=== PATIENT | male | born 1945 | race Caucasian/White ===

== ENCOUNTER 2019-04-28 13:33 | Inpatient (IN) | payer MEDICARE ==
[2019-04-28] MEDS ORDERED: ASPIRIN 81 MG PO STA (13:47)
[2019-04-28] MEDS ORDERED: NITROGLYCERIN SL TABS 0.4 MG TAB SUBLINGUAL STA (13:47)
--- NOTE | 2019-04-28 13:47 | ED ---
Chest Pain HPI - General Source: patient Mode of arrival: ambulatory Limitations: no limitations, physical limitation <Angie Moss - Last Filed: 04/28/19 15:52> <Oscar Grier - Last Filed: 04/28/19 16:01> - General Chief Complaint: Chest Pain Stated Complaint: Chest discomfort Time Seen by Provider: 04/28/19 13:46 - History of Present Illness Initial Comments: 73-year-old male presents emergency department for evaluation of chest pressure since 12 PM. Patient states she has had mild chest discomfort for the past 2 days. He states it increased after physical therapy earlier today when he got home around 4 PM and was sitting down for lunch. He states became sweaty at this time. He had left arm pain. Patient states the symptoms have somewhat subsided somewhat. However he was concerned he may be having a heart attack and presents emergency room for evaluation. Patient denies any previous MIs or known coronary artery disease. He states his last catheterization was in 2000. Patient states he does have a loop recorder--and does have a upper caser down at [facility] but he does not want to be transferred. Patient states he is on the xarelto for atrial fibrillation. Patient denies any syncopal episodes ripping tearing back pain abdominal pain masses or known aneurysms. The patient denies lower extremity swelling pleuritic pain upper respiratory symptoms or fevers. Patient has no other complaints upon arrival patient appears in no distress. He is not diaphoretic. Blood pressure is noted to be elevated. (Angie Moss) - Related Data Home Medications Medication Instructions Recorded Confirmed Lansoprazole [Prevacid] 30 mg PO DAILY 03/09/14 03/02/16 Docusate [Colace] 100 mg PO BID 10/30/15 03/02/16 Glucosam/Sergio-Msm1/C/Kin/Bosw 1 tab PO BID 10/30/15 03/02/16 [Glucosamine-Chondroitin Tablet] Multivitamin [Men's Multi-Vitamin] 1 tab PO DAILY 10/30/15 03/02/16 traMADol HCl [Ultram] 50 mg PO TID PRN 10/30/15 03/02/16 Baclofen [Lioresal] 10 - 20 mg PO Q6H PRN 03/02/16 03/02/16 Calcium Carbonate/Vitamin D3 1 tab PO BID 03/02/16 03/02/16 [Calcium 600-Vit D3 800 Tab] HYDROcodone/APAP 5-325MG [[place] 1 tab PO TID PRN 03/02/16 03/02/16 5-325] Hydrocortisone [Cortef] 10 mg PO DAILY@1600 03/02/16 03/02/16 Hydrocortisone [Cortef] 30 mg PO DAILY@0800 03/02/16 03/02/16 Simvastatin [Zocor] 20 mg PO DAILY 03/02/16 03/02/16 Previous Rx's Medication Instructions Recorded Aspirin EC [Ecotrin] 325 mg PO DAILY #30 tablet. 11/01/15 Allergies Allergy/AdvReac Type Severity Reaction Status Date / Time baclofen AdvReac Hallucinati Verified 03/02/16 09:45 ons meperidine HCl [From Demerol] AdvReac Nausea & Verified 03/02/16 08:55 Vomiting sulfamethoxazole AdvReac Rash/Hives Verified 03/02/16 08:55 [From Bactrim] trimethoprim [From Bactrim] AdvReac Rash/Hives Verified 03/02/16 08:55 Review of Systems ROS Other: All systems not noted in ROS Statement are negative. <Angie Moss - Last Filed: 04/28/19 15:52> ROS Other: All systems not noted in ROS Statement are negative. <Oscar Grier - Last Filed: 04/28/19 16:01> ROS Statement: Those systems with pertinent positive or pertinent negative responses have been documented in the HPI. EKG Findings - EKG Comments: EKG Findings:: Initial EKG obtained at 1348. Ventricular rate 78 bpm, DC interval 196 ms, QRS duration 100 ms, QT/QTC 378/430 milliseconds. There is no ST elevation appreciated. No hyperacute T waves. There is noted to be a sinus arrhythmia with occasional PVCs. There is noted left ventricular hypertrophy otherwise no specific findings. EKG percent interpreted and reviewed by attending provider Dr. Grier. Second EKG was obtained at 1429. Revealing atrial fibrillation with a rate of 60 bpm, QRS duration is 88 ms the QT/QTC 394/418. Again no obvious ST elevation or depression. 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 History of Any Multi-Drug Resistant Organisms: None Reported Past Surgical History: Appendectomy, Back Surgery, Heart Catheterization, Joint Replacement Additional Past Surgical History / Comment(s): back surgery x 4, bilateral cataracts removed, alicia hip replacments, cardiac cath 2010 - normal, EGD/colonoscopy, varicose vein stripping, tilt table test. Past Anesthesia/Blood Transfusion Reactions: No Reported Reaction Past Psychological History: No Psychological Hx Reported Smoking Status: Former smoker Past Alcohol Use History: Occasional Past Drug Use History: None Reported - Past Family History Father Family Medical History: Vascular Disorder Additional Family Medical History / Comment(s): PVD-double amputee. Mother Family Medical History: Pulmonary Embolus Additional Family Medical History / Comment(s): Mother of a pulmonary embolism at the age of 63 yrs. <Angie Moss - Last Filed: 04/28/19 15:52> General Exam Limitations: no limitations, physical limitation <Angie Moss - Last Filed: 04/28/19 15:52> - General Exam Comments Initial Comments: General: The patient is awake and alert, in no distress. Patient is not diaphoretic, negative Montez sign. Eye: +3 mm pupils are equal, round and reactive to light, extra-ocular movements are intact. No nystagmus. There is normal conjunctiva bilaterally. No signs of icterus. Ears, nose, mouth and throat: There are moist mucous membranes and no oral lesions. Neck: The neck is supple, there is no tenderness or JVD. Cardiovascular: There is a regular rate and rhythm. No murmur, rub or gallop is appreciated. Respiratory: Lungs are clear to auscultation, respirations are non-labored, breath sounds are equal. No wheezes, stridor, rales, or rhonchi. Gastrointestinal: Soft, non-distended, non-tender abdomen without masses or organomegaly noted. There is no rebound or guarding present. No pulsatile masses Musculoskeletal: Normal ROM, no tenderness. Strength 5/5. Sensation intact. Pulses equal bilaterally 2+. Neurological: A&O x 3. CN II-XII intact grossly, There are no obvious motor or sensory deficits. Coordination appears grossly intact. Speech is normal. Skin: Skin is warm and dry and no rashes or lesions are noted. No lower extremity edema Psychiatric: Cooperative, appropriate mood & affect, normal judgment. 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 He did present with the has a chest pain at started last evening going across his chest and left arm. He had diaphoresis with this. Today he had recurrent pain the initial workup thus far is negative for elevated cardiac enzymes are marked ST changes. He will however be admitted I did discuss case Dr. Borja. Cardiology will be consulted. The assessment and plan. The patient and his are in agreement. (Oscar Grier) Chest Pain MDM <Angie Moss - Last Filed: 04/28/19 15:52> - MDM 73-year-old male presents today for chest pressure and diaphoresis that began at noon. Patient has history of hypertension, advanced age. History of atrial fibrillation is currently compliant with his anticoagulation therapy. Patient's pain was relieved with nitroglycerin this is concerning for ACS. Initial troponin negative. We'll trend. Given patient's high risk we will initiate a low intensity heparin. Patient denies any recent bloody or melanotic stools denies history of GI bleed or recent surgeries. Patient is agreeable to adequate ablation therapy as well as admission for serial troponins and cardiac evaluation. Patient does have established cardiology care and will, however refuses transfer. Patient case was intercepted by Dr. Borja after Dr. Grier spoke with him. No further instruction. Cardiology on consult. Patient remains stable. (Angie Moss) Disposition Is patient prescribed a controlled substance at d/c from ED?: No Time of Disposition: 15:49 <Angie Moss - Last Filed: 04/28/19 15:52> <Oscar Grier - Last Filed: 04/28/19 16:01> Clinical Impression: Chest pressure, Left arm pain Disposition: ADMITTED IP TO THIS HOSP Condition: Stable Referrals: Griselda Stacy MD [Primary Care Provider] - 1-2 days
--- NOTE | 2019-04-28 14:48 | XR ---
EXAMINATION TYPE: XR chest 2V DATE OF EXAM: 04/28/2019 COMPARISON: 03/02/2016 HISTORY: Chest pain TECHNIQUE: Frontal and lateral views of the chest are obtained. FINDINGS: Increased interstitial lung markings are seen throughout, left greater than right secondary to rotation. There is no focal air space opacity, pleural effusion, or pneumothorax seen. The cardi ac silhouette size is within normal limits. Midthoracic vertebral body compression deformity is stabl e. Diffuse osseous demineralization is seen. Mild degenerative changes of the spine. IMPRESSION: Increased interstitial lung markings that may be on the basis of interstitial phase pulm onary edema or atypical pneumonitis.
[2019-04-28 14:51] LABS: Basophils # (A) 0.1 k/uL (0-0.2); Basophils % (A) 1 %; Eosinophils # (A) 0.4 k/uL (0-0.7); Eosinophils % (A) 4 %; HCT 43.3 % (39.0-53.0); Lymphocytes # (A) 0.9 k/uL (1.0-4.8); Lymphocytes % (A) 12 %; MCH 29.5 pg (25.0-35.0); MCHC 32.4 g/dL (31.0-37.0); Mean Platelet Volume 6.8; Monocytes # (A) 0.5 k/uL (0-1.0); Monocytes % (A) 6 %; Neutrophils # (A) 6.1 k/uL (1.3-7.7); Neutrophils % (A) 76 %; Platelet Count 281 k/uL (150-450); RBC 4.76 m/uL (4.30-5.90); RDW 13.6 % (11.5-15.5)
[2019-04-28 15:02] LABS: Albumin 4.2 g/dL (3.5-5.0); Calcium 9.4 mg/dL (8.4-10.2); Magnesium 2.3 mg/dL (1.6-2.3); Potassium 4.9 mmol/L (3.5-5.1); Total Bilirubin 0.6 mg/dL (0.2-1.3); Total Protein 7.3 g/dL (6.3-8.2)
[2019-04-28 15:03] LABS: Prothrombin Time 10.3 sec (9.0-12.0)
[2019-04-28] MEDS ORDERED: HEPARIN SODIUM,PORCINE 5,000 UNIT/ML 1 ML VIAL IV PRN (15:47)
[2019-04-28] MEDS ORDERED: HEPARIN SODIUM,PORCINE 5,000 UNIT/ML 1 ML VIAL IV ONE (15:47)
[2019-04-28] MEDS ORDERED: HEPARIN SOD,PORK IN 0.45% NACL 25,000 UNIT in 0.45% NACL 1 250ML.BAG IV SCH (16:00)
[2019-04-28] MEDS: NITROGLYCERIN SL TABS 0.4 MG TAB SUBLINGUAL PRN ×2 (16:27→19:25)
[2019-04-28] MEDS ORDERED: SPIRONOLACTONE 25 MG TAB PO PRN (17:23)
[2019-04-28] MEDS ORDERED: RIVAROXABAN 15 MG TAB PO SCH (17:30)
[2019-04-28 18:01] VITALS: BMI 33.5
[2019-04-28] MEDS: CARVEDILOL 6.25 MG TAB PO SCH (18:06)
[2019-04-28] MEDS ORDERED: HYDROmorphone 0.5 MG/0.5 ML SYRINGE IVP STA (20:00)
[2019-04-28] MEDS: NITROGLYCERIN OINT 1 INCH/GM PACKET TOPICAL SCH (20:08)
[2019-04-28] MEDS: ATORVASTATIN 10 MG TAB PO SCH (20:08)
[2019-04-28] MEDS ORDERED: NON FORMULARY DRUG (Simvastatin 20 MG) PO SCH (21:00)
[2019-04-28] MEDS ORDERED: HYDROCORTISONE 10 MG TAB PO SCH (21:00)
[2019-04-29] MEDS: PANTOPRAZOLE 40 MG TABLET PO SCH (06:28)
[2019-04-29] MEDS: NITROGLYCERIN OINT 1 INCH/GM PACKET TOPICAL SCH ×3 (06:28→21:24)
[2019-04-29] MEDS: CARVEDILOL 6.25 MG TAB PO SCH ×2 (06:28→17:00)
[2019-04-29 06:46] LABS: Mean Platelet Volume 6.2; Platelet Count 246 k/uL (150-450)
[2019-04-29 06:56] LABS: Cholesterol 138 mg/dL (<200); HDL Cholesterol 49 mg/dL (40-60); LDL Cholesterol,Calculated 74 mg/dL (0-99); Triglycerides 73 mg/dL (<150)
--- NOTE | 2019-04-29 08:40 | P.HPIM ---
History of Present Illness H&P Date: 04/29/19 Chief Complaint: Chest pain Ramin Green, is a 73-year-old male patient of Dr. Stacy, who presented to [facility] emergency room with a chief complaint chest pain, patient describes a pressure sensation in the middle of his chest radiating to the left arm patient also had severe diaphoresis, there was no nausea or vomiting no shortness of breath, patient decided to come to emergency room, he was evaluated in the emergency room EKG revealed atrial fibrillation without any acute ischemic changes, first troponin was negative, patient was admitted to telemetry floor cardiology consultation was requested. Patient has a known history of stroke in 2015 at that time he was diagnosed with atrial fibrillation and was started on Xarelto, he had a stress test in 2016 that was negative per patient, he also had cardiac catheterization in 2000 that was negative he denies ever having any angioplasty or stent placement he denies having any history of myocardial infarction or congestive heart failure. Patient has a known history of chronic kidney disease his creatinine on admission was 1.84 which is stable from his previous kidney function test his creatinine was 1.8 in February 2019 and 1.9 in October 2018. 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 Patient stated that he used to smoke he quit 30 years ago, he drinks alcohol rarely, he denies any illicit drug use Past Medical History Past Medical History: Chest Pain / Angina, CVA/TIA, GERD/Reflux, Hyperlipidemia, Hypertension, Osteoarthritis (OA), Renal Disease Additional Past Medical History / Comment(s): 10/2015 CVA with some residual R leg weakness-just completed physical therapy, chronic kidney disease stage III, vertigo at times, generalized arthritis, pedal edema at times. History of Any Multi-Drug Resistant Organisms: None Reported Past Surgical History: Appendectomy, Back Surgery, Heart Catheterization, Joint Replacement Additional Past Surgical History / Comment(s): back surgery x 4, bilateral cataracts removed, alicia hip replacments, cardiac cath 2010 - normal, EGD/colonoscopy, varicose vein stripping, tilt table test. Past Anesthesia/Blood Transfusion Reactions: No Reported Reaction Past Psychological History: No Psychological Hx Reported Additional Psychological History / Comment(s): Pt resides with his spouse. He has a cane and walker which he has been using lately. He no longer drives- drives him to [employer]. He no longer has home care but recently did have. Smoking Status: Former smoker Past Alcohol Use History: Occasional Additional Past Alcohol Use History / Comment(s): Patient has a previous history smoking he quit over 25 years ago. He does have a history of heavy alcohol use in which he stopped in 1999. Patient reports now that he drinks maybe 4 alcoh olic beverages during the week total Past Drug Use History: None Reported - Past Family History Father Family Medical History: Vascular Disorder Additional Family Medical History / Comment(s): PVD-double amputee. Mother Family Medical History: Pulmonary Embolus Additional Family Medical History / Comment(s): Mother of a pulmonary e mbolism at the age of 63 yrs. Medications and Allergies Home Medications Medication Instructions Recorded Confirmed Type Lansoprazole [Prevacid] 30 mg PO DAILY 03/09/14 04/28/19 History Simvastatin [Zocor] 20 mg PO HS 03/02/16 04/28/19 History Carvedilol [Coreg] 6.25 mg PO BID 04/28/19 04/28/19 History Furosemide [Lasix] 40 mg PO DAILY 04/28/19 04/28/19 History HYDROcodone/APAP 5-325MG [[place] 1 tab PO TID PRN 04/28/19 04/28/19 History 5-325] Hydrocortisone [Cortef] 10 mg PO BID 04/28/19 04/28/19 History Lidocaine 5% Oint [Xylocaine 5% 1 applic TOPICAL BID PRN 04/28/19 04/28/19 History Oint] Rivaroxaban [Xarelto] 15 mg PO W/SUPPER 04/28/19 04/28/19 History Simvastatin [Zocor] 20 mg PO HS 04/28/19 04/28/19 History Spironolactone [Aldactone] 25 mg PO DAILY PRN 04/28/19 04/28/19 History amLODIPine [Norvasc] 5 mg PO DAILY 04/28/19 04/28/19 History Allergies Allergy/AdvReac Type Severity Reaction Status Date / Time baclofen AdvReac Hallucinati Verified 04/28/19 16:25 ons meperidine HCl [From Demerol] AdvReac Nausea & Verified 04/28/19 16:25 Vomiting sulfamethoxazole AdvReac Rash/Hives Verified 04/28/19 16:25 [From Bactrim] trimethoprim [From Bactrim] AdvReac Rash/Hives Verified 04/28/19 16:25 Physical Exam Vitals: Vital Signs Temp Pulse Pulse Pulse Resp BP BP 04/29/19 04:00 65 16 130/63 04/29/19 00:00 98.7 F 66 16 118/64 04/28/19 20:00 98.7 F 74 16 111/67 04/28/19 19:31 78 16 116/64 04/28/19 19:26 77 16 139/67 04/28/19 17:00 97.9 F 57 L 18 113/63 04/28/19 16:33 146/73 04/28/19 16:20 70 16 140/92 04/28/19 15:47 70 16 04/28/19 14:34 72 16 123/74 04/28/19 14:27 70 16 129/77 04/28/19 13:58 75 04/28/19 13:36 97.7 F 85 18 138/85 Pulse Ox 04/29/19 04:00 97 04/29/19 00:00 99 04/28/19 20:00 100 04/28/19 19:31 100 04/28/19 19:26 100 04/28/19 17:00 04/28/19 16:33 04/28/19 16:20 96 04/28/19 15:47 98 04/28/19 14:34 98 04/28/19 14:27 98 04/28/19 13:58 04/28/19 13:36 100 Intake and Output 04/28/19 04/29/19 04/29/19 22:59 06:59 14:59 Intake Total 230 Output Total 300 1500 Balance -70 -1500 Intake: Oral 230 Output: Urine 300 1500 Other: # Voids 2 Weight 110 kg In general patient is alert and oriented 3 in no apparent distress HEENT head normocephalic and atraumatic Neck is supple no JVD no goiter no lymphadenopathy Chest exam reveals a few scattered rhonchi no wheezing Cardiac exam reveals regular heart sounds no gallops no murmurs Abdomen is soft nontender no organomegaly Extremity exam reveals no edema no cyanosis or clubbing. Pulses are palpable in the dorsalis pedis bilaterally Neurological examination reveals no gross focal deficit. Results CBC & Chem 7: 04/29/19 06:09 04/28/19 13:50 Labs: Abnormal Lab Results - Last 24 Hours (Table) 04/28/19 04/28/19 Range/Units 13:50 13:50 Lymphocytes # 0.9 L (1.0-4.8) k/uL Sodium 136 L (137-145) mmol/L BUN 24 H (9-20) mg/dL Creatinine 1.84 H (0.66-1.25) mg/dL Glucose 100 H (74-99) mg/dL ALT 18 L (21-72) U/L Thrombosis Risk Factor Assmnt - Choose All That Apply Any of the Below Risk Factors Present?: No Other Risk Factors: Yes Each Risk Factor Represents 2 Points: Age 61-74 years Other congenital or acquired thrombophilia - If yes, enter type in comment: No Thrombosis Risk Factor Assessment Total Risk Factor Score: 2 Thrombosis Risk Factor Assessment Level: Low Risk Assessment and Plan Plan: #1 Episode of chest pain, lasting several hours, relieved with Nitropaste, EKG and cardiac enzymes were negative cardiology consultation was requested awaiting input. #2 underlying history of atrial fibrillation rate is well-controlled maintained on supplemental for stroke prevention continue. #3 underlying history of chronic kidney disease, stage III, BUN on admission 24 creatinine 1.84 which is stable as compared to his previous readings over the last 2 years. #4 history of stroke in 2016 #5 underlying history of hypertension well-controlled on medications #6 underlying history of hyperlipidemia maintained on atorvastatin #7 history of degenerative disc disease with history of back surgery 4 in the past #8 underlying history of osteoarthritis At this time patient is admitted to telemetry floor cardiology consult requested continue current medications awaiting cardiology input. Patient is stable and chest pain-free at this time.
--- NOTE | 2019-04-29 08:42 | P.HPADDEND ---
H&P Addendum H&P Addendum Date: 04/29/19 On presentation patient was started on hydrocortisone 10 mg twice a day as it was on the patient medication list that he provided to the hospital. When asked why he was on hydrocortisone patient and his stated that this was an old medication that he is not taking any more. Hydrocortisone was then discontinued.
[2019-04-29] MEDS: FUROSEMIDE 40 MG TAB PO SCH ×2 (08:51→08:56)
[2019-04-29] MEDS: amLODIPine 5 MG TAB PO SCH (08:51)
[2019-04-29] MEDS ORDERED: ASPIRIN 325 MG TAB PO SCH (09:00)
--- NOTE | 2019-04-29 09:53 | P.CRDCN ---
History of Present Illness History of present illness: HISTORY OF PRESENTING ILLNESS This is a pleasant 73-year-old male past medical history significant for paroxysmal atrial fibrillation on long-term anticoagulation, CVA, hypertension, dyslipidemia, chronic kidney disease, former nicotine dependence, history of heavy alcohol abuse has been sober since 1999, loop recorder in place and right-sided weakness secondary to CVA. He presented with chest pain. He follows in the office with Dr. Flores out of [place]. We have been asked to see him in consultation for chest pain. He states yesterday while sitting down he had an episode of chest discomfort in the midsternal region with radiation through to his back associated with acute diaphoresis, overwhelming fatigue and diaphoresis. He states this intense episode lasted for approximately 10 minutes and then slowly started to subside. However he continued to have a pressure sensation in the chest. Upon arrival he received aspirin and nitroglycerin which did seem to mildly subsided discomfort however it did not completely take away. His symptoms persisted into the evening. Nitropaste was applied. He is currently chest pain-free. DIAGNOSTICS EKG reveals sinus mechanism with PVCs.. Chest xray interstitial markings likely early phase pulmonary edema. Laboratory reviewed, WBC 8, hemoglobin 14, platelets 281, sodium 136, potassium 4.9, creatinine 1.84 with a GFR 36, magnesium 2.3 cardiac enzymes negative 3, proBNP 413, LDL 74 and HDL 49. Current cardiac medications include carvedilol 6.25 mg twice a day, Xarelto 15 mg daily, simvastatin 20 mg daily, amlodipine 5 mg daily, Aldactone 25 mg daily as needed for lower extremity edema and Lasix 40 mg daily as needed for lower extremity edema. The patient states he does not take his Lasix regularly. Patient states he underwent a cardiac catheterization in 2000 that was unremarkable negative for CAD. 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 Telemetry tracings indicate paroxysmal atrial fibrillation with controlled rate. Most recent echocardiogram obtained 2016 reveals preserved LV systolic function with ejection fraction 55-60%. REVIEW OF SYSTEMS At the time of my exam: CONSTITUTIONAL: Denies fever or chills. CARDIOVASCULAR: Denies chest pain, shortness of breath, orthopnea, PND or palpitations. RESPIRATORY: Denies cough. GASTROINTESTINAL: Denies abdominal pain, diarrhea, constipation, nausea or vomiting. MUSCULOSKELETAL: Denies myalgias. NEUROLOGIC: Denies numbness, tingling or weakness. ENDOCRINE: Denies fatigue, weight change, polydipsia or polyurina. GENITOURINARY: Denies burning, hematuria or urgency with micturation. HEMATOLOGIC: Denies history of anemia or bleeding. PHYSICAL EXAMINATION Blood pressure 110/64 heart rate 66 afebrile and maintaining oxygen saturaiton on room air. CONSTITUTIONAL: No apparent distress. HEENT: Head is normocephalic. Pupils are equal, round. Sclerae anicteric. Mucous membranes of the mouth are moist. No JVD. No carotid bruit. CHEST EXAMINATION: Lungs are clear to auscultation. No chest wall tenderness is noted on palpation or with deep breathing. HEART EXAMINATION: Regular rate and rhythm. S1, S2 heard. No murmurs, gallops or rub. ABDOMEN: Soft, nontender. Positive bowel sounds. EXTREMITIES: 2+ peripheral pulses, no lower extremity edema and no calf tenderness. NEUROLOGIC EXAMINATION: Patient is awake, alert and oriented x3. ASSESSMENT Precordial chest pain Paroxysmal atrial fibrillation on long-term anticoagulation History of CVA with right-sided weakness Loop recorder implantation Chronic kidney disease Hypertension Dyslipidemia Obesity, BMI 33 PLAN An acute coronary event has been ruled out. Symptoms are concerning for underlying coronary artery disease. Obtain 2-D echocardiogram and Doppler study to assess cardiac structure and function. Interrogate loop recorder. Recommend nephrology opinion prior to cardiac catheterization. Further recommendations to follow based upon clinical course, likely will undergo cardiac catheterization to assess for underlying coronary artery disease. Thank you kindly for this consultation. Nurse Practitioner note has been reviewed, I agree with a documented findings and plan of care. Patient was seen and examined. Past Medical History Past Medical History: Chest Pain / Angina, CVA/TIA, GERD/Reflux, Hyperlipidemia, Hypertension, Osteoarthritis (OA), Renal Disease Additional Past Medical History / Comment(s): 10/2015 CVA with some residual R leg weakness-just completed physical therapy, chronic kidney disease stage III, vertigo at times, generalized arthritis, pedal edema at times. History of Any Multi-Drug Resistant Organisms: None Reported Past Surgical History: Appendectomy, Back Surgery, Heart Catheterization, Joint Replacement Additional Past Surgical History / Comment(s): back surgery x 4, bilateral cataracts removed, alicia hip replacments, cardiac cath 2010 - normal, EGD/colonoscopy, varicose vein stripping, tilt table test. Past Anesthesia/Blood Transfusion Reactions: No Reported Reaction Past Psychological History: No Psychological Hx Reported Additional Psychological History / Comment(s): Pt resides with his spouse. He has a cane and walker which he has been using lately. He no longer drives- drives him to appts. He no longer has home care but recently did have. Smoking Status: Former smoker Past Alcohol Use History: Occasional Additional Past Alcohol Use History / Comment(s): Patient has a previous history smoking he quit over 25 years ago. He does have a history of heavy alcohol use in which he stopped in 1999. Patient reports now that he drinks maybe 4 alcoholic beverages during the week total Past Drug Use History: None Reported - Past Family History Father Family Medical History: Vascular Disorder Additional Family Medical History / Comment(s): PVD-double amputee. Mother Family Medical History: Pulmonary Embolus Additional Family Medical History / Comment(s): Mother of a pulmonary embolism at the age of 63 yrs. Medications and Allergies Home Medications Medication Instructions Recorded Confirmed Type Lansoprazole [Prevacid] 30 mg PO DAILY 03/09/14 04/28/19 History Simvastatin [Zocor] 20 mg PO HS 03/02/16 04/28/19 History Carvedilol [Coreg] 6.25 mg PO BID 04/28/19 04/28/19 History Furosemide [Lasix] 40 mg PO DAILY PRN 04/28/19 04/28/19 History HYDROcodone/APAP 5-325MG [[place] 1 tab PO TID PRN 04/28/19 04/28/19 History 5-325] Hydrocortisone [Cortef] 10 mg PO BID 04/28/19 04/28/19 History Lidocaine 5% Oint [Xylocaine 5% 1 applic TOPICAL BID PRN 04/28/19 04/28/19 History Oint] Rivaroxaban [Xarelto] 15 mg PO W/SUPPER 04/28/19 04/28/19 History Simvastatin [Zocor] 20 mg PO HS 04/28/19 04/28/19 History Spironolactone [Aldactone] 25 mg PO DAILY PRN 04/28/19 04/28/19 History amLODIPine [Norvasc] 5 mg PO DAILY 04/28/19 04/28/19 History Allergies Allergy/AdvReac Type Severity Reaction Status Date / Time baclofen AdvReac Hallucinati Verified 04/28/19 16:25 ons meperidine HCl [From Demerol] AdvReac Nausea & Verified 04/28/19 16:25 Vomiting sulfamethoxazole AdvReac Rash/Hives Verified 04/28/19 16:25 [From Bactrim] trimethoprim [From Bactrim] AdvReac Rash/Hives Verified 04/28/19 16:25 Physical Exam Vitals: Vital Signs Temp Pulse Pulse Pulse Resp BP BP 04/29/19 08:00 97.9 F 66 18 110/64 04/29/19 04:00 65 16 130/63 04/29/19 00:00 98.7 F 66 16 118/64 04/28/19 20:00 98.7 F 74 16 111/67 04/28/19 19:31 78 16 116/64 04/28/19 19:26 77 16 139/67 04/28/19 17:00 97.9 F 57 L 18 113/63 04/28/19 16:33 146/73 04/28/19 16:20 70 16 140/92 04/28/19 15:47 70 16 04/28/19 14:34 72 16 123/74 04/28/19 14:27 70 16 129/77 04/28/19 13:58 75 04/28/19 13:36 97.7 F 85 18 138/85 Pulse Ox 04/29/19 08:00 97 04/29/19 04:00 97 04/29/19 00:00 99 04/28/19 20:00 100 04/28/19 19:31 100 04/28/19 19:26 100 04/28/19 17:00 04/28/19 16:33 04/28/19 16:20 96 04/28/19 15:47 98 04/28/19 14:34 98 04/28/19 14:27 98 04/28/19 13:58 04/28/19 13:36 100 Intake and Output 04/28/19 04/29/19 04/29/19 22:59 06:59 14:59 Intake Total 230 Output Total 300 1500 Balance -70 -1500 Intake: Oral 230 Output: Urine 300 1500 Other: # Voids 2 Weight 110 kg Results 04/29/19 06:09 04/28/19 13:50 Cardiac Enzymes 04/28/19 04/28/19 04/28/19 Range/Units 13:50 13:50 20:46 AST 26 (17-59) U/L Troponin I <0.012 <0.012 (0.000-0.034) ng/mL 04/29/19 Range/Units 01:53 AST (17-59) U/L Troponin I <0.012 (0.000-0.034) ng/mL Coagulation 04/28/19 Range/Units 13:50 PT 10.3 (9.0-12.0) sec APTT 28.0 (22.0-30.0) sec Lipids 04/29/19 Range/Units 06:09 Triglycerides 73 (<150) mg/dL Cholesterol 138 (<200) mg/dL HDL Cholesterol 49 (40-60) mg/dL CBC 04/28/19 04/29/19 Range/Units 13:50 06:09 WBC 8.0 (3.8-10.6) k/uL RBC 4.76 (4.30-5.90) m/uL Hgb 14.0 (13.0-17.5) gm/dL Hct 43.3 (39.0-53.0) % Plt Count 281 246 (150-450) k/uL Comprehensive Metabolic Panel 04/28/19 Range/Units 13:50 Sodium 136 L (137-145) mmol/L Potassium 4.9 (3.5-5.1) mmol/L Chloride 102 (98-107) mmol/L Carbon Dioxide 23 (22-30) mmol/L BUN 24 H (9-20) mg/dL Creatinine 1.84 H (0.66-1.25) mg/dL Glucose 100 H (74-99) mg/dL Calcium 9.4 (8.4-10.2) mg/dL AST 26 (17-59) U/L ALT 18 L (21-72) U/L Alkaline Phosphatase 53 (38-126) U/L Total Protein 7.3 (6.3-8.2) g/dL Albumin 4.2 (3.5-5.0) g/dL Current Medications Generic Name Dose Route Start Last Admin Trade Name Freq PRN Reason Stop Dose Admin Hydrocodone Bitart/Acetaminophen 1 each 04/28/19 17:23 [place] 5-325 PO TID PRN Pain Amlodipine Besylate 5 mg 04/29/19 09:00 04/29/19 08:51 Norvasc PO 5 mg DAILY [facility] Administration Aspirin 81 mg 04/30/19 09:00 Aspirin PO DAILY [facility] Atorvastatin Calcium 10 mg 04/28/19 21:00 04/28/19 20:08 Lipitor PO 10 mg HS [facility] Administration Carvedilol 6.25 mg 04/28/19 18:00 04/29/19 06:28 Coreg PO 6.25 mg BID-W/MEALS [facility] Administration Furosemide 40 mg 04/29/19 09:00 04/29/19 08:56 Lasix PO Not Given DAILY [facility] Nitroglycerin 0.4 mg 04/28/19 15:47 04/28/19 19:25 Nitrostat SUBLINGUAL 0.4 mg Q5M PRN Administration Chest Pain Nitroglycerin 1 inch 04/28/19 22:00 04/29/19 06:28 Nitro-Bid Oint TOPICAL 1 inch Q8H [facility] Administration Pantoprazole Sodium 40 mg 04/29/19 07:30 04/29/19 06:28 Protonix PO Not Given AC-BRKFST [facility] Spironolactone 25 mg 04/28/19 17:23 Aldactone PO DAILY PRN Edema Intake and Output 04/28/19 04/29/19 04/29/19 22:59 06:59 14:59 Intake Total 230 Output Total 300 1500 Balance -70 -1500 Intake: Oral 230 Output: Urine 300 1500 Other: # Voids 2 Weight 110 kg 04/29/19 06:09 04/28/19 13:50
[2019-04-29] MEDS: HYDROcodone/APAP 5-325MG 1 EACH TAB PO PRN ×2 (13:00→21:24)
[2019-04-29] MEDS ORDERED: ALPRAZolam 0.25 MG TAB PO PRN (13:48)
[2019-04-29] MEDS ORDERED: ALPRAZolam 0.5 MG TAB PO PRN (13:48)
[2019-04-29] MEDS ORDERED: SODIUM CHLORIDE 0.9% 1,000 ML in EMPTY BAG 1 BAG IV ONE (13:48)
--- NOTE | 2019-04-29 14:35 | ECHOF ---
Referral Reason:cp MEASUREMENTS -------- HEIGHT: 182.9 cm WEIGHT: 109.8 kg BP: RVIDd: 3.9 cm (< 3.3) IVSd: 1.0 cm (0.6 - 1.1) LVIDd: 3.7 cm (3.9 - 5.3) LVPWd: 1.2 cm (0.6 - 1.1) IVSs: 1.5 cm LVIDs: 1.9 cm LVPWs: 1.6 cm Ao Diam: 3.2 cm (2.0 - 3.7) AV Cusp: 2.0 cm (1.5 - 2.6) LA Diam: 3.4 cm (2.7 - 3.8) MV EXCURSION: 8.330 mm (> 18.000) MV EF SLOPE: 30 mm/s (70 - 150) EPSS: 1.3 cm MV E Nikita: 0.62 m/s MV DecT: 327 ms MV A Nikita: 0.99 m/s MV E/A Ratio: 0.63 RAP: 5.00 mmHg RVSP: 26.52 mmHg FINDINGS -------- Sinus rhythm with extra systolic beats. This was a technically difficult study with suboptimal views. The left ventricular size is normal. Left ventricular wall thickness is normal. Overall left vent ricular systolic function is normal with, an EF between 55 - 60 %. The right ventricle is mild to moderately enlarged. The left atrial size is normal. The right atrial size is normal. 5.0mg of Lumason was utilized for enhancement of images Aortic valve is trileaflet and is mildly thickened. The mitral valve is normal. The mitral valve leaflets are mildly thickened. There is trace mitral regurgitation. The tricuspid valve appears structurally normal. Mild tricuspid regurgitation present. Right vent ricular systolic pressure is normal at < 35 mmHg. There is no pulmonic regurgitation present. The aortic root size is normal. IVC Not well visulized. There is no pericardial effusion. CONCLUSIONS -------- 1. Sinus rhythm with extra systolic beats. 2. This was a technically difficult study with suboptimal views. 3. The left ventricular size is normal. 4. Left ventricular wall thickness is normal. 5. Overall left ventricular systolic function is normal with, an EF between 55 - 60 %. 6. The right ventricle is mild to moderately enlarged. 7. The left atrial size is normal. 8. The right atrial size is normal. 9. 5.0mg of Lumason was utilized for enhancement of images 10. Aortic valve is trileaflet and is mildly thickened. 11. The mitral valve is normal. 12. The mitral valve leaflets are mildly thickened. 13. There is trace mitral regurgitation. 14. The tricuspid valve appears structurally normal. 15. Mild tricuspid regurgitation present. 16. Right ventricular systolic pressure is normal at < 35 mmHg. 17. There is no pulmonic regurgitation present. 18. The aortic root size is normal. 19. IVC Not well visulized. 20. There is no pericardial effusion. CAMERA PERSON: Noemy Ludwig RDCS
--- NOTE | 2019-04-29 16:02 | US ---
EXAMINATION TYPE: US kidneys/renal and bladder DATE OF EXAM: 04/29/2019 COMPARISON: US 2010 CLINICAL HISTORY: rf. EXAM MEASUREMENTS: Right Kidney: 10.9 x 7.4 x 6.3 cm Left Kidney: 10.6 x 5.0 x 5.8 cm Right Kidney: Difficult to distinguish from surrounding tissue. Multiple cystic areas, largest measur es 1.9 x 1.8 x 1.7 cm. Left Kidney: No hydronephrosis or masses seen Bladder: not well distended Bilateral Jets seen: no IMPRESSION: Mobile right renal cortical cysts. There is some right renal cortical atrophy. No hydronephrosis. Aditya dder not well evaluated.
--- NOTE | 2019-04-29 18:38 | CONS ---
CONSULTATION REASON FOR CONSULT: Renal failure. HISTORY OF PRESENT ILLNESS: Patient is a 73-year-old male who was admitted to the hospital with complaints of chest discomfort and heaviness associated with significant sweating and generalized feeling of being unwell. The patient's troponin it is not elevated. However, he is being considered for cardiac catheterization given the severity of his symptoms. Serum creatinine was elevated at 1.84. However, review of previous labs shows a creatinine of 1.[address] back to 05/09/2018 and also in 2013 it looks like his creatinine was at 1.56 and 1.6 mg/dL. The patient denies having seen a ice cream freezer assistant previously. He states that one of his kidneys is smaller than the other one. He denies use of any nonsteroidal anti-inflammatory agents prior to admission. Currently patient is not on any MATHIEU inhibitors. He is maintained on a small dose of Lasix. PAST MEDICAL HISTORY: Significant for hypertension, osteoarthritis, atrial fibrillation, gastroesophageal reflux disease, hyperlipidemia, previous history of CVA, CKD, not being followed by Nephrology. PAST SURGICAL HISTORY: Appendectomy, back surgery, cardiac catheterization, bilateral hip arthroplasties, EGD, varicose vein stripping. SOCIAL HISTORY: Patient is a former smoker. No history of drug abuse or alcohol abuse. MEDICATIONS: Medications prior to admission included Prevacid, Zocor, Coreg Lasix Vicodin, Cortef, Xarelto, Zocor, Aldactone, amlodipine. ALLERGIES: Include BACLOFEN, DEMEROL, BACTRIM. REVIEW OF SYSTEMS: As per HPI. Other systems negative. EXAMINATION: Patient is comfortable, awake, alert, oriented x3, not in any acute distress. Blood pressure this morning was 110/64, heart rate 66 per minute, he is afebrile. Examination of the heart S1, S2. Examination of the lungs, bilateral breath sounds are heard. Abdomen is soft, nontender. Examination lower extremities shows edema 1+ bilaterally. SAFETY INSTRUCTOR exam grossly intact. LABS: Show sodium 136, potassium 4.9, chloride 102 BUN 24, serum creatinine 1.84, hemoglobin 14.0 g/dL. ASSESSMENT: 1. Chronic kidney disease, NKF stage 3B secondary to most likely nephrosclerosis. We will obtain a urinalysis. Renal function has been fairly stable all the way all the way from 2018. We can proceed with cardiac catheterization. I will continue with the daily oral dose of Lasix. We can start with very cautious hydration about 4 hours prior to the procedure and we can discontinue the IV fluids about 4-5 hours after the catheterization. The patient is advised to continue to avoid the use of NSAIDs down the road. We can add low-dose MATHIEU inhibitors down the road once renal function stays stable post catheterization. 2. Chest pain, going for cardiac catheterization. 3. Hypertension. 4. Hyperlipidemia. 5. Gastroesophageal reflux disease. PLAN: Check UA, check ultrasound of the kidneys. Continue with Lasix. Add cautious IV hydration for about 4 hours prior to procedure and 4 hours after the procedure with saline at about 50 mL an hour to avoid significant volume overload as patient already has mild volume overload. We can add low-dose MATHIEU inhibitors down the road once renal function stays stable post catheterization. Thank you for this consultation. I will continue to follow the patient with you during his hospitalization. EMERITA / SHAY: [id number] /
[2019-04-29] MEDS: ATORVASTATIN 10 MG TAB PO SCH (19:51)
[2019-04-29 19:58] LABS: Appearance,Urine Clear (Clear); Bilirubin,Urine Negative (Negative); Blood,Urine Negative (Negative); Color,Urine Yellow; Glucose,Urine (UA) Negative (Negative); Ketones,Urine Negative (Negative); Leukocyte Esterase,Urine Negative (Negative); Nitrite,Urine Negative (Negative); Protein,Urine Negative (Negative); Specific Gravity,Urine 1.014 (1.001-1.035); Urobilinogen,Urine <2.0 mg/dL (<2.0)
[2019-04-30] MEDS: NITROGLYCERIN OINT 1 INCH/GM PACKET TOPICAL SCH (05:26)
[2019-04-30] MEDS: PANTOPRAZOLE 40 MG TABLET PO SCH (05:27)
[2019-04-30] MEDS: CARVEDILOL 6.25 MG TAB PO SCH ×2 (05:32→17:04)
[2019-04-30] MEDS: amLODIPine 5 MG TAB PO SCH (05:32)
[2019-04-30 06:00] LABS: Glucose,Whole Blood 95 mg/dL (75-99)
[2019-04-30] MEDS ORDERED: ASPIRIN 81 MG PO ONE (06:00)
[2019-04-30 06:33] LABS: Albumin 3.7 g/dL (3.5-5.0); Potassium 4.8 mmol/L (3.5-5.1); Total Bilirubin 0.3 mg/dL (0.2-1.3); Total Protein 6.4 g/dL (6.3-8.2)
[2019-04-30] MEDS ORDERED: ASPIRIN 81 MG PO SCH (09:00)
--- NOTE | 2019-04-30 10:27 | PN ---
PROGRESS NOTE Patient is seen for followup for chronic kidney disease. He is scheduled for cardiac catheterization today. Serum creatinine was at 2.0 mg/dL today. This is not significantly different from where he has been previously. We can still go ahead and proceed with cardiac catheterization. I have held his Lasix. Continue with gentle hydration for now. PHYSICAL EXAMINATION: On examination, blood pressure was 144/69, heart rate 67 per minute, patient is afebrile. Examination of the heart S1, S2. Examination of the lungs, decreased breath sounds at bases. Abdomen is soft, nontender. Examination of lower extremities shows edema 1+ bilaterally. COMMERCIAL DRAFTER exam grossly intact. LABS: Show sodium 138, potassium 4.8, chloride 105, BUN 30, creatinine 2.08. UA is completely benign. ASSESSMENT: 1. Chronic kidney disease, NKF stage 3, secondary to nephrosclerosis. UA is completely benign. Ultrasound of the kidneys is unremarkable. Right renal cysts are noted. No hydronephrosis is noted. Okay to proceed with cardiac catheterization. Hold off on Lasix. Continue gentle IV hydration. 2. Chest pressure, rule out underlying coronary artery disease, scheduled for cardiac catheterization today. 3. Hypertension controlled. Avoid hypotension. The patient is maintained on Norvasc and Coreg. PLAN: Okay to proceed with cardiac cath. Hold off on Lasix. Continue with gentle IV hydration. Repeat labs in a.m. MMODL / IJN: [id number] /
[2019-04-30] MEDS ORDERED: LIDOCAINE 1% INJ 10MG/ML (20 ML MDV) ONE (12:29)
[2019-04-30] MEDS ORDERED: IV FLUID CONTINUATION 1,000 ML IV ONE (12:36)
[2019-04-30] MEDS ORDERED: MIDAZOLAM 2 MG/2 ML VIAL IV ONE (12:38)
[2019-04-30] MEDS ORDERED: LIDOCAINE 1% INJ 10MG/ML (20 ML MDV) SQ ONE (12:38)
[2019-04-30] MEDS ORDERED: IOPAMIDOL-370 125ML BTL INJ ONE (12:48)
[2019-04-30] MEDS ORDERED: RX INFO: IV CONTRAST WAS GIVEN 1 EACH MISC MISCELLANE PRN (12:58)
--- NOTE | 2019-04-30 13:27 | CC ---
CARDIAC CATHETERIZATION REPORT INDICATION: Unstable angina. PROCEDURE NOTE: After obtaining informed consent, left heart catheterization, coronary angiogram are performed via the right femoral artery using standard April catheters. The patient tolerated the procedure well without any obvious immediate complications. A femoral angiogram was performed and Angio-Seal will be deployed for hemostasis. Patient received moderate conscious sedation. Total sedation time was 12 minutes. FINDINGS: HEMODYNAMICS: Left ventricular end-diastolic pressure is 12 mm. There is no significant gradient across the aortic valve. LEFT VENTRICULOGRAM: Left ventriculogram is not performed. ANGIOGRAPHIC DATA: LEFT MAIN CORONARY ARTERY: Left main coronary artery is a normal-sized vessel and is free of stenosis. Divides into left anterior descending coronary artery and circumflex coronary artery. LEFT ANTERIOR DESCENDING CORONARY ARTERY: LAD and its branches, circumflex coronary artery and its branches are free of significant stenosis. RIGHT CORONARY ARTERY: Right coronary artery is a large dominant vessel and is free of significant disease. CONCLUSIONS: 1. Normal coronary arteries. 2. Normal left ventricular end-diastolic pressure. PLAN: Patient is doing well. His chest pain is probably noncardiac in origin and his management is going to be in the form of risk factor modification. MMODL / IJN: [id number] /
[2019-04-30] MEDS: HYDROcodone/APAP 5-325MG 1 EACH TAB PO PRN (13:37)
--- NOTE | 2019-04-30 14:39 | P.PN ---
Subjective Progress Note Date: 04/30/19 Ramin Green, is a 73-year-old male patient of Dr. Stacy, who presented to [facility] emergency room with a chief complaint chest pain, patient describes a pressure sensation in the middle of his chest radiating to the left arm patient also had severe diaphoresis, there was no nausea or vomiting no shortness of breath, patient decided to come to emergency room, he was evaluated in the emergency room EKG revealed atrial fibrillation without any acute ischemic changes, first troponin was negative, patient was admitted to telemetry floor cardiology consultation was requested. Patient has a known history of stroke in 2015 at that time he was diagnosed with atrial fibrillation and was started on Xarelto, he had a stress test in 2016 that was negative per patient, he also had cardiac catheterization in 2000 that was negative he denies ever having any angioplasty or stent placement he denies having any history of myocardial infarction or congestive heart failure. Patient has a known history of chronic kidney disease his creatinine on admission was 1.84 which is stable from his previous kidney function test his creatinine was 1.8 in February 2019 and 1.9 in October 2018. 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 On 04/30/2019 and was seen and examined on the telemetry floor he is alert and oriented 3 in no apparent distress he underwent cardiac catheterization was Dr. Hurtado, that revealed no significant coronary artery disease per oral report. Creatinine was elevated this morning at 2.08 up from 1.84 yesterday and that was before cardiac catheterization was done. At this time patient will be monitored for 24 more hours was IV fluid Will recheck kidney function in a.m. tomorrow. Objective - Vital Signs Vital signs: Vital Signs Temp 97.8 F 04/30/19 08:05 Pulse 71 04/30/19 13:28 Resp 17 04/30/19 13:28 BP 135/72 04/30/19 13:28 Pulse Ox 96 04/30/19 13:28 Intake & Output 04/29/19 04/30/19 04/30/19 18:59 06:59 18:59 Intake Total 200 Output Total 500 1400 400 Balance -500 -1400 -200 Weight 109.6 kg Intake: IV 200 Output: Urine 500 1400 400 Other: # Voids 1 2 - Exam In general patient is alert and oriented 3 in no apparent distress HEENT head normocephalic and atraumatic Neck is supple no JVD no goiter no lymphadenopathy Chest exam reveals a few scattered rhonchi no wheezing Cardiac exam reveals regular heart sounds no gallops no murmurs Abdomen is soft nontender no organomegaly Extremity exam reveals no edema no cyanosis or clubbing. Pulses are palpable in the dorsalis pedis bilaterally Neurological examination reveals no gross focal deficit. - Labs CBC & Chem 7: 04/29/19 06:09 04/30/19 05:30 Labs: Abnormal Lab Results - Last 24 Hours (Table) 04/30/19 Range/Units 05:30 BUN 30 H (9-20) mg/dL Creatinine 2.08 H (0.66-1.25) mg/dL Glucose 101 H (74-99) mg/dL ALT 12 L (21-72) U/L Assessment and Plan Plan: #1 Episode of chest pain, lasting several hours, relieved with Nitropaste, EKG and cardiac enzymes were negative cardiology consultation was requested, patient underwent cardiac catheterization today, no significant coronary artery disease per oral report. #2 underlying history of atrial fibrillation rate is well-controlled maintained on supplemental for stroke prevention continue. #3 underlying history of chronic kidney disease, stage III, BUN on admission 24 creatinine 1.84 which is stable as compared to his previous readings over the last 2 years. Creatinine up to 2.08 this morning even before cardiac catheterization at this time will continue IV fluid and recheck kidney function in a.m. #4 history of stroke in 2016 #5 underlying history of hypertension well-controlled on medications #6 underlying history of hyperlipidemia maintained on atorvastatin #7 history of degenerative disc disease with history of back surgery 4 in the past #8 underlying history of osteoarthritis At this time patient is admitted to telemetry floor cardiology consult requested continue current medications awaiting cardiology input. Patient is stable and chest pain-free at this time.
[2019-04-30] MEDS: SODIUM CHLORIDE 0.9% 1,000 ML IV SCH (17:04)
[2019-04-30] MEDS ORDERED: RIVAROXABAN 15 MG TAB PO SCH (17:30)
[2019-04-30] MEDS: ATORVASTATIN 10 MG TAB PO SCH (20:01)
[2019-05-01] MEDS: SODIUM CHLORIDE 0.9% 1,000 ML IV SCH ×2 (03:04→09:33)
[2019-05-01] MEDS: PANTOPRAZOLE 40 MG TABLET PO SCH (06:25)
[2019-05-01] MEDS: CARVEDILOL 6.25 MG TAB PO SCH (06:25)
[2019-05-01 06:34] LABS: Basophils # (A) 0.1 k/uL (0-0.2); Basophils % (A) 1 %; Eosinophils # (A) 0.6 k/uL (0-0.7); Eosinophils % (A) 7 %; HCT 41.2 % (39.0-53.0); HGB 13.7 gm/dL (13.0-17.5); Lymphocytes # (A) 0.9 k/uL (1.0-4.8); Lymphocytes % (A) 12 %; MCH 30.6 pg (25.0-35.0); MCHC 33.4 g/dL (31.0-37.0); MCV 91.8 fL (80.0-100.0); Mean Platelet Volume 6.4; Monocytes # (A) 0.4 k/uL (0-1.0); Monocytes % (A) 5 %; Neutrophils # (A) 5.5 k/uL (1.3-7.7); Neutrophils % (A) 73 %; Platelet Count 255 k/uL (150-450); RBC 4.49 m/uL (4.30-5.90); RDW 13.7 % (11.5-15.5); WBC 7.6 k/uL (3.8-10.6)
[2019-05-01 06:43] LABS: Calcium 9.2 mg/dL (8.4-10.2); Potassium 4.8 mmol/L (3.5-5.1); Total Bilirubin 0.5 mg/dL (0.2-1.3); Total Protein 6.8 g/dL (6.3-8.2)
[2019-05-01 08:16] VITALS: BP 118/58; PULSE 74; RESP 18; TEMP 97.8
[2019-05-01] MEDS ORDERED: ASPIRIN 81 MG PO SCH (09:00)
[2019-05-01] MEDS: amLODIPine 5 MG TAB PO SCH (09:11)
--- NOTE | 2019-05-01 11:21 | P.PN ---
Subjective Progress Note Date: 05/01/19 Principal diagnosis: Chest discomfort This is a pleasant 73-year-old gentleman with history of paroxysmal atrial fibrillation as well as hypertension and dyslipidemia who presented to the hospital with a chest discomfort concerning for unstable angina. He underwent heart catheterization and that revealed normal coronaries. The echo revealed normal LV function with mild MR and mild TR. On follow-up with him today, he is asymptomatic from a cardiac vascular standpoint overview. From the cardiac standpoint, the patient can be discharged home. Objective - Vital Signs Vital signs: Vital Signs Temp 97.8 F 05/01/19 08:00 Pulse 74 05/01/19 08:00 Resp 18 05/01/19 08:00 BP 118/58 05/01/19 08:00 Pulse Ox 99 05/01/19 08:00 Intake & Output 04/30/19 05/01/19 05/01/19 18:59 06:59 18:59 Intake Total 450 250 Output Total 575 450 Balance -125 -450 250 Weight 108.7 kg Intake: IV 200 Oral 250 250 Output: Urine 575 450 Other: # Voids 2 1 - Constitutional General appearance: Present: no acute distress - Respiratory Respiratory: bilateral: CTA - Cardiovascular Rhythm: regular Heart sounds: normal: S1, S2 - Labs CBC & Chem 7: 05/01/19 05:17 05/01/19 05:17 Labs: Abnormal Lab Results - Last 24 Hours (Table) 05/01/19 05/01/19 Range/Units 05:17 05:17 Lymphocytes # 0.9 L (1.0-4.8) k/uL Sodium 136 L (137-145) mmol/L BUN 26 H (9-20) mg/dL Creatinine 1.87 H (0.66-1.25) mg/dL Glucose 102 H (74-99) mg/dL ALT 17 L (21-72) U/L Assessment and Plan Assessment: Assessment #1 chest discomfort which has resolved #2 paroxysmal atrial fibrillation Plan #1 heart catheterization revealed normal coronaries #2 the patient can be discharged home
--- NOTE | 2019-05-01 11:46 | P.DS ---
<Lourdes Maya P - Last Filed: 05/01/19 11:43> Providers Expected date of discharge: 05/01/19 Hospital Course: Discharge diagnosis #1 Episode of chest pain, lasting several hours, relieved with Nitropaste, EKG and cardiac enzymes were negative cardiology consultation was requested, patient underwent cardiac catheterization today, no significant coronary artery disease per oral report. Patient was evaluated by cardiology services. Patient has been cleared for discharge from cardiology standpoint. Patient has been asymptomatic #2 underlying history of atrial fibrillation rate is well-controlled maintained on supplemental for stroke prevention continue. Patient maintained on Xarelto #3 underlying history of chronic kidney disease, stage III, BUN on admission 24 creatinine 1.84 which is stable as compared to his previous readings over the last 2 years. Creatinine up to 2.08 this morning even before cardiac catheterization at this time will continue IV fluid and recheck kidney function in a.m. creatinine improving to 1.87 and bun 26. Lasix will be held until patient is evaluated by PCP. #4 history of stroke in 2016 #5 underlying history of hypertension well-controlled on medications #6 underlying history of hyperlipidemia maintained on atorvastatin #7 history of degenerative disc disease with history of back surgery 4 in the past #8 underlying history of osteoarthritis Hospital course Ramin Green, is a 73-year-old male patient of Dr. Stacy, who presented to [facility] emergency room with a chief complaint chest pain, patient describes a pressure sensation in the middle of his chest radiating to the left arm patient also had severe diaphoresis, there was no nausea or vomiting no shortness of breath, patient decided to come to emergency room, he was evaluated in the emergency room EKG revealed atrial fibrillation without any acute ischemic changes, first troponin was negative, patient was admitted to telemetry floor cardiology consultation was requested. Patient has a known history of stroke in 2016 at that time he was diagnosed with atrial fibrillation and was started on Xarelto, he had a stress test in 2016 that was negative per patient, he also had cardiac catheterization in 2000 that was negative he denies ever having any angioplasty or stent placement he denies having any history of myocardial infarction or congestive heart failure. Patient has a known history of chronic kidney disease his creatinine on admission was 1.84 which is stable from his previous kidney function test his creatinine was 1.8 in February 2019 and 1.9 in October 2018. 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 On 04/30/2019 and was seen and examined on the telemetry floor he is alert and oriented 3 in no apparent distress he underwent cardiac catheterization was Dr. Hurtaod, that revealed no significant coronary artery disease per oral report. Creatinine was elevated this morning at 2.08 up from 1.84 yesterday and that was before cardiac catheterization was done. At this time patient will be monitored for 24 more hours was IV fluid Will recheck kidney function in a.m. tomorrow. On 05/01/2019 patient's alert and oriented 3. Patient is eager to go home. Patient has been cleared for discharge from cardiology and nephrology standpoint. Creatinine improving to 1.87 and bun 26. Patient's Lasix will be held until evaluated by PCP. Patient denies chest pain or shortness of breath. Patient denies nausea vomiting or diarrhea. Patient denies any urinary burning or frequency I performed an examination of the patient and discussed their management with the Nurse Practitioner. I have reviewed the Nurse Practitioner's notes and agree with the documented findings and plan of care Patient Condition at Discharge: Stable Plan - Discharge Summary New Discharge Prescriptions: Continue Lansoprazole [Prevacid] 30 mg PO DAILY Simvastatin [Zocor] 20 mg PO HS Spironolactone [Aldactone] 25 mg PO DAILY PRN PRN Reason: Edema Rivaroxaban [Xarelto] 15 mg PO W/SUPPER Carvedilol [Coreg] 6.25 mg PO BID amLODIPine [Norvasc] 5 mg PO DAILY Simvastatin [Zocor] 20 mg PO HS Hydrocortisone [Cortef] 10 mg PO BID HYDROcodone/APAP 5-325MG [[place] 5-325] 1 tab PO TID PRN PRN Reason: Pain Lidocaine 5% Oint [Xylocaine 5% Oint] 1 applic TOPICAL BID PRN PRN Reason: Pain Discontinued Furosemide [Lasix] 40 mg PO DAILY PRN PRN Reason: Edema Discharge Medication List Lansoprazole [Prevacid] 30 mg PO DAILY 03/09/14 [History] Simvastatin [Zocor] 20 mg PO HS 03/02/16 [History] Carvedilol [Coreg] 6.25 mg PO BID 04/28/19 [History] HYDROcodone/APAP 5-325MG [[place] 5-325] 1 tab PO TID PRN 04/28/19 [History] Hydrocortisone [Cortef] 10 mg PO BID 04/28/19 [History] Lidocaine 5% Oint [Xylocaine 5% Oint] 1 applic TOPICAL BID PRN 04/28/19 [History] Rivaroxaban [Xarelto] 15 mg PO W/SUPPER 04/28/19 [History] Simvastatin [Zocor] 20 mg PO HS 04/28/19 [History] Spironolactone [Aldactone] 25 mg PO DAILY PRN 04/28/19 [History] amLODIPine [Norvasc] 5 mg PO DAILY 04/28/19 [History] Follow up Appointment(s)/Referral(s): Griselda Stacy MD [Primary Care Provider] - 05/10/19 3:15 pm (Wednesday -earliest available appointment) Luis Hurtado MD [STAFF PHYSICIAN] - 05/11/19 11:15 am ( ) Patient Instructions/Handouts: *Surgery [facility] - After Heart Catheterization - [employer] Functional Tester Instructions Discharge Disposition: HOME SELF-CARE <Amelia Borja - Last Filed: 05/04/19 09:58> Providers Date of admission: 04/28/19 15:56 Attending physician: Amelia Borja Consults: 04/28/19 15:47 Consult Physician Urgent Consulting Provider: Subhash Burgos Consult Reason/Comments: chest pressure, relief with nitro Do you want consulting provider notified?: Yes 04/29/19 09:42 Consult Physician Routine Consulting Provider: Margie Gutiérrez Consult Reason/Comments: pre heart cath clearance for renal insufficiency Do you want consulting provider notified?: Yes Primary care physician: Griselda Stacy Hospital Course: creatinine returning to baseline. Patient to follow up with his PCP for further management
--- NOTE | 2019-05-01 14:02 | PN ---
PROGRESS NOTE Patient is seen for followup for chronic kidney disease. He did have a cardiac catheterization yesterday which was basically negative and did not show any significant coronary artery disease. Patient states he is feeling well and he will be discharged today. His creatinine is back down to 1.8 from 2.0 yesterday. PHYSICAL EXAMINATION: Blood pressure is 118/58, heart rate 74 per minute, he is afebrile. Examination of the heart S1, S2. Examination of the lungs, bilateral breath sounds are heard. Abdomen is soft, non-tender. Examination of the lower extremities shows edema 1+ bilaterally. MARINE GEOLOGIST exam grossly intact. LABS: Show sodium 136, potassium 4.8, BUN 26, creatinine 1.87, hemoglobin 13.7 g/dL. ASSESSMENT: 1. Chronic kidney disease NKF stage III. Baseline creatinine about 1.8 mg/dL secondary to nephrosclerosis. UA is completely benign and ultrasound of the kidneys was unremarkable except for some right renal cysts. 2. Chest pressure with negative troponins with clean cardiac cath. 3. Hypertension, controlled. 4. Atrial fibrillation with controlled ventricular response. Consider discontinuation of calcium channel blockers down the road as outpatient given the lower extremity edema. MMODL / IJN: [id number] /
== END 2019-05-01 12:53 | disposition home or self-care (01) | DRG 287 ==
LOC: EC 13:33 → 3SCARD 15:56 → OBSVTOIN 15:56
PROVIDERS: ADMIT Internal Medicine; ATTEND Internal Medicine
PROC: B2111ZZ Fluoroscopy of Multiple Coronary Arteries using Low Osmolar Contrast (ICD-10-PCS; 2019-04-30)
PROC: 4A023N7 Measurement of Cardiac Sampling and Pressure, Left Heart, Percutaneous Approach (ICD-10-PCS; principal; 2019-04-30 11:00)
DX: R07.9 Chest pain, unspecified (principal); I69.351 Hemiplegia and hemiparesis following cerebral infarction affecting right dominant side; E66.9 Obesity, unspecified; E78.5 Hyperlipidemia, unspecified; I12.9 Hypertensive chronic kidney disease with stage 1 through stage 4 chronic kidney disease, or unspecified chronic kidney disease; I48.0 Paroxysmal atrial fibrillation; I49.3 Ventricular premature depolarization; K21.9 Gastro-esophageal reflux disease without esophagitis; M13.0 Polyarthritis, unspecified; N18.3 Chronic kidney disease, stage 3 (moderate); N28.1 Cyst of kidney, acquired; Z68.33 Body mass index [BMI] 33.0-33.9, adult; Z79.01 Long term (current) use of anticoagulants; Z79.82 Long term (current) use of aspirin; Z79.899 Other long term (current) drug therapy; Z82.49 Family history of ischemic heart disease and other diseases of the circulatory system; Z87.891 Personal history of nicotine dependence; Z96.643 Presence of artificial hip joint, bilateral; Z88.5 Allergy status to narcotic agent; Z88.2 Allergy status to sulfonamides; Z88.8 Allergy status to other drugs, medicaments and biological substances; Z83.2 Family history of diseases of the blood and blood-forming organs and certain disorders involving the immune mechanism
CPT/HCPCS: 36415; 71046; 76770; 80053; 80061; 81003; 83735; 83880; 84484; 85025; 85049; 85610; 85730; 93005; 93306; 93458; 96365; 96376; 99285

== ENCOUNTER → 2019-08-28 | Outpatient (CLI) | payer MEDICARE ==
[2019-08-28 13:21] LABS: Basophils % (A) 1 %; Eosinophils # (A) 0.8 k/uL (0-0.7); Eosinophils % (A) 13 %; HCT 42.2 % (39.0-53.0); Lymphocytes # (A) 0.8 k/uL (1.0-4.8); Lymphocytes % (A) 13 %; MCH 30.6 pg (25.0-35.0); MCHC 33.1 g/dL (31.0-37.0); MCV 92.3 fL (80.0-100.0); Mean Platelet Volume 7.2; Monocytes # (A) 0.4 k/uL (0-1.0); Monocytes % (A) 6 %; Neutrophils # (A) 4.2 k/uL (1.3-7.7); Neutrophils % (A) 66 %; Platelet Count 273 k/uL (150-450); RBC 4.57 m/uL (4.30-5.90); RDW 13.2 % (11.5-15.5); WBC 6.4 k/uL (3.8-10.6)
[2019-08-28 13:22] LABS: Appearance,Urine Clear (Clear); Bilirubin,Urine Negative (Negative); Blood,Urine Negative (Negative); Color,Urine Yellow; Glucose,Urine (UA) Negative (Negative); Ketones,Urine Negative (Negative); Leukocyte Esterase,Urine Negative (Negative); Nitrite,Urine Negative (Negative); Protein,Urine Trace (Negative); Specific Gravity,Urine 1.012 (1.001-1.035); Urobilinogen,Urine <2.0 mg/dL (<2.0)
[2019-08-28 13:30] LABS: Calcium 9.6 mg/dL (8.4-10.2); Partial Thromboplastin Time 26.5 sec (22.0-30.0); Potassium 5.5 mmol/L (3.5-5.1); Prothrombin Time 10.3 sec (9.0-12.0)
--- NOTE | 2019-08-28 13:44 | XR ---
EXAMINATION TYPE: XR chest 2V DATE OF EXAM: 08/28/2019 COMPARISON: 05/08/2019 HISTORY: Presurgical evaluation TECHNIQUE: Frontal and lateral views of the chest are obtained. FINDINGS: Chronic interstitial prominence. There is no focal air space opacity, pleural effusion, or pneumothorax seen. The cardiac silhouette size is within normal limits diffuse osseous demineralizat ion and mid thoracic compression deformity are similar to the prior. IMPRESSION: No acute cardiopulmonary process. Diffuse interstitial prominence is chronic. Consider c hronic interstitial lung disease.
== END | disposition home or self-care (01) ==
LOC: LABPAT 11:36
PROVIDERS: ATTEND Orthopaedic Surgery Orthopaedic Surgery of the Spine
DX: Z01.818 Encounter for other preprocedural examination (principal); Z01.812 Encounter for preprocedural laboratory examination; J98.4 Other disorders of lung; N41.0 Acute prostatitis; Z79.01 Long term (current) use of anticoagulants
CPT/HCPCS: 36415; 71046; 80048; 81003; 84153; 85025; 85610; 85730; 87070

== ENCOUNTER → 2019-11-10 | Outpatient (CLI) | payer MEDICARE | END | disposition home or self-care (01) | LOC: LABPAT 08:33 | PROVIDERS: ATTEND Orthopaedic Surgery Orthopaedic Surgery of the Spine | DX: Z53.9 Procedure and treatment not carried out, unspecified reason (principal) ==

== ENCOUNTER → 2019-11-20 | Outpatient (CLI) | payer MEDICARE | END | disposition home or self-care (01) | LOC: LABWHC1 09:42 | PROVIDERS: ATTEND Orthopaedic Surgery Orthopaedic Surgery of the Spine | DX: U07.1 COVID-19 (principal) ==

== ENCOUNTER 2019-11-22 09:17 | Inpatient (IN) | payer MEDICARE ==
[2019-11-10 10:50] LABS: Potassium 5.2 mmol/L (3.5-5.1)
[2019-11-10 10:51] LABS: Calcium 9.8 mg/dL (8.4-10.2)
[2019-11-10 10:52] LABS: Partial Thromboplastin Time 28.6 sec (22.0-30.0); Prothrombin Time 10.7 sec (9.0-12.0)
[2019-11-10 10:54] LABS: Basophils # (A) 0.1 k/uL (0-0.2); Basophils % (A) 1 %; Eosinophils # (A) 0.5 k/uL (0-0.7); Eosinophils % (A) 5 %; HGB 14.5 gm/dL (13.0-17.5); Lymphocytes # (A) 0.9 k/uL (1.0-4.8); Lymphocytes % (A) 9 %; MCHC 32.9 g/dL (31.0-37.0); Mean Platelet Volume 6.8; Monocytes # (A) 0.6 k/uL (0-1.0); Monocytes % (A) 6 %; Neutrophils # (A) 8.6 k/uL (1.3-7.7); Neutrophils % (A) 79 %; Platelet Count 382 k/uL (150-450); RBC 4.84 m/uL (4.30-5.90); RDW 13.3 % (11.5-15.5); WBC 10.9 k/uL (3.8-10.6)
[2019-11-10 11:55] LABS: Appearance,Urine Clear (Clear); Bilirubin,Urine Negative (Negative); Blood,Urine Negative (Negative); Color,Urine Light Yellow; Glucose,Urine (UA) Negative (Negative); Ketones,Urine Negative (Negative); Leukocyte Esterase,Urine Negative (Negative); Mucus,Urine Rare /hpf; Nitrite,Urine Negative (Negative); PH, Urine 6.5 (5.0-8.0); Protein,Urine 1+ (Negative); RBC,Urine <1 /hpf (0-5); Specific Gravity,Urine 1.011 (1.001-1.035); Squamous Epithelial Cell,Urine 1 /hpf (0-4); Urobilinogen,Urine <2.0 mg/dL (<2.0); WBC,Urine 1 /hpf (0-5)
[2019-11-21 13:36] VITALS: BMI 35.4
[~2019-11-22 09:17] MED LIST: BACITRACIN 50,000 UNIT, POLYMYXIN B 500,000 UNIT in SODIUM CHLORIDE 0.9% IRRIGATIO 1,00... IRRIGATION ONE; DEXAMETHASONE SOD PHOSPHATE 10 MG/ML 1 ML VIAL IV ONE; MIDAZOLAM 2 MG/2 ML VIAL IV PRN; MORPHINE SULFATE 4 MG/ML SYRINGE IV PRN; ONDANSETRON 4 MG/2 ML VIAL IVP ONE; fentaNYL (PF) 50 MCG/ML 2 ML AMP IVP PRN
[2019-11-22] MEDS: LACTATED RINGERS 1,000 ML IV SCH (10:20)
[2019-11-22] MEDS ORDERED: LIDOCAINE 1% (10MG/ML) FOR IV START INTRADERMA ONE (10:20)
[2019-11-22] MEDS ORDERED: SUCCINYLCHOLINE CHLORIDE 100 MG/5 ML SYR IV ONE (10:54)
[2019-11-22] MEDS ORDERED: LIDOCAINE 1% INJ 10MG/ML (20 ML MDV) ONE (10:54)
[2019-11-22] MEDS ORDERED: ROCURONIUM BROMIDE 10 MG/ML 5 ML VIAL IV ONE (10:54)
[2019-11-22] MEDS ORDERED: fentaNYL (PF) 50 MCG/ML 2 ML AMP ONE (10:54)
[2019-11-22] MEDS ORDERED: MIDAZOLAM 2 MG/2 ML VIAL ONE (10:54)
[2019-11-22] MEDS ORDERED: KETAMINE 10 MG/ML 20 ML VIAL ONE (10:54)
[2019-11-22] MEDS ORDERED: PHENYLEPHRINE-0.9% NACL SYG 1 MG/10 ML SYRINGE ONE (10:54)
[2019-11-22] MEDS ORDERED: PROPOFOL 10 MG/ML 20 ML VIAL IV ONE (10:54)
[2019-11-22] MEDS ORDERED: THROMBIN (BOVINE) 5,000 UNIT VIAL TOPICAL ONE (11:00)
[2019-11-22] MEDS ORDERED: LIDOCAINE 0.5%-EPI 1:200,000 50 ML VIAL SQ ONE (11:00)
[2019-11-22] MEDS ORDERED: GELATIN SPONGE,ABSORB (LARGE) 1 EACH SPONGE TOPICAL ONE (11:00)
[2019-11-22] MEDS ORDERED: LACTATED RINGERS 1,000 ML IV ONE ×3 (12:32→14:57)
--- NOTE | 2019-11-22 15:06 | FL ---
EXAMINATION TYPE: FL guidance operating room, XR lumbar spine 1V DATE OF EXAM: 11/22/2019 CLINICAL HISTORY: Low back pain. TECHNIQUE: Fluoroscopy. Intraoperative single view lumbar spine. COMPARISON: None. FINDINGS: Fluoroscopic guidance was provided during low back surgical procedure performed by Dr. Heriberto duenas. A total of 45 seconds of fluoroscopic time was utilized during the procedure and 3 spot intraope rative images are acquired. Images acquired show placement of metallic disc material along with bilateral interpedicular rods and screws L3-L5 levels. Satisfactory alignment is seen on intraoperative images saved. Overlying puncta te densities of uncertain etiology noted. IMPRESSION: As Above.
[2019-11-22] MEDS ORDERED: ONDANSETRON 4 MG/2 ML VIAL IVP PRN (15:31)
[2019-11-22] MEDS ORDERED: HYDROcodone/APAP 5-325MG 1 EACH TAB PO PRN (15:31)
[2019-11-22] MEDS ORDERED: BENZOCAINE/MENTHOL LOZENG 1 EACH LOZENGE MUCOUS MEM PRN (15:31)
[2019-11-22] MEDS ORDERED: MORPHINE SULFATE 4 MG/ML SYRINGE IV PRN (15:31)
[2019-11-22] MEDS ORDERED: MAGNESIUM HYDROXIDE 2,400 MG/10 ML CUP PO PRN (15:31)
[2019-11-22] MEDS ORDERED: MORPHINE SULFATE 2 MG/ML SYRINGE IVP PRN (15:31)
[2019-11-22] MEDS ORDERED: NITROGLYCERIN SL TABS 0.4 MG TAB SUBLINGUAL PRN (15:34)
[2019-11-22] MEDS ORDERED: traMADol 50 MG TAB PO PRN (15:34)
[2019-11-22] MEDS ORDERED: FUROSEMIDE 40 MG TAB PO PRN (15:34)
--- NOTE | 2019-11-22 15:45 | P.OP ---
Date of Procedure: 11/22/19 Preoperative Diagnosis: Spondylolisthesis L4 5, severe spinal stenosis L3 4 L4 5, history of prior laminectomy L4 5, degenerative disc disease, lower extremity radiculopathy, neurogenic claudication, low back pain Postoperative Diagnosis: Same Anesthesia: GETA Pathology: none sent Condition: stable Disposition: PACU Description of Procedure: DESCRIPTION OF PROCEDURE(S): BRIEF OPERATIVE NOTE Preoperative Diagnosis: Spondylolisthesis L4 5, severe spinal stenosis L3 4 L4 5, history of prior laminectomy L4 5, degenerative disc disease, lower extremity radiculopathy, neurogenic claudication, low back pain Postoperative Diagnosis:Spondylolisthesis L4 5, severe spinal stenosis L3 4 L4 5, history of prior laminectomy L4 5, degenerative disc disease, lower extremity radiculopathy, neurogenic claudication, low back pain Procedure: Revision Laminectomy and decompression L4 5 Laminectomy decompression L3 4 Minimally invasive Posterior lateral decompression and fusion L3 4 L4 5 Minimally invasive Transforaminal lumbar interbody fusion for a 360 fusion L3 4 L4 5 Discectomy for decompression L3 4 L4 5 Use of computer navigation for fusion L3 4 L4 5 Use of fluoroscopic guidance for fusion L3 4 L4 5 Placement of interbody graftL3 4 L4 5 harvesting of bone marrow aspirate into the pedicle and vertebral body of L3 Local autogenous bone grafting Use of Cell Saver Use of bone graft extenders Surgeon: Dr. Encarnacion Development System Efficiency Manager: Mayco Crisostomo is present throughout the entire the case persistence during positioning, dissection, exposure, visualization, and all crucial elements of the case as well as closure. Anesthesia: General anesthesiaPer Dr. Cummins Estimated blood loss:Approximately 200 mL with 60 mL given back through Cell Saver Complications: None apparent Components implanted:K2M minimally invasive [place] pedicle screw system with [place] interbody cages and 10 mL of DBX bone fibers with 5 mL of osteoamp bone graft enhancer to supplemental local autogenous and bone marrow aspirate graft Disposition: To recovery room in good stable condition. OPERATIVE INDICATIONS The patient has had long-standing issues in their lower back and lower extremities. He has undergone multiple surgeries of his lumbar spine with decompressions at L4 5 with variable relief. He has had worsening pain in his low back and his lower extremities over the past several years despite his surgeries and is despite aggressive conservative treatment. He was found have progressive and dynamic spondylolisthesis L4 5 with severe recurrent stenosis and evidence of significant stenosis at L3 4. These findings correlated well with his low back and lower extremity symptoms. The patient has been through conservative treatment. We discussed various treatment options including s urgery, and the patient wishes to proceed with surgery We discussed the risk, patient's alternatives and benefits of surgery including but not limited to, risk of bleeding risk of infection, risk of need for further surgery, risk of decreased, loss of motion, muscle function, malunion nonunion, hardware failure, nerve damage, paralysis, heart attack, blindness and . We also discussed with him the fact that there is a current pandemic and there is no way to completely guarantee lack of exposure. The patient understood this. OPERATIVE SUMMARY After discussing all the risks, patient alternatives and benefits at length, the patient elected to proceed with surgical intervention, signed informed consent, and presented for their procedure. The patient was seen and examined in the preoperative holding area and the surgical site was marked. The patient was given antibiotics and brought to the operating room. The patient was sedated and intubated by anesthesia in standard fashion. The patient was positioned on to the operating room table in a prone position on the appropriate frame which was well-padded and well molded. We were careful to pad any bony prominences and pressure points. We were careful to maintain the patient's cervical spine and good neutral alignment and position throughout. The patient was prepped and draped in a normal standard fashion. An appropriate timeout and keystone protocol performed. We were able to proceed with the surgery. The local wound area was infiltrated with local anesthetic. I was able utilize C-arm guidance to establish appropriate position over the pedicles bilaterally at the appropriate levels At L3 4 and 5. at the right iliac crest was able to make 2 small stab incisions and establish guide pins with bony fixation into the right iliac crest as a reference for the camera for the computer navigation. I was able utilize the computer navigation throughout the fusion process. With the appropriate levels confirmed was able to make small stab incisions over the appropriate pedicle sites bilaterally. Utilizing the computer navigation device as well as C-arm I was able to establish a Jamshidi needle over the lateral aspect of the pedicle and advanced the trocar into the pedicle being careful not to breech superiorly inferiorly medially or laterally At L3-L4 and L5. Position was confirmed regularly with AP and lateral images on C-arm. I was able to establish the trocar into the pedicle appropriately into the posterior aspect of the vertebral body bilaterally at the appropriate levels At L3 4 and 5. This was done at each of the pedicle positions and each of the vertebrae. I was able place the guidewire into the trocar and into the vertebral body appropriately under C-arm guidance. Dissection was taken down over the wire to the appropriate starting position for the screw placed. The appropriate length screw was chosen, threaded over the guidewire and screwed appropriately into the pedicle and vertebral body under C- arm guidance in excellent alignment and position with good bony purchase. This is done at each of the screw sites at the appropriate levels At L3 4 and 5. With the screws intact I extended the incision to connect the screw hole sites on the most symptomatic side On the right. I dissected down to establish access over the pars and lamina to the base of the spinous process. I was able to expose the facet joint. at L4 5 there had been multiple decompression surgeries and there was significant increased difficulty with significant scar tissue formation around the epidural . I was able to take down significant portions of the facet and portions of lamina. Some of the scar tissue was adherent at the dura and nerve root and was impossible to remove without damaging the nerve so I left the small portions of scar tissue intact while I was able to free up some of the adhesions from the bony connections and get some mobilization of the dura and nerve roots. I was able to perform decompression L3 4 and L4 5. The capsule the facet was taken down and showed some facet arthrosis at the joint At L3 4 and L4 5. I was able to use a combination of curettes and Kerrison rongeurs and a high-speed drill to take down the facet joint and do a facetectomy. Partial laminectomy was also performed. I was able get excellent foraminal decompression and central decompression with undermining across midline to perform a laminectomy centrally and contralaterally. As able get good central decompression. The ligamentum flavum was taken down to further decompress centrally and at bilateral neural foramen At L3 4, but had been previously taken down at L4 5 and I removed some scar tissue around the area.. I was able to expose the disc space and visualize the traversing nerve root. Note was made of some disc protrusion at the level causing further compression of the nerve root. I was able to establish a annulotomy at the appropriate level protecting soft tissue and neural structures. Note was made of some disc desiccation at the disc At L3 4 and L4 5. I performed a complete discectomy with accommodation of curettes and rasps and scrapers. I was able get good endplate preparation at the disc space. I sized for the appropriate size interbody spacer protecting the soft tissue and neural structures. The wound was copiously irrigated and suctioned dry. There is no evidence of any dural tear or leak. I was able to pack the disc space with local autogenous bone graft as well as a small amount of bone graft which was also placed into the interbody cage itself. Protecting the soft tissue structures and neural structures I was able place the interbody cage in good alignment and good position with good fit and fill at the interbody space. His issues was confirmed with C-arm guidance. Good hemostasis maintained. There is no evidence of any dural tear or leak. The wound was irrigated and suctioned dry. With the hardware intact, intraoperative C-arm imaging was again taken which showed good alignment and position of the hardware at the appropriate levels. We were then able to measure, contour and place the rods and appropriate hardware bilaterally. I was able to place capcrews, tighten them down, and torque them with the torque screwdriver appropriately. With this intact I was able to place the local autogenous bone graft with additional bone graft enhancer as necessary into the posterior lateral gutters over the decorticated transverse processes. The remainder of the bone graft was placed over the facet joint on the contralateral side after taking down the facet joint capsule. With the bone graft intact, a stable construct, and good decompression at the appropriate levels, we were able to proceed with closure. Good hemostasis was maintained. There is no evidence of dural tear or leak. The fascia was closed for a watertight closure. he subcuticular tissue was closed with absorbable suture. The wound was cleaned and dried and dressed with the appropriate dressing. The drapes were broken down. The patient was gently rolled back onto their hospital bed being careful to maintain their cervical spine and good n eutral alignment and position. They were woken up by anesthesia, extubated, and brought to the recovery room in good stable condition. The patient will be admitted to the hospital for appropriate postoperative care, medical management and monitoring. We will continue to follow them closely about the postoperative course.
[2019-11-22] MEDS ORDERED: MORPHINE SULFATE 4 MG/ML SYRINGE IVP ONE ×2 (15:58→16:10)
[2019-11-22] MEDS: CARVEDILOL 6.25 MG TAB PO SCH (17:46)
[2019-11-22] MEDS: SODIUM CHLORIDE 0.9% 1,000 ML IV SCH (17:46)
[2019-11-22] MEDS: HYDROcodone/APAP 5-325MG 1 EACH TAB PO PRN ×2 (17:55→23:40)
[2019-11-22] MEDS ORDERED: ceFAZolin 3 GM in SODIUM CHLORIDE 0.9% 100 ML IVPB SCH (19:00)
[2019-11-22] MEDS: ATORVASTATIN 20 MG TAB PO SCH (20:08)
[2019-11-22] MEDS: GABAPENTIN 300 MG CAP PO SCH (20:08)
[2019-11-23 06:58] LABS: Basophils % (A) 0 %; Eosinophils # (A) 0.6 k/uL (0-0.7); Eosinophils % (A) 9 %; HCT 36.9 % (39.0-53.0); HGB 12.3 gm/dL (13.0-17.5); Lymphocytes # (A) 0.8 k/uL (1.0-4.8); Lymphocytes % (A) 11 %; MCH 29.6 pg (25.0-35.0); MCHC 33.3 g/dL (31.0-37.0); MCV 88.9 fL (80.0-100.0); Monocytes # (A) 0.3 k/uL (0-1.0); Monocytes % (A) 5 %; Neutrophils # (A) 5.3 k/uL (1.3-7.7); Neutrophils % (A) 74 %; Platelet Count 290 k/uL (150-450); RBC 4.15 m/uL (4.30-5.90); RDW 13.4 % (11.5-15.5); WBC 7.2 k/uL (3.8-10.6)
[2019-11-23 07:12] LABS: Calcium 8.8 mg/dL (8.4-10.2); Potassium 5.3 mmol/L (3.5-5.1)
[2019-11-23] MEDS: LACTATED RINGERS 1,000 ML IV SCH (08:14)
[2019-11-23] MEDS: SENNOSIDES-DOCUSATE SODIUM 1 EACH TAB PO SCH (08:15)
[2019-11-23] MEDS: CARVEDILOL 6.25 MG TAB PO SCH ×2 (08:15→18:03)
[2019-11-23] MEDS: amLODIPine 5 MG TAB PO SCH (08:15)
[2019-11-23] MEDS: MULTIVITAMINS, THERA 1 EACH TAB PO SCH (08:15)
[2019-11-23] MEDS: CALCIUM CARB-VIT D 500MG-200UN 1 EACH TAB PO SCH (08:15)
[2019-11-23] MEDS: PANTOPRAZOLE 40 MG TABLET PO SCH (08:15)
[2019-11-23] MEDS: HYDROcodone/APAP 5-325MG 1 EACH TAB PO PRN ×3 (08:16→22:43)
[2019-11-23] MEDS: SPIRONOLACTONE 25 MG TAB PO SCH ×2 (08:16→08:30)
[2019-11-23] MEDS: SODIUM CHLORIDE 0.9% 1,000 ML IV SCH ×2 (08:18→22:00)
--- NOTE | 2019-11-23 09:37 | P.PN ---
Progress Note - Text Progress Note Date: 11/23/19 Postoperative day #1 Patient is seen and examined today at bedside. The patient has some pain around the surgical site as expected. Pain is being controlled with medication.he is sitting up at bedside. He says his back is sore but he is relatively comfortable. He says his legs are doing well. Physical Exam Afebrile with stable vital signs Abdomen is soft nontender. Chest has good excursion deep and space expiration The incision site is clean dry and intact. No erythema there is no p urulence.his back is clear without any active drainage. Extremities have not had neurologic change from prior to surgery.he has sustained dorsal flexion plantarflexion and EHL Calves and thighs were soft nontender without evidence of DVT. Assessment/Plan Postoperative day #1 status post minimally invasive revision decompression with a fusion L3 4 L4 5 for his severe spinal stenosis and spondylolisthesis with lower extremity radiculopathy Patient is progressing as expected from the surgery. I think it'll take another day or 2 for the patient to be able to mobilize independently from his surgery. We will continue to increase the patient's mobilization with therapy. he is eager to start to mobilize and walk in his room. We will continue pain control with oral or IV medications. his pain seems to be controlled adequately and he will transition over to oral medications. We'll continue to follow patient closely.
--- NOTE | 2019-11-23 14:45 | P.CONS ---
History of Present Illness - Reason for Consult Consult date: 11/23/19 - History of Present Illness Ramin Green is a 73-year-old male patient of Dr. Stacy, who was admitted to [facility] by Dr. Encarnacion and underwent revision laminectomy and decompression L4-5, laminectomy decompression L3-L4, (please see full description of procedure in surgical note). Patient was admitted to medical floor post surgery, consultation was requested for medical management while hospitalized, patient has a known history of hypertension, hyperlipidemia, chronic kidney disease stage III, history of atrial fibrillation maintained on Xarelto, history of stroke in 2016 with residual right leg weakness. On review of systems patient is doing well he is alert and oriented 3 in no distress he is complaining of some back pain otherwise no complaints there is no fever or chills no headache or dizziness no chest pain no shortness of breath no cough no nausea or vomiting no abdominal pain no diarrhea no blood in the stools no burning with urination no frequency or urgency and no hematuria, no new weakness or numbness in any of the extremities no change in vision or speech or gait. Past Medical History Past Medical History: Atrial Fibrillation, Chest Pain / Angina, CVA/TIA, GERD/Reflux, Hyperlipidemia, Hypertension, Osteoarthritis (OA), Renal Disease Additional Past Medical History / Comment(s): 10/2015 CVA with some residual R leg weakness, TIA 3 months later-no effects from that, chronic kidney disease stage III, vertigo at times, lower extremity edema at times. History of Any Multi-Drug Resistant Organisms: None Reported Past Surgical History: Appendectomy, Back Surgery, Heart Catheterization, Joint Replacement Additional Past Surgical History / Comment(s): back surgery x 4, bilateral cataracts removed, alicia hip replacments, cardiac cath 2010 - normal, EGD/colonoscopy, varicose vein stripping, tilt table test, loop recorder ins erted-not functioning currently Past Anesthesia/Blood Transfusion Reactions: No Reported Reaction Smoking Status: Never smoker - Past Family History Father Family Medical History: Vascular Disorder Additional Family Medical History / Comment(s): PVD-double amputee. Mother Family Medical History: Pulmonary Embolus Additional Family Medical History / Comment(s): Mother of a pulmonary embolism at the age of 63 yrs. Medications and Allergies Home Medications Medication Instructions Recorded Confirmed Type Lansoprazole [Prevacid] 30 mg PO DAILY 03/09/14 11/21/19 History Carvedilol [Coreg] 6.25 mg PO BID 04/28/19 11/21/19 History HYDROcodone/APAP 5-325MG [Nicholson 1 tab PO TID PRN 04/28/19 11/21/19 History 5-325] Rivaroxaban [Xarelto] 15 mg PO W/SUPPER 04/28/19 11/21/19 History Simvastatin [Zocor] 40 mg PO HS 04/28/19 11/21/19 History Spironolactone [Aldactone] 25 mg PO DAILY 04/28/19 11/21/19 History amLODIPine [Norvasc] 5 mg PO DAILY 04/28/19 11/21/19 History Calcium Carbonate/Vitamin D3 1 each PO DAILY 09/01/19 11/21/19 History [Calcium 600-Vit D3 400 Tablet] Docusate Sodium [Dok] 250 mg PO BID 09/01/19 11/21/19 History Furosemide [Lasix] 40 mg PO DAILY PRN 09/01/19 11/21/19 History Gabapentin [Neurontin] 300 mg PO HS 09/01/19 11/21/19 History Multivitamins, Thera [Multivitamin 1 tab PO DAILY 09/01/19 11/21/19 History (formulary)] Nitroglycerin Sl Tabs [Nitrostat] 0.4 mg SUBLINGUAL Q5M PRN 09/01/19 11/21/19 History traMADol HCL [Ultram] 50 mg PO Q6HR PRN 11/21/19 11/21/19 History Allergies Allergy/AdvReac Type Severity Reaction Status Date / Time MATHIEU Inhibitors Allergy Unknown Verified 11/22/19 09:54 Sulfa (Sulfonamide Allergy Rash/Hives Verified 11/22/19 09:54 Antibiotics) baclofen AdvReac Hallucinati Verified 11/22/19 09:54 ons hydromorphone [From Dilaudid] AdvReac Hallucinati Verified 11/22/19 09:54 ons meperidine HCl [From Demerol] AdvReac Nausea & Verified 11/22/19 09:54 Vomiting sulfamethoxazole AdvReac Rash/Hives Verified 11/22/19 09:54 [From Bactrim] trimethoprim [From Bactrim] AdvReac Rash/Hives Verified 11/22/19 09:54 Physical Exam Vitals: Vital Signs Temp Pulse Resp BP Pulse Ox 11/23/19 12:48 98.5 F 89 20 105/64 96 11/23/19 05:22 98.7 F 83 18 113/64 93 L 11/22/19 21:33 97.8 F 78 18 108/65 93 L 11/22/19 17:54 97.6 F 85 16 117/76 92 L 11/22/19 16:07 75 18 110/64 99 11/22/19 15:52 75 19 115/80 99 11/22/19 15:37 72 19 120/72 97 11/22/19 15:22 97.7 F 71 18 129/59 94 L Intake and Output 11/22/19 11/23/19 11/23/19 22:59 06:59 14:59 Intake Total 250 240 Output Total 1200 Balance 250 -1200 240 Intake: IV 0 Intake, IV Titration 250 Amount Sodium Chloride 0.9% 1, 150 000 ml @ 75 mls/hr IV . [id number] ANGLE Rx#:[id number] ceFAZolin 2 gm In Sodium 100 Chloride 0.9% 50 ml @ 100 mls/hr IVPB Q8H [facility] Rx#: [id number] Oral 240 Output: Urine 1200 Other: Voiding Method Indwelling Catheter Indwelling Catheter Weight 108 kg In general patient is alert and oriented 3 in no apparent distress HEENT head normocephalic and atraumatic Neck is supple no JVD no goiter no lymphadenopathy Chest exam reveals a few scattered rhonchi no wheezing Cardiac exam reveals regular heart sounds no gallops no murmurs Abdomen is soft nontender no organomegaly with normal bowel sounds Extremity exam reveals no edema no cyanosis or clubbing Neurological examination reveals no gross focal deficit Results CBC & Chem 7: 11/23/19 06:09 11/23/19 06:09 Labs: Abnormal Lab Results - Last 24 Hours (Table) 11/23/19 11/23/19 Range/Units 06:09 06:09 RBC 4.15 L (4.30-5.90) m/uL Hgb 12.3 L (13.0-17.5) gm/dL Hct 36.9 L (39.0-53.0) % Lymphocytes # 0.8 L (1.0-4.8) k/uL Sodium 132 L (137-145) mmol/L Potassium 5.3 H (3.5-5.1) mmol/L Creatinine 1.73 H (0.66-1.25) mg/dL Assessment and Plan Plan: 1. Back pain status post decompression laminectomy L4-L5 and L3-L4 2. Underlying history of hypertension medication reviewed and reordered, blood pressure today 113/64 3. Underlying history of hyperlipidemia 4. History of atrial fibrillation patient was maintained on Xarelto prior to admission this will be resumed today per neurosurgery 5. Underlying history of chronic kidney disease stage III stable BUN today is 19 creatinine 1.73 Will monitor while hospitalized 6. Hyperkalemia, potassium 5.2 yesterday and 5.3 today Will discontinue Aldactone and monitor closely. Medication and labs reviewed please see orders will follow while hospitalized
[2019-11-23] MEDS: RIVAROXABAN 15 MG TAB PO SCH (18:03)
[2019-11-23] MEDS: ATORVASTATIN 20 MG TAB PO SCH (20:50)
[2019-11-23] MEDS: GABAPENTIN 300 MG CAP PO SCH (20:50)
[2019-11-24] MEDS: LACTATED RINGERS 1,000 ML IV SCH (05:10)
[2019-11-24 06:38] LABS: Basophils % (A) 0 %; Eosinophils # (A) 0.7 k/uL (0-0.7); Eosinophils % (A) 11 %; HCT 35.4 % (39.0-53.0); HGB 11.3 gm/dL (13.0-17.5); Hypochromasia Slight; Lymphocytes # (A) 0.6 k/uL (1.0-4.8); Lymphocytes % (A) 10 %; MCH 29.1 pg (25.0-35.0); MCHC 31.9 g/dL (31.0-37.0); MCV 91.3 fL (80.0-100.0); Monocytes # (A) 0.3 k/uL (0-1.0); Monocytes % (A) 5 %; Neutrophils # (A) 4.6 k/uL (1.3-7.7); Neutrophils % (A) 72 %; Platelet Count 208 k/uL (150-450); RBC 3.88 m/uL (4.30-5.90); RDW 13.4 % (11.5-15.5); WBC 6.4 k/uL (3.8-10.6)
[2019-11-24 06:58] LABS: ALT <6 U/L (4-49); AST 40 U/L (17-59); African American GFR (CKD) 44 (>60 ml/min/1.73 sqM); Albumin 2.8 g/dL (3.5-5.0); Alkaline Phosphatase 53 U/L (38-126); Anion Gap 6 mmol/L; Blood Urea Nitrogen 18 mg/dL (9-20); Calcium 8.3 mg/dL (8.4-10.2); Carbon Dioxide 22 mmol/L (22-30); Chloride 103 mmol/L (98-107); Glucose 99 mg/dL (74-99); Non-African American GFR(CKD) 38 (>60 ml/min/1.73 sqM); Potassium 4.8 mmol/L (3.5-5.1); Sodium 131 mmol/L (137-145); Total Bilirubin 0.3 mg/dL (0.2-1.3); Total Protein 5.6 g/dL (6.3-8.2)
[2019-11-24] MEDS: HYDROcodone/APAP 5-325MG 1 EACH TAB PO PRN ×3 (09:17→23:05)
[2019-11-24] MEDS: CALCIUM CARB-VIT D 500MG-200UN 1 EACH TAB PO SCH (09:17)
[2019-11-24] MEDS: SENNOSIDES-DOCUSATE SODIUM 1 EACH TAB PO SCH (09:17)
[2019-11-24] MEDS: PANTOPRAZOLE 40 MG TABLET PO SCH (09:18)
[2019-11-24] MEDS: CARVEDILOL 6.25 MG TAB PO SCH ×2 (09:18→17:55)
[2019-11-24] MEDS: amLODIPine 5 MG TAB PO SCH (09:18)
[2019-11-24] MEDS: MULTIVITAMINS, THERA 1 EACH TAB PO SCH (09:18)
--- NOTE | 2019-11-24 10:23 | P.PN ---
Progress Note - Text Progress Note Date: 11/24/19 Orthopedic Spine: History of present illness: Patient is a very pleasant 73-year-old male who is seen and examined at the bedside following posterior lateral decompression and fusion performed Wednesday. Patient states they are doing well overall postsurgically. He does continue to have pain at the surgical sites in his lumbar spine. His pain has been adequately controlled. He does have some difficulty with mobilization initially but it does improve. He currently denies any lower extremity weakness or radiculopathy. He is happy with the progress of his legs postoperatively. His Foreman catheter has been discontinued. She is voiding without difficulty. He is hoping to be discharged home in the next 1-2 days depending on his progress. Currently does not complain of nausea, vomiting, fever, or chills. He is eating without difficulty. He has been using his incentive spirometer. Patient continues to be seen and examined by medicine. His medical history includes hypertension and hyperlipidemia. Physical Exam Lumbar Fusion: Status post surgical day number 2 Patient is awake, alert, and oriented 3 Vital signs stable Good chest excursion with deep inspiration and expiration Dorsiflexion, plantarflexion, and extensor hallucis longus positive sustained bilaterally No signs or symptoms of DVT; no calf pain; pneumatic cuffs not currently intact bilateral lower extremities Dressings are clean, dry, and intact; no erythema, purulence, or signs of infection Neurovascularly intact bilaterally lower extremities Assessment: Status post L3-4 and L4 to 5 minimally invasive posterior lateral decompression and fusion with transforaminal lumbar interbody fusion Low back pain History of previous laminectomy Lumbar degenerative disc disease Lower extremity radiculopathy improved postoperatively L4-5 spondylolisthesis. Hypertension Hyperlipidemia Plan: 1. Ambulate as tolerated; work with Physical Therapy to increase mobilization 2. Continue pain control with IV and oral medications; his pain is currently being controlled with oral medications and we will continue to try to control his pain with oral medications in anticipation for discharge home the next 1-2 days 3. Dressings to remain intact with Optifoam and Tegaderm 4. Medical management can continue to manage patient for patient's other medical issues including hypertension hyperlipidemia 5. We will continue to follow the patient closely; if the patient continues to improve, we will plan for discharge home as early as tomorrow, 11/25/2019 or 11/26/2019 6. Patient can follow-up with Mayco Morales PA-C or Dr. Chirag Encarnacion at [facility] in 2-3 weeks following discharge
[2019-11-24] MEDS: SODIUM CHLORIDE 0.9% 1,000 ML IV SCH ×2 (14:40→21:11)
--- NOTE | 2019-11-24 16:06 | P.PN ---
Subjective Progress Note Date: 11/24/19 Ramin Green is a 73-year-old male patient of Dr. Stacy, who was admitted to [facility] by Dr. Encarnacion and underwent revision laminectomy and decompression L4-5, laminectomy decompression L3-L4, (please see full description of procedure in surgical note). Patient was admitted to medical floor post surgery, consultation was requested for medical management while hospitalized, patient has a known history of hypertension, hyperlipidemia, chronic kidney disease stage III, history of atrial fibrillation maintained on Xarelto, history of stroke in 2016 with residual right leg weakness. On review of systems patient is doing well he is alert and oriented 3 in no distress he is complaining of some back pain otherwise no complaints there is no fever or chills no headache or dizziness no chest pain no shortness of breath no cough no nausea or vomiting no abdominal pain no diarrhea no blood in the stools no burning with urination no frequency or urgency and no hematuria, no new weakness or numbness in any of the extremities no change in vision or speech or gait. On 11/24/2019 patient was seen and examined on the medical floor he is alert and oriented 3 in no apparent distress his pain is better controlled there is no fever or chills no headache or dizziness, no chest pain or shortness of breath no cough no nausea or vomiting no abdominal pain no diarrhea no burning with urination no frequency or urgency and no hematuria Objective - Vital Signs Vital signs: Vital Signs Temp 98.1 F 11/24/19 12:16 Pulse 80 11/24/19 12:16 Resp 16 11/24/19 12:16 BP 124/72 11/24/19 12:16 Pulse Ox 95 11/24/19 12:16 Intake & Output 11/23/19 11/24/19 11/24/19 18:59 06:59 18:59 Intake Total 1720 240 Output Total 200 675 Balance 1520 -675 240 Intake: Intake, IV Titration 640 Amount Sodium Chloride 0.9% 1, 640 000 ml @ 75 mls/hr IV . [id number] [facility] Rx#:[id number] Oral 1080 240 Output: Urine 200 675 Other: Voiding Method Urinal Urinal Urinal # Voids 2 - Exam In general patient is alert and oriented 3 in no apparent distress HEENT head normocephalic and atraumatic Neck is supple no JVD no goiter no lymphadenopathy Chest exam reveals a few scattered rhonchi no wheezing Cardiac exam reveals regular heart sounds no gallops no murmurs Abdomen is soft nontender no organomegaly with normal bowel sounds Extremity exam reveals no edema no cyanosis or clubbing Neurological examination reveals no gross focal deficit - Labs CBC & Chem 7: 11/24/19 05:45 11/24/19 05:45 Labs: Abnormal Lab Results - Last 24 Hours (Table) 11/24/19 11/24/19 Range/Units 05:45 05:45 RBC 3.88 L (4.30-5.90) m/uL Hgb 11.3 L (13.0-17.5) gm/dL Hct 35.4 L (39.0-53.0) % Lymphocytes # 0.6 L (1.0-4.8) k/uL Sodium 131 L (137-145) mmol/L Creatinine 1.74 H (0.66-1.25) mg/dL Calcium 8.3 L (8.4-10.2) mg/dL Total Protein 5.6 L (6.3-8.2) g/dL Albumin 2.8 L (3.5-5.0) g/dL Assessment and Plan Plan: 1. Back pain status post decompression laminectomy L4-L5 and L3-L4 2. Underlying history of hypertension medication reviewed and reordered, blood pressure today 113/64 3. Underlying history of hyperlipidemia 4. History of atrial fibrillation patient was maintained on Xarelto prior to admission this will be resumed today per neurosurgery 5. Underlying history of chronic kidney disease stage III stable BUN today is 19 creatinine 1.73 Will monitor while hospitalized 6. Hyperkalemia, potassium 5.2 yesterday and 5.3 today Will discontinue Aldactone and monitor closely. Medication and labs reviewed please see orders will follow while hospitalized
[2019-11-24] MEDS: RIVAROXABAN 15 MG TAB PO SCH (17:55)
[2019-11-24] MEDS: ATORVASTATIN 20 MG TAB PO SCH (21:00)
[2019-11-24] MEDS: GABAPENTIN 300 MG CAP PO SCH (21:00)
[2019-11-24 21:46] VITALS: RESP 18; TEMP 98.5
[2019-11-25] MEDS: LACTATED RINGERS 1,000 ML IV SCH (05:56)
[2019-11-25 07:13] VITALS: BP 127/69; PULSE 90
--- NOTE | 2019-11-25 08:00 | P.DS ---
Providers Date of admission: 11/24/19 12:54 Attending physician: Shar Encarnacion Consults: 11/22/19 17:57 Consult Physician Routine Consulting Provider: Amelia Borja Consult Reason/Comments: medical management Do you want consulting provider notified?: Yes Primary care physician: Griselda Stacy Hospital Course: The patient presented on the day of admission as per their operative note.he had spondylolisthesis with severe spinal stenosis and recurrent stenosis at his lumbar spine and underwent revision decompression with fusion at his lumbar spine. He feels that he is making progress postoperatively. He feels his legs have made improvement and he is becoming more ambulatory. His back is comfortable except when he changes positions which she has soreness due to his surgery. He has been able to void freely he is passing gas easily is tolerating his regular diet and he is mobile in his room. Physical Exam The incision site is clean dry and intact. There is no erythema no drainage. There is no purulence no evidence of infection.his back is clear Abdomen soft and nontender. Chest has good excursion with deep inspiration and expiration. The patient has active and passive range of motion intact at the upper and lower extremities. There is no acute change in neurologic status.he has sustained dorsal flexion plantarflexion and EHL intact. His thighs Soft and nontender. Hospital Course postoperative day #3 status post revision decompression L4 5 with minimally invasive decompression and fusion L3 4 L4 5 for his severe spinal stenosis with spondylolisthesis lower extremity radiculopathy and low back pain. The patient seemed to be making steady progress postoperatively and is satisfied with his results thus far.The patient has been making good progress postoperatively. Th ey have completed the prophylactic antibiotics without any signs or symptoms of infection. The patient has been able to advance their diet, and is tolerating diet adequately. The pain was initially controlled with IV medications and is now controlled appropriately with oral medications. The patient has been able to increase their mobilization. The patient has progressed appropriately. I think they are in good stable condition for discharge today. They will be sent home with appropriate prescriptions. I answered their questions to the best of my ability in a language that they can understand and they are agreeable with the plan. They will follow up as directedin approximately 2 weeks or sooner if he is having problems. Patient Condition at Discharge: Good Plan - Discharge Summary Discharge Rx Participant: No New Discharge Prescriptions: New HYDROcodone/APAP 5-325MG [Tangent 5] 1 each PO Q6HR PRN #28 tab PRN Reason: Pain No Action Lansoprazole [Prevacid] 30 mg PO DAILY Spironolactone [Aldactone] 25 mg PO DAILY Rivaroxaban [Xarelto] 15 mg PO W/SUPPER Carvedilol [Coreg] 6.25 mg PO BID amLODIPine [Norvasc] 5 mg PO DAILY Simvastatin [Zocor] 40 mg PO HS HYDROcodone/APAP 5-325MG [Tangent 5-325] 1 tab PO TID PRN PRN Reason: Pain Multivitamins, Thera [Multivitamin (formulary)] 1 tab PO DAILY Calcium Carbonate/Vitamin D3 [Calcium 600-Vit D3 400 Tablet] 1 each PO DAILY Nitroglycerin Sl Tabs [Nitrostat] 0.4 mg SUBLINGUAL Q5M PRN PRN Reason: CP Furosemide [Lasix] 40 mg PO DAILY PRN PRN Reason: Edema Gabapentin [Neurontin] 300 mg PO HS Docusate Sodium [Dok] 250 mg PO BID traMADol HCL [Ultram] 50 mg PO Q6HR PRN PRN Reason: Pain Discharge Medication List Lansoprazole [Prevacid] 30 mg PO DAILY 03/09/14 [History] Carvedilol [Coreg] 6.25 mg PO BID 04/28/19 [History] HYDROcodone/APAP 5-325MG [Tangent 5-325] 1 tab PO TID PRN 04/28/19 [History] Rivaroxaban [Xarelto] 15 mg PO W/SUPPER 04/28/19 [History] Simvastatin [Zocor] 40 mg PO HS 04/28/19 [History] Spironolactone [Aldactone] 25 mg PO DAILY 04/28/19 [History] amLODIPine [Norvasc] 5 mg PO DAILY 04/28/19 [History] Calcium Carbonate/Vitamin D3 [Calcium 600-Vit D3 400 Tablet] 1 each PO DAILY 09/01/19 [History] Docusate Sodium [Dok] 250 mg PO BID 09/01/19 [History] Furosemide [Lasix] 40 mg PO DAILY PRN 09/01/19 [History] Gabapentin [Neurontin] 300 mg PO HS 09/01/19 [History] Multivitamins, Thera [Multivitamin (formulary)] 1 tab PO DAILY 09/01/19 [History] Nitroglycerin Sl Tabs [Nitrostat] 0.4 mg SUBLINGUAL Q5M PRN 09/01/19 [History] traMADol HCL [Ultram] 50 mg PO Q6HR PRN 11/21/19 [History] HYDROcodone/APAP 5-325MG [Tangent 5] 1 each PO Q6HR PRN #28 tab 11/25/19 [Rx] Follow up Appointment(s)/Referral(s): Mayco Moarles, ESTEFANIA [PHYSICIAN WASTE EXAMINER] - 2 Weeks (Patient may follow-up with Mayco Morales PA-C or Dr. Chirag Encarnacion at [facility] in 2-3 weeks following discharge. ) Activity/Diet/Wound Care/Special Instructions: 1. Patient may shower with Optifoam dressing intact. 2. Patient may remove Optifoam dressing on WednesdayNovember 26 and shower without a dressing at that time. 3. Patient should keep exophin glue intact and allow it to fall off naturally. 4. Patient should refrain from driving until at least after their first follow- up appointment in the office. 5. Patient should avoid excessive bending, twisting, and lifting; no lifting greater than 10 pounds 6. Take medications as prescribed 7. Do not soak in tub Discharge Disposition: HOME SELF-CARE
[2019-11-25] MEDS: amLODIPine 5 MG TAB PO SCH (08:11)
[2019-11-25] MEDS: PANTOPRAZOLE 40 MG TABLET PO SCH (08:11)
[2019-11-25] MEDS: CARVEDILOL 6.25 MG TAB PO SCH (08:11)
[2019-11-25] MEDS: MULTIVITAMINS, THERA 1 EACH TAB PO SCH (08:11)
[2019-11-25] MEDS: CALCIUM CARB-VIT D 500MG-200UN 1 EACH TAB PO SCH (08:11)
[2019-11-25] MEDS: SENNOSIDES-DOCUSATE SODIUM 1 EACH TAB PO SCH (08:11)
[2019-11-25] MEDS: HYDROcodone/APAP 5-325MG 1 EACH TAB PO PRN ×2 (08:12→13:26)
[2019-11-25] MEDS: SODIUM CHLORIDE 0.9% 1,000 ML IV SCH (10:51)
--- NOTE | 2019-11-25 12:46 | P.PN ---
Subjective Progress Note Date: 11/25/19 Ramin Green is a 73-year-old male patient of Dr. Stacy, who was admitted to [facility] by Dr. Encarnacion and underwent revision laminectomy and decompression L4-5, laminectomy decompression L3-L4, (please see full description of procedure in surgical note). Patient was admitted to medical floor post surgery, consultation was requested for medical management while hospitalized, patient has a known history of hypertension, hyperlipidemia, chronic kidney disease stage III, history of atrial fibrillation maintained on Xarelto, history of stroke in 2016 with residual right leg weakness. On review of systems patient is doing well he is alert and oriented 3 in no distress he is complaining of some back pain otherwise no complaints there is no fever or chills no headache or dizziness no chest pain no shortness of breath no cough no nausea or vomiting no abdominal pain no diarrhea no blood in the stools no burning with urination no frequency or urgency and no hematuria, no new weakness or numbness in any of the extremities no change in vision or speech or gait. On 11/24/2019 patient was seen and examined on the medical floor he is alert and oriented 3 in no apparent distress his pain is better controlled there is no fever or chills no headache or dizziness, no chest pain or shortness of breath no cough no nausea or vomiting no abdominal pain no diarrhea no burning with urination no frequency or urgency and no hematuria. On 11/25/2019 Patient was seen and examined on the floor he is alert and oriented in no distress he denies any fever or chills no headache or dizziness, no chest pain or shortness of breath no cough no nausea or vomiting no abdominal pain no diarrhea no burning with urination no frequency or urgency and no hematuria Objective - Vital Signs Vital signs: Vital Signs Temp 98.5 F 11/25/19 05:00 Pulse 90 11/25/19 05:00 Resp 18 11/25/19 05:00 BP 127/69 11/25/19 05:00 Pulse Ox 91 L 11/25/19 05:00 Intake & Output 11/24/19 11/25/19 11/25/19 18:59 06:59 18:59 Intake Total 880 2400 Output Total 1000 Balance 880 1400 Intake: Intake, IV Titration 640 900 Amount Sodium Chloride 0.9% 1, 640 900 000 ml @ 75 mls/hr IV . [id number] [facility] Rx#:[id number] Oral 240 1500 Output: Urine 1000 Other: Voiding Method Urinal Urinal # Voids 2 - Exam In general patient is alert and oriented 3 in no apparent distress HEENT head normocephalic and atraumatic Neck is supple no JVD no goiter no lymphadenopathy Chest exam reveals a few scattered rhonchi no wheezing Cardiac exam reveals regular heart sounds no gallops no murmurs Abdomen is soft nontender no organomegaly with normal bowel sounds Extremity exam reveals no edema no cyanosis or clubbing Neurological examination reveals no gross focal deficit - Labs CBC & Chem 7: 11/24/19 05:45 11/24/19 05:45 Assessment and Plan Plan: 1. Back pain status post decompression laminectomy L4-L5 and L3-L4 2. Underlying history of hypertension medication reviewed and reordered, blood pressure today 113/64 3. Underlying history of hyperlipidemia 4. History of atrial fibrillation patient was maintained on Xarelto prior to admission this will be resumed today per neurosurgery 5. Underlying history of chronic kidney disease stage III stable BUN today is 19 creatinine 1.73 Will monitor while hospitalized 6. Hyperkalemia, potassium 5.2 yesterday and 5.3 today Will discontinue Aldactone and monitor closely. Medication and labs reviewed please see orders will follow while hospitalized
== END 2019-11-25 14:07 | disposition home or self-care (01) | DRG 455 ==
LOC: OR 09:17 → 5NMEDONC 15:54 → OR 11-23 13:12 → OBSVTOIN 11-24 12:54
PROVIDERS: ADMIT Orthopaedic Surgery Orthopaedic Surgery of the Spine; ATTEND Orthopaedic Surgery Orthopaedic Surgery of the Spine
PROC: 0SG1071 Fusion of 2 or more Lumbar Vertebral Joints with Autologous Tissue Substitute, Posterior Approach, Posterior Column, Open Approach (ICD-10-PCS; 2019-11-22)
PROC: 0ST20ZZ Resection of Lumbar Vertebral Disc, Open Approach (ICD-10-PCS; 2019-11-22)
PROC: 01NB0ZZ Release Lumbar Nerve, Open Approach (ICD-10-PCS; 2019-11-22)
PROC: 0SG10AJ Fusion of 2 or more Lumbar Vertebral Joints with Interbody Fusion Device, Posterior Approach, Anterior Column, Open Approach (ICD-10-PCS; principal; 2019-11-22 10:45)
DX: M48.062 Spinal stenosis, lumbar region with neurogenic claudication (principal); I69.341 Monoplegia of lower limb following cerebral infarction affecting right dominant side; I48.0 Paroxysmal atrial fibrillation; N18.3 Chronic kidney disease, stage 3 (moderate); I12.9 Hypertensive chronic kidney disease with stage 1 through stage 4 chronic kidney disease, or unspecified chronic kidney disease; M43.16 Spondylolisthesis, lumbar region; M51.16 Intervertebral disc disorders with radiculopathy, lumbar region; E78.5 Hyperlipidemia, unspecified; M19.90 Unspecified osteoarthritis, unspecified site; K21.9 Gastro-esophageal reflux disease without esophagitis; E87.5 Hyperkalemia; G25.81 Restless legs syndrome; E66.9 Obesity, unspecified; I83.90 Asymptomatic varicose veins of unspecified lower extremity; Z68.35 Body mass index [BMI] 35.0-35.9, adult; Z79.01 Long term (current) use of anticoagulants; Z79.899 Other long term (current) drug therapy; Z96.643 Presence of artificial hip joint, bilateral; Z98.42 Cataract extraction status, left eye; Z98.41 Cataract extraction status, right eye; Z98.890 Other specified postprocedural states; Z90.49 Acquired absence of other specified parts of digestive tract; Z87.891 Personal history of nicotine dependence; Z88.5 Allergy status to narcotic agent; Z88.2 Allergy status to sulfonamides; Z88.8 Allergy status to other drugs, medicaments and biological substances; Z82.49 Family history of ischemic heart disease and other diseases of the circulatory system; Z83.2 Family history of diseases of the blood and blood-forming organs and certain disorders involving the immune mechanism
CPT/HCPCS: 72020; 80048; 80053; 81001; 84132; 85025; 85610; 85730; 86850; 86900; 86901; 87070

== ENCOUNTER 2020-07-19 13:13 | Inpatient (IN) | payer MEDICARE ==
[2020-07-19] MEDS ORDERED: ALBUTEROL NEBULIZED 2.5 MG/3 ML INHALATION STA ×2 (13:22→14:46)
[2020-07-19] MEDS ORDERED: AZITHROMYCIN 500 MG in SODIUM CHLORIDE 0.9% 250 ML IVPB STA (13:22)
[2020-07-19] MEDS ORDERED: IPRATROPIUM 0.5 MG/2.5 ML NEBU INHALATION STA ×2 (13:22→14:46)
--- NOTE | 2020-07-19 13:26 | ED ---
General Adult HPI - General Stated complaint: SOB Time Seen by Provider: 07/19/20 13:20 Source: EMS, old records reviewed Mode of arrival: EMS Limitations: altered mental status - History of Present Illness Initial comments: Dictation was produced using [employer] dictation software. please excuse any grammatical, word or spelling errors. This patient was cared for during a federal and state declared state of emergency secondary to Covid 19 Chief Complaint: 74-year-old male was transferred from [facility] for dyspnea and hypoxia History of Present Illness: Patient is a 74-year-old male he was transferred via EMS from [facility]. Patient allegedly has been showing signs of dyspnea and respiratory distress today. He was found to be hypoxic in the 70 presents. Patient has history of a facial and CVA. Unclear what patient's normal baseline mental status is. Patient has history of COPD. Upon EMS evaluation they found that patient was hypoxic and tachypneic. CPAP was applied patient was given 25 mg of Solu-Medrol. He was not given a breathing treatment. Patient is unreliable historian at this time. Transfer documentation shows that he is full code. Unable to obtain secondary to mental status. PHYSICAL EXAM: General Impression: Alert and oriented x2/4, mildly tachypneic HEENT: Normocephalic atraumatic, extra-ocular movements intact, pupils equal and reactive to light bilaterally, mucous membranes moist. Cardiovascular: Heart regular rate and rhythm Chest: Diffuse lung wheezing, minimal retractions Abdomen: abdomen soft, non-tender, non-distended, no organomegaly Musculoskeletal: Pulses present and equal in all extremities, no peripheral edema Motor: no focal deficits noted Neurological: CN II-XII grossly intact, follows basic commands Skin: Intact with no visualized rashes ED course: 74-year-old male presents to the emergency department for respiratory distress. EKG interpretation: Ventricular rate 97, normal sinus rhythm, KY interval 192, QRS 12, QTC 411. No KY prolongation, no QTC prolongation, no ST or T-wave changes noted. Unchanged from EKG from 2019. Overall, this EKG is unremarkable. Patient immediately placed on BiPAP and given breathing treatment. is at bedside gave more history states that he does not have a history of COPD. Patient never been formally diagnosed with any sort of significant pulmonary comorbidities. Does not take a breathing treatment or workup home oxygen. Patient recently suffered a stroke that is currently why he is at a detention. also reports that patient was recently diagnosed with influenza. reports the patient normally has normal level baseline blood pressure with systolics usually around 103-105. Patient observed in the emergency department for approximately 2-1/2 hours stable medical condition. His blood pressure remained stable. No indication for central venous catheter placement at this time. Case is discussed with Dr. Osorio who is willing to accept patients care. Patient be admitted to cardiac stepdown with consultation with pulmonology. Patient received IV antibiotics treating pulmonary cause. Pending urine studies. - Related Data Home Medications Medication Instructions Recorded Confirmed Lansoprazole [Prevacid] 30 mg PO DAILY@89903/09/14 07/19/20 carvediloL [Coreg] 6.25 mg PO BID@899,209904/28/19 07/19/20 Furosemide [Lasix] 40 mg PO DAILY@89909/01/19 07/19/20 Gabapentin [Neurontin] 300 mg PO DAILY@89909/01/19 07/19/20 Acetaminophen Tab [Tylenol] 650 mg PO Q4H PRN 07/19/20 07/19/20 Apixaban [Eliquis] 5 mg PO BID@899,209907/19/20 07/19/20 Ascorbic Acid [Vitamin C] 1,000 mg PO HS@209907/19/20 07/19/20 Aspirin 81 mg PO DAILY@89907/19/20 07/19/20 Atorvastatin [Lipitor] 20 mg PO HS@209907/19/20 07/19/20 Azithromycin [Zithromax] 500 mg PO HS@209907/19/20 07/19/20 Cholecalciferol [Vitamin D3 (25 25 mcg PO HS@209907/19/20 07/19/20 Mcg = 1000 Iu)] Dexamethasone [Decadron] 6 mg PO DAILY@89907/19/20 07/19/20 Ipratropium-Albuterol Nebulize 3 ml INHALATION RT-Q4H PRN 07/19/20 07/19/20 [Duoneb 0.5 mg-3 mg/3 ml Soln] Magnesium Hydroxide [Milk of 2,400 mg PO BID PRN 07/19/20 07/19/20 Magnesia] Oseltamivir [Tamiflu] 75 mg PO Q12HR@00,2100 07/19/20 07/19/20 bisacodyL [Bisacodyl] 10 mg RECTAL DAILY PRN 07/19/20 07/19/20 cefTRIAXone [Rocephin] 1 gm IVPB DAILY 07/19/20 07/19/20 Allergies Allergy/AdvReac Type Severity Reaction Status Date / Time MATHIEU Inhibitors Allergy Unknown Verified 07/19/20 14:00 Sulfa (Sulfonamide Allergy Rash/Hives Verified 07/19/20 14:00 Antibiotics) baclofen AdvReac Hallucinati Verified 07/19/20 14:00 ons hydromorphone [From Dilaudid] AdvReac Hallucinati Verified 07/19/20 14:00 ons meperidine HCl [From Demerol] AdvReac Nausea & Verified 07/19/20 14:00 Vomiting sulfamethoxazole AdvReac Rash/Hives Verified 07/19/20 14:00 [From Bactrim] trimethoprim [From Bactrim] AdvReac Rash/Hives Verified 07/19/20 14:00 Review of Systems ROS Statement: Those systems with pertinent positive or pertinent negative responses have been documented in the HPI. ROS Other: All systems not noted in ROS Statement are negative. Past Medical History Past Medical History: Chest Pain / Angina, CVA/TIA, GERD/Reflux, Hyperlipidemia, Hypertension, Osteoarthritis (OA), Renal Disease Additional Past Medical History / Comment(s): 10/2015 CVA with some residual R l eg weakness-just completed physical therapy, chronic kidney disease stage III, vertigo at times, generalized arthritis, pedal edema at times. History of Any Multi-Drug Resistant Organisms: None Reported Past Surgical History: Appendectomy, Back Surgery, Heart Catheterization, Joint Replacement Additional Past Surgical History / Comment(s): back surgery x 4, bilateral cataracts removed, alicia hip replacments, cardiac cath 2010 - normal, EGD/colonoscopy, varicose vein stripping, tilt table test. Past Anesthesia/Blood Transfusion Reactions: No Reported Reaction Past Psychological History: No Psychological Hx Reported Smoking Status: Former smoker Past Alcohol Use History: Occasional Past Drug Use History: None Reported - Past Family History Father Family Medical History: Vascular Disorder Additional Family Medical History / Comment(s): PVD-double amputee. Mother Family Medical History: Pulmonary Embolus Additional Family Medical History / Comment(s): Mother of a pulmonary embolism at the age of 63 yrs. General Exam Limitations: altered mental status Course Vital Signs 07/19/20 07/19/20 07/19/20 13:15 13:30 13:45 Temperature 102.8 F H Pulse Rate 101 H 96 97 Respiratory 35 H 28 H Rate Blood Pressure 103/54 92/34 O2 Sat by Pulse 100 100 Oximetry 07/19/20 07/19/20 07/19/20 14:01 14:46 15:00 Temperature Pulse Rate 96 87 88 Respiratory 28 H 18 Rate Blood Pressure 96/58 93/61 O2 Sat by Pulse 99 99 Oximetry 07/19/20 15:09 Temperature Pulse Rate 87 Respiratory Rate Blood Pressure O2 Sat by Pulse Oximetry Medical Decision Making - Lab Data Result diagrams: 07/19/20 13:35 07/19/20 13:35 Lab Results 07/19/20 07/19/20 07/19/20 Range/Units 13:35 13:35 13:35 WBC 23.0 H (3.8-10.6) k/uL RBC 4.44 (4.30-5.90) m/uL Hgb 12.1 L (13.0-17.5) gm/dL Hct 36.3 L (39.0-53.0) % MCV 81.7 (80.0-100.0) fL MCH 27.3 (25.0-35.0) pg MCHC 33.5 (31.0-37.0) g/dL RDW 16.0 H (11.5-15.5) % Plt Count 394 (150-450) k/uL MPV 7.3 Neutrophils % 94 % Lymphocytes % 3 % Monocytes % 2 % Eosinophils % 0 % Basophils % 0 % Neutrophils # 21.5 H (1.3-7.7) k/uL Lymphocytes # 0.6 L (1.0-4.8) k/uL Monocytes # 0.5 (0-1.0) k/uL Eosinophils # 0.0 (0-0.7) k/uL Basophils # 0.1 (0-0.2) k/uL Anisocytosis Slight PT 11.4 (9.0-12.0) sec INR 1.1 (<1.2) APTT 22.6 (22.0-30.0) sec Sodium 131 L (137-145) mmol/L Potassium 4.7 (3.5-5.1) mmol/L Chloride 102 (98-107) mmol/L Carbon Dioxide 16 L (22-30) mmol/L Anion Gap 13 mmol/L BUN 60 H (9-20) mg/dL Creatinine 2.15 H (0.66-1.25) mg/dL Est GFR (CKD-EPI)AfAm 34 (>60 ml/min/1.73 sqM) Est GFR (CKD-EPI)NonAf 30 (>60 ml/min/1.73 sqM) Glucose 102 H (74-99) mg/dL Plasma Lactic Acid Willard (0.7-2.0) mmol/L Calcium 9.0 (8.4-10.2) mg/dL Magnesium 2.4 H (1.6-2.3) mg/dL Total Bilirubin 0.5 (0.2-1.3) mg/dL AST 49 (17-59) U/L ALT 41 (4-49) U/L Alkaline Phosphatase 82 (38-126) U/L Lactate Dehydrogenase 739 H (313-618) U/L C-Reactive Protein 58.7 H (<10.0) mg/L Total Protein 7.0 (6.3-8.2) g/dL Albumin 3.4 L (3.5-5.0) g/dL Coronavirus (PCR) (Not Detectd) 07/19/20 07/19/20 Range/Units 13:35 13:54 WBC (3.8-10.6) k/uL RBC (4.30-5.90) m/uL Hgb (13.0-17.5) gm/dL Hct (39.0-53.0) % MCV (80.0-100.0) fL MCH (25.0-35.0) pg MCHC (31.0-37.0) g/dL RDW (11.5-15.5) % Plt Count (150-450) k/uL MPV Neutrophils % % Lymphocytes % % Monocytes % % Eosinophils % % Basophils % % Neutrophils # (1.3-7.7) k/uL Lymphocytes # (1.0-4.8) k/uL Monocytes # (0-1.0) k/uL Eosinophils # (0-0.7) k/uL Basophils # (0-0.2) k/uL Anisocytosis PT (9.0-12.0) sec INR (<1.2) APTT (22.0-30.0) sec Sodium (137-145) mmol/L Potassium (3.5-5.1) mmol/L Chloride (98-107) mmol/L Carbon Dioxide (22-30) mmol/L Anion Gap mmol/L BUN (9-20) mg/dL Creatinine (0.66-1.25) mg/dL Est GFR (CKD-EPI)AfAm (>60 ml/min/1.73 sqM) Est GFR (CKD-EPI)NonAf (>60 ml/min/1.73 sqM) Glucose (74-99) mg/dL Plasma Lactic Acid Willard 2.7 H* (0.7-2.0) mmol/L Calcium (8.4-10.2) mg/dL Magnesium (1.6-2.3) mg/dL Total Bilirubin (0.2-1.3) mg/dL AST (17-59) U/L ALT (4-49) U/L Alkaline Phosphatase (38-126) U/L Lactate Dehydrogenase (313-618) U/L C-Reactive Protein (<10.0) mg/L Total Protein (6.3-8.2) g/dL Albumin (3.5-5.0) g/dL Coronavirus (PCR) Not Detected (Not Detectd) Disposition Clinical Impression: Respiratory failure Disposition: ADMITTED IP TO THIS [facility] Condition: Fair Referrals: Aron Simon MD [Primary Care Provider] - 1-2 days Decision Time: 15:40
[2020-07-19 14:05] LABS: Albumin 3.4 g/dL (3.5-5.0); C Reactive Protein 58.7 mg/L (<10.0); Magnesium 2.4 mg/dL (1.6-2.3); Potassium 4.7 mmol/L (3.5-5.1); Total Bilirubin 0.5 mg/dL (0.2-1.3)
[2020-07-19 14:06] LABS: Anisocytosis Slight; Basophils # (A) 0.1 k/uL (0-0.2); Basophils % (A) 0 %; Eosinophils % (A) 0 %; HCT 36.3 % (39.0-53.0); HGB 12.1 gm/dL (13.0-17.5); Lymphocytes # (A) 0.6 k/uL (1.0-4.8); Lymphocytes % (A) 3 %; MCH 27.3 pg (25.0-35.0); MCHC 33.5 g/dL (31.0-37.0); MCV 81.7 fL (80.0-100.0); Mean Platelet Volume 7.3; Monocytes # (A) 0.5 k/uL (0-1.0); Monocytes % (A) 2 %; Neutrophils # (A) 21.5 k/uL (1.3-7.7); Neutrophils % (A) 94 %; Platelet Count 394 k/uL (150-450); RBC 4.44 m/uL (4.30-5.90)
[2020-07-19 14:10] LABS: INR 1.1 (<1.2); Partial Thromboplastin Time 22.6 sec (22.0-30.0); Prothrombin Time 11.4 sec (9.0-12.0)
--- NOTE | 2020-07-19 14:24 | XR ---
EXAMINATION TYPE: XR chest 1V portable DATE OF EXAM: 07/19/2020 HISTORY: Shortness of breath. COMPARISON: 08/28/2019 TECHNIQUE: Single view of the chest is submitted. FINDINGS: Demonstrated are scattered senescent parenchymal change. There is no evidence for focal infiltrate. The heart is stable. Hilar and mediastinal structures are within normal limits. Degenerative changes are seen of the dorsal spine. IMPRESSION: 1. Chronic changes without evidence for acute pulmonary disease.
[2020-07-19] MEDS ORDERED: ACETAMINOPHEN TAB 500 MG TAB PO STA (14:26)
[2020-07-19] MEDS ORDERED: cefTRIAXone IN SWFI 1,000 MG/10 ML SYRINGE IVP STA (14:27)
[2020-07-19] MEDS ORDERED: SODIUM CHLORIDE 0.9% 500 ML 1,000 ML IV STA (14:38)
[2020-07-19] MEDS ORDERED: SODIUM CHLORIDE 0.9% 1,000 ML IV STA (15:08)
[2020-07-19] MEDS ORDERED: ACETAMINOPHEN TAB 325 MG TAB PO PRN (15:37)
[2020-07-19] MEDS ORDERED: ONDANSETRON 4 MG/2 ML VIAL IVP PRN (15:37)
[2020-07-19] MEDS ORDERED: NALOXONE 0.4 MG/ML 1 ML VIAL IV PRN (15:37)
[2020-07-19] MEDS ORDERED: IPRATROPIUM-ALBUTEROL 3 ML NEB INHALATION PRN (15:40)
[2020-07-19 19:18] LABS: Appearance,Urine Clear (Clear); Bacteria,Urine Occasional /hpf; Bilirubin,Urine Negative (Negative); Blood,Urine Small (Negative); Color,Urine Yellow; Glucose,Urine (UA) Negative (Negative); Hyaline Casts,Urine 7 /lpf (0-2); Ketones,Urine Negative (Negative); Leukocyte Esterase,Urine Negative (Negative); Mucus,Urine Rare /hpf; Nitrite,Urine Negative (Negative); PH, Urine 5.5 (5.0-8.0); Protein,Urine 1+ (Negative); RBC,Urine 8 /hpf (0-5); Specific Gravity,Urine 1.015 (1.001-1.035); Urobilinogen,Urine <2.0 mg/dL (<2.0); WBC,Urine 1 /hpf (0-5)
[2020-07-19] MEDS ORDERED: MAGNESIUM HYDROXIDE 2,400 MG/10 ML CUP PO PRN (20:39)
[2020-07-19] MEDS ORDERED: AZITHROMYCIN 500 MG TAB PO SCH (21:00)
[2020-07-19] MEDS: SODIUM CHLORIDE 0.9% 1,000 ML IV SCH (21:52)
[2020-07-19] MEDS: ASCORBIC ACID 500 MG TAB PO SCH (21:53)
[2020-07-19] MEDS: ATORVASTATIN 20 MG TAB PO SCH (21:53)
[2020-07-19] MEDS: OSELTAMIVIR 75 MG CAP PO SCH (21:53)
[2020-07-19] MEDS: CHOLECALCIFEROL 25 MCG (1000 IU) TABLET PO SCH (21:53)
[2020-07-19] MEDS: APIXABAN 5 MG TAB PO SCH (21:53)
[2020-07-19 22:22] LABS: Ferritin 423.6 ng/mL (22.0-322.0)
[2020-07-20] MEDS: SODIUM CHLORIDE 0.9% 1,000 ML IV SCH ×3 (07:01→21:29)
[2020-07-20] MEDS: carvediloL 6.25 MG TAB PO SCH (08:47)
[2020-07-20] MEDS: ASPIRIN 81 MG PO SCH (08:47)
[2020-07-20] MEDS: PANTOPRAZOLE 40 MG TABLET PO SCH (08:47)
[2020-07-20] MEDS: OSELTAMIVIR 75 MG CAP PO SCH ×2 (08:47→20:24)
[2020-07-20] MEDS: APIXABAN 5 MG TAB PO SCH ×2 (08:47→20:24)
[2020-07-20] MEDS: GABAPENTIN 300 MG CAP PO SCH (08:47)
[2020-07-20] MEDS: predniSONE 20 MG TAB PO SCH (08:48)
[2020-07-20] MEDS ORDERED: cefTRIAXone 1 GM VIAL IVPB SCH (09:00)
[2020-07-20] MEDS ORDERED: FUROSEMIDE 20 MG TAB PO SCH (09:00)
[2020-07-20] MEDS ORDERED: IPRATROPIUM-ALBUTEROL 3 ML NEB INHALATION PRN (11:11)
[2020-07-20] MEDS ORDERED: SODIUM CHLORIDE 0.9% 500 ML 500 ML IV ONE (11:20)
--- NOTE | 2020-07-20 11:50 | P.NPCON ---
History of Present Illness - Reason for Consult Consult date: 07/20/20 acute renal failure - Chief Complaint Acute kidney injury - History of Present Illness This is a 74-year-old male who [facility] complaints of shortness of breath. He is seen because of chronic kidney disease and acute kidney injury Baseline creatinine is in the 1.7-1.8 range, urinalysis suggestive nephrosclerosis. He came in with a creatinine of 2.15 He was started on IV fluids and remains on room air, chest x-ray is showing chronic changes. He does have a white count and slightly high lactic acid 2.4, is afebrile blood pressure is somewhat low therefore effects criteria for sepsis. Is somewhat confused and has dementia and therefore his history is unreliable. 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 Expressive aphasia History of Any Multi-Drug Resistant Organisms: None Reported Past Surgical History: Appendectomy, Back Surgery, Heart Catheterization, Joint Replacement Additional Past Surgical History / Comment(s): back surgery x 4, bilateral cataracts removed, alicia hip replacments, cardiac cath 2010 - normal, EGD/colonoscopy, varicose vein stripping, tilt table test, loop recorder was shut off in 06/08 Past Anesthesia/Blood Transfusion Reactions: No Reported Reaction Past Psychological History: No Psychological Hx Reported, Bipolar Additional Psychological History / Comment(s): Lives at [facility], would like the pt to go to [facility], that was supposed to occur today. Smoking Status: Former smoker Past Alcohol Use History: Occasional Additional Past Alcohol Use History / Comment(s): Patient has a previous history smoking he quit over 25 years ago. He does have a history of heavy alcohol use in which he stopped in 1999. total Past Drug Use History: None Reported - Past Family History Father Family Medical History: Vascular Disorder Additional Family Medical History / Comment(s): PVD-double amputee. Mother Family Medical History: Pulmonary Embolus Additional Family Medical History / Comment(s): Mother of a pulmonary embolism at the age of 63 yrs. Medications and Allergies Home Medications Medication Instructions Recorded Confirmed Type Lansoprazole [Prevacid] 30 mg PO DAILY@89903/09/14 07/19/20 History carvediloL [Coreg] 6.25 mg PO BID@899,209904/28/19 07/19/20 History Furosemide [Lasix] 40 mg PO DAILY@0909/01/19 07/19/20 History Gabapentin [Neurontin] 300 mg PO DAILY@89909/01/19 07/19/20 History Acetaminophen Tab [Tylenol] 650 mg PO Q4H PRN 07/19/20 07/19/20 History Apixaban [Eliquis] 5 mg PO BID@0900,209907/19/20 07/19/20 History Ascorbic Acid [Vitamin C] 1,000 mg PO HS@209907/19/20 07/19/20 History Aspirin 81 mg PO DAILY@89907/19/20 07/19/20 History Atorvastatin [Lipitor] 20 mg PO HS@209907/19/20 07/19/20 History Azithromycin [Zithromax] 500 mg PO HS@209907/19/20 07/19/20 History Cholecalciferol [Vitamin D3 (25 25 mcg PO HS@209907/19/20 07/19/20 History Mcg = 1000 Iu)] Dexamethasone [Decadron] 6 mg PO DAILY@89907/19/20 07/19/20 History Ipratropium-Albuterol Nebulize 3 ml INHALATION RT-Q4H PRN 07/19/20 07/19/20 History [Duoneb 0.5 mg-3 mg/3 ml Soln] Magnesium Hydroxide [Milk of 2,400 mg PO BID PRN 07/19/20 07/19/20 History Magnesia] Oseltamivir [Tamiflu] 75 mg PO Q12HR@0900,209907/19/20 07/19/20 History bisacodyL [Bisacodyl] 10 mg RECTAL DAILY PRN 07/19/20 07/19/20 History cefTRIAXone [Rocephin] 1 gm IVPB DAILY 07/19/20 07/19/20 History Allergies Allergy/AdvReac Type Severity Reaction Status Date / Time MATHIEU Inhibitors Allergy Unknown Verified 07/19/20 14:00 Sulfa (Sulfonamide Allergy Rash/Hives Verified 07/19/20 14:00 Antibiotics) baclofen AdvReac Hallucinati Verified 07/19/20 14:00 ons hydromorphone [From Dilaudid] AdvReac Hallucinati Verified 07/19/20 14:00 ons meperidine HCl [From Demerol] AdvReac Nausea & Verified 07/19/20 14:00 Vomiting sulfamethoxazole AdvReac Rash/Hives Verified 07/19/20 14:00 [From Bactrim] trimethoprim [From Bactrim] AdvReac Rash/Hives Verified 07/19/20 14:00 Physical Exam Vitals: Vital Signs Temp Pulse Pulse Resp BP BP Pulse Ox 07/20/20 08:00 97.1 F L 67 16 106/68 100 07/20/20 05:53 96.5 F L 07/20/20 04:00 96.1 F L 63 16 103/64 99 07/20/20 02:00 67 18 07/20/20 00:00 95.6 F L 67 18 104/62 99 07/19/20 20:15 100 07/19/20 20:00 60 18 93/53 100 07/19/20 18:23 98.9 F 87 20 99/65 99 07/19/20 17:00 82 22 98/51 98 07/19/20 16:53 100 07/19/20 16:12 75 07/19/20 16:08 97.5 F L 67 18 83/56 100 07/19/20 16:00 72 22 107/61 100 07/19/20 15:30 98.5 F 79 21 100/63 99 07/19/20 15:09 87 07/19/20 15:00 88 18 93/61 99 07/19/20 14:46 87 28 H 96/58 99 07/19/20 14:01 96 07/19/20 13:45 97 28 H 92/34 100 07/19/20 13:30 96 07/19/20 13:15 102.8 F H 101 H 35 H 103/54 100 Intake and Output 07/19/20 07/20/20 07/20/20 22:59 06:59 14:59 Intake Total 780 100 Balance 780 100 Intake: Intake, IV Titration 780 100 Amount Sodium Chloride 0.9% 1, 780 000 ml @ 130 mls/hr IV . Q7H42M [facility] Rx#:[id number] cefTRIAXone 1 gm In 100 Sodium Chloride 0.9% 50 ml @ 100 mls/hr IVPB Q24HR [facility] Rx#:[id number] Other: Voiding Method Diaper Diaper Diaper # Voids 1 Weight 100.244 kg 95 kg 95 kg On exam today he is awake alert but confused disoriented Is cooperative HEENT exam no JVP neck is supple no facial asymmetry Lungs are to auscultation fair air entry bilaterally Heart sounds unremarkable for any murmur rub gallop Abdomen soft nontender no organomegaly status masses Extremity exam was no edema Neurologically awake alert cooperative but is oriented. Is able to move all his extremities but profoundly Results - Lab Results Most recent lab results Calcium 9.0 mg/dL (8.4-10.2) 07/19/20 13:35 Magnesium 2.4 mg/dL (1.6-2.3) H 07/19/20 13:35 07/19/20 13:35 07/19/20 13:35 Assessment and Plan Assessment: Impression 1. Chronic kidney disease secondary to nephrosclerosis Baseline creatinine 1.7- 1.8. 2. Acute kidney injury likely from reduce intake possibly from confusion. Pos sible pneumonia and sepsis 3. Dementia 4. Mild degree of non-gap acidosis bicarb is 16 creatinines gap is 13 5. Low blood pressure Admission 1. Agree with hydration, under careful monitoring. Check O2 saturation 2. Reduce blood pressure medications currently on Coreg 6.25 twice a day, We'll reduce it to 2.125 twice a day. 3. Monitor labs, intake and output 4. Start sodium bicarb 650 4 times a day 5. Bladder scan if necessary
--- NOTE | 2020-07-20 11:53 | P.HPIM ---
History of Present Illness H&P Date: 07/20/20 Chief Complaint: Difficulty breathing, short of breath, dyspnea 74-year-old male transferred via EMS from [facility] on the [facility] home. Patient was recently admitted as of patient to our service, and is not known to me. Patient was hypoxic pulse ox was 70% on room air. Has been having episodic dyspnea respiratory distress which has progressed. An ambulance was called and the patient was brought to the emergency room and subsequently admitted. Patient's baseline mental status is not clear. Somewhat confused. History of COPD. EMS found him hypoxic into the Period patient was started on CPAP and given 25 mg of Solu-Medrol in the IV in the emergency room. Documentation on the transfer note from [facility] demonstrates the patient is a full code Review of Systems Constitutional: Reports fatigue, Reports malaise, Reports weakness Ears, nose, mouth and throat: Reports as per HPI Breasts: right: gynecomastia Cardiovascular: Reports dyspnea on exertion, Reports high blood pressure, Reports irregular heart beat, Reports shortness of breath Respiratory: Reports congestion, Reports cough, Reports dyspnea (Smoking history, known history of COPD) Gastrointestinal: Reports as per HPI Genitourinary: Reports as per HPI Integumentary: Reports as per HPI Neurological: Reports as per HPI Psychiatric: Reports memory loss Endocrine: Reports as per HPI Past Medical History Past Medical History: Chest Pain / Angina, CVA/TIA, GERD/Reflux, Hyperlipidemia, Hypertension, Osteoarthritis (OA), Renal Disease Additional Past Medical History / Comment(s): 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 Expressive aphasia History of Any Multi-Drug Resistant Organisms: None Reported Past Surgical History: Appendectomy, Back Surgery, Heart Catheterization, Joint Replacement Additional Past Surgical History / Comment(s): back surgery x 4, bilateral cataracts removed, alicia hip replacments, cardiac cath 2010 - normal, EGD/colonoscopy, varicose vein stripping, tilt table test, loop recorder was shut off in 06/08 Past Anesthesia/Blood Transfusion Reactions: No Reported Reaction Past Psychological History: No Psychological Hx Reported, Bipolar Additional Psychological History / Comment(s): Lives at [facility], would like the pt to go to [facility], that was supposed to occur today. Smoking Status: Former smoker Past Alcohol Use History: Occasional Additional Past Alcohol Use History / Comment(s): Patient has a previous history smoking he quit over 25 years ago. He does have a history of heavy alcohol use in which he stopped in 1999. total Past Drug Use History: None Reported - Past Family History Father Family Medical History: Vascular Disorder Additional Family Medical History / Comment(s): PVD-double amputee. Mother Family Medical History: Pulmonary Embolus Additional Family Medical History / Comment(s): Mother of a pulmonary embolism at the age of 63 yrs. Medications and Allergies Home Medications Medication Instructions Recorded Confirmed Type Lansoprazole [Prevacid] 30 mg PO DAILY@89903/09/14 07/19/20 History carvediloL [Coreg] 6.25 mg PO BID@899,209904/28/19 07/19/20 History Furosemide [Lasix] 40 mg PO DAILY@89909/01/19 07/19/20 History Gabapentin [Neurontin] 300 mg PO DAILY@89909/01/19 07/19/20 History Acetaminophen Tab [Tylenol] 650 mg PO Q4H PRN 07/19/20 07/19/20 History Apixaban [Eliquis] 5 mg PO BID@0900,209907/19/20 07/19/20 History Ascorbic Acid [Vitamin C] 1,000 mg PO HS@209907/19/20 07/19/20 History Aspirin 81 mg PO DAILY@89907/19/20 07/19/20 History Atorvastatin [Lipitor] 20 mg PO HS@209907/19/20 07/19/20 History Azithromycin [Zithromax] 500 mg PO HS@209907/19/20 07/19/20 History Cholecalciferol [Vitamin D3 (25 25 mcg PO HS@209907/19/20 07/19/20 History Mcg = 1000 Iu)] Dexamethasone [Decadron] 6 mg PO DAILY@89907/19/20 07/19/20 History Ipratropium-Albuterol Nebulize 3 ml INHALATION RT-Q4H PRN 07/19/20 07/19/20 History [Duoneb 0.5 mg-3 mg/3 ml Soln] Magnesium Hydroxide [Milk of 2,400 mg PO BID PRN 07/19/20 07/19/20 History Magnesia] Oseltamivir [Tamiflu] 75 mg PO Q12HR@0900,2100 07/19/20 07/19/20 History bisacodyL [Bisacodyl] 10 mg RECTAL DAILY PRN 07/19/20 07/19/20 History cefTRIAXone [Rocephin] 1 gm IVPB DAILY 07/19/20 07/19/20 History Allergies Allergy/AdvReac Type Severity Reaction Status Date / Time AMTHIEU Inhibitors Allergy Unknown Verified 07/19/20 14:00 Sulfa (Sulfonamide Allergy Rash/Hives Verified 07/19/20 14:00 Antibiotics) baclofen AdvReac Hallucinati Verified 07/19/20 14:00 ons hydromorphone [From Dilaudid] AdvReac Hallucinati Verified 07/19/20 14:00 ons meperidine HCl [From Demerol] AdvReac Nausea & Verified 07/19/20 14:00 Vomiting sulfamethoxazole AdvReac Rash/Hives Verified 07/19/20 14:00 [From Bactrim] trimethoprim [From Bactrim] AdvReac Rash/Hives Verified 07/19/20 14:00 Physical Exam Osteopathic Statement: *. No significant issues noted on an osteopathic struc tural exam other than those noted in the History and Physical/Consult. Vitals: Vital Signs Temp Pulse Pulse Resp BP BP Pulse Ox 07/20/20 08:00 97.1 F L 67 16 106/68 100 07/20/20 05:53 96.5 F L 07/20/20 04:00 96.1 F L 63 16 103/64 99 07/20/20 02:00 67 18 07/20/20 00:00 95.6 F L 67 18 104/62 99 07/19/20 20:15 100 07/19/20 20:00 60 18 93/53 100 07/19/20 18:23 98.9 F 87 20 99/65 99 07/19/20 17:00 82 22 98/51 98 07/19/20 16:53 100 07/19/20 16:12 75 07/19/20 16:08 97.5 F L 67 18 83/56 100 07/19/20 16:00 72 22 107/61 100 07/19/20 15:30 98.5 F 79 21 100/63 99 07/19/20 15:09 87 07/19/20 15:00 88 18 93/61 99 07/19/20 14:46 87 28 H 96/58 99 07/19/20 14:01 96 07/19/20 13:45 97 28 H 92/34 100 07/19/20 13:30 96 07/19/20 13:15 102.8 F H 101 H 35 H 103/54 100 Intake and Output 07/19/20 07/20/20 07/20/20 22:59 06:59 14:59 Intake Total 780 Balance 780 Intake: Intake, IV Titration 780 Amount Sodium Chloride 0.9% 1, 780 000 ml @ 130 mls/hr IV . Q7H42M [facility] Rx#:[id number] Other: Voiding Method Diaper Diaper # Voids 1 Weight 100.244 kg 95 kg 95 kg General: [Patient awake, alert and oriented times x1. Mild dementia, Patient in no acute distress.] HEENT: [PERRL. EOMI. No pharyngeal erythema or exudate.] Neck: [No adenopathy.] Cardiac: [Heart regularly irregular. No S3. No S4. No clicks, rubs. No murmur.] Lungs: [Clear diminished throughout.] Abdomen: [No mass. No organomegaly. Bowel sounds presnt and normoactive in all 4 quadrants.] Extremes: [No edema no cyanosis no claudication, pulses nonpalpable, are pink and warm, ] : [Normal male genitalia] Musculoskeletal: [No joint erythema, edema or tenderness.] Skin: Healing wound toe #3 left foot Neurologic: [No lateralizing deficits. CN II - XII grossly intact.] Lymphatic: [No adenopathy.] Results CBC & Chem 7: 07/19/20 13:35 07/19/20 13:35 Labs: Abnormal Lab Results - Last 24 Hours (Table) 07/19/20 07/19/20 07/19/20 Range/Units 13:35 13:35 13:35 WBC 23.0 H (3.8-10.6) k/uL Hgb 12.1 L (13.0-17.5) gm/dL Hct 36.3 L (39.0-53.0) % RDW 16.0 H (11.5-15.5) % Neutrophils # 21.5 H (1.3-7.7) k/uL Lymphocytes # 0.6 L (1.0-4.8) k/uL Sodium 131 L (137-145) mmol/L Carbon Dioxide 16 L (22-30) mmol/L BUN 60 H (9-20) mg/dL Creatinine 2.15 H (0.66-1.25) mg/dL Glucose 102 H (74-99) mg/dL Plasma Lactic Acid Willard 2.7 H* (0.7-2.0) mmol/L Magnesium 2.4 H (1.6-2.3) mg/dL Ferritin 423.6 H (22.0-322.0) ng/mL Lactate Dehydrogenase 739 H (313-618) U/L C-Reactive Protein 58.7 H (<10.0) mg/L Albumin 3.4 L (3.5-5.0) g/dL Procalcitonin (0.02-0.09) ng/mL Urine Protein (Negative) Urine Blood (Negative) Urine RBC (0-5) /hpf Urine Bacteria (None) /hpf Hyaline Casts (0-2) /lpf Urine Mucus (None) /hpf 07/19/20 07/19/20 07/19/20 Range/Units 13:35 16:52 18:23 WBC (3.8-10.6) k/uL Hgb (13.0-17.5) gm/dL Hct (39.0-53.0) % RDW (11.5-15.5) % Neutrophils # (1.3-7.7) k/uL Lymphocytes # (1.0-4.8) k/uL Sodium (137-145) mmol/L Carbon Dioxide (22-30) mmol/L BUN (9-20) mg/dL Creatinine (0.66-1.25) mg/dL Glucose (74-99) mg/dL Plasma Lactic Acid Willard 2.3 H* (0.7-2.0) mmol/L Magnesium (1.6-2.3) mg/dL Ferritin (22.0-322.0) ng/mL Lactate Dehydrogenase (313-618) U/L C-Reactive Protein (<10.0) mg/L Albumin (3.5-5.0) g/dL Procalcitonin 1.13 H (0.02-0.09) ng/mL Urine Protein 1+ H (Negative) Urine Blood Small H (Negative) Urine RBC 8 H (0-5) /hpf Urine Bacteria Occasional H (None) /hpf Hyaline Casts 7 H (0-2) /lpf Urine Mucus Rare H (None) /hpf 07/19/20 07/19/20 Range/Units 19:43 23:50 WBC (3.8-10.6) k/uL Hgb (13.0-17.5) gm/dL Hct (39.0-53.0) % RDW (11.5-15.5) % Neutrophils # (1.3-7.7) k/uL Lymphocytes # (1.0-4.8) k/uL Sodium (137-145) mmol/L Carbon Dioxide (22-30) mmol/L BUN (9-20) mg/dL Creatinine (0.66-1.25) mg/dL Glucose (74-99) mg/dL Plasma Lactic Acid Willard 2.1 H* 2.4 H* (0.7-2.0) mmol/L Magnesium (1.6-2.3) mg/dL Ferritin (22.0-322.0) ng/mL Lactate Dehydrogenase (313-618) U/L C-Reactive Protein (<10.0) mg/L Albumin (3.5-5.0) g/dL Procalcitonin (0.02-0.09) ng/mL Urine Protein (Negative) Urine Blood (Negative) Urine RBC (0-5) /hpf Urine Bacteria (None) /hpf Hyaline Casts (0-2) /lpf Urine Mucus (None) /hpf Microbiology - Last 24 Hours (Table) 07/19/20 13:35 Blood Culture Gram Stain - Preliminary Blood 07/19/20 13:20 Blood Culture Gram Stain - Preliminary Blood 07/19/20 13:35 Blood Culture - Final Blood 07/19/20 13:20 Blood Culture - Final Blood Thrombosis Risk Factor Assmnt - DVT/VTE Prophylaxis DVT/VTE Prophylaxis: Pharmacologic Prophylaxis ordered (On Apixiban) - Choose All That Apply Each Risk Factor Represents 2 Points: Age 61-74 years Thrombosis Risk Factor Assessment Total Risk Factor Score: 2 Thrombosis Risk Factor Assessment Level: Low Risk Assessment and Plan (1) Atypical pneumonia Current Visit: Yes Status: Acute Code(s): J18.9 - PNEUMONIA, UNSPECIFIED ORGANISM SNOMED Code(s): 245900410 (2) Dementia Current Visit: Yes Status: Acute Code(s): F03.90 - UNSPECIFIED DEMENTIA WITHOUT BEHAVIORAL DISTURBANCE SNOMED Code(s): 24531032 (3) Respiratory failure Current Visit: Yes Status: Acute Code(s): J96.90 - RESPIRATORY FAILURE, UNSP, UNSP W HYPOXIA OR HYPERCAPNIA SNOMED Code(s): 858322426 (4) Adverse effects of medication Current Visit: No Status: Acute Code(s): T88.7XXA - UNSP ADVERSE EFFECT OF DRUG OR MEDICAMENT, INIT ENCNTR SNOMED Code(s): 51924433 (5) CVA (cerebral vascular accident) Current Visit: No Status: Acute Onset Date: 10/30/15 Code(s): I63.9 - CER EBRAL INFARCTION, UNSPECIFIED SNOMED Code(s): 466964782 (6) Cervical radiculopathy Current Visit: No Status: Acute Code(s): M54.12 - RADICULOPATHY, CERVICAL REGION SNOMED Code(s): 21400108 (7) Renal insufficiency Current Visit: No Status: Acute Code(s): N28.9 - DISORDER OF KIDNEY AND URETER, UNSPECIFIED SNOMED Code(s): 375988141 Plan: Fluid resuscitation IV antibiotics Rocephin and Zithromax, waiting for final blood cultures. Suspect pneumococcal pneumonia. Sepsis noted acute exacerbation COPD Dehydration CBC, comp, lactic acid ordered Nasal cannula titrate for oxygen saturation greater than 95% We'll reevaluate again tomorrow Time with Patient: Greater than 30 Sepsis - Sepsis Sepsis Focused Exam #1 Sepsis Focused Exam Time: 11:50 Sepsis Focused Exam Complete: Yes Vital Signs & RN Notes Reviewed: Yes Capillary Refill: < 2 Seconds: Fingers, Toes Peripheral Pulses: Weak: Radial (R), Radial (L), Posterior Tibialis (R), Posterior Tibialis (L), Dorsalis Pedis (R), Dorsalis Pedis (L) Skin Color: Pallor Respiratory Exam: decreased breath sounds Respiratory Exam Comment: Diminished throughout, patient currently on 2 L nasal cannula oxygen saturations in the upper 90s. Patient appears to be in no distress And denies difficulty breathing Cardiovascular Exam: irregular rhythm Cardiovascular Exam Comment: History of atrial fib
[2020-07-20 12:04] LABS: Anisocytosis Slight; Basophils % (A) 0 %; Eosinophils % (A) 0 %; HCT 31.9 % (39.0-53.0); HGB 10.3 gm/dL (13.0-17.5); Hypochromasia Moderate; Lymphocytes # (A) 0.5 k/uL (1.0-4.8); Lymphocytes % (A) 3 %; MCH 27.6 pg (25.0-35.0); MCHC 32.1 g/dL (31.0-37.0); MCV 85.7 fL (80.0-100.0); Mean Platelet Volume 7.3; Monocytes # (A) 0.3 k/uL (0-1.0); Monocytes % (A) 2 %; Neutrophils # (A) 14.1 k/uL (1.3-7.7); Neutrophils % (A) 94 %; Platelet Count 255 k/uL (150-450); RBC 3.72 m/uL (4.30-5.90); RDW 16.1 % (11.5-15.5)
[2020-07-20 12:10] LABS: Albumin 2.4 g/dL (3.5-5.0); Potassium 4.6 mmol/L (3.5-5.1); Total Bilirubin 0.4 mg/dL (0.2-1.3); Total Protein 5.5 g/dL (6.3-8.2)
[2020-07-20] MEDS: SODIUM BICARBONATE TAB 650 MG TAB PO SCH ×3 (12:43→20:24)
--- NOTE | 2020-07-20 13:27 | P.CNPUL ---
History of Present Illness Consult date: 07/20/20 Requesting physician: Napoleon Osorio Jr Reason for consult: dyspnea, hypoxemia Chief complaint: Shortness of breath hypoxia History of present illness: This is a 74-year-old gentleman who resides at [facility]. He has a history of CVA/TIA with residual right leg weakness, angina, GERD, hyperlipidemia, hypertension, osteoarthritis, chronic kidney disease stage III, former smoker. He was brought into the emergency room yesterday after being found be short of breath than him and O2 saturations in the 70s. Chest x- ray revealed some chronic changes but no acute pulmonary disease. There is some questionable left lower lobe infiltrate. Initial temperature 102.8. He is seen today on the selective care unit. He is currently awake and alert. Resting in bed. Somewhat of a poor historian. Answering most questions appropriately however. Continue O2 saturations up to 100% on 3 L/m per nasal cannula. Currently afebrile. Preliminary blood cultures revealing gram-positive cocci in pairs. White count 15.0. Hemoglobin 10.3. D-dimer 1.20. Sodium 135. Potassium 4.6. Creatinine 1.67. Initial lactic 2.4 currently 1.5. Pro- calcitonin 1.13. LDH 7.39. C-reactive protein 58.7. Fink virus not detected. He's been initiated on Tamiflu, ceftriaxone and azithromycin. Anticoagulated with Eliquis. Review of Systems REVIEW OF SYSTEMS: CONSTITUTIONAL: Denies any recent significant weight loss or weight gain. EYES: Denies change in vision. EARS, NOSE, MOUTH, THROAT: Denies headaches, denies sore throat. CARDIOVASCULAR: Denies chest pain, palpitations or syncopal episodes. RESPIRATORY: Positive for shortness of breath, cough, congestion no hemoptysis. GASTROINTESTINAL: Denies change in appetite, denies abdominal pain GENITOURINARY: Denies hematuria, denies infections. MUSKULOSKELETAL: Denies pain, denies swelling. INTEGUMENTARY: Denies rash, denies eczema. NEUROLOGICAL: Denies recent memory loss, no recent seizure activity. PSYCHIATRIC: Denies anxiety, denies depression. HEMATOLOGIC/LYMPHATIC: Denies anemia, denies enlarged lymph nodes. Past Medical History Past Medical History: Chest Pain / Angina, CVA/TIA, GERD/Reflux, Hyperlipidemia, Hypertension, Osteoarthritis (OA), Renal Disease Additional Past Medical History / Comment(s): 10/2015 CVA with some residual R leg weakness, also had stroke 2 weeks ago, chronic kidney disease stage III, v ertigo at times, generalized arthritis, pedal edema at times. Expressive aphasia History of Any Multi-Drug Resistant Organisms: None Reported Past Surgical History: Appendectomy, Back Surgery, Heart Catheterization, Joint Replacement Additional Past Surgical History / Comment(s): back surgery x 4, bilateral cataracts removed, alicia hip replacments, cardiac cath 2010 - normal, EGD/colonoscopy, varicose vein stripping, tilt table test, loop recorder was shut off in 06/08 Past Anesthesia/Blood Transfusion Reactions: No Reported Reaction Past Psychological History: No Psychological Hx Reported, Bipolar Additional Psychological History / Comment(s): Lives at [facility], would like the pt to go to [facility], that was supposed to occur today. Smoking Status: Former smoker Past Alcohol Use History: Occasional Additional Past Alcohol Use History / Comment(s): Patient has a previous history smoking he quit over 25 years ago. He does have a history of heavy alcohol use in which he stopped in 1999. total Past Drug Use History: None Reported - Past Family History Father Family Medical History: Vascular Disorder Additional Family Medical History / Comment(s): PVD-double amputee. Mother Family Medical History: Pulmonary Embolus Additional Family Medical History / Comment(s): Mother of a pulmonary embolism at the age of 63 yrs. Medications and Allergies Home Medications Medication Instructions Recorded Confirmed Type Lansoprazole [Prevacid] 30 mg PO DAILY@89903/09/14 07/19/20 History carvediloL [Coreg] 6.25 mg PO BID@899,209904/28/19 07/19/20 History Furosemide [Lasix] 40 mg PO DAILY@89909/01/19 07/19/20 History Gabapentin [Neurontin] 300 mg PO DAILY@89909/01/19 07/19/20 History Acetaminophen Tab [Tylenol] 650 mg PO Q4H PRN 07/19/20 07/19/20 History Apixaban [Eliquis] 5 mg PO BID@0900,209907/19/20 07/19/20 History Ascorbic Acid [Vitamin C] 1,000 mg PO HS@209907/19/20 07/19/20 History Aspirin 81 mg PO DAILY@0900 07/19/20 07/19/20 History Atorvastatin [Lipitor] 20 mg PO HS@2100 07/19/20 07/19/20 History Azithromycin [Zithromax] 500 mg PO HS@2100 07/19/20 07/19/20 History Cholecalciferol [Vitamin D3 (25 25 mcg PO HS@2100 07/19/20 07/19/20 History Mcg = 1000 Iu)] Dexamethasone [Decadron] 6 mg PO DAILY@0900 07/19/20 07/19/20 History Ipratropium-Albuterol Nebulize 3 ml INHALATION RT-Q4H PRN 07/19/20 07/19/20 History [Duoneb 0.5 mg-3 mg/3 ml Soln] Magnesium Hydroxide [Milk of 2,400 mg PO BID PRN 07/19/20 07/19/20 History Magnesia] Oseltamivir [Tamiflu] 75 mg PO Q12HR@0900,2100 07/19/20 07/19/20 History bisacodyL [Bisacodyl] 10 mg RECTAL DAILY PRN 07/19/20 07/19/20 History cefTRIAXone [Rocephin] 1 gm IVPB DAILY 07/19/20 07/19/20 History Allergies Allergy/AdvReac Type Severity Reaction Status Date / Time MATHIEU Inhibitors Allergy Unknown Verified 07/19/20 14:00 Sulfa (Sulfonamide Allergy Rash/Hives Verified 07/19/20 14:00 Antibiotics) baclofen AdvReac Hallucinati Verified 07/19/20 14:00 ons hydromorphone [From Dilaudid] AdvReac Hallucinati Verified 07/19/20 14:00 ons meperidine HCl [From Demerol] AdvReac Nausea & Verified 07/19/20 14:00 Vomiting sulfamethoxazole AdvReac Rash/Hives Verified 07/19/20 14:00 [From Bactrim] trimethoprim [From Bactrim] AdvReac Rash/Hives Verified 07/19/20 14:00 Physical Exam Vitals: Vital Signs Temp Pulse Pulse Resp BP BP Pulse Ox 07/20/20 08:00 97.1 F L 67 16 106/68 100 07/20/20 05:53 96.5 F L 07/20/20 04:00 96.1 F L 63 16 103/64 99 07/20/20 02:00 67 18 07/20/20 00:00 95.6 F L 67 18 104/62 99 07/19/20 20:15 100 07/19/20 20:00 60 18 93/53 100 07/19/20 18:23 98.9 F 87 20 99/65 99 07/19/20 17:00 82 22 98/51 98 07/19/20 16:53 100 07/19/20 16:12 75 07/19/20 16:08 97.5 F L 67 18 83/56 100 07/19/20 16:00 72 22 107/61 100 07/19/20 15:30 98.5 F 79 21 100/63 99 07/19/20 15:09 87 07/19/20 15:00 88 18 93/61 99 07/19/20 14:46 87 28 H 96/58 99 07/19/20 14:01 96 07/19/20 13:45 97 28 H 92/34 100 07/19/20 13:30 96 Intake and Output 07/19/20 07/20/20 07/20/20 22:59 06:59 14:59 Intake Total 780 100 Balance 780 100 Intake: Intake, IV Titration 780 100 Amount Sodium Chloride 0.9% 1, 780 000 ml @ 130 mls/hr IV . Q7H42M [facility] Rx#:[id number] cefTRIAXone 1 gm In 100 Sodium Chloride 0.9% 50 ml @ 100 mls/hr IVPB Q24HR [facility] Rx#:[id number] Other: Voiding Method Diaper Diaper Diaper # Voids 1 Weight 100.244 kg 95 kg 95 kg GENERAL EXAM: Alert, pleasant 74-year-old gentleman, on 3 L nasal cannula,, comfortable in no apparent distress. HEAD: Normocephalic. EYES: Normal reaction of pupils, equal size. NOSE: Clear with pink turbinates. THROAT: No erythema or exudates. NECK: No masses, no JVD. CHEST: No chest wall deformity. LUNGS: Equal air entry with crackles in the posterior left base. CVS: S1 and S2 normal with no audible murmur, regular rhythm. ABDOMEN: No hepatosplenomegaly, normal bowel sounds, no guarding or rigidity. SPINE: No scoliosis or deformity SKIN: No rashes CENTRAL NERVOUS SYSTEM: No focal deficits, tone is normal in all 4 extremities. EXTREMITIES: There is no peripheral edema. No clubbing, no cyanosis. Peripheral pulses are intact. Results - Laboratory Findings CBC and BMP: 07/20/20 11:48 07/20/20 11:10 PT/INR, D-dimer PT 11.4 sec (9.0-12.0) 07/19/20 13:35 INR 1.1 (<1.2) 07/19/20 13:35 D-Dimer 1.20 mg/L FEU (<0.60) H 07/20/20 11:07 Abnormal lab findings: Abnormal Labs 07/19/20 07/19/20 07/19/20 13:35 13:35 13:35 WBC 23.0 H RBC Hgb 12.1 L Hct 36.3 L RDW 16.0 H Neutrophils # 21.5 H Lymphocytes # 0.6 L D-Dimer Sodium 131 L Chloride Carbon Dioxide 16 L BUN 60 H Creatinine 2.15 H Glucose 102 H Plasma Lactic Acid Willard 2.7 H* Calcium Magnesium 2.4 H Ferritin 423.6 H Lactate Dehydrogenase 739 H C-Reactive Protein 58.7 H Total Protein Albumin 3.4 L Procalcitonin Urine Protein Urine Blood Urine RBC Urine Bacteria Hyaline Casts Urine Mucus 07/19/20 07/19/20 07/19/20 13:35 16:52 18:23 WBC RBC Hgb Hct RDW Neutrophils # Lymphocytes # D-Dimer Sodium Chloride Carbon Dioxide BUN Creatinine Glucose Plasma Lactic Acid Willard 2.3 H* Calcium Magnesium Ferritin Lactate Dehydrogenase C-Reactive Protein Total Protein Albumin Procalcitonin 1.13 H Urine Protein 1+ H Urine Blood Small H Urine RBC 8 H Urine Bacteria Occasional H Hyaline Casts 7 H Urine Mucus Rare H 07/19/20 07/19/20 07/20/20 19:43 23:50 11:07 WBC RBC Hgb Hct RDW Neutrophils # Lymphocytes # D-Dimer 1.20 H Sodium Chloride Carbon Dioxide BUN Creatinine Glucose Plasma Lactic Acid Willard 2.1 H* 2.4 H* Calcium Magnesium Ferritin Lactate Dehydrogenase C-Reactive Protein Total Protein Albumin Procalcitonin Urine Protein Urine Blood Urine RBC Urine Bacteria Hyaline Casts Urine Mucus 07/20/20 07/20/20 11:10 11:48 WBC 15.0 H RBC 3.72 L Hgb 10.3 L Hct 31.9 L RDW 16.1 H Neutrophils # 14.1 H Lymphocytes # 0.5 L D-Dimer Sodium 135 L Chloride 110 H Carbon Dioxide 15 L BUN 55 H Creatinine 1.67 H Glucose 133 H Plasma Lactic Acid Willard Calcium 8.0 L Magnesium Ferritin Lactate Dehydrogenase C-Reactive Protein Total Protein 5.5 L Albumin 2.4 L Procalcitonin Urine Protein Urine Blood Urine RBC Urine Bacteria Hyaline Casts Urine Mucus - Diagnostic Findings Chest x-ray: image reviewed Assessment and Plan Assessment: 1 Acute hypoxic respiratory failure secondary to suspected streptococcal pneumonia, pro-calcitonin 1.13 2 Bacteremia with gram-positive cocci in pairs 3 Febrile illness secondary to above 4 History of CVA 5 History of chronic kidney disease stage III 6 Hyperlipidemia 7 Gastroesophageal reflux disease 8 Hypertension 9 Osteoarthritis 10 Poor overall functional performance based on the above-mentioned multiple comorbidities Plan: The patient was seen and evaluated by Dr. Elizabeth Elam Chest x-ray and labs reviewed Check a d-dimer Doppler of the lower extremities Continue antibiotics Await final blood cultures Titrate down the FiO2 as tolerated Follow-up chest x-ray in a.m. We'll continue to follow I, the cosigning physician, performed a history & physical examination of the patient. Lungs sounds with crackles in the left lung base. Maintaining good O2 saturations in the 90s on 3 L/m per nasal cannula. I discussed the assessment and plan of care with my nurse practitioner, Kathleen Begum. I attest to the above consultation as dictated by her. Time with Patient: Greater than 30
[2020-07-20] MEDS ORDERED: VANCOMYCIN IV PER PHARMACY 1 EACH MISC MISCELLANE PRN (14:01)
--- NOTE | 2020-07-20 14:27 | US ---
EXAMINATION TYPE: US venous doppler duplex LE DATE OF EXAM: 07/20/2020 10:47 AM COMPARISON: US 2012 CLINICAL HISTORY: Dyspnea. SIDE PERFORMED: Bilateral TECHNIQUE: The lower extremity deep venous system is examined utilizing real time linear array sonog camila with graded compression, doppler sonography and color-flow sonography. VESSELS IMAGED: Common Femoral Vein Deep Femoral Vein Greater Saphenous Vein * Femoral Vein Popliteal Vein Small Saphenous Vein * Proximal Calf Veins (* superficial vessels) Right Leg: Appears negative for DVT Left Leg: Appears negative for DVT IMPRESSION: No sign of deep vein thrombosis in both legs.
[2020-07-20] MEDS ORDERED: VANCOMYCIN 1,750 MG in SODIUM CHLORIDE 0.9% 500 ML 500 ML IVPB ONE (15:00)
[2020-07-20] MEDS: ACETAMINOPHEN TAB 325 MG TAB PO PRN (16:13)
[2020-07-20] MEDS: ATORVASTATIN 20 MG TAB PO SCH (20:24)
[2020-07-20] MEDS: CHOLECALCIFEROL 25 MCG (1000 IU) TABLET PO SCH (20:24)
[2020-07-20] MEDS: ASCORBIC ACID 500 MG TAB PO SCH (20:26)
--- NOTE | 2020-07-20 22:57 | CONS ---
CONSULTATION DATE OF SERVICE: 07/20/2020 REASON FOR CONSULTATION: Bacteremia. HISTORY OF PRESENT ILLNESS: The patient is a 74-year-old male who [facility] a [facility]. This patient has a history of CVA, TIA, and renal insufficiency. The patient was sent to the ER yesterday afternoon for evaluation of increasing shortness of breath and hypoxemia. Apparently the patient started not feeling well the day he was brought to the hospital. The patient denies having any headache or URI symptoms. Denies having any chest pain. He did have shortness of breath, but denies significant cough or sputum production. No nausea, no vomiting. No abdominal pain. No diarrhea and no urinary symptoms. On presentation to the hospital, the patient did have a fever of 102.9 degrees Fahrenheit. The patient is currently afebrile. The patient also had elevated white count of 23,000. Repeat is 15. The patient did have normal liver enzymes. Lactic acid is 2.4. Repeat is 1.5. Procalcitonin 1.13. The patient did have a UA that was reported negative. Fink PCR is negative. The patient did have a chest x-ray chronic changes without evidence for acute pulmonary disease. The patient was started on Rocephin and Zithromax. Subsequent blood cultures now coming positive with group D Enterococcus. Vancomycin was added. Infectious Disease was consulted for further management of antibiotic therapy. REVIEW OF SYSTEMS: Positive points have been mentioned in HPI. Rest of the systems are negative. PAST MEDICAL HISTORY: Hypertension, hyperlipidemia, osteoarthritis, gastroesophageal reflux disease, CVA, TIA. PAST SURGICAL HISTORY: Appendectomy, back surgery, heart catheterization, bilateral cataract surgery and bilateral hip replacement. SOCIAL HISTORY: Remote history of smoking. Occasionally drinks. No drug use. FAMILY HISTORY: Father history of peripheral artery disease and is double amputee. Mother history of PE. ALLERGIES: TO SULFA, MATHIEU INHIBITORS. MEDICATION: Include the patient is currently on Rocephin, Tylenol, DuoNeb, Eliquis, vitamin C, aspirin, Lipitor, Coreg, Neurontin, Narcan, Zofran, Protonix, prednisone, vancomycin. PHYSICAL EXAMINATION: Blood pressure 108/61 with a pulse of 75, temperature 97.3, T-max 102. He is 100% on 3 L nasal cannula. General description is an elderly male lying in bed in no distress. No tachypnea or accessory muscles of respiration use. HEENT: Shows pallor. No scleral icterus. Oral mucous membranes dry. NECK: Trachea central. No thyromegaly. LUNGS: Unlabored breathing, decreased intensity in breath sounds in the base, with no wheeze. HEART S1, S2. Regular rate and rhythm. ABDOMEN: Soft, no tenderness. No guarding. No rigidity. EXTREMITIES: No edema of the feet. SKIN examination: No rash or mass palpable. NEUROLOGIC: The patient is awake, alert, oriented times two. Mood and affect normal. LABS: Hemoglobin is 10.1, white count 15,000. Admission white count was 23, BUN of 55, creatinine is 1.67. Lactic acid was 2.7. Repeat is normal. Procalcitonin 1.13. Urine was negative. Fink PCR was negative. Chest x-ray report mentioned above. DIAGNOSTIC IMPRESSION/PLAN: 1. Admit patient to hospital with sepsis in this patient who did have fever, elevated white count now with evidence of Enterococcus bacteremia which is usually of gut or urinary origin. The patient did not have any urinary symptoms and UA is negative. Will need to rule out any abdominal etiology versus possible endovascular source. 2. Patient with renal insufficiency, high risk for nephrotoxicity. PLAN: 1. Blood cultures will be repeated to document clearance of his bacteremia. 2. We will obtain a CT of abdomen and pelvis with oral contrast only to rule out any abdominal pathology. 3. Vancomycin=, pharmacy to dose, target of 15 while watching his kidney function closely and discontinue Rocephin. 4. We will follow on his clinical condition and further adjust medication if needed. Thank you for this consultation. Will follow this patient along with you. MMODL / IJN: [id number] /
[2020-07-21] MEDS: SODIUM CHLORIDE 0.9% 1,000 ML IV SCH ×2 (01:10→16:16)
--- NOTE | 2020-07-21 07:47 | XR ---
EXAMINATION TYPE: XR chest 1V portable DATE OF EXAM: 07/21/2020 COMPARISON: Chest x-ray 07/19/2020 HISTORY: Pneumonia TECHNIQUE: Single frontal view of the chest is obtained. FINDINGS: Bilateral airspace disease is present. Lung volumes are low and the patient is rotated. No evident pneumothorax or pleural effusion. Cardiac mediastinal silhouette is stable. There is promine nce the central vascularity. There are overlying leads IMPRESSION: Expiratory rotated exam, correlate for congestive heart failure, pneumonia
[2020-07-21 07:54] LABS: Anisocytosis Slight; Basophils % (A) 0 %; Eosinophils % (A) 0 %; HCT 33.3 % (39.0-53.0); HGB 10.4 gm/dL (13.0-17.5); Hypochromasia Marked; Lymphocytes % (A) 11 %; MCHC 31.2 g/dL (31.0-37.0); MCV 86.4 fL (80.0-100.0); Mean Platelet Volume 7.1; Monocytes # (A) 0.3 k/uL (0-1.0); Monocytes % (A) 4 %; Neutrophils % (A) 81 %; Platelet Count 255 k/uL (150-450); RBC 3.86 m/uL (4.30-5.90); RDW 16.1 % (11.5-15.5); WBC 8.6 k/uL (3.8-10.6)
[2020-07-21 08:16] LABS: Albumin 2.4 g/dL (3.5-5.0); Potassium 4.3 mmol/L (3.5-5.1); Total Bilirubin 0.3 mg/dL (0.2-1.3); Total Protein 5.5 g/dL (6.3-8.2)
[2020-07-21] MEDS: VANCOMYCIN 1,500 MG in SODIUM CHLORIDE 0.9% 250 ML IVPB SCH (09:19)
[2020-07-21] MEDS: GABAPENTIN 300 MG CAP PO SCH (09:20)
[2020-07-21] MEDS: APIXABAN 5 MG TAB PO SCH ×2 (09:21→20:53)
[2020-07-21] MEDS: carvediloL 6.25 MG TAB PO SCH (09:21)
[2020-07-21] MEDS: SODIUM BICARBONATE TAB 650 MG TAB PO SCH ×4 (09:21→20:53)
[2020-07-21] MEDS: ASPIRIN 81 MG PO SCH (09:21)
[2020-07-21] MEDS: predniSONE 20 MG TAB PO SCH (09:21)
[2020-07-21] MEDS: PANTOPRAZOLE 40 MG TABLET PO SCH (09:21)
--- NOTE | 2020-07-21 10:03 | P.PN ---
Subjective Progress Note Date: 07/21/20 Principal diagnosis: 74-year-old male patient was admitted on 07/19/2020 or difficulty breathing, shortness of breath, dyspnea with max temperature of 102.8. Patient is alert and oriented 1 as per his baseline per his . He is a resident [facility] the [facility]. On admission patient was found to be hypoxic with oxygen saturation 70% on room air. His subsequent admitted to [address] [place] [address] for sepsis. 07/21/2020 Currently patient is laying in bed and does not appear to be in distress at this time. He is alert and oriented to self only. He denies difficulty breathing, headache, nausea vomiting, pain, or abdominal discomfort. He will follow commands as directed. Vital signs appear to be stable and temperature 96.7 axillary pulse rate constant 70 respiratory of 18, blood pressure 132/69. Most recent labs WBC count down to 8.6, hemoglobin 10.4, latesha tocrit 33.3, platelet count of 255. Chemistry reveals a sodium 137, aspirin 4.3, chloride 111, CO2 16, SRAVAN 52, creatinine 1.48, glucose 112, lactic acid down to 1.3. This morning's chest x-ray bilateral airspace disease present. Lung volumes are low and the patient is rotated. No evidence of pneumothorax or pleural effusion. Cardiac mediastinal silhouette stable. There is prominence central v ascularity. There are overlying leads. Bilateral venous Doppler lower extremities and negative for DVTs, blood cultures finalize with enterococcus D, and subsequently infectious disease has been consulted. They have ordered IV vancomycin as antibiotic of choice. Objective - Vital Signs Vital signs: Vital Signs Temp 96.7 F L 07/21/20 04:00 Pulse 70 07/21/20 04:00 Resp 18 07/21/20 04:00 BP 132/69 07/21/20 04:00 Pulse Ox 100 07/21/20 04:00 Intake & Output 07/20/20 07/21/20 07/21/20 18:59 06:59 18:59 Intake Total 2630 Balance 2630 Weight 95 kg 98 kg Intake: Intake, IV Titration 2390 Amount Sodium Chloride 0.9% 1, 1240 000 ml @ 130 mls/hr IV . Q7H42M [facility] Rx#:[id number] Sodium Chloride 0.9% 500 500 ml 500 ml @ 999 mls/hr IV .Q31M [facility] Rx#:[id number] Vancomycin 1,750 mg In 500 Sodium Chloride 0.9% 500 ml 500 ml @ 167 mls/hr IVPB ONCE [facility] Rx#: [id number] cefTRIAXone 1 gm In 150 Sodium Chloride 0.9% 50 ml @ 100 mls/hr IVPB Q24HR [facility] Rx#:[id number] Oral 240 Other: Voiding Method Diaper Diaper # Voids 1 2 # Bowel Movements 1 - Exam GENERAL: Well-appearing, well-nourished and in no acute distress, alert and oriented 1 (self). HEAD: Atraumatic, normocephalic. EYES: Pupils equal round and reactive to light, extraocular movements intact, sclera anicteric, conjunctiva are normal. ENT:nares patent, oropharynx clear without exudates. Moist mucous membranes. NECK: Normal range of motion, supple without lymphadenopathy or JVD, no thyromegaly LUNGS: Breath sounds clear and diminished throughout with fine crackles bilateral bases. HEART: Regular rate and rhythm without murmurs, rubs or gallops.S1S2 Normal ABDOMEN: Soft, nontender, normoactive bowel sounds. No guarding, no rebound. No masses appreciated. EXTREMITIES: Normal range of motion, no pitting or edema. No clubbing or cyanos is. NEUROLOGICAL: Cranial nerves II through XII grossly intact. . PSYCH: Normal mood, normal affect. SKIN: Warm, Dry, normal turgor, no rashes. Healing wound on toe #3 of the left foot that is scabbed - Labs CBC & Chem 7: 07/21/20 07:26 07/21/20 07:26 Labs: Abnormal Lab Results - Last 24 Hours (Table) 07/20/20 07/20/20 07/20/20 Range/Units 11:07 11:10 11:48 WBC 15.0 H (3.8-10.6) k/uL RBC 3.72 L (4.30-5.90) m/uL Hgb 10.3 L (13.0-17.5) gm/dL Hct 31.9 L (39.0-53.0) % RDW 16.1 H (11.5-15.5) % Neutrophils # 14.1 H (1.3-7.7) k/uL Lymphocytes # 0.5 L (1.0-4.8) k/uL D-Dimer 1.20 H (<0.60) mg/L FEU Sodium 135 L (137-145) mmol/L Chloride 110 H (98-107) mmol/L Carbon Dioxide 15 L (22-30) mmol/L BUN 55 H (9-20) mg/dL Creatinine 1.67 H (0.66-1.25) mg/dL Glucose 133 H (74-99) mg/dL Calcium 8.0 L (8.4-10.2) mg/dL Total Protein 5.5 L (6.3-8.2) g/dL Albumin 2.4 L (3.5-5.0) g/dL 07/21/20 07/21/20 Range/Units 07:26 07:26 WBC (3.8-10.6) k/uL RBC 3.86 L (4.30-5.90) m/uL Hgb 10.4 L (13.0-17.5) gm/dL Hct 33.3 L (39.0-53.0) % RDW 16.1 H (11.5-15.5) % Neutrophils # (1.3-7.7) k/uL Lymphocytes # (1.0-4.8) k/uL D-Dimer (<0.60) mg/L FEU Sodium (137-145) mmol/L Chloride 111 H (98-107) mmol/L Carbon Dioxide 16 L (22-30) mmol/L BUN 52 H (9-20) mg/dL Creatinine 1.48 H (0.66-1.25) mg/dL Glucose 112 H (74-99) mg/dL Calcium 8.0 L (8.4-10.2) mg/dL Total Protein 5.5 L (6.3-8.2) g/dL Albumin 2.4 L (3.5-5.0) g/dL Microbiology - Last 24 Hours (Table) 07/19/20 13:35 Blood Culture Gram Stain - Preliminary Blood Blood Culture - Preliminary Group D Enterococcus 07/19/20 13:20 Blood Culture Gram Stain - Preliminary Blood Blood Culture - Preliminary Group D Enterococcus Assessment and Plan (1) History of CVA (cerebrovascular accident) Current Visit: Yes Status: Acute Code(s): Z86.73 - PRSNL HX OF TIA (TIA), AND CEREB INFRC W/O RESID DEFICITS SNOMED Code(s): 089711374 (2) Respiratory failure Current Visit: Yes Status: Acute Code(s): J96.90 - RESPIRATORY FAILURE, UNSP, UNSP W HYPOXIA OR HYPERCAPNIA SNOMED Code(s): 741068908 (3) Adverse effects of medication Current Visit: No Status: Acute Code(s): T88.7XXA - UNSP ADVERSE EFFECT OF DRUG OR MEDICAMENT, INIT ENCNTR SNOMED Code(s): 30040897 (4) Sepsis Current Visit: Yes Status: Acute Code(s): A41.9 - SEPSIS, UNSPECIFIED ORGANISM SNOMED Code(s): 93764035 (5) Chronic renal failure, stage 3 (moderate) Current Visit: Yes Status: Acute Code(s): N18.30 - CHRONIC KIDNEY DISEASE, STAGE 3 UNSPECIFIED SNOMED Code(s): 55018385 (6) GERD (gastroesophageal reflux disease) Current Visit: Yes Status: Acute Code(s): K21.9 - GASTRO-ESOPHAGEAL REFLUX DISEASE WITHOUT ESOPHAGITIS SNOMED Code(s): 110318953 (7) Renal insufficiency Current Visit: No Status: Acute Code(s): N28.9 - DISORDER OF KIDNEY AND URETER, UNSPECIFIED SNOMED Code(s): 329819884 Plan: 1. Continue with gentle rehydration with IV fluids. 2. Continue vancomycin 3. Titrate down FiO2 to maintain sats greater than 95% room. 4. We'll continue to monitor vitals and labs and treat accordingly. 5. We'll await results of abdominal CT ordered by ID. 6. Continue with current medication regimen 7. We will follow closely and reevaluate again tomorrow. Time with Patient: Greater than 30
[2020-07-21] MEDS: IOPAMIDOL CONTRAST (ORAL USE) VIAL PO PRN ×2 (11:04→11:55)
--- NOTE | 2020-07-21 11:45 | P.PN ---
Subjective Progress Note Date: 07/21/20 Principal diagnosis: This is a 74-year-old male who was transferred from alf with complaints of shortness of breath. He is seen because of chronic kidney disease and acute kidney injury Baseline creatinine is in the 1.7-1.8 range, urinalysis suggestive nephrosclerosis. He came in with a creatinine of 2.15 He was started on IV fluids and remains on room air, chest x-ray is showing chronic changes. He does have a white count and slightly high lactic acid 2.4, is afebrile blood pressure is somewhat low therefore was fulfilling criteria for sepsis. Subsequently his blood cultures have grown group B enterococcus Is somewhat confused and has dementia and therefore his history is unreliable. Objective - Vital Signs Vital signs: Vital Signs Temp 96.7 F L 07/21/20 04:00 Pulse 70 07/21/20 04:00 Resp 18 07/21/20 04:00 BP 132/69 07/21/20 04:00 Pulse Ox 100 07/21/20 04:00 Intake & Output 07/20/20 07/21/20 07/21/20 18:59 06:59 18:59 Intake Total 2630 240 Balance 2630 240 Weight 95 kg 98 kg Intake: Intake, IV Titration 2390 Amount Sodium Chloride 0.9% 1, 1240 000 ml @ 130 mls/hr IV . Q7H42M [facility] Rx#:[id number] Sodium Chloride 0.9% 500 500 ml 500 ml @ 999 mls/hr IV .Q31M ONE Rx#:[id number] Vancomycin 1,750 mg In 500 Sodium Chloride 0.9% 500 ml 500 ml @ 167 mls/hr IVPB ONCE ONE Rx#: [id number] cefTRIAXone 1 gm In 150 Sodium Chloride 0.9% 50 ml @ 100 mls/hr IVPB Q24HR [facility] Rx#:[id number] Oral 240 240 Other: Voiding Method Diaper Diaper # Voids 1 2 1 # Bowel Movements 1 1 Examination is awake alert but disoriented and has dementia HEENT exam no JVP no facial asymmetry Lungs are clear to auscultation good air entry bilaterally Heart sounds unremarkable no murmur rub gallop Abdomen soft nontender extremity exam was no edema Neurologically awake alert but disoriented chronically - Labs CBC & Chem 7: 07/21/20 07:26 07/21/20 07:26 Labs: Abnormal Lab Results - Last 24 Hours (Table) 07/20/20 07/20/20 07/20/20 Range/Units 11:07 11:10 11:48 WBC 15.0 H (3.8-10.6) k/uL RBC 3.72 L (4.30-5.90) m/uL Hgb 10.3 L (13.0-17.5) gm/dL Hct 31.9 L (39.0-53.0) % RDW 16.1 H (11.5-15.5) % Neutrophils # 14.1 H (1.3-7.7) k/uL Lymphocytes # 0.5 L (1.0-4.8) k/uL D-Dimer 1.20 H (<0.60) mg/L FEU Sodium 135 L (137-145) mmol/L Chloride 110 H (98-107) mmol/L Carbon Dioxide 15 L (22-30) mmol/L BUN 55 H (9-20) mg/dL Creatinine 1.67 H (0.66-1.25) mg/dL Glucose 133 H (74-99) mg/dL Calcium 8.0 L (8.4-10.2) mg/dL Total Protein 5.5 L (6.3-8.2) g/dL Albumin 2.4 L (3.5-5.0) g/dL 07/21/20 07/21/20 Range/Units 07:26 07:26 WBC (3.8-10.6) k/uL RBC 3.86 L (4.30-5.90) m/uL Hgb 10.4 L (13.0-17.5) gm/dL Hct 33.3 L (39.0-53.0) % RDW 16.1 H (11.5-15.5) % Neutrophils # (1.3-7.7) k/uL Lymphocytes # (1.0-4.8) k/uL D-Dimer (<0.60) mg/L FEU Sodium (137-145) mmol/L Chloride 111 H (98-107) mmol/L Carbon Dioxide 16 L (22-30) mmol/L BUN 52 H (9-20) mg/dL Creatinine 1.48 H (0.66-1.25) mg/dL Glucose 112 H (74-99) mg/dL Calcium 8.0 L (8.4-10.2) mg/dL Total Protein 5.5 L (6.3-8.2) g/dL Albumin 2.4 L (3.5-5.0) g/dL Microbiology - Last 24 Hours (Table) 07/19/20 13:35 Blood Culture Gram Stain - Preliminary Blood Blood Culture - Preliminary Group D Enterococcus 07/19/20 13:20 Blood Culture Gram Stain - Preliminary Blood Blood Culture - Preliminary Group D Enterococcus Assessment and Plan Assessment: Impression 1. Chronic kidney disease secondary to nephrosclerosis Baseline creatinine 1.7- 1.8. Creatinine improved to 1.48 2. Acute kidney injury likely from reduce intake possibly from confusion. Enterococcal bacteremia source unclear, Possible pneumonia and sepsis 3. Dementia, chronic 4. Mild degree of non-gap acidosis bicarb is 16 creatinines gap is 10, from acute kidney injury 5. Low blood pressure, improved with IV fluids Admission 1. Continue hydration, but because of the acidosis induced by normal saline will change the normal saline to lactated Ringer's, reduce the IV fluid to 75 an hour. ( Because of improvement and sepsis parameters as his lactic acid is down to normal creatinine is improved, would reduce the rate to 75 an hour. 2. Continue sodium bicarb 650 4 times a day 3. Monitor labs tomorrow
[2020-07-21] MEDS: LACTATED RINGERS 1,000 ML IV SCH (11:55)
--- NOTE | 2020-07-21 13:13 | P.PN ---
Subjective Progress Note Date: 07/21/20 Principal diagnosis: This is a 74-year-old gentleman who resides at [facility] on the [facility]. He has a history of CVA/TIA with residual right leg weakness, angina, GERD, hyperlipidemia, hypertension, osteoarthritis, chronic kidney disease stage III, former smoker. He was brought into the emergency room yesterday after being found be short of breath than him and O2 saturations in the 70s. Chest x- ray revealed some chronic changes but no acute pulmonary disease. There is some questionable left lower lobe infiltrate. Initial temperature 102.8. He is seen today on the selective care unit. He is currently awake and alert. Resting in bed. Somewhat of a poor historian. Answering most questions appropriately however. Continue O2 saturations up to 100% on 3 L/m per nasal cannula. Currently afebrile. Preliminary blood cultures revealing gram-positive cocci in pairs. White count 15.0. Hemoglobin 10.3. D-dimer 1.20. Sodium 135. Potassium 4.6. Creatinine 1.67. Initial lactic 2.4 currently 1.5. Pro- calcitonin 1.13. LDH 7.39. C-reactive protein 58.7. Fink virus not detected. He's been initiated on Tamiflu, ceftriaxone and azithromycin. Anticoagulated with Eliquis. The patient is seen today 07/21/2020 in follow-up on the selective care unit. He is currently resting comfortably in bed. Awake and alert in no acute distress and maintaining O2 saturation of 200% on 3 L/m per nasal cannula. He's been afebrile. Hemodynamically stable. The cultures positive for group D enterococcus. Currently on vancomycin. White count 8.6. Hemoglobin 10.4. Sodium 137. Potassium 4.3. Creatinine 1.48. Objective - Vital Signs Vital signs: Vital Signs Temp 97.7 F 07/21/20 08:00 Pulse 66 07/21/20 08:00 Resp 17 07/21/20 08:00 BP 123/69 07/21/20 08:00 Pulse Ox 100 07/21/20 08:00 Intake & Output 07/20/20 07/21/20 07/21/20 18:59 06:59 18:59 Intake Total 2630 240 Balance 2630 240 Weight 95 kg 98 kg Intake: Intake, IV Titration 2390 Amount Sodium Chloride 0.9% 1, 1240 000 ml @ 130 mls/hr IV . Q7H42M [facility] Rx#:[id number] Sodium Chloride 0.9% 500 500 ml 500 ml @ 999 mls/hr IV .Q31M ONE Rx#:[id number] Vancomycin 1,750 mg In 500 Sodium Chloride 0.9% 500 ml 500 ml @ 167 mls/hr IVPB ONCE ONE Rx#: [id number] cefTRIAXone 1 gm In 150 Sodium Chloride 0.9% 50 ml @ 100 mls/hr IVPB Q24HR [facility] Rx#:[id number] Oral 240 240 Other: Voiding Method Diaper Diaper Diaper # Voids 1 2 1 # Bowel Movements 1 1 - Exam GENERAL EXAM: Alert, pleasant 74-year-old gentleman, on 3 L nasal cannula,, comfortable in no apparent distress. HEAD: Normocephalic. EYES: Normal reaction of pupils, equal size. NOSE: Clear with pink turbinates. THROAT: No erythema or exudates. NECK: No masses, no JVD. CHEST: No chest wall deformity. LUNGS: Equal air entry with crackles in the posterior left base. CVS: S1 and S2 normal with no audible murmur, regular rhythm. ABDOMEN: No hepatosplenomegaly, normal bowel sounds, no guarding or rigidity. SPINE: No scoliosis or deformity SKIN: No rashes CENTRAL NERVOUS SYSTEM: No focal deficits, tone is normal in all 4 extremities. EXTREMITIES: There is no peripheral edema. No clubbing, no cyanosis. Peripheral pulses are intact. - Labs CBC & Chem 7: 07/21/20 07:26 07/21/20 07:26 Labs: Abnormal Lab Results - Last 24 Hours (Table) 07/21/20 07/21/20 Range/Units 07:26 07:26 RBC 3.86 L (4.30-5.90) m/uL Hgb 10.4 L (13.0-17.5) gm/dL Hct 33.3 L (39.0-53.0) % RDW 16.1 H (11.5-15.5) % Chloride 111 H (98-107) mmol/L Carbon Dioxide 16 L (22-30) mmol/L BUN 52 H (9-20) mg/dL Creatinine 1.48 H (0.66-1.25) mg/dL Glucose 112 H (74-99) mg/dL Calcium 8.0 L (8.4-10.2) mg/dL Total Protein 5.5 L (6.3-8.2) g/dL Albumin 2.4 L (3.5-5.0) g/dL Microbiology - Last 24 Hours (Table) 07/19/20 13:35 Blood Culture Gram Stain - Preliminary Blood Blood Culture - Preliminary Group D Enterococcus 07/19/20 13:20 Blood Culture Gram Stain - Preliminary Blood Blood Culture - Preliminary Group D Enterococcus Assessment and Plan Assessment: 1 Acute hypoxic respiratory failure secondary to suspected streptococcal pn eumonia, pro-calcitonin 1.13 2 Bacteremia with group D enterococcus 3 Febrile illness secondary to above, recovered 4 History of CVA 5 History of chronic kidney disease stage III 6 Hyperlipidemia 7 Gastroesophageal reflux disease 8 Hypertension 9 Osteoarthritis 10 Poor overall functional performance based on the above-mentioned multiple comorbidities Plan: The patient was seen and evaluated by Dr. Farrell Continue antibiotics per ID services Titrate down the FiO2 as tolerated We'll continue to follow I, the cosigning physician, performed a history & physical examination of the patient. Lungs sounds with crackles in the left lung base. Maintaining good O2 saturations in the 90s on 3 L/m per nasal cannula. I discussed the assessment and plan of care with my nurse practitioner, Kathleen Begum. I attest to the above note as dictated by her.
--- NOTE | 2020-07-21 14:10 | CT ---
EXAMINATION TYPE: CT abdomen pelvis wo con DATE OF EXAM: 07/21/2020 COMPARISON: None HISTORY: generalized pain. CT DLP: 1224.4 mGycm Automated exposure control for dose reduction was used. TECHNIQUE: Helical acquisition of images from the lung bases through the pelvis. Patient received or al contrast. FINDINGS: Lack of intravenous contrast could compromise sensitivity. There are some coronary artery c alcifications. There is a hiatal hernia present. Some inflammatory changes are present within the lef t groin. Correlate for prior catheterization. LUNG BASES: Interstitial changes are present at the lung bases AORTA: No significant abnormality is appreciated. LIVER/GB: Some low-density foci within the liver statistically are likely to represent cysts. Gallbla dder shows no inflammatory change.. PANCREAS: No significant abnormality is seen. SPLEEN: No significant abnormality is seen. ADRENALS: No significant abnormality is seen. KIDNEYS: Multiple foci are present in an exophytic location in the right kidney, largest at the upper pole measures 2.8 cm and the right kidney appears somewhat atrophic. No evident renal stone. No evid ent ureteral calculus or hydronephrosis. REPRODUCTIVE ORGANS: No significant abnormality is seen. URINARY BLADDER: Unremarkable. BOWEL: Retained high density present within the rectum, rectum is somewhat distended measuring appro ximately 8 cm in transverse dimension. Diverticular change present within the colon FREE AIR: No Free Air is visible. ASCITES: None visible. PELVIC ADENOPATHY: None visualized. RETROPERITONEAL ADENOPATHY: No Retroperitoneal Adenopathy visible. OSSEOUS STRUCTURES: Postoperative changes are noted to the lumbar spine, bilateral hip arthroplastie s, streak artifact causes some compromise in evaluation. Lytic lucency is present along the left iliu m anteriorly, there is extensive into the acetabular roof region, cortex is discontinuous anteriorly IMPRESSION: CORRELATE FOR FECAL IMPACTION. INDETERMINATE INFLAMMATORY CHANGES SUSPECTED IN THE LEFT GROIN. DIVERT ICULOSIS AND POSTOP CHANGES. NONCONTRAST EXAM. CORONARY ARTERY DISEASE AND INTERSTITIAL LUNG DISEASE, HIATAL HERNIA..
[2020-07-21] MEDS: ASCORBIC ACID 500 MG TAB PO SCH (20:53)
[2020-07-21] MEDS: CHOLECALCIFEROL 25 MCG (1000 IU) TABLET PO SCH (20:53)
[2020-07-21] MEDS: ATORVASTATIN 20 MG TAB PO SCH (20:53)
--- NOTE | 2020-07-21 23:24 | PN ---
PROGRESS NOTE DATE OF SERVICE: 07/21/2020 REASON FOR FOLLOWUP: Enterococcus faecalis bacteremia. INTERVAL HISTORY: Patient is currently afebrile. The patient is breathing comfortably on room air. Denies having any chest pain or cough. Has been complaining of some vague lower abdominal pain, unable to quantify any further. No vomiting or diarrhea has been reported. PHYSICAL EXAMINATION: Blood pressure 130/63 with a pulse of 77. Temperature 96.1. He is 99% on room air. General description is an elderly male lying in bed in no distress. Respiratory system: Unlabored breathing with decreased breath sounds in the bases. No wheeze. Heart S1, S2. Regular rate and rhythm. ABDOMEN: Soft, no tenderness. LABS: Hemoglobin is 10.1, white count 8.6, BUN of 15, creatinine 1.48. Blood culture with group D Enterococcus sensitivities pending. DIAGNOSTIC IMPRESSION AND PLAN: Patient with Enterococcus bacteremia with concern for possible abdominal source. Urine was negative. CT abdominal and pelvis shows some interim changes in the groin, though no significant inflammation changes has been noted clinically. Blood culture repeat has been ordered to document clearance of bacteremia. An echocardiogram should be obtained as well to rule out any vascular source and continue vancomycin while watching his kidney function closely. Continue supportive care. MMODL / IJN: [id number] /
[2020-07-22] MEDS: LACTATED RINGERS 1,000 ML IV SCH (02:27)
[2020-07-22 08:05] LABS: Anisocytosis Slight; Basophils % (A) 0 %; Eosinophils % (A) 0 %; HCT 31.4 % (39.0-53.0); HGB 10.4 gm/dL (13.0-17.5); Hypochromasia Slight; Lymphocytes # (A) 1.3 k/uL (1.0-4.8); Lymphocytes % (A) 15 %; MCH 27.9 pg (25.0-35.0); MCHC 33.2 g/dL (31.0-37.0); MCV 83.8 fL (80.0-100.0); Monocytes # (A) 0.4 k/uL (0-1.0); Monocytes % (A) 5 %; Neutrophils # (A) 6.8 k/uL (1.3-7.7); Neutrophils % (A) 78 %; Platelet Count 300 k/uL (150-450); RBC 3.74 m/uL (4.30-5.90); RDW 16.5 % (11.5-15.5); WBC 8.7 k/uL (3.8-10.6)
[2020-07-22 08:11] LABS: Albumin 2.5 g/dL (3.5-5.0); Calcium 8.3 mg/dL (8.4-10.2); Potassium 5.2 mmol/L (3.5-5.1); Total Bilirubin 0.3 mg/dL (0.2-1.3); Total Protein 5.3 g/dL (6.3-8.2)
[2020-07-22] MEDS: GABAPENTIN 300 MG CAP PO SCH (08:59)
[2020-07-22] MEDS: ASPIRIN 81 MG PO SCH (08:59)
[2020-07-22] MEDS: VANCOMYCIN 1,500 MG in SODIUM CHLORIDE 0.9% 250 ML IVPB SCH (08:59)
[2020-07-22] MEDS: SODIUM BICARBONATE TAB 650 MG TAB PO SCH ×4 (08:59→20:27)
[2020-07-22] MEDS: APIXABAN 5 MG TAB PO SCH ×2 (08:59→20:26)
[2020-07-22] MEDS: predniSONE 20 MG TAB PO SCH (08:59)
[2020-07-22] MEDS: carvediloL 6.25 MG TAB PO SCH (08:59)
[2020-07-22] MEDS: PANTOPRAZOLE 40 MG TABLET PO SCH (09:00)
[2020-07-22] MEDS: SODIUM CHLORIDE 0.9% 1,000 ML IV SCH (09:03)
--- NOTE | 2020-07-22 09:18 | P.PN ---
Subjective Patient is seen in follow-up for acute kidney injury on chronic kidney disease. Renal function continues to improve. Oral intake fair. Maintained on IV fluids. Good urine output. Hemodynamically stable. Vital signs are stable. General: The patient appeared well nourished and normally developed. HEENT: Head exam is unremarkable. Neck is without jugular venous distension. LUNGS: Breath sounds decreased. HEART: Rate and Rhythm are regular. ABDOMEN: Soft, nontender. EXTREMITITES: No edema. Objective - Vital Signs Vital signs: Vital Signs Temp 97.0 F L 07/22/20 04:00 Pulse 71 07/22/20 04:00 Resp 18 07/22/20 04:00 BP 143/83 07/22/20 04:00 Pulse Ox 100 07/22/20 04:00 Intake & Output 07/21/20 07/22/20 07/22/20 18:59 06:59 18:59 Intake Total 600 Output Total 2 200 Balance 598 -200 Weight 95.5 kg Intake: Oral 600 Output: Urine 200 Stool 2 Other: Voiding Method Diaper Diaper # Voids 2 1 # Bowel Movements 2 1 - Labs CBC & Chem 7: 07/22/20 07:32 07/22/20 07:32 Labs: Abnormal Lab Results - Last 24 Hours (Table) 07/22/20 07/22/20 Range/Units 07:32 07:32 RBC 3.74 L (4.30-5.90) m/uL Hgb 10.4 L (13.0-17.5) gm/dL Hct 31.4 L (39.0-53.0) % RDW 16.5 H (11.5-15.5) % Sodium 135 L (137-145) mmol/L Potassium 5.2 H (3.5-5.1) mmol/L BUN 46 H (9-20) mg/dL Creatinine 1.39 H (0.66-1.25) mg/dL Glucose 101 H (74-99) mg/dL Calcium 8.3 L (8.4-10.2) mg/dL ALT 51 H (4-49) U/L Total Protein 5.3 L (6.3-8.2) g/dL Albumin 2.5 L (3.5-5.0) g/dL Microbiology - Last 24 Hours (Table) 07/19/20 13:35 Blood Culture Gram Stain - Final Blood Blood Culture - Final Enterococcus faecalis 07/19/20 13:20 Blood Culture Gram Stain - Final Blood Blood Culture - Final Enterococcus faecalis Assessment and Plan Plan: Assessment: 1. Acute kidney injury mostly prerenal secondary to infection. Improving. Creatinine 1.39 today. 2. Chronic kidney disease stage IIIB secondary to nephrosclerosis with baseline creatinine near 1.7. 3. Enterococcus bacteremia maintained on antibiotics. Infectious disease following. CT of the abdomen and pelvis noted. 4. Mild hyperkalemia secondary to lactated Ringer's. Plan: Stop lactated Ringer's due to rising potassium. Start normal saline at 50 mL an hour. Monitor vancomycin level. Dose to be adjusted for renal function. Follow-up echocardiogram. Continue to monitor renal function and urine output.
--- NOTE | 2020-07-22 11:52 | ECHOF ---
Referral Reason:bacteremia MEASUREMENTS -------- HEIGHT: 172.7 cm WEIGHT: 95.3 kg BP: RVIDd: 4.3 cm (< 3.3) IVSd: 1.3 cm (0.6 - 1.1) LVIDd: 4.4 cm (3.9 - 5.3) LVPWd: 1.6 cm (0.6 - 1.1) IVSs: 1.8 cm LVIDs: 3.0 cm LVPWs: 1.9 cm LA Diam: 4.0 cm (2.7 - 3.8) Ao Diam: 3.4 cm (2.0 - 3.7) AV Cusp: 1.9 cm (1.5 - 2.6) MV EXCURSION: 17.961 mm (> 18.000) MV EF SLOPE: 52 mm/s (70 - 150) EPSS: 1.4 cm MV E Nikita: 0.36 m/s MV DecT: 304 ms MV A Nikita: 0.84 m/s MV E/A Ratio: 0.43 RAP: 5.00 mmHg RVSP: 27.98 mmHg FINDINGS -------- Sinus rhythm. Pt is positive Covid Pt. The left ventricular size is normal. There is mild concentric left ventricular hypertrophy. Overa ll left ventricular systolic function is low-normal with, an EF between 50 - 55 %. The right ventricle is severely enlarged. The left atrial size is normal. The right atrial size is normal. There is mild aortic valve sclerosis. There is mild aortic regurgitation. Mild mitral regurgitation is present. Mild tricuspid regurgitation present. Right ventricular systolic pressure is normal at < 35 mmHg. Trace/mild (physiologic) pulmonic regurgitation. The aortic root size is normal. There is a trivial pericardial effusion present. CONCLUSIONS -------- 1. Pt is positive Covid Pt. 2. The left ventricular size is normal. 3. There is mild concentric left ventricular hypertrophy. 4. Overall left ventricular systolic function is low-normal with, an EF between 50 - 55 %. 5. The right ventricle is severely enlarged. 6. The left atrial size is normal. 7. The right atrial size is normal. 8. There is mild aortic valve sclerosis. 9. There is mild aortic regurgitation. 10. Mild mitral regurgitation is present. 11. Mild tricuspid regurgitation present. 12. Trace/mild (physiologic) pulmonic regurgitation. 13. The aortic root size is normal. 14. There is a trivial pericardial effusion present. CRACKING STILL OPERATOR: Yeny Grewal RDCS
[2020-07-22] MEDS: AMPICILLIN-SULBACTAM 3 GM in SODIUM CHLORIDE 0.9% 100 ML IVPB SCH ×3 (12:42→23:26)
--- NOTE | 2020-07-22 13:33 | P.PN ---
Subjective Progress Note Date: 07/22/20 Principal diagnosis: Pneumonia, acute hypoxic respiratory failure, bacteremia This is a 74-year-old gentleman who resides at [facility] the [facility]. He has a history of CVA/TIA with residual right leg weakness, angina, GERD, hyperlipidemia, hypertension, osteoarthritis, chronic kidney disease stage III, former smoker. He was brought into the emergency room yesterday after being found be short of breath than him and O2 saturations in the 70s. Chest x-ray revealed some chronic changes but no acute pulmonary disease. There is some questionable left lower lobe infiltrate. Initial temperature 102.8. He is seen today on the selective care unit. He is currently awake and alert. Resting in bed. Somewhat of a poor historian. Answering most questions appropriately however. Continue O2 saturations up to 100% on 3 L/m per nasal cannula. Currently afebrile. Preliminary blood cultures revealing gram- positive cocci in pairs. White count 15.0. Hemoglobin 10.3. D-dimer 1.20. Sodium 135. Potassium 4.6. Creatinine 1.67. Initial lactic 2.4 currently 1.5. Pro-calcitonin 1.13. LDH 7.39. C-reactive protein 58.7. Fink virus not detected. He's been initiated on Tamiflu, ceftriaxone and azithromycin. Anticoagulated with Eliquis. The patient is seen today 07/21/2020 in follow-up on the selective care unit. He is currently resting comfortably in bed. Awake and alert in no acute distress and maintaining O2 saturation of 200% on 3 L/m per nasal cannula. He's been afebrile. Hemodynamically stable. The cultures positive for group D enterococcus. Currently on vancomycin. White count 8.6. Hemoglobin 10.4. Sodium 137. Potassium 4.3. Creatinine 1.48. On 07/22/2020 patient seen in follow-up on selective care unit. He is awake and alert, in no acute distress, he is resting comfortably in bed, currently on room air, pulse ox is 99%, occasional cough, lung sounds are diminished at the bases, he denies any chest pain, his last chest x-ray from yesterday showed bilateral airspace disease, low lung volumes and prominence of the central vascularity. CT of the abdomen and pelvis showed fecal impaction, indeterminate inflammatory changes in the left groin, diverticulosis and postop changes this was noncontrast exam. Patient has been afebrile overnight, his vitals have been stable, his blood cultures were positive for Enterococcus faecalis, patient is currently on Unasyn. Objective - Vital Signs Vital signs: Vital Signs Temp 97.4 F L 07/22/20 08:00 Pulse 70 07/22/20 08:00 Resp 16 07/22/20 08:00 BP 167/72 07/22/20 08:00 Pulse Ox 99 07/22/20 08:00 Intake & Output 07/21/20 07/22/20 07/22/20 18:59 06:59 18:59 Intake Total 600 240 Output Total 2 200 Balance 598 -200 240 Weight 95.5 kg Intake: Oral 600 240 Output: Urine 200 Stool 2 Other: Voiding Method Diaper Diaper Diaper Incontinent # Voids 2 1 # Bowel Movements 2 1 - Exam GENERAL EXAM: Alert, pleasant, 74-year-old white male, on room air with pulse ox of 99% comfortable in no apparent distress. HEAD: Normocephalic/atraumatic. EYES: Normal reaction of pupils, equal size. Conjunctiva pink, sclera white. NOSE: Clear with pink turbinates. THROAT: No erythema or exudates. NECK: No masses, no JVD, no thyroid enlargement, no adenopathy. CHEST: No chest wall deformity. Symmetrical expansion. LUNGS: Equal air entry with diminished breath sounds CVS: Regular rate and rhythm, normal S1 and S2, no gallops, no murmurs, no rubs ABDOMEN: Soft, nontender. No hepatosplenomegaly, normal bowel sounds, no guarding or rigidity. EXTREMITIES: No clubbing, no edema, no cyanosis, 2+ pulses and upper and lower extremities. MUSCULOSKELETAL: Muscle strength and tone normal. SPINE: No scoliosis or deformity SKIN: No rashes CENTRAL NERVOUS SYSTEM: Alert and oriented -3. No focal deficits, tone is normal in all 4 extremities. PSYCHIATRIC: Alert and oriented -3. Appropriate affect. Intact judgment and insight. - Labs CBC & Chem 7: 07/22/20 07:32 07/22/20 07:32 Labs: Abnormal Lab Results - Last 24 Hours (Table) 07/22/20 07/22/20 Range/Units 07:32 07:32 RBC 3.74 L (4.30-5.90) m/uL Hgb 10.4 L (13.0-17.5) gm/dL Hct 31.4 L (39.0-53.0) % RDW 16.5 H (11.5-15.5) % Sodium 135 L (137-145) mmol/L Potassium 5.2 H (3.5-5.1) mmol/L BUN 46 H (9-20) mg/dL Creatinine 1.39 H (0.66-1.25) mg/dL Glucose 101 H (74-99) mg/dL Calcium 8.3 L (8.4-10.2) mg/dL ALT 51 H (4-49) U/L Total Protein 5.3 L (6.3-8.2) g/dL Albumin 2.5 L (3.5-5.0) g/dL Microbiology - Last 24 Hours (Table) 07/19/20 13:35 Blood Culture Gram Stain - Final Blood Blood Culture - Final Enterococcus faecalis 07/19/20 13:20 Blood Culture Gram Stain - Final Blood Blood Culture - Final Enterococcus faecalis Assessment and Plan Plan: Assessment: #1. Acute hypoxic respiratory failure secondary to suspected streptococcal pneumonia #2. Enterococcus faecalis bacteremia, patient is currently on Unasyn #3. Febrile illness secondary to the above #4. History of CVA #5. History of chronic kidney disease stage III #6. Hyperlipidemia #7. GERD/reflux #8. Hypertension #9. Osteoarthritis #10. Poor overall functional performance Plan: Continue current antibiotics, patient has been afebrile, no worsening dyspnea, he is on room air, ID service is following, CT of the abdomen and pelvis have been noted, echocardiogram results have been noted. Repeat blood cultures are pending. We'll continue to monitor the patient's dyspnea, oxygenation pattern. We'll continue to follow I performed a history & physical examination of the patient and discussed their management with my nurse practitioner, Gloria Farrar. I reviewed the nurse practitioner's note and agree with the documented findings and plan of care. Lung sounds are positive for diminished breath sounds The findings and the impression was discussed with the patient. I attest to the documentation by the nurse practitioner. Time with Patient: Less than 30
--- NOTE | 2020-07-22 16:25 | P.PN ---
Subjective Progress Note Date: 07/22/20 This is a 74-year-old gentleman with recent CVA approximately 2 weeks ago, at [place] as per PCP, with expressive aphasia, some residual right-sided weakness, tested positive for influenza at [facility] subacute rehab, admitted with acute respiratory failure, acute renal failure, enterococcus bacteremia, etiology unclear and multiple other medical issues. Patient denies any chest pain, palpitations or shortness of breath. Echo pending. Maintained on vancomycin. Renal function continues to improve with IV fluid hydration. Potassium up to 5.2, IV fluids adjusted to normal saline. CT of abdomen and pelvis noted. Objective - Vital Signs Vital signs: Vital Signs Temp 97.4 F L 07/22/20 08:00 Pulse 70 07/22/20 08:00 Resp 16 07/22/20 08:00 BP 167/72 07/22/20 08:00 Pulse Ox 99 07/22/20 08:00 Intake & Output 07/21/20 07/22/20 07/22/20 18:59 06:59 18:59 Intake Total 600 720 Output Total 2 200 Balance 598 -200 720 Weight 95.5 kg Intake: Oral 600 720 Output: Urine 200 Stool 2 Other: Voiding Method Diaper Diaper Diaper Incontinent # Voids 2 1 # Bowel Movements 2 1 - Exam PHYSICAL EXAM: VITAL SIGNS: As above GENERAL: Sitting up in bed, no acute distress, expressive aphasia, mild confusion. HEENT: Conjunctivae normal. eyes normal. NECK: No JVD. No thyroid enlargement. No LNs CARDIOVASCULAR: S1, S2 regular. No murmur RESPIRATION: Breath sounds diminished in the bases. No rhonchi or crackles. No bronchial breathing. ABDOMEN: Soft, nontender . No guarding. no masses palpable. No ascites, No hepatosplenomegaly.Bowel sounds heard. LEGS: No edema. no swelling PSYCHIATRY: Alert and oriented X2-3, mood and affect normal. NERVOUS SYSTEM: Cranial N 2-12 grossly normal. Moves all 4 limbs. Minimal residual Right-sided weakness Skin: Warm and dry ,no rash - Labs CBC & Chem 7: 07/22/20 07:32 07/22/20 07:32 Labs: Abnormal Lab Results - Last 24 Hours (Table) 07/22/20 07/22/20 Range/Units 07:32 07:32 RBC 3.74 L (4.30-5.90) m/uL Hgb 10.4 L (13.0-17.5) gm/dL Hct 31.4 L (39.0-53.0) % RDW 16.5 H (11.5-15.5) % Sodium 135 L (137-145) mmol/L Potassium 5.2 H (3.5-5.1) mmol/L BUN 46 H (9-20) mg/dL Creatinine 1.39 H (0.66-1.25) mg/dL Glucose 101 H (74-99) mg/dL Calcium 8.3 L (8.4-10.2) mg/dL ALT 51 H (4-49) U/L Total Protein 5.3 L (6.3-8.2) g/dL Albumin 2.5 L (3.5-5.0) g/dL Microbiology - Last 24 Hours (Table) 07/19/20 13:35 Blood Culture Gram Stain - Final Blood Blood Culture - Final Enterococcus faecalis 07/19/20 13:20 Blood Culture Gram Stain - Final Blood Blood Culture - Final Enterococcus faecalis Assessment and Plan Assessment: Acute hypoxic respiratory failure, secondary to suspected streptococcal pneumonia, possible aspiration, recent influenza A from ECF reported per PCP Enterococcus faecalis bacteremia, etiology unclear, echo pending Acute renal failure, prerenal secondary to the above Chronic renal failure stage IIIB secondary to nephrosclerosis Recent CVA with minimal residual right-sided weakness, expressive aphasia Gastroesophageal reflux disease Hypertension Hyperlipidemia Osteoarthritis Plan: Continue on current medication regime ,monitoring and symptomatic treatment. Echo pending. IV antibiotics as per ID, recently adjusted to Unasyn. Repeat blood cultures for clearance of bacteremia in progress. Tested negative for caronavirus, influenza screen pending. IV fluids adjusted secondary to hyperkalemia.close monitoring of renal function, electrolytes with repeat labs in a.m. speech therapy consulted for potential MBS. PT/OT-return to subacute rehab at discharge. Prognosis guarded given multiple complex medical issues. The impression and plan of care has been dictated as directed. : I performed a history and examination of this patient, discussed the same with the dictator. I agree with the dictator's note ,documented as a scribe. Any additional findings or plans will be noted.
[2020-07-22] MEDS: CHOLECALCIFEROL 25 MCG (1000 IU) TABLET PO SCH (20:26)
[2020-07-22] MEDS: ATORVASTATIN 20 MG TAB PO SCH (20:27)
[2020-07-22] MEDS: ASCORBIC ACID 500 MG TAB PO SCH (20:27)
--- NOTE | 2020-07-22 22:00 | PN ---
PROGRESS NOTE DATE OF SERVICE: 07/22/2020 REASON FOR FOLLOWUP: Enterococcus faecalis bacteremia. INTERVAL HISTORY: Patient is currently afebrile. He is breathing comfortably. Denies having any chest pain or cough. No abdominal pain. No diarrhea. PHYSICAL EXAMINATION: Blood pressure 145/72 with a pulse of 70. Temperature 97.3. He is 99% on room air. General description: The patient is an elderly male lying in bed in no distress. Respiratory system: Unlabored breathing. Clear to auscultation anteriorly. Heart S1, S2. Regular rate. ABDOMEN: Soft, no tenderness. LABS: Hemoglobin is 10.2, white count 8.7, BUN of 46, creatinine 1.39. DIAGNOSTIC IMPRESSION AND PLAN: Patient with Enterococcus faecalis bacteremia, so far workup not showing obvious focus. Echo did show some abnormality and may benefit from a JACOB. Plan to keep the patient on antibiotic Unasyn as penicillin sensitive pathogen and monitor clinical course closely. MMODL / IJN: [id number] /
[2020-07-23] MEDS: SODIUM CHLORIDE 0.9% 1,000 ML IV SCH (05:34)
[2020-07-23] MEDS: AMPICILLIN-SULBACTAM 3 GM in SODIUM CHLORIDE 0.9% 100 ML IVPB SCH ×2 (05:41→12:21)
[2020-07-23 07:50] LABS: Anisocytosis Slight; Basophils # (A) 0.1 k/uL (0-0.2); Basophils % (A) 1 %; Eosinophils # (A) 0.1 k/uL (0-0.7); Eosinophils % (A) 1 %; HCT 32.8 % (39.0-53.0); HGB 10.6 gm/dL (13.0-17.5); Hypochromasia Moderate; Lymphocytes # (A) 1.5 k/uL (1.0-4.8); Lymphocytes % (A) 16 %; MCH 27.6 pg (25.0-35.0); MCHC 32.3 g/dL (31.0-37.0); MCV 85.3 fL (80.0-100.0); Mean Platelet Volume 6.8; Monocytes # (A) 0.4 k/uL (0-1.0); Monocytes % (A) 4 %; Neutrophils # (A) 7.3 k/uL (1.3-7.7); Neutrophils % (A) 78 %; Platelet Count 289 k/uL (150-450); RBC 3.84 m/uL (4.30-5.90); RDW 16.7 % (11.5-15.5); WBC 9.4 k/uL (3.8-10.6)
[2020-07-23 07:58] LABS: Albumin 2.6 g/dL (3.5-5.0); Calcium 8.3 mg/dL (8.4-10.2); Total Bilirubin 0.5 mg/dL (0.2-1.3); Total Protein 5.6 g/dL (6.3-8.2)
[2020-07-23 08:02] LABS: Magnesium 2.4 mg/dL (1.6-2.3); Potassium 5.2 mmol/L (3.5-5.1)
[2020-07-23] MEDS: SODIUM BICARBONATE TAB 650 MG TAB PO SCH ×4 (08:34→20:36)
[2020-07-23] MEDS: APIXABAN 5 MG TAB PO SCH ×2 (08:34→20:36)
[2020-07-23] MEDS: PANTOPRAZOLE 40 MG TABLET PO SCH (08:34)
[2020-07-23] MEDS: GABAPENTIN 300 MG CAP PO SCH (08:34)
[2020-07-23] MEDS: ASPIRIN 81 MG PO SCH (08:34)
[2020-07-23] MEDS: carvediloL 6.25 MG TAB PO SCH (08:34)
[2020-07-23] MEDS: predniSONE 20 MG TAB PO SCH (08:34)
--- NOTE | 2020-07-23 10:15 | P.PN ---
Subjective Patient is seen in follow-up for acute kidney injury on chronic kidney disease. Renal function continues to improve. Oral intake fair. Maintained on IV fluids. Good urine output. Hemodynamically stable. No changes overnight. Vital signs are stable. General: The patient appeared well nourished and normally developed. HEENT: Head exam is unremarkable. Neck is without jugular venous distension. LUNGS: Breath sounds decreased. HEART: Rate and Rhythm are regular. ABDOMEN: Soft, nontender. EXTREMITITES: No edema. Objective - Vital Signs Vital signs: Vital Signs Temp 97.5 F L 07/23/20 08:31 Pulse 78 07/23/20 08:31 Resp 18 07/23/20 08:31 BP 143/67 07/23/20 08:31 Pulse Ox 99 07/23/20 08:31 Intake & Output 07/22/20 07/23/20 07/23/20 18:59 06:59 18:59 Intake Total 1440 Output Total 2 Balance 1438 Weight 98 kg Intake: Oral 1440 Output: Stool 2 Other: Voiding Method Diaper Diaper Diaper Incontinent Incontinent Incontinent # Voids 2 2 # Bowel Movements 1 1 - Labs CBC & Chem 7: 07/23/20 07:32 07/23/20 07:32 Labs: Abnormal Lab Results - Last 24 Hours (Table) 07/23/20 07/23/20 Range/Units 07:32 07:32 RBC 3.84 L (4.30-5.90) m/uL Hgb 10.6 L (13.0-17.5) gm/dL Hct 32.8 L (39.0-53.0) % RDW 16.7 H (11.5-15.5) % Sodium 135 L (137-145) mmol/L Potassium 5.2 H (3.5-5.1) mmol/L BUN 42 H (9-20) mg/dL Calcium 8.3 L (8.4-10.2) mg/dL Magnesium 2.4 H (1.6-2.3) mg/dL Total Protein 5.6 L (6.3-8.2) g/dL Albumin 2.6 L (3.5-5.0) g/dL Microbiology - Last 24 Hours (Table) 07/22/20 07:32 Blood Culture - Final Blood Assessment and Plan Plan: Assessment: 1. Acute kidney injury mostly prerenal secondary to infection. Improving. Creatinine 1.22 today. 2. Chronic kidney disease stage IIIB secondary to nephrosclerosis with baseline creatinine near 1.7. 3. Enterococcus bacteremia maintained on antibiotics. Infectious disease following. CT of the abdomen and pelvis and echocardiogram noted. May need JACOB. 4. Mild hyperkalemia secondary to lactated Ringer's. Stable. Today's sample was hemolyzed. Plan: Maintain normal saline. Off vancomycin.
--- NOTE | 2020-07-23 13:57 | FL ---
Modified barium swallow. HISTORY: Dysphagia. Modified barium swallow was performed with the department of speech pathology. The patient was prese nted with various consistencies of barium. There is no evidence for penetration. Mild transient penetration noted. Full report is to follow fro m the department of speech pathology. Impression: Mild transient penetration
--- NOTE | 2020-07-23 14:14 | XR ---
EXAMINATION TYPE: XR chest 2V DATE OF EXAM: 07/23/2020 COMPARISON: 07/21/2020 HISTORY: Shortness of breath TECHNIQUE: Frontal and lateral views of the chest are obtained. FINDINGS: Scattered senescent parenchymal changes noted. Hyperinflation compatible with COPD. Previously noted areas of infiltrate right suprahilar left perihilar regions have significantly impro daniel with only mild residual left perihilar region. Heart size is stable. Mediastinal structures are stable and grossly unremarkable. No evidence for hilar prominence. Degenerative changes dorsal spine. IMPRESSION: 1. Previously noted areas of infiltrate right suprahilar left perihilar regions have significantly im proved with only mild residual left perihilar region.
--- NOTE | 2020-07-23 14:41 | P.PN ---
Subjective Progress Note Date: 07/23/20 Principal diagnosis: Pneumonia, acute hypoxic respiratory failure, bacteremia This is a 74-year-old gentleman who resides at [email or web address] He has a history of CVA/TIA with residual right leg weakness, angina, GERD, hyperlipidemia, hypertension, osteoarthritis, chronic kidney disease stage III, former smoker. He was brought into the emergency room yesterday after being found be short of breath than him and O2 saturations in the 70s. Chest x-ray revealed some chronic changes but no acute pulmonary disease. There is some questionable left lower lobe infiltrate. Initial temperature 102.8. He is seen today on the selective care unit. He is currently awake and alert. Resting in bed. Somewhat of a poor historian. Answering most questions appropriately however. Continue O2 saturations up to 100% on 3 L/m per nasal cannula. Currently afebrile. Preliminary blood cultures revealing gram- positive cocci in pairs. White count 15.0. Hemoglobin 10.3. D-dimer 1.20. Sodium 135. Potassium 4.6. Creatinine 1.67. Initial lactic 2.4 currently 1.5. Pro-calcitonin 1.13. LDH 7.39. C-reactive protein 58.7. Fink virus not detected. He's been initiated on Tamiflu, ceftriaxone and azithromycin. Anticoagulated with Eliquis. The patient is seen today 07/21/2020 in follow-up on the selective care unit. He is currently resting comfortably in bed. Awake and alert in no acute distress and maintaining O2 saturation of 200% on 3 L/m per nasal cannula. He's been afebrile. Hemodynamically stable. The cultures positive for group D enterococcus. Currently on vancomycin. White count 8.6. Hemoglobin 10.4. Sodium 137. Potassium 4.3. Creatinine 1.48. On 07/22/2020 patient seen in follow-up on selective care unit. He is awake and alert, in no acute distress, he is resting comfortably in bed, currently on room air, pulse ox is 99%, occasional cough, lung sounds are diminished at the bases, he denies any chest pain, his last chest x-ray from yesterday showed bilateral airspace disease, low lung volumes and prominence of the central vascularity. CT of the abdomen and pelvis showed fecal impaction, indeterminate inflammatory changes in the left groin, diverticulosis and postop changes this was noncontrast exam. Patient has been afebrile overnight, his vitals have been stable, his blood cultures were positive for Enterococcus faecalis, patient is currently on Unasyn. On 07/23/2020 patient seen in follow-up on selective care unit, patient is doing well, he is awake and alert, in no acute distress, resting comfortably in bed, he is on room air, denies any cough, denies any chest pain, denies any significant phlegm production. He is on room air. Pulse ox is 98%, no fever or chills. He remains on antibiotics, for enterococcus bacteremia, follow blood culture collected on 07/22/2020 has shown no growth. Clinically patient is stable, no reported difficulty breathing or chest pain, abdominal pain, no nause a vomiting or diarrhea. Follow-up chest x-ray is pending Objective - Vital Signs Vital signs: Vital Signs Temp 97.5 F L 07/23/20 11:44 Pulse 71 07/23/20 13:31 Resp 18 07/23/20 13:31 BP 137/67 07/23/20 11:44 Pulse Ox 98 07/23/20 11:44 Intake & Output 07/22/20 07/23/20 07/23/20 18:59 06:59 18:59 Intake Total 1440 480 Output Total 2 Balance 1438 480 Weight 98 kg 98 kg Intake: Oral 1440 480 Output: Stool 2 Other: Voiding Method Diaper Diaper Diaper Incontinent Incontinent Incontinent # Voids 2 2 2 # Bowel Movements 1 1 1 - Exam GENERAL EXAM: Alert, pleasant, 74-year-old white male, on room air with pulse ox of 99% comfortable in no apparent distress. HEAD: Normocephalic/atraumatic. EYES: Normal reaction of pupils, equal size. Conjunctiva pink, sclera white. NOSE: Clear with pink turbinates. THROAT: No erythema or exudates. NECK: No masses, no JVD, no thyroid enlargement, no adenopathy. CHEST: No chest wall deformity. Symmetrical expansion. LUNGS: Equal air entry with diminished breath sounds CVS: Regular rate and rhythm, normal S1 and S2, no gallops, no murmurs, no rubs ABDOMEN: Soft, nontender. No hepatosplenomegaly, normal bowel sounds, no guarding or rigidity. EXTREMITIES: No clubbing, no edema, no cyanosis, 2+ pulses and upper and lower extremities. MUSCULOSKELETAL: Muscle strength and tone normal. SPINE: No scoliosis or deformity SKIN: No rashes CENTRAL NERVOUS SYSTEM: Alert and oriented -3. No focal deficits, tone is normal in all 4 extremities. PSYCHIATRIC: Alert and oriented -3. Appropriate affect. Intact judgment and insight. - Labs CBC & Chem 7: 07/23/20 07:32 07/23/20 07:32 Labs: Abnormal Lab Results - Last 24 Hours (Table) 07/23/20 07/23/20 Range/Units 07:32 07:32 RBC 3.84 L (4.30-5.90) m/uL Hgb 10.6 L (13.0-17.5) gm/dL Hct 32.8 L (39.0-53.0) % RDW 16.7 H (11.5-15.5) % Sodium 135 L (137-145) mmol/L Potassium 5.2 H (3.5-5.1) mmol/L BUN 42 H (9-20) mg/dL Calcium 8.3 L (8.4-10.2) mg/dL Magnesium 2.4 H (1.6-2.3) mg/dL Total Protein 5.6 L (6.3-8.2) g/dL Albumin 2.6 L (3.5-5.0) g/dL Microbiology - Last 24 Hours (Table) 07/22/20 07:32 Blood Culture - Final Blood Assessment and Plan Plan: Assessment: #1. Acute hypoxic respiratory failure secondary to suspected streptococcal pneumonia, resolved, patient is currently on room air with pulse ox of 90-99% #2. Enterococcus faecalis bacteremia, patient is currently on Unasyn #3. Febrile illness secondary to the above #4. History of CVA #5. History of chronic kidney disease stage III #6. Hyperlipidemia #7. GERD/reflux #8. Hypertension #9. Osteoarthritis #10. Poor overall functional performance Plan: Patient is doing well, clinically stable, no shortness of breath, no cough or congestion, no fever or chills, we'll obtain follow-up chest x-ray today, it shows findings were improvement, he may be considered for discharge home today on antibiotics of ID services recommendations I performed a history & physical examination of the patient and discussed their management with my nurse practitioner, Gloria Farrar. I reviewed the nurse practitioner's note and agree with the documented findings and plan of care. Lung sounds are positive for diminished breath sounds The findings and the impression was discussed with the patient. I attest to the documentation by the nurse practitioner. Time with Patient: Less than 30
--- NOTE | 2020-07-23 16:09 | P.PN ---
Subjective Progress Note Date: 07/23/20 This is a 74-year-old gentleman with recent CVA approximately 2 weeks ago, at [facility] as per PCP, with expressive aphasia, some residual right-sided weakness, tested positive for influenza at [facility] subacute rehab, admitted with acute respiratory failure, acute renal failure, enterococcus bacteremia, etiology unclear and multiple other medical issues. Patient denies any chest pain, palpitations or shortness of breath. Echo pending. Maintained on vancomycin. Renal function continues to improve with IV fluid hydration. Potassium up to 5.2, IV fluids adjusted to normal saline. CT of abdomen and pelvis noted. 07/31/2020 maintained on Unasyn for enterococcus faecalis bacteremia. Follow-up blood culture from 21 reporting gram-positive cocci in chains Echo reported low normal LV function, EF 50-55%. evaluated by speech therapy, aphasic treatment initiated. MBS pending. Follow-up chest x-ray pending. Renal function improving with creatinine down to 1.22, potassium remains at 5.2. Maintaining O2 sats in the 90s on room air. Denies chest pain, palpitations or shortness of breath. Denies nausea vomiting or diarrhea. Denies abdominal pain. Objective - Vital Signs Vital signs: Vital Signs Temp 97.5 F L 07/23/20 11:44 Pulse 71 07/23/20 13:31 Resp 18 07/23/20 13:31 BP 137/67 07/23/20 11:44 Pulse Ox 98 07/23/20 11:44 Intake & Output 07/22/20 07/23/20 07/23/20 18:59 06:59 18:59 Intake Total 1440 480 Output Total 2 Balance 1438 480 Weight 98 kg 98 kg Intake: Oral 1440 480 Output: Stool 2 Other: Voiding Method Diaper Diaper Diaper Incontinent Incontinent Incontinent # Voids 2 2 2 # Bowel Movements 1 1 1 - Exam PHYSICAL EXAM: VITAL SIGNS: As above GENERAL: Sitting up in bed, no acute distress, expressive aphasia HEENT: Conjunctivae normal. eyes normal. NECK: No JVD. No thyroid enlargement. No LNs CARDIOVASCULAR: S1, S2 regular. No murmur RESPIRATION: Breath sounds diminished in the bases. ABDOMEN: Soft, nontender . No guarding. no masses palpable.Bowel sounds heard. LEGS: No edema. no swelling PSYCHIATRY: Alert and oriented X2-3, mood and affect normal. NERVOUS SYSTEM: Cranial N 2-12 grossly normal. Moves all 4 limbs. Minimal residual Right-sided weakness Skin: Warm and dry ,no rash - Labs CBC & Chem 7: 07/23/20 07:32 07/23/20 07:32 Labs: Abnormal Lab Results - Last 24 Hours (Table) 07/23/20 07/23/20 Range/Units 07:32 07:32 RBC 3.84 L (4.30-5.90) m/uL Hgb 10.6 L (13.0-17.5) gm/dL Hct 32.8 L (39.0-53.0) % RDW 16.7 H (11.5-15.5) % Sodium 135 L (137-145) mmol/L Potassium 5.2 H (3.5-5.1) mmol/L BUN 42 H (9-20) mg/dL Calcium 8.3 L (8.4-10.2) mg/dL Magnesium 2.4 H (1.6-2.3) mg/dL Total Protein 5.6 L (6.3-8.2) g/dL Albumin 2.6 L (3.5-5.0) g/dL Microbiology - Last 24 Hours (Table) 07/22/20 07:32 Blood Culture - Final Blood Assessment and Plan Assessment: Acute hypoxic respiratory failure, secondary to suspected streptococcal pneumonia, possible aspiration, recent influenza A from ECF reported per PCP. Enterococcus faecalis bacteremia, etiology unclear, Acute renal failure, prerenal secondary to the above Chronic renal failure stage IIIB secondary to nephrosclerosis Recent CVA with minimal residual right-sided weakness, expressive aphasia Gastroesophageal reflux disease Hypertension Hyperlipidemia Osteoarthritis Plan: Continue on current medication regime ,monitoring and symptomatic treatment. MBS pending .aspiration precautions aphasic treatment as per speech therapy..Continue on IV antibiotics of Unasyn as per ID. Repeat blood cultures of 07/22 report gram-positive cocci in chains. PT. Subacute rehab at discharge. Prognosis guarded given multiple complex medical issues. The impression and plan of care has been dictated as directed. : I performed a history and examination of this patient, discussed the same with the dictator. I agree with the dictator's note ,documented as a scribe. Any additional findings or plans will be noted.
--- NOTE | 2020-07-23 16:42 | CDI ---
Documentation Clarification Form Date: 07/23/2020 04:09:38 PM From: Lizzeth Padilla RN, CCDS Admit Date: 07/19/2020 03:38:00 PM Patient Name: Ramin Green Visit Number: [id number] Discharge Date: ATTENTION: The Clinical Documentation Specialists (CDI) and [facility] Coding Staff appreciate your assistance in clarifying documentation. Please respond to the clarification below the line at the bottom and electronically sign. The CDI & [facility] Coding staff will review the response and follow-up if needed. Please note: Queries are made part of the Legal Health Record. If you have any questions, please contact the author of this message via ITS. Dr. Aron Simon The diagnosis sepsis was documented in the record, but is not noted in subsequent documentation. 07/20 H/P sepsis noted, Sepsis focused exam. 07/20 ID consult: Admit patient to hospital with sepsis in this patient who did have fever, elevated white count now with evidence of Enterococcus bacteremia. History/Risk Factors: CVA, CKD stage 3b, Dementia Clinical Indicators: 74-year-old male from ECF present with increasing shortness of breath and hypoxemia 07/19 Vital Signs on admission: 103/54 101 35, 102.8 100% BiPAP 07/19 WBC 23.0, Neutrophils 21.5, BUN 60, Creatinine 2.15, Lactic acid 2.7, 2.1, 2.4, C-Reactive Protein, 58.7, 07/19 CXR chronic changes without evidence for acute pulmonary disease. 07/21 CXR: correlate for congestive heart failure, pneumonia 07/19 Blood cultures: group D enterococcus Treatment: Telemetry monitoring Monitor O2 Sat's (titrate) Monitor labs, intake and output Vancomycin 1,750 MG IVPB Once, Pharmacy to dose, Unasyn 3 GM IVPB Q 6 HRS Please clarify if the Sepsis was: ---> Present/active this admission Treated and resolved this admission Ruled out Other, please specify Clinically unable to determine (Last Query Form Revision: February 2019) MTDD
[2020-07-23] MEDS: AMPICILLIN 2,000 MG in SODIUM CHLORIDE 0.9% 100 ML IVPB SCH ×3 (17:01→23:28)
--- NOTE | 2020-07-23 17:54 | PN ---
PROGRESS NOTE DATE OF SERVICE: 07/23/2020 REASON FOR FOLLOWUP: Enterococcus faecalis bacteremia. INTERVAL HISTORY: The patient is currently afebrile. The patient is breathing comfortably. The patient denies having any chest pain or shortness of breath or cough. No abdominal pain or any diarrhea. PHYSICAL EXAMINATION: Blood pressure 108/58 with a pulse of 89, temperature 97.5. He is 100% on room air. General description is an elderly male lying in bed in no distress. RESPIRATORY SYSTEM: Unlabored breathing. Clear to auscultation anteriorly. HEART: S1, S2. Regular rate and rhythm. ABDOMEN: Soft. No tenderness. LABS: Hemoglobin is 10.6, white count 9.4, BUN of 42, creatinine 1.22. Blood culture from 07/22 is positive. DIAGNOSTIC IMPRESSION AND PLAN: Patient with Enterococcus faecalis bacteremia in this patient with evidence of persistent bacteremia, likely suspicious for a deep source. JACOB will be ordered, antibiotic adjusted to ampicillin, and we will monitor his clinical course closely. Continue with supportive care. SAPPHIREL / EDUARDON: [id number] /
[2020-07-23] MEDS: ATORVASTATIN 20 MG TAB PO SCH (20:36)
[2020-07-23] MEDS: ASCORBIC ACID 500 MG TAB PO SCH (20:36)
[2020-07-23] MEDS: CHOLECALCIFEROL 25 MCG (1000 IU) TABLET PO SCH (20:36)
[2020-07-24] MEDS: AMPICILLIN 2,000 MG in SODIUM CHLORIDE 0.9% 100 ML IVPB SCH ×6 (03:58→23:17)
[2020-07-24] MEDS: SODIUM CHLORIDE 0.9% 1,000 ML IV SCH ×2 (04:00→20:28)
[2020-07-24] MEDS: PANTOPRAZOLE 40 MG TABLET PO SCH (08:16)
[2020-07-24] MEDS: SODIUM BICARBONATE TAB 650 MG TAB PO SCH ×4 (08:16→20:25)
[2020-07-24] MEDS: ASPIRIN 81 MG PO SCH (08:16)
[2020-07-24] MEDS: APIXABAN 5 MG TAB PO SCH ×2 (08:16→20:25)
[2020-07-24] MEDS: carvediloL 6.25 MG TAB PO SCH (08:16)
[2020-07-24] MEDS: predniSONE 20 MG TAB PO SCH (08:16)
[2020-07-24] MEDS: GABAPENTIN 300 MG CAP PO SCH (08:16)
[2020-07-24 08:31] LABS: Calcium 8.1 mg/dL (8.4-10.2); Magnesium 2.4 mg/dL (1.6-2.3)
--- NOTE | 2020-07-24 08:44 | P.PN ---
Subjective Patient is seen in follow-up for acute kidney injury on chronic kidney disease. Renal function stable. Oral intake fair. Maintained on IV fluids. Good urine output. Hemodynamically stable. No changes overnight. Vital signs are stable. General: The patient appeared well nourished and normally developed. HEENT: Head exam is unremarkable. Neck is without jugular venous distension. LUNGS: Breath sounds decreased. HEART: Rate and Rhythm are regular. ABDOMEN: Soft, nontender. EXTREMITITES: No edema. Objective - Vital Signs Vital signs: Vital Signs Temp 97.6 F 07/24/20 08:15 Pulse 72 07/24/20 08:15 Resp 18 07/24/20 08:15 BP 144/67 07/24/20 08:15 Pulse Ox 99 07/24/20 08:15 Intake & Output 07/23/20 07/24/20 07/24/20 18:59 06:59 18:59 Intake Total 1080 Balance 1080 Weight 98 kg 99.5 kg Intake: Oral 1080 Other: Voiding Method Diaper Diaper Incontinent Incontinent # Voids 2 1 # Bowel Movements 1 1 - Labs CBC & Chem 7: 07/23/20 07:32 07/24/20 07:26 Labs: Abnormal Lab Results - Last 24 Hours (Table) 07/24/20 Range/Units 07:26 Sodium 134 L (137-145) mmol/L BUN 42 H (9-20) mg/dL Creatinine 1.31 H (0.66-1.25) mg/dL Calcium 8.1 L (8.4-10.2) mg/dL Magnesium 2.4 H (1.6-2.3) mg/dL Microbiology - Last 24 Hours (Table) 07/22/20 07:32 Blood Culture Gram Stain - Preliminary Blood Blood Culture - Preliminary Group D Enterococcus 07/22/20 07:32 Blood Culture - Final Blood Assessment and Plan Plan: Assessment: 1. Acute kidney injury mostly prerenal secondary to infection. Renal function improved from admission. Creatinine stable at 1.31 today. 2. Chronic kidney disease stage IIIB secondary to nephrosclerosis with baseline creatinine near 1.7. 3. Enterococcus bacteremia maintained on antibiotics. Infectious disease following. CT of the abdomen and pelvis and echocardiogram noted. 4. Mild hyperkalemia secondary to lactated Ringer's. Stable. 5. Metabolic acidosis secondary to acute kidney injury and IV fluids maintained on oral bicarbonate. Plan: Maintain normal saline. Off vancomycin. JACOB pending. Continue to monitor renal function and urine output.
--- NOTE | 2020-07-24 13:29 | P.PN ---
Subjective Progress Note Date: 07/24/20 Principal diagnosis: This is a 74-year-old gentleman who resides at [facility] the [facility]. He has a history of CVA/TIA with residual right leg weakness, angina, GERD, hyperlipidemia, hypertension, osteoarthritis, chronic kidney disease stage III, former smoker. He was brought into the emergency room yesterday after being found be short of breath than him and O2 saturations in the 70s. Chest x- ray revealed some chronic changes but no acute pulmonary disease. There is some questionable left lower lobe infiltrate. Initial temperature 102.8. He is seen today on the selective care unit. He is currently awake and alert. Resting in bed. Somewhat of a poor historian. Answering most questions appropriately however. Continue O2 saturations up to 100% on 3 L/m per nasal cannula. Currently afebrile. Preliminary blood cultures revealing gram-positive cocci in pairs. White count 15.0. Hemoglobin 10.3. D-dimer 1.20. Sodium 135. Potassium 4.6. Creatinine 1.67. Initial lactic 2.4 currently 1.5. Pro- calcitonin 1.13. LDH 7.39. C-reactive protein 58.7. Fink virus not detected. He's been initiated on Tamiflu, ceftriaxone and azithromycin. Anticoagulated with Eliquis. The patient is seen today 07/21/2020 in follow-up on the selective care unit. He is currently resting comfortably in bed. Awake and alert in no acute distress and maintaining O2 saturation of 200% on 3 L/m per nasal cannula. He's been afebrile. Hemodynamically stable. The cultures positive for group D enterococcus. Currently on vancomycin. White count 8.6. Hemoglobin 10.4. Sodium 137. Potassium 4.3. Creatinine 1.48. On 07/22/2020 patient seen in follow-up on selective care unit. He is awake and alert, in no acute distress, he is resting comfortably in bed, currently on room air, pulse ox is 99%, occasional cough, lung sounds are diminished at the bases, he denies any chest pain, his last chest x-ray from yesterday showed bilateral airspace disease, low lung volumes and prominence of the central vascularity. CT of the abdomen and pelvis showed fecal impaction, indeterminate inflammatory changes in the left groin, diverticulosis and postop changes this was noncontrast exam. Patient has been afebrile overnight, his vitals have been stable, his blood cultures were positive for Enterococcus faecalis, patient is currently on Unasyn. On 07/23/2020 patient seen in follow-up on selective care unit, patient is doing well, he is awake and alert, in no acute distress, resting comfortably in bed, he is on room air, denies any cough, denies any chest pain, denies any significant phlegm production. He is on room air. Pulse ox is 98%, no fever or chills. He remains on antibiotics, for enterococcus bacteremia, follow blood culture collected on 07/22/2020 has shown no growth. Clinically patient is stable, no reported difficulty breathing or chest pain, abdominal pain, no nausea vomiting or diarrhea. Follow-up chest x-ray is pending The patient is seen today 07/24/2020 in follow-up on the selective care unit. He is currently resting comfortably in bed. Awake and alert in no acute distress. Maintaining O2 saturation in the mid to upper 90s on room air. Chest x-ray had revealed a left lower lobe infiltrate. He is afebrile. Hemodynamically stable. Follow-up blood cultures were positive for group D enterococcus. Sodium 134. Potassium 5.0. Creatinine 1.31. He remains on ampicillin. Anticoagulated with Eliquis. On oral prednisone. On oral bicarb. Remains in 0.9 at 50 mL per hour. Plan is for [facility] ECF upon discharge. Objective - Vital Signs Vital signs: Vital Signs Temp 97.5 F L 07/24/20 12:12 Pulse 77 07/24/20 12:12 Resp 18 07/24/20 12:12 BP 147/70 07/24/20 12:12 Pulse Ox 98 07/24/20 12:12 Intake & Output 07/23/20 07/24/20 07/24/20 18:59 06:59 18:59 Intake Total 1080 Balance 1080 Weight 98 kg 99.5 kg Intake: Oral 1080 Other: Voiding Method Diaper Diaper Diaper Incontinent Incontinent Incontinent # Voids 2 1 2 # Bowel Movements 1 1 1 - Exam GENERAL EXAM: Alert, pleasant 74-year-old gentleman, on room air, comfortable in no apparent distress. HEAD: Normocephalic. EYES: Normal reaction of pupils, equal size. NOSE: Clear with pink turbinates. THROAT: No erythema or exudates. NECK: No masses, no JVD. CHEST: No chest wall deformity. LUNGS: Equal air entry with crackles in the posterior left base. CVS: S1 and S2 normal with no audible murmur, regular rhythm. ABDOMEN: No hepatosplenomegaly, normal bowel sounds, no guarding or rigidity. SPINE: No scoliosis or deformity SKIN: No rashes CENTRAL NERVOUS SYSTEM: No focal deficits, tone is normal in all 4 extremities. EXTREMITIES: There is no peripheral edema. No clubbing, no cyanosis. Peripheral pulses are intact. - Labs CBC & Chem 7: 07/23/20 07:32 07/24/20 07:26 Labs: Abnormal Lab Results - Last 24 Hours (Table) 07/24/20 Range/Units 07:26 Sodium 134 L (137-145) mmol/L BUN 42 H (9-20) mg/dL Creatinine 1.31 H (0.66-1.25) mg/dL Calcium 8.1 L (8.4-10.2) mg/dL Magnesium 2.4 H (1.6-2.3) mg/dL Microbiology - Last 24 Hours (Table) 07/22/20 07:32 Blood Culture Gram Stain - Preliminary Blood Blood Culture - Preliminary Group D Enterococcus Assessment and Plan Assessment: 1 Acute hypoxic respiratory failure secondary to suspected streptococcal pneumonia, pro-calcitonin 1.13 2 Bacteremia with group D enterococcus 3 Febrile illness secondary to above, recovered 4 History of CVA 5 History of chronic kidney disease stage III 6 Hyperlipidemia 7 Gastroesophageal reflux disease 8 Hypertension 9 Osteoarthritis 10 Poor overall functional performance based on the above-mentioned multiple comorbidities Plan: The patient was seen and evaluated by Dr. Muse Continue antibiotics per ID services Cleared for discharge from the pulmonary standpoint I, the cosigning physician, performed a history & physical examination of the patient. Lungs sounds with crackles in the left lung base. Maintaining good O2 saturations in the 90s on room air. I discussed the assessment and plan of care with my nurse practitioner, Kathleen Begum. I attest to the above note as dictated by her.
--- NOTE | 2020-07-24 15:02 | P.PN ---
Subjective Progress Note Date: 07/24/20 This is a 74-year-old gentleman with recent CVA approximately 2 weeks ago, at [place] as per PCP, with expressive aphasia, some residual right-sided weakness, tested positive for influenza at [facility] subacute rehab, admitted with acute respiratory failure, acute renal failure, enterococcus bacteremia, etiology unclear and multiple other medical issues. Patient denies any chest pain, palpitations or shortness of breath. Echo pending. Maintained on vancomycin. Renal function continues to improve with IV fluid hydration. Potassium up to 5.2, IV fluids adjusted to normal saline. CT of abdomen and pelvis noted. 07/23/2020 maintained on Unasyn for enterococcus faecalis bacteremia. Follow-up blood culture from reporting gram-positive cocci in chains Echo reported low normal LV function, EF 50-55%. evaluated by speech therapy, aphasic treatment initiated. MBS pending. Follow-up chest x-ray pending. Renal function improving with creatinine down to 1.22, potassium remains at 5.2. Maintaining O2 sats in the 90s on room air. Denies chest pain, palpitations or shortness of breath. Denies nausea vomiting or diarrhea. Denies abdominal pain. 07/24/2020 persistent bacteremia, JACOB ordered. Antibiotics adjusted to ampicillin yesterday. Chest x-ray from yesterday afternoon reported significant improvement. Afebrile. Maintaining O2 sats in the high 90s on room air. Continues on gentle IV fluid hydration. Patient not sitting up right in bed, choking on lunch tray. MBS performed reporting no impairment. Creatinine 1.31. Potassium improved down to 5. Objective - Vital Signs Vital signs: Vital Signs Temp 97.5 F L 07/24/20 12:12 Pulse 77 07/24/20 14:00 Resp 18 07/24/20 14:00 BP 147/70 07/24/20 12:12 Pulse Ox 98 07/24/20 12:12 Intake & Output 07/23/20 07/24/20 07/24/20 18:59 06:59 18:59 Intake Total 1080 Balance 1080 Weight 98 kg 99.5 kg Intake: Oral 1080 Other: Voiding Method Diaper Diaper Diaper Incontinent Incontinent Incontinent # Voids 2 1 2 # Bowel Movements 1 1 1 - Exam PHYSICAL EXAM: VITAL SIGNS: As above GENERAL: Sitting up in bed, no acute distress, expressive aphasia HEENT: Conjunctivae normal. eyes normal. NECK: No JVD. No thyroid enlargement. No LNs CARDIOVASCULAR: S1, S2 regular. No murmur RESPIRATION: Breath sounds diminished in the bases. Fine left basilar crackles ABDOMEN: Soft, nontender . No guarding. no masses palpable.Bowel sounds heard. LEGS: No edema. no swelling PSYCHIATRY: Alert and oriented X2-3, mood and affect normal. NERVOUS SYSTEM: Cranial N 2-12 grossly normal. Moves all 4 limbs. Minimal residual Right-sided weakness Skin: Warm and dry ,no rash, healing stage II ulcer left third toe - Labs CBC & Chem 7: 07/23/20 07:32 07/24/20 07:26 Labs: Abnormal Lab Results - Last 24 Hours (Table) 07/24/20 Range/Units 07:26 Sodium 134 L (137-145) mmol/L BUN 42 H (9-20) mg/dL Creatinine 1.31 H (0.66-1.25) mg/dL Calcium 8.1 L (8.4-10.2) mg/dL Magnesium 2.4 H (1.6-2.3) mg/dL Microbiology - Last 24 Hours (Table) 07/22/20 07:32 Blood Culture Gram Stain - Preliminary Blood Blood Culture - Preliminary Group D Enterococcus Assessment and Plan Assessment: Acute hypoxic respiratory failure, secondary to suspected streptococcal pneumonia, possible aspiration, recent influenza A from ECF reported per PCP. 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 Patient is to be up in chair for all meals . JACOB pending. IV antibiotics as per ID. PT. Subacute rehab at discharge. Prognosis guarded given multiple complex medical issues. The impression and plan of care has been dictated as directed. : I performed a history and examination of this patient, discussed the same with the dictator. I agree with the dictator's note ,documented as a scribe. Any additional findings or plans will be noted.
[2020-07-24] MEDS: CHOLECALCIFEROL 25 MCG (1000 IU) TABLET PO SCH (20:25)
[2020-07-24] MEDS: ATORVASTATIN 20 MG TAB PO SCH (20:25)
[2020-07-24] MEDS: ASCORBIC ACID 500 MG TAB PO SCH (20:25)
--- NOTE | 2020-07-24 22:22 | PN ---
PROGRESS NOTE DATE OF SERVICE: 07/24/2020 REASON FOR FOLLOWUP: Enterococcus faecalis bacteremia. INTERVAL HISTORY: The patient is currently afebrile, has been breathing comfortably. The patient denies having any chest pain, shortness of breath or cough. No abdominal pain or diarrhea. No pain to the lumbar spine area, even though this patient did have a history of multiple surgeries to the back. The last one was in November of last year. PHYSICAL EXAMINATION: Blood pressure 133/69, pulse 70, temperature 97.5. He is 99% on room air. General description is an elderly male lying in bed in no distress. RESPIRATORY SYSTEM: Unlabored breathing. Clear to auscultation anteriorly. HEART: S1, S2. Regular rate and rhythm. ABDOMEN: Soft. No tenderness. LABS: BUN of 42, creatinine 1.31. DIAGNOSTIC IMPRESSION AND PLAN: Patient with Enterococcus faecalis bacteremia with no obvious focus. Urine negative. CT of abdomen and pelvis was negative. The patient did have extensive lumbar surgery; possible lumbosacral spine source. Will obtain MRI of the lumbar spine with contrast, as the patient recently did have a JACOB done at the outside facility that was negative. If the MRI comes back negative, may order a JACOB. The patient's was at the bedside. Questions were answered. Will keep the patient on ampicillin. Blood culture daily to monitor clinical clearance of his bacteremia. MMODL / IJN: [id number] /
[2020-07-25] MEDS: AMPICILLIN 2,000 MG in SODIUM CHLORIDE 0.9% 100 ML IVPB SCH ×6 (04:41→23:06)
[2020-07-25 09:01] LABS: Calcium 8.1 mg/dL (8.4-10.2); Magnesium 2.3 mg/dL (1.6-2.3); Potassium 5.3 mmol/L (3.5-5.1)
[2020-07-25 09:14] LABS: C Reactive Protein 16.9 mg/L (<10.0)
--- NOTE | 2020-07-25 09:18 | P.PN ---
Subjective Patient is seen in follow-up for acute kidney injury on chronic kidney disease. Renal function stable. Oral intake fair. Good urine output. Hemodynamically stable. No changes overnight. scheduled for MRI and JACOB today. Vital signs are stable. General: The patient appeared well nourished and normally developed. HEENT: Head exam is unremarkable. Neck is without jugular venous distension. LUNGS: Breath sounds decreased. HEART: Rate and Rhythm are regular. ABDOMEN: Soft, nontender. EXTREMITITES: No edema. Objective - Vital Signs Vital signs: Vital Signs Temp 97.9 F 07/25/20 04:00 Pulse 80 07/25/20 04:00 Resp 18 07/25/20 04:00 BP 140/76 07/25/20 04:00 Pulse Ox 99 07/25/20 04:00 Intake & Output 07/24/20 07/25/20 07/25/20 18:59 06:59 18:59 Intake Total 120 Balance 120 Weight 101 kg Intake: Oral 120 Other: Voiding Method Diaper Diaper Incontinent Incontinent # Voids 2 1 # Bowel Movements 1 1 - Labs CBC & Chem 7: 07/23/20 07:32 07/25/20 07:47 Labs: Abnormal Lab Results - Last 24 Hours (Table) 07/25/20 Range/Units 07:47 Sodium 134 L (137-145) mmol/L Potassium 5.3 H (3.5-5.1) mmol/L BUN 43 H (9-20) mg/dL Creatinine 1.33 H (0.66-1.25) mg/dL Calcium 8.1 L (8.4-10.2) mg/dL C-Reactive Protein 16.9 H (<10.0) mg/L Microbiology - Last 24 Hours (Table) 07/22/20 07:32 Blood Culture Gram Stain - Final Blood Blood Culture - Final Enterococcus faecalis Assessment and Plan Plan: Assessment: 1. Acute kidney injury mostly prerenal secondary to infection. Renal function improved from admission. Creatinine stable at 1.33 today. 2. Chronic kidney disease stage IIIB secondary to nephrosclerosis with baseline creatinine near 1.7. 3. Enterococcus bacteremia maintained on antibiotics. Infectious disease following. CT of the abdomen and pelvis and echocardiogram noted. 4. Mild hyperkalemia secondary to YOUNG. Stable. 5. Metabolic acidosis secondary to acute kidney injury and IV fluids maintained on oral bicarbonate. Plan: Maintain normal saline. MRI of spine and JACOB today. Continue to monitor renal function and urine output. Renal diet.
--- NOTE | 2020-07-25 09:47 | CDI ---
Documentation Clarification Form Date: 07/25/2020 09:15:41 AM From: Lizzeth Padilla RN, CCDS Admit Date: 07/19/2020 03:38:00 PM Patient Name: Ramin Green Visit Number: [id number] Discharge Date: ATTENTION: The Clinical Documentation Specialists (CDI) and [facility] Coding Staff appreciate your assistance in clarifying documentation. Please respond to the clarification below the line at the bottom and electronically sign. The CDI & [facility] Coding staff will review the response and follow-up if needed. Please note: Queries are made part of the Legal Health Record. If you have any questions, please contact the author of this message via ITS. Dr. Aron Simon History of afib is documented in the H&P with ongoing treatment. Please render your opinion on the type of atrial fibrillation if known. History/Risk Factors: Atrial fibrillation, Angina, Hypertension, CVA, Clinical Indicators: 78-year-old male who present to ED on 07/19 with episodic dyspnea respiratory distress. In the H/P review of systems cardiovascular he reports irregular heartbeat. H/P documents history of afib. 07/19 Vital signs: 103/54 101 35 102.8 07/19 EKG/telemetry: normal sinus rhythm 97 bpm 07/22 ECHO: Sinus rhythm. Overall left ventricular systolic function is low-normal with, an EF between 50-55 % Treatment: Eliquis 5 MG PO BID Monitor PT/INR In your professional opinion, can you please clarify the type of Atrial Fibrillation, if known? Chronic/Permanent Paroxysmal Persistent Other, please specify --->Unable to determine (Last Revision: September 2017) MTDD
[2020-07-25 09:50] LABS: Anisocytosis Slight; HCT 34.6 % (39.0-53.0); Hypochromasia Moderate; MCH 27.4 pg (25.0-35.0); MCHC 31.7 g/dL (31.0-37.0); MCV 86.4 fL (80.0-100.0); Mean Platelet Volume 7.3; Platelet Count 272 k/uL (150-450); RDW 17.1 % (11.5-15.5); WBC 7.5 k/uL (3.8-10.6)
[2020-07-25] MEDS: SODIUM BICARBONATE TAB 650 MG TAB PO SCH ×4 (09:55→20:09)
[2020-07-25] MEDS: PANTOPRAZOLE 40 MG TABLET PO SCH (09:55)
[2020-07-25] MEDS: carvediloL 6.25 MG TAB PO SCH (09:55)
[2020-07-25] MEDS: predniSONE 20 MG TAB PO SCH (09:55)
[2020-07-25] MEDS: GABAPENTIN 300 MG CAP PO SCH (09:55)
[2020-07-25] MEDS: ASPIRIN 81 MG PO SCH (09:55)
[2020-07-25] MEDS: APIXABAN 5 MG TAB PO SCH ×2 (09:55→20:09)
[2020-07-25] MEDS ORDERED: ALPRAZolam 0.25 MG TAB PO STA (10:40)
[2020-07-25 11:29] VITALS: BMI 33.8
--- NOTE | 2020-07-25 12:29 | MR ---
EXAMINATION TYPE: MR lumbar spine wo/w con DATE OF EXAM: 07/25/2020 COMPARISON: None HISTORY: LS Abscess/discitis , pain CONTRAST: 10 mL intravenous Gadavist. TECHNIQUE: Multiplanar, multisequence images of the lumbar spine were acquired. FINDINGS: Pedicle screws are present L3-5. This causes susceptibility artifact in some limitation at these levels. L5-S1: Broad-based disc bulge is present with anterior thecal sac contact. Exiting nerve root contact may be present. Correlate with the radicular symptoms. No spinal canal stenosis. No foraminal sten osis. Facet hypertrophy is present. L4-L5: No significant disc bulge is evident. There may be some postsurgical change with granulation t issue in the right paracentral region and mild anterior thecal sac compression. No exiting nerve root encasement is evident. No AP spinal canal stenosis is present. Neural foramen and limited evaluation . L3-L4: Minimal disc bulge has anterior thecal sac contact. No AP spinal canal stenosis present. Neura l foramen appear patent. L2-L3: No significant disc bulge or disc herniation. No spinal canal stenosis. No foraminal stenosi s. L1-L2: No significant disc bulge or disc herniation. No spinal canal stenosis. No foraminal stenosi s. T12-L1: No significant disc bulge or disc herniation. No spinal canal stenosis. No foraminal stenos is. No abnormal enhancement. Medial right renal cyst is noted. IMPRESSION: 1. There may be some postsurgical change with granulation tissue in the right paracentral region at L 4-5 with mild anterior thecal sac compression. Correlate for right L5 radicular symptoms. 2. Mild disc bulge L5-S1 to correlate with S1 radicular symptoms. 3. Postsurgical changes lower lumbar spine causing some limitation of the evaluation. 4. No suspicious enhancement of the disc spaces or vertebral bodies to suggest acute discitis
--- NOTE | 2020-07-25 12:31 | P.PN ---
Subjective Progress Note Date: 07/25/20 Principal diagnosis: This is a 74-year-old gentleman who resides at [facility] the [facility]. He has a history of CVA/TIA with residual right leg weakness, angina, GERD, hyperlipidemia, hypertension, osteoarthritis, chronic kidney disease stage III, former smoker. He was brought into the emergency room yesterday after being found be short of breath than him and O2 saturations in the 70s. Chest x- ray revealed some chronic changes but no acute pulmonary disease. There is some questionable left lower lobe infiltrate. Initial temperature 102.8. He is seen today on the selective care unit. He is currently awake and alert. Resting in bed. Somewhat of a poor historian. Answering most questions appropriately however. Continue O2 saturations up to 100% on 3 L/m per nasal cannula. Currently afebrile. Preliminary blood cultures revealing gram-positive cocci in pairs. White count 15.0. Hemoglobin 10.3. D-dimer 1.20. Sodium 135. Potassium 4.6. Creatinine 1.67. Initial lactic 2.4 currently 1.5. Pro- calcitonin 1.13. LDH 7.39. C-reactive protein 58.7. Fink virus not detected. He's been initiated on Tamiflu, ceftriaxone and azithromycin. Anticoagulated with Eliquis. The patient is seen today 07/21/2020 in follow-up on the selective care unit. He is currently resting comfortably in bed. Awake and alert in no acute distress and maintaining O2 saturation of 200% on 3 L/m per nasal cannula. He's been afebrile. Hemodynamically stable. The cultures positive for group D enterococcus. Currently on vancomycin. White count 8.6. Hemoglobin 10.4. Sodium 137. Potassium 4.3. Creatinine 1.48. On 07/22/2020 patient seen in follow-up on selective care unit. He is awake and alert, in no acute distress, he is resting comfortably in bed, currently on room air, pulse ox is 99%, occasional cough, lung sounds are diminished at the bases, he denies any chest pain, his last chest x-ray from yesterday showed bilateral airspace disease, low lung volumes and prominence of the central vascularity. CT of the abdomen and pelvis showed fecal impaction, indeterminate inflammatory changes in the left groin, diverticulosis and postop changes this was noncontrast exam. Patient has been afebrile overnight, his vitals have been stable, his blood cultures were positive for Enterococcus faecalis, patient is currently on Unasyn. On 07/23/2020 patient seen in follow-up on selective care unit, patient is doing well, he is awake and alert, in no acute distress, resting comfortably in bed, he is on room air, denies any cough, denies any chest pain, denies any significant phlegm production. He is on room air. Pulse ox is 98%, no fever or chills. He remains on antibiotics, for enterococcus bacteremia, follow blood culture collected on 07/22/2020 has shown no growth. Clinically patient is stable, no reported difficulty breathing or chest pain, abdominal pain, no nausea vomiting or diarrhea. Follow-up chest x-ray is pending The patient is seen today 07/24/2020 in follow-up on the selective care unit. He is currently resting comfortably in bed. Awake and alert in no acute distress. Maintaining O2 saturation in the mid to upper 90s on room air. Chest x-ray had revealed a left lower lobe infiltrate. He is afebrile. Hemodynamically stable. Follow-up blood cultures were positive for group D enterococcus. Sodium 134. Potassium 5.0. Creatinine 1.31. He remains on ampicillin. Anticoagulated with Eliquis. On oral prednisone. On oral bicarb. Remains in 0.9 at 50 mL per hour. Plan is for [facility] upon discharge. The patient is seen today 07/25/2020 in follow-up on the selective care unit. He is currently sitting up in bed. Awake and alert in no acute distress. He is maintaining good O2 saturations in the 90s on room air. She's afebrile. Hemodynamically stable. Blood cultures were positive for Enterococcus faecalis. White count 7.5. Hemoglobin 11.0. Sodium 134. Potassium 5.3. Creatinine 1.33. He remains on ampicillin. MRI of the lumbar spine is pending. Possible JACOB to follow. Objective - Vital Signs Vital signs: Vital Signs Temp 97.4 F L 07/25/20 08:00 Pulse 72 07/25/20 08:00 Resp 22 07/25/20 08:00 BP 154/69 07/25/20 08:00 Pulse Ox 99 07/25/20 08:00 Intake & Output 07/24/20 07/25/20 07/25/20 18:59 06:59 18:59 Intake Total 120 Balance 120 Weight 101 kg 101 kg Intake: Oral 120 Other: Voiding Method Diaper Diaper Diaper Incontinent Incontinent Incontinent # Voids 2 1 # Bowel Movements 1 1 - Exam GENERAL EXAM: Alert, pleasant 74-year-old gentleman, on room air, comfortable in no apparent distress. HEAD: Normocephalic. EYES: Normal reaction of pupils, equal size. NOSE: Clear with pink turbinates. THROAT: No erythema or exudates. NECK: No masses, no JVD. CHEST: No chest wall deformity. LUNGS: Equal air entry with crackles in the posterior left base. CVS: S1 and S2 normal with no audible murmur, regular rhythm. ABDOMEN: No hepatosplenomegaly, normal bowel sounds, no guarding or rigidity. SPINE: No scoliosis or deformity SKIN: No rashes CENTRAL NERVOUS SYSTEM: No focal deficits, tone is normal in all 4 extremities. EXTREMITIES: There is no peripheral edema. No clubbing, no cyanosis. Pe ripheral pulses are intact. - Labs CBC & Chem 7: 07/25/20 07:47 07/25/20 07:47 Labs: Abnormal Lab Results - Last 24 Hours (Table) 07/25/20 07/25/20 07/25/20 Range/Units 07:47 07:47 07:47 RBC 4.00 L (4.30-5.90) m/uL Hgb 11.0 L (13.0-17.5) gm/dL Hct 34.6 L (39.0-53.0) % RDW 17.1 H (11.5-15.5) % ESR 41 H (0-15) mm/hr Sodium 134 L (137-145) mmol/L Potassium 5.3 H (3.5-5.1) mmol/L BUN 43 H (9-20) mg/dL Creatinine 1.33 H (0.66-1.25) mg/dL Calcium 8.1 L (8.4-10.2) mg/dL C-Reactive Protein 16.9 H (<10.0) mg/L Microbiology - Last 24 Hours (Table) 07/22/20 07:32 Blood Culture Gram Stain - Final Blood Blood Culture - Final Enterococcus faecalis Assessment and Plan Assessment: 1 Acute hypoxic respiratory failure secondary to suspected streptococcal pneumonia, pro-calcitonin 1.13 2 Bacteremia with group D enterococcus, currently on ampicillin 3 Febrile illness secondary to above, recovered 4 History of CVA 5 History of chronic kidney disease stage III 6 Hyperlipidemia 7 Gastroesophageal reflux disease 8 Hypertension 9 Osteoarthritis 10 Poor overall functional performance based on the above-mentioned multiple comorbidities Plan: The patient was seen and evaluated by Dr. Muse Continue antibiotics per ID services MRI of the lumbar spine is pending If no significant source, the plan is for possible JACOB I, the cosigning physician, performed a history & physical examination of the patient. Lungs sounds with crackles in the left lung base. Maintaining good O2 saturations in the 90s on room air. I discussed the assessment and plan of care with my nurse practitioner, Kathleen Begum. I attest to the above note as dictated by her.
--- NOTE | 2020-07-25 14:07 | PN ---
PROGRESS NOTE DATE OF SERVICE: 07/25/2020. INTERVAL HISTORY: The patient is currently afebrile. Patient is breathing comfortably. The patient denies having any chest pain, no shortness of breath, cough. No abdominal pain or diarrhea. PHYSICAL EXAMINATION: Blood pressure 154/69, pulse 72, temperature 97.4. He is 99% on room air. General description is an elderly male lying in bed in no distress. RESPIRATORY SYSTEM: Unlabored breathing, clear to auscultation anteriorly. HEART: S1, S2. Regular rate and rhythm. ABDOMEN: Soft, no tenderness. LABS: Hemoglobin 11, white count 7.5, BUN of 43, creatinine 1.33. DIAGNOSTIC IMPRESSION AND PLAN: Patient with Enterococcus faecalis bacteremia. This patient so far extensive workup including an MRI of the lumbosacral spine did not show any evidence of discitis, abscess. Will obtain a JACOB. Continue with ampicillin and followup with repeat cultures. Continue supportive care. MMODL / IJN: [id number] /
--- NOTE | 2020-07-25 15:14 | P.PN ---
Subjective Progress Note Date: 07/25/20 This is a 74-year-old gentleman with recent CVA approximately 2 weeks ago, at [facility] as per PCP, with expressive aphasia, some residual right-sided weakness, tested positive for influenza at [facility] subacute rehab, admitted with acute respiratory failure, acute renal failure, enterococcus bacteremia, etiology unclear and multiple other medical issues. Patient denies any chest pain, palpitations or shortness of breath. Echo pending. Maintained on vancomycin. Renal function continues to improve with IV fluid hydration. Potassium up to 5.2, IV fluids adjusted to normal saline. CT of abdomen and pelvis noted. 07/23/2020 maintained on Unasyn for enterococcus faecalis bacteremia. Follow-up blood culture from reporting gram-positive cocci in chains Echo reported low normal LV function, EF 50-55%. evaluated by speech therapy, aphasic treatment initiated. MBS pending. Follow-up chest x-ray pending. Renal function improving with creatinine down to 1.22, potassium remains at 5.2. Maintaining O2 sats in the 90s on room air. Denies chest pain, palpitations or shortness of breath. Denies nausea vomiting or diarrhea. Denies abdominal pain. 07/24/2020 persistent bacteremia, JACOB ordered. Antibiotics adjusted to ampicillin yesterday. Chest x-ray from yesterday afternoon reported significant improvement. Afebrile. Maintaining O2 sats in the high 90s on room air. Continues on gentle IV fluid hydration. Patient not sitting up right in bed, choking on lunch tray. MBS performed reporting no impairment. Creatinine 1.31. Potassium improved down to 5. 07/25/2020 telemetry sinus rhythm with PACs, in a patient with history of chronic proximal A. fib. ID reports recent outpatient negative JACOB. MRI of lumbar spine ordered secondary to persistent bacteremia. Maintaining O2 sats in the 90s on room air. Afebrile, normal WBC. Creatinine 1.33, potassium 5.3. Objective - Vital Signs Vital signs: Vital Signs Temp 97.9 F 07/25/20 04:00 Pulse 80 07/25/20 04:00 Resp 18 07/25/20 04:00 BP 140/76 07/25/20 04:00 Pulse Ox 99 07/25/20 04:00 Intake & Output 07/24/20 07/25/20 07/25/20 18:59 06:59 18:59 Intake Total 120 Balance 120 Weight 101 kg Intake: Oral 120 Other: Voiding Method Diaper Diaper Incontinent Incontinent # Voids 2 1 # Bowel Movements 1 1 - Exam PHYSICAL EXAM: VITAL SIGNS: As above GENERAL: Sitting up in bed, no acute distress, expressive aphasia HEENT: Conjunctivae normal. eyes normal. NECK: No JVD. No thyroid enlargement. No LNs CARDIOVASCULAR: S1, S2 regular. No murmur RESPIRATION: Breath sounds diminished in the bases. Fine left basilar crackles ABDOMEN: Soft, nontender . No guarding. no masses palpable.Bowel sounds heard. LEGS: No edema. no swelling PSYCHIATRY: Alert and oriented X2-3, mood and affect normal. NERVOUS SYSTEM: Cranial N 2-12 grossly normal. Moves all 4 limbs. Minimal residual Right-sided weakness Skin: Warm and dry ,no rash, healing stage II ulcer left third toe - Labs CBC & Chem 7: 07/25/20 07:47 07/25/20 07:47 Labs: Abnormal Lab Results - Last 24 Hours (Table) 07/25/20 07/25/20 Range/Units 07:47 07:47 RBC 4.00 L (4.30-5.90) m/uL Hgb 11.0 L (13.0-17.5) gm/dL Hct 34.6 L (39.0-53.0) % RDW 17.1 H (11.5-15.5) % Sodium 134 L (137-145) mmol/L Potassium 5.3 H (3.5-5.1) mmol/L BUN 43 H (9-20) mg/dL Creatinine 1.33 H (0.66-1.25) mg/dL Calcium 8.1 L (8.4-10.2) mg/dL C-Reactive Protein 16.9 H (<10.0) mg/L Microbiology - Last 24 Hours (Table) 07/22/20 07:32 Blood Culture Gram Stain - Final Blood Blood Culture - Final Enterococcus faecalis Assessment and Plan Assessment: Acute hypoxic respiratory failure, secondary to suspected streptococcal pneumonia, possible aspiration, recent influenza A from ECF reported per PCP. 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 Repeat cultures. IV antibiotics as per ID. MRI of lumbar spine pending with potential JACOB if results negative. PT. [facility] rehab at discharge. Prognosis guarded given multiple complex medical issues. The impression and plan of care has been dictated as directed. : I performed a history and examination of this patient, discussed the same with the dictator. I agree with the dictator's note ,documented as a scribe. Any additional findings or plans will be noted.
[2020-07-25] MEDS: SODIUM CHLORIDE 0.9% 1,000 ML IV SCH (16:51)
[2020-07-25] MEDS: ASCORBIC ACID 500 MG TAB PO SCH (20:09)
[2020-07-25] MEDS: CHOLECALCIFEROL 25 MCG (1000 IU) TABLET PO SCH (20:09)
[2020-07-25] MEDS: ATORVASTATIN 20 MG TAB PO SCH (20:09)
[2020-07-26] MEDS: AMPICILLIN 2,000 MG in SODIUM CHLORIDE 0.9% 100 ML IVPB SCH ×5 (03:28→19:59)
[2020-07-26 07:10] LABS: Anisocytosis Slight; Basophils % (A) 0 %; Eosinophils % (A) 1 %; HCT 32.5 % (39.0-53.0); HGB 10.2 gm/dL (13.0-17.5); Hypochromasia Moderate; Lymphocytes # (A) 1.1 k/uL (1.0-4.8); Lymphocytes % (A) 16 %; MCH 27.4 pg (25.0-35.0); MCHC 31.4 g/dL (31.0-37.0); MCV 87.4 fL (80.0-100.0); Mean Platelet Volume 7.3; Monocytes # (A) 0.3 k/uL (0-1.0); Monocytes % (A) 5 %; Neutrophils # (A) 5.2 k/uL (1.3-7.7); Neutrophils % (A) 78 %; Platelet Count 253 k/uL (150-450); RBC 3.72 m/uL (4.30-5.90); RDW 17.3 % (11.5-15.5); WBC 6.8 k/uL (3.8-10.6)
[2020-07-26 07:17] LABS: Calcium 8.3 mg/dL (8.4-10.2); Magnesium 2.3 mg/dL (1.6-2.3); Potassium 5.2 mmol/L (3.5-5.1)
--- NOTE | 2020-07-26 10:58 | P.CRDCN ---
History of Present Illness History of present illness: HISTORY OF PRESENTING ILLNESS This is a pleasant 74-year-old male past medical history significant for CVA with expressive aphasia, paroxysmal atrial fibrillation on long-term anticoagulation, hypertension, dyslipidemia and former nicotine dependence. He does not follow in the office with a press setter. We have been asked to see in consultation for JACOB. He presented to the hospital from [facility] with symptoms of shortness of breath and respiratory distress with associated hypoxia. He has been diagnosed with enterococcus bacteremia and sepsis with unknown source. He is seen and examined resting comfortably in bed in no acute distress. He is unable to appropriately communicate due to his recent CVA. He underwent cardiac catheterization with Dr. Hurtado in 2019 revealing normal coronary arteries. Transthoracic echocardiogram obtained on this admission r evealed preserved LV systolic function with ejection fraction 50-55%, mild MR and mild TR noted. DIAGNOSTICS EKG reveals sinus mechanism with T-wave inversions inferiorly. Chest xray prominence of the central vascularity. Laboratory reviewed, WBC 6.8, hemoglobin 10.2, platelets 253, sodium 132, pot assium 5.2, creatinine 1.56, magnesium 2.3. Current cardiac medications include Coreg 6.25 mg twice a day, Lasix 40 mg daily, atorvastatin 20 mg daily, aspirin 81 mg daily and Eliquis 5 mg twice a day. REVIEW OF SYSTEMS At the time of my exam: Unable to obtain accurate review of systems secondary to altered mental status. PHYSICAL EXAMINATION Blood pressure 147/69 heart rate 72 afebrile and maintaining oxygen saturation on room air. CONSTITUTIONAL: No apparent distress. HEENT: Head is normocephalic. Pupils are equal, round. Sclerae anicteric. Mucous membranes of the mouth are moist. No JVD. No carotid bruit. CHEST EXAMINATION: Lungs are clear to auscultation. No chest wall tenderness is noted on palpation or with deep breathing. HEART EXAMINATION: Regular rate and rhythm. S1, S2 heard. No murmurs, gallops or rub. ABDOMEN: Soft, nontender. Positive bowel sounds. EXTREMITIES: 2+ peripheral pulses, no lower extremity edema and no calf tenderness. NEUROLOGIC EXAMINATION: Patient is awake and alert. ASSESSMENT Acute hypoxic respiratory failure Enterococcus bacteremia Sepsis CVA with expressive aphasia Paroxysmal atrial fibrillation on long-term anticoagulation Hypertension Chronic kidney disease Dyslipidemia PLAN Proceed with JACOB as requested. Dr. Hurtado will do the procedure at noon today. Thank you kindly for this consultation. Nurse Practitioner note has been reviewed, I agree with a documented findings and plan of care. Patient was seen and examined. 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 Expressive aphasia History of Any Multi-Drug Resistant Organisms: None Reported Past Surgical History: Appendectomy, Back Surgery, Heart Catheterization, Joint Replacement Additional Past Surgical History / Comment(s): back surgery x 4, bilateral cataracts removed, alicia hip replacments, cardiac cath 2010 - normal, EGD/colonoscopy, varicose vein stripping, tilt table test, loop recorder was shut off in 06/08 Past Anesthesia/Blood Transfusion Reactions: No Reported Reaction Past Psychological History: No Psychological Hx Reported, Bipolar Additional Psychological History / Comment(s): Lives at [facility], would like the pt to go to [facility], that was supposed to occur today. Smoking Status: Former smoker Past Alcohol Use History: Occasional Additional Past Alcohol Use History / Comment(s): Patient has a previous history smoking he quit over 25 years ago. He does have a history of heavy alcohol use in which he stopped in 1999. total Past Drug Use History: None Reported - Past Family History Father Family Medical History: Vascular Disorder Additional Family Medical History / Comment(s): PVD-double amputee. Mother Family Medical History: Pulmonary Embolus Additional Family Medical History / Comment(s): Mother of a pulmonary embolism at the age of 63 yrs. Medications and Allergies Home Medications Medication Instructions Recorded Confirmed Type Lansoprazole [Prevacid] 30 mg PO DAILY@0900 03/09/14 07/19/20 History carvediloL [Coreg] 6.25 mg PO BID@0900,2100 04/28/19 07/19/20 History Furosemide [Lasix] 40 mg PO DAILY@0900 09/01/19 07/19/20 History Gabapentin [Neurontin] 300 mg PO DAILY@0900 09/01/19 07/19/20 History Acetaminophen Tab [Tylenol] 650 mg PO Q4H PRN 07/19/20 07/19/20 History Apixaban [Eliquis] 5 mg PO BID@0900,2100 07/19/20 07/19/20 History Ascorbic Acid [Vitamin C] 1,000 mg PO HS@209907/19/20 07/19/20 History Aspirin 81 mg PO DAILY@0900 07/19/20 07/19/20 History Atorvastatin [Lipitor] 20 mg PO HS@209907/19/20 07/19/20 History Azithromycin [Zithromax] 500 mg PO HS@209907/19/20 07/19/20 History Cholecalciferol [Vitamin D3 (25 25 mcg PO HS@209907/19/20 07/19/20 History Mcg = 1000 Iu)] Dexamethasone [Decadron] 6 mg PO DAILY@0900 07/19/20 07/19/20 History Ipratropium-Albuterol Nebulize 3 ml INHALATION RT-Q4H PRN 07/19/20 07/19/20 History [Duoneb 0.5 mg-3 mg/3 ml Soln] Magnesium Hydroxide [Milk of 2,400 mg PO BID PRN 07/19/20 07/19/20 History Magnesia] Oseltamivir [Tamiflu] 75 mg PO Q12HR@0900,209907/19/20 07/19/20 History bisacodyL [Bisacodyl] 10 mg RECTAL DAILY PRN 07/19/20 07/19/20 History cefTRIAXone [Rocephin] 1 gm IVPB DAILY 07/19/20 07/19/20 History Allergies Allergy/AdvReac Type Severity Reaction Status Date / Time MATHIEU Inhibitors Allergy Unknown Verified 07/19/20 14:00 Sulfa (Sulfonamide Allergy Rash/Hives Verified 07/19/20 14:00 Antibiotics) baclofen AdvReac Hallucinati Verified 07/19/20 14:00 ons hydromorphone [From Dilaudid] AdvReac Hallucinati Verified 07/19/20 14:00 ons meperidine HCl [From Demerol] AdvReac Nausea & Verified 07/19/20 14:00 Vomiting sulfamethoxazole AdvReac Rash/Hives Verified 07/19/20 14:00 [From Bactrim] trimethoprim [From Bactrim] AdvReac Rash/Hives Verified 07/19/20 14:00 Physical Exam Vitals: Vital Signs Temp Pulse Resp BP Pulse Ox 07/26/20 08:00 97.3 F L 72 16 147/69 98 07/26/20 03:41 98.4 F 80 19 151/71 99 07/25/20 23:16 98.4 F 80 16 131/70 98 07/25/20 20:00 97.5 F L 81 18 115/67 96 07/25/20 16:00 96.7 F L 78 20 109/64 78 L 07/25/20 12:00 77 20 118/63 96 Intake and Output 07/25/20 07/26/20 07/26/20 22:59 06:59 14:59 Intake Total 480 Balance 480 Intake: Oral 480 Other: Voiding Method Diaper Diaper Diaper Incontinent Incontinent Incontinent # Voids 2 1 1 # Bowel Movements 1 Results 07/26/20 06:38 07/26/20 06:38 CBC 07/26/20 Range/Units 06:38 WBC 6.8 (3.8-10.6) k/uL RBC 3.72 L (4.30-5.90) m/uL Hgb 10.2 L (13.0-17.5) gm/dL Hct 32.5 L (39.0-53.0) % Plt Count 253 (150-450) k/uL Comprehensive Metabolic Panel 07/26/20 Range/Units 06:38 Sodium 132 L (137-145) mmol/L Potassium 5.2 H (3.5-5.1) mmol/L Chloride 103 (98-107) mmol/L Carbon Dioxide 25 (22-30) mmol/L BUN 44 H (9-20) mg/dL Creatinine 1.56 H (0.66-1.25) mg/dL Glucose 91 (74-99) mg/dL Calcium 8.3 L (8.4-10.2) mg/dL Current Medications Generic Name Dose Route Start Last Admin Trade Name Freq PRN Reason Stop Dose Admin Acetaminophen 650 mg 07/19/20 20:31 07/20/20 16:13 Acetaminophen Tab 325 Mg Tab PO 650 mg Q4H PRN Administration Pain Albuterol/Ipratropium 3 ml 07/20/20 11:11 Ipratropium-Albuterol 3 Ml Neb INHALATION RT-Q4H PRN Shortness Of Breath Apixaban 5 mg 07/19/20 21:00 07/25/20 20:09 Apixaban 5 Mg Tab PO 5 mg BID@0900,2100 ANGLE Administration Ascorbic Acid 1,000 mg 07/19/20 21:00 07/25/20 20:09 Ascorbic Acid 500 Mg Tab PO 1,000 mg HS@2100 ANGLE Administration Aspirin 81 mg 07/20/20 09:00 07/25/20 09:55 Aspirin 81 Mg PO 81 mg DAILY@0900 ANGLE Administration Atorvastatin Calcium 20 mg 07/19/20 21:00 07/25/20 20:09 Atorvastatin 20 Mg Tab PO 20 mg HS@2100 ANGLE Administration Carvedilol 6.25 mg 07/20/20 09:00 07/25/20 09:55 Carvedilol 6.25 Mg Tab PO 6.25 mg DAILY ANGLE Administration Cholecalciferol 25 mcg 07/19/20 21:00 07/25/20 20:09 Cholecalciferol 25 Mcg (1000 Iu) Tablet PO 25 mcg HS@2100 ANGLE Administration Gabapentin 300 mg 07/20/20 09:00 07/25/20 09:55 Gabapentin 300 Mg Cap PO 300 mg DAILY@0900 ANGLE Administration Sodium Chloride 1,000 mls @ 50 mls/hr 07/22/20 08:15 07/25/20 16:51 Saline 0.9% IV 50 mls/hr .Q20H ANGLE Administration Ampicillin Sodium 2,000 mg/ 100 mls @ 200 mls/hr 07/23/20 16:00 07/26/20 08:59 Sodium Chloride IVPB 200 mls/hr Q4HR ANGLE Administration Magnesium Hydroxide 2,400 mg 07/19/20 20:39 Magnesium Hydroxide 2,400 Mg/10 Ml Cup PO BID PRN Constipation Naloxone HCl 0.2 mg 07/19/20 15:37 Naloxone 0.4 Mg/Ml 1 Ml Vial IV Q2M PRN Opioid Reversal Ondansetron HCl 4 mg 07/19/20 15:37 Ondansetron 4 Mg/2 Ml Vial IVP Q8HR PRN Nausea And Vomiting Pantoprazole Sodium 40 mg 07/20/20 09:00 07/25/20 09:55 Pantoprazole 40 Mg Tablet PO 40 mg DAILY@0900 ANGLE Administration Prednisone 40 mg 07/20/20 09:00 07/25/20 09:55 Prednisone 20 Mg Tab PO 40 mg DAILY ANGLE Administration Sodium Bicarbonate 650 mg 07/20/20 13:00 07/25/20 20:09 Sodium Bicarbonate Tab 650 Mg Tab PO 650 mg QID ANGLE Administration Intake and Output 07/25/20 07/26/20 07/26/20 22:59 06:59 14:59 Intake Total 480 Balance 480 Intake: Oral 480 Other: Voiding Method Diaper Diaper Diaper Incontinent Incontinent Incontinent # Voids 2 1 1 # Bowel Movements 1 07/26/20 06:38 07/26/20 06:38
--- NOTE | 2020-07-26 11:12 | P.PN ---
Subjective Patient is seen in follow-up for acute kidney injury on chronic kidney disease. Renal function fairly stable. Oral intake fair. Good urine output. Hemodynamically stable. No evidence of discitis noted on MRI. JACOB pending. Vital signs are stable. General: The patient appeared well nourished and normally developed. HEENT: Head exam is unremarkable. Neck is without jugular venous distension. LUNGS: Breath sounds decreased. HEART: Rate and Rhythm are regular. ABDOMEN: Soft, nontender. EXTREMITITES: No edema. Objective - Vital Signs Vital signs: Vital Signs Temp 97.3 F L 07/26/20 08:00 Pulse 80 07/26/20 08:00 Resp 19 07/26/20 08:00 BP 147/69 07/26/20 08:00 Pulse Ox 98 07/26/20 08:00 Intake & Output 07/25/20 07/26/20 07/26/20 18:59 06:59 18:59 Intake Total 236 480 Balance 236 480 Weight 101 kg Intake: Oral 236 480 Other: Voiding Method Diaper Diaper Diaper Incontinent Incontinent Incontinent # Voids 2 1 1 # Bowel Movements 1 1 - Labs CBC & Chem 7: 07/26/20 06:38 07/26/20 06:38 Labs: Abnormal Lab Results - Last 24 Hours (Table) 07/26/20 07/26/20 Range/Units 06:38 06:38 RBC 3.72 L (4.30-5.90) m/uL Hgb 10.2 L (13.0-17.5) gm/dL Hct 32.5 L (39.0-53.0) % RDW 17.3 H (11.5-15.5) % Sodium 132 L (137-145) mmol/L Potassium 5.2 H (3.5-5.1) mmol/L BUN 44 H (9-20) mg/dL Creatinine 1.56 H (0.66-1.25) mg/dL Calcium 8.3 L (8.4-10.2) mg/dL Microbiology - Last 24 Hours (Table) 07/25/20 07:47 Blood Culture - Preliminary Blood No Growth after 24 hours Assessment and Plan Plan: Assessment: 1. Acute kidney injury mostly prerenal secondary to infection. Renal function improved from admission. Creatinine 1.56 today. 2. Chronic kidney disease stage IIIB secondary to nephrosclerosis with baseline creatinine near 1.7. 3. Enterococcus bacteremia maintained on antibiotics. Infectious disease following. CT of the abdomen and pelvis and echocardiogram noted. No evidence of discitis on MRI. JACOB pending. 4. Mild hyperkalemia secondary to YOUNG. Stable. 5. Metabolic acidosis secondary to acute kidney injury and IV fluids maintained on oral bicarbonate. Plan: Maintain normal saline. JACOB pending. Continue to monitor renal function and urine output. Renal diet.
[2020-07-26] MEDS ORDERED: fentaNYL (PF) 50 MCG/ML 2 ML AMP ONE (11:47)
[2020-07-26] MEDS ORDERED: IV FLUID CONTINUATION 850 ML IV ONE (12:09)
[2020-07-26] MEDS ORDERED: fentaNYL (PF) 50 MCG/ML 2 ML AMP IV ONE (12:20)
[2020-07-26] MEDS ORDERED: BENZOCAINE SPRAY 1 CAN MUCOUS MEM ONE (12:21)
[2020-07-26] MEDS ORDERED: MIDAZOLAM 2 MG/2 ML VIAL IV ONE (12:21)
--- NOTE | 2020-07-26 12:23 | P.PN ---
Subjective Progress Note Date: 07/26/20 Principal diagnosis: This is a 74-year-old gentleman who resides at [facility] the [facility]. He has a history of CVA/TIA with residual right leg weakness, angina, GERD, hyperlipidemia, hypertension, osteoarthritis, chronic kidney disease stage III, former smoker. He was brought into the emergency room yesterday after being found be short of breath than him and O2 saturations in the 70s. Chest x- ray revealed some chronic changes but no acute pulmonary disease. There is some questionable left lower lobe infiltrate. Initial temperature 102.8. He is seen today on the selective care unit. He is currently awake and alert. Resting in bed. Somewhat of a poor historian. Answering most questions appropriately however. Continue O2 saturations up to 100% on 3 L/m per nasal cannula. Currently afebrile. Preliminary blood cultures revealing gram-positive cocci in pairs. White count 15.0. Hemoglobin 10.3. D-dimer 1.20. Sodium 135. Potassium 4.6. Creatinine 1.67. Initial lactic 2.4 currently 1.5. Pro- calcitonin 1.13. LDH 7.39. C-reactive protein 58.7. Fink virus not detected. He's been initiated on Tamiflu, ceftriaxone and azithromycin. Anticoagulated with Eliquis. The patient is seen today 07/21/2020 in follow-up on the selective care unit. He is currently resting comfortably in bed. Awake and alert in no acute distress and maintaining O2 saturation of 200% on 3 L/m per nasal cannula. He's been afebrile. Hemodynamically stable. The cultures positive for group D enterococcus. Currently on vancomycin. White count 8.6. Hemoglobin 10.4. Sodium 137. Potassium 4.3. Creatinine 1.48. On 07/22/2020 patient seen in follow-up on selective care unit. He is awake and alert, in no acute distress, he is resting comfortably in bed, currently on room air, pulse ox is 99%, occasional cough, lung sounds are diminished at the bases, he denies any chest pain, his last chest x-ray from yesterday showed bilateral airspace disease, low lung volumes and prominence of the central vascularity. CT of the abdomen and pelvis showed fecal impaction, indeterminate inflammatory changes in the left groin, diverticulosis and postop changes this was noncontrast exam. Patient has been afebrile overnight, his vitals have been stable, his blood cultures were positive for Enterococcus faecalis, patient is currently on Unasyn. On 07/23/2020 patient seen in follow-up on selective care unit, patient is doing well, he is awake and alert, in no acute distress, resting comfortably in bed, he is on room air, denies any cough, denies any chest pain, denies any significant phlegm production. He is on room air. Pulse ox is 98%, no fever or chills. He remains on antibiotics, for enterococcus bacteremia, follow blood culture collected on 07/22/2020 has shown no growth. Clinically patient is stable, no reported difficulty breathing or chest pain, abdominal pain, no nausea vomiting or diarrhea. Follow-up chest x-ray is pending The patient is seen today 07/24/2020 in follow-up on the selective care unit. He is currently resting comfortably in bed. Awake and alert in no acute distress. Maintaining O2 saturation in the mid to upper 90s on room air. Chest x-ray had revealed a left lower lobe infiltrate. He is afebrile. Hemodynamically stable. Follow-up blood cultures were positive for group D enterococcus. Sodium 134. Potassium 5.0. Creatinine 1.31. He remains on ampicillin. Anticoagulated with Eliquis. On oral prednisone. On oral bicarb. Remains in 0.9 at 50 mL per hour. Plan is for [facility] upon discharge. The patient is seen today 07/25/2020 in follow-up on the selective care unit. He is currently sitting up in bed. Awake and alert in no acute distress. He is maintaining good O2 saturations in the 90s on room air. She's afebrile. Hemodynamically stable. Blood cultures were positive for Enterococcus faecalis. White count 7.5. Hemoglobin 11.0. Sodium 134. Potassium 5.3. Creatinine 1.33. He remains on ampicillin. MRI of the lumbar spine is pending. Possible JACOB to follow. The patient is seen today 07/26/2020 in follow-up on the selective care unit. He is currently awake and alert in no acute distress. Resting comfortably in bed. Maintaining O2 saturations in the 90s on room air. He is afebrile. Hemodynamically stable. Blood cultures are positive for Enterococcus faecalis. White count 6.8. Hemoglobin 10.2. Sodium 132. Potassium 5.2. Creatinine 1.56. He remains on ampicillin. Anticoagulated with Eliquis. Remains on bronchodilators. Oral prednisone. MRI of the spine revealed no suspicious enhancement of the disc spaces or vertebral bodies to suggest acute discitis. Plan is for JACOB today. Objective - Vital Signs Vital signs: Vital Signs Temp 97.3 F L 07/26/20 08:00 Pulse 80 07/26/20 12:10 Resp 19 07/26/20 08:00 BP 170/79 07/26/20 12:10 Pulse Ox 92 L 07/26/20 12:10 Intake & Output 07/25/20 07/26/20 07/26/20 18:59 06:59 18:59 Intake Total 236 480 Balance 236 480 Weight 101 kg Intake: Oral 236 480 Other: Voiding Method Diaper Diaper Diaper Incontinent Incontinent Incontinent # Voids 2 1 1 # Bowel Movements 1 1 - Exam GENERAL EXAM: Alert, pleasant 74-year-old gentleman, on room air, comfortable in no apparent distress. HEAD: Normocephalic. EYES: Normal reaction of pupils, equal size. NOSE: Clear with pink turbinates. THROAT: No erythema or exudates. NECK: No masses, no JVD. CHEST: No chest wall deformity. LUNGS: Equal air entry with crackles in the posterior left base. CVS: S1 and S2 normal with no audible murmur, regular rhythm. ABDOMEN: No hepatosplenomegaly, normal bowel sounds, no guarding or rigidity. SPINE: No scoliosis or deformity SKIN: No rashes CENTRAL NERVOUS SYSTEM: No focal deficits, tone is normal in all 4 extremities. EXTREMITIES: There is no peripheral edema. No clubbing, no cyanosis. Peripheral pulses are intact. - Labs CBC & Chem 7: 07/26/20 06:38 07/26/20 06:38 Labs: Abnormal Lab Results - Last 24 Hours (Table) 07/26/20 07/26/20 Range/Units 06:38 06:38 RBC 3.72 L (4.30-5.90) m/uL Hgb 10.2 L (13.0-17.5) gm/dL Hct 32.5 L (39.0-53.0) % RDW 17.3 H (11.5-15.5) % Sodium 132 L (137-145) mmol/L Potassium 5.2 H (3.5-5.1) mmol/L BUN 44 H (9-20) mg/dL Creatinine 1.56 H (0.66-1.25) mg/dL Calcium 8.3 L (8.4-10.2) mg/dL Microbiology - Last 24 Hours (Table) 07/25/20 07:47 Blood Culture - Preliminary Blood No Growth after 24 hours Assessment and Plan Assessment: 1 Acute hypoxic respiratory failure secondary to suspected streptococcal pneumonia, pro-calcitonin 1.13 2 Bacteremia with group D enterococcus, currently on ampicillin 3 Febrile illness secondary to above, recovered 4 History of CVA 5 History of chronic kidney disease stage III 6 Hyperlipidemia 7 Gastroesophageal reflux disease 8 Hypertension 9 Osteoarthritis 10 Poor overall functional performance based on the above-mentioned multiple comorbidities Plan: The patient was seen and evaluated by Dr. Muse Continue antibiotics per ID services MRI of the lumbar spine revealed no evidence of acute discitis JACOB pending for today I, the cosigning physician, performed a history & physical examination of the patient. Lungs sounds with crackles in the left lung base. Maintaining good O2 saturations in the 90s on room air. I discussed the assessment and plan of care with my nurse practitioner, Kathleen Begum. I attest to the above note as dictated by her.
[2020-07-26] MEDS: SODIUM CHLORIDE 0.9% 1,000 ML IV SCH ×2 (13:26→17:13)
[2020-07-26] MEDS: SODIUM BICARBONATE TAB 650 MG TAB PO SCH ×4 (13:26→22:41)
[2020-07-26] MEDS: PANTOPRAZOLE 40 MG TABLET PO SCH (13:35)
[2020-07-26] MEDS: carvediloL 6.25 MG TAB PO SCH (13:35)
[2020-07-26] MEDS: predniSONE 20 MG TAB PO SCH (13:35)
[2020-07-26] MEDS: ASPIRIN 81 MG PO SCH (13:35)
[2020-07-26] MEDS: APIXABAN 5 MG TAB PO SCH ×2 (13:35→20:04)
[2020-07-26] MEDS: GABAPENTIN 300 MG CAP PO SCH (13:35)
--- NOTE | 2020-07-26 14:03 | P.PN ---
Subjective Progress Note Date: 07/26/20 This is a 74-year-old gentleman with recent CVA approximately 2 weeks ago, at [facility] as per PCP, with expressive aphasia, some residual right-sided weakness, tested positive for influenza at [facility] subacute rehab, admitted with acute respiratory failure, acute renal failure, enterococcus bacteremia, etiology unclear and multiple other medical issues. Patient denies any chest pain, palpitations or shortness of breath. Echo pending. Maintained on vancomycin. Renal function continues to improve with IV fluid hydration. Potassium up to 5.2, IV fluids adjusted to normal saline. CT of abdomen and pelvis noted. 07/23/2020 maintained on Unasyn for enterococcus faecalis bacteremia. Follow-up blood culture from reporting gram-positive cocci in chains Echo reported low normal LV function, EF 50-55%. evaluated by speech therapy, aphasic treatment initiated. MBS pending. Follow-up chest x-ray pending. Renal function improving with creatinine down to 1.22, potassium remains at 5.2. Maintaining O2 sats in the 90s on room air. Denies chest pain, palpitations or shortness of breath. Denies nausea vomiting or diarrhea. Denies abdominal pain. 07/24/2020 persistent bacteremia, JACOB ordered. Antibiotics adjusted to ampicillin yesterday. Chest x-ray from yesterday afternoon reported significant improvement. Afebrile. Maintaining O2 sats in the high 90s on room air. Continues on gentle IV fluid hydration. Patient not sitting up right in bed, choking on lunch tray. MBS performed reporting no impairment. Creatinine 1.31. Potassium improved down to 5. 07/25/2020 telemetry sinus rhythm with PACs, in a patient with history of chronic proximal A. fib. ID reports recent outpatient negative JACOB. MRI of lumbar spine ordered secondary to persistent bacteremia. Maintaining O2 sats in the 90s on room air. Afebrile, normal WBC. Creatinine 1.33, potassium 5.3. 07/26/2020 MRI failed to report discitis or abscess ,scheduled for JACOB. Continues on ampicillin. Afebrile. Preliminary Follow-up blood culture of 07/25 reporting no growth at 24 hours. Maintaining O2 sats in the low 90s on room air. Creatinine 1.56. Objective - Vital Signs Vital signs: Vital Signs Temp 97.3 F L 07/26/20 08:00 Pulse 80 07/26/20 08:00 Resp 19 07/26/20 08:00 BP 147/69 07/26/20 08:00 Pulse Ox 98 07/26/20 08:00 Intake & Output 07/25/20 07/26/20 07/26/20 18:59 06:59 18:59 Intake Total 236 480 Balance 236 480 Weight 101 kg Intake: Oral 236 480 Other: Voiding Method Diaper Diaper Diaper Incontinent Incontinent Incontinent # Voids 2 1 1 # Bowel Movements 1 1 - Exam PHYSICAL EXAM: VITAL SIGNS: As above GENERAL: Sitting up in bed, no acute distress, expressive aphasia HEENT: Conjunctivae normal. eyes normal. NECK: No JVD. No thyroid enlargement. No LNs CARDIOVASCULAR: S1, S2 regular. No murmur RESPIRATION: Breath sounds diminished in the bases. Fine left basilar crackles ABDOMEN: Soft, nontender . No guarding. no masses palpable.Bowel sounds heard. LEGS: No edema. no swelling PSYCHIATRY: Alert and oriented X2-3, mood and affect normal. NERVOUS SYSTEM: Cranial N 2-12 grossly normal. Moves all 4 limbs. Minimal residual Right-sided weakness Skin: Warm and dry ,no rash, healing stage II ulcer left third toe - Labs CBC & Chem 7: 07/26/20 06:38 07/26/20 06:38 Labs: Abnormal Lab Results - Last 24 Hours (Table) 07/26/20 07/26/20 Range/Units 06:38 06:38 RBC 3.72 L (4.30-5.90) m/uL Hgb 10.2 L (13.0-17.5) gm/dL Hct 32.5 L (39.0-53.0) % RDW 17.3 H (11.5-15.5) % Sodium 132 L (137-145) mmol/L Potassium 5.2 H (3.5-5.1) mmol/L BUN 44 H (9-20) mg/dL Creatinine 1.56 H (0.66-1.25) mg/dL Calcium 8.3 L (8.4-10.2) mg/dL Microbiology - Last 24 Hours (Table) 07/25/20 07:47 Blood Culture - Preliminary Blood No Growth after 24 hours Assessment and Plan Assessment: Acute hypoxic respiratory failure, secondary to suspected streptococcal pneumonia, possible aspiration, recent influenza A from ECF reported per PCP. Sepsis secondary to persistant Enterococcus faecalis bacteremia, etiology uncle ar, JACOB pending Acute renal failure, prerenal secondary to the above Chronic renal failure stage IIIB secondary to nephrosclerosis Recent CVA with minimal residual right-sided weakness, expressive aphasia Gastroesophageal reflux disease Hypertension Hyperlipidemia Osteoarthritis Stage II ulcer left third toe, healing, present on admission Chronic paroxysmal atrial fibrillation Plan: Continue on current medication regime ,monitoring and symptomatic treatment. Repeat cultures in progress. , JACOB pending. IV antibiotics as per ID. PT. [facility] Subacute rehab at discharge. Prognosis guarded given multiple complex medical issues. The impression and plan of care has been dictated as directed. : I performed a history and examination of this patient, discussed the same with the dictator. I agree with the dictator's note ,documented as a scribe. Any additional findings or plans will be noted.
--- NOTE | 2020-07-26 14:52 | ECHOT ---
TRANSESOPHAGEAL ECHOCARDIOGRAM INDICATION: Persistent bacteremia to rule out infective endocarditis. PROCEDURE NOTE: After obtaining informed consent, transesophageal echocardiogram was performed in left lateral position using an Omniplane probe.color doppler 2d and m mode were used Local and IV sedation were obtained using Xylocaine spray, 1 mg of Versed and 25 mcg of fentanyl. The patient tolerated the procedure well without any obvious immediate complications. Patient received moderate conscious sedation. Total sedation time was 10 minutes. FINDINGS: 1. Aortic valve is a 3-leaflet valve appears sclerotic. There is a small echodense lesion noted on the aortic surface of the non-coronary cusp, which is small, echodense and mobile. There is trace aortic regurgitation. There is no evidence of aortic root abscess. 2. Mitral valve appears anatomically normal. There is mitral annular calcification with mild mitral regurgitation. 3. Tricuspid valve appears normal. 4. Left ventricle has normal size and systolic function with ejection fraction of 60%. 5. Left atrium appears enlarged. 6. Right atrium and right ventricle seen within normal limits. 7. Aortic root measures within normal limits. There are mild atherosclerotic changes noted. 8. Interatrial septum: There is no evidence of [id number] shunt by color-flow Doppler or [id number] shunt by agitated saline contrast study. CONCLUSIONS: Small echodense lesion noted over the non-coronary cusp consistent with vegetation. MMODL / IJN: [id number] / MTDD
[2020-07-26] MEDS: CHOLECALCIFEROL 25 MCG (1000 IU) TABLET PO SCH (20:03)
[2020-07-26] MEDS: ATORVASTATIN 20 MG TAB PO SCH (20:05)
[2020-07-26] MEDS: ASCORBIC ACID 500 MG TAB PO SCH (20:08)
--- NOTE | 2020-07-26 21:53 | PN ---
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 INTERVAL HISTORY: The patient is currently afebrile. The patient is breathing comfortably. Denies having any chest pain, shortness of breath or cough. No nausea, vomiting or abdominal pain. Did have some diarrhea. PHYSICAL EXAMINATION: Blood pressure 130/64, pulse of 75, temperature 97. He is 92% on room air. General description is an elderly male lying in bed in no distress. RESPIRATORY SYSTEM: Unlabored breathing with decreased intensity of breath sounds. No wheeze. HEART: S1, S2. Regular rate and rhythm. ABDOMEN: Soft. No tenderness. LABS: Hemoglobin is 10.2, white count 6.8. BUN 44, creatinine 1.56. 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 Blood culture so far has been negative. Plan is for a PICC line on Wednesday for a 6-week course of ampicillin. Dose will be adjusted to q.6 hours. The patient's kidney function needs to be monitored closely, as his creatinine is on an upward trend. Continue with supportive care. The patient's was at the bedside. All her questions were answered. MMODL / IJN: [id number] /
[2020-07-27] MEDS: AMPICILLIN 2,000 MG in SODIUM CHLORIDE 0.9% 100 ML IVPB SCH ×5 (00:12→23:56)
[2020-07-27 08:17] LABS: Anisocytosis Slight; Basophils % (A) 0 %; Eosinophils % (A) 0 %; HCT 30.5 % (39.0-53.0); HGB 9.5 gm/dL (13.0-17.5); Hypochromasia Slight; Lymphocytes # (A) 0.9 k/uL (1.0-4.8); Lymphocytes % (A) 14 %; MCH 26.5 pg (25.0-35.0); MCV 85.7 fL (80.0-100.0); Mean Platelet Volume 7.7; Monocytes # (A) 0.3 k/uL (0-1.0); Monocytes % (A) 4 %; Neutrophils # (A) 5.2 k/uL (1.3-7.7); Neutrophils % (A) 81 %; Platelet Count 241 k/uL (150-450); RBC 3.56 m/uL (4.30-5.90); RDW 17.7 % (11.5-15.5); WBC 6.4 k/uL (3.8-10.6)
[2020-07-27] MEDS: GABAPENTIN 300 MG CAP PO SCH (08:31)
[2020-07-27] MEDS: ASPIRIN 81 MG PO SCH (08:31)
[2020-07-27] MEDS: PANTOPRAZOLE 40 MG TABLET PO SCH (08:31)
[2020-07-27] MEDS: SODIUM BICARBONATE TAB 650 MG TAB PO SCH ×4 (08:31→20:43)
[2020-07-27] MEDS: predniSONE 20 MG TAB PO SCH (08:31)
[2020-07-27] MEDS: carvediloL 6.25 MG TAB PO SCH (08:31)
[2020-07-27] MEDS: APIXABAN 5 MG TAB PO SCH ×2 (08:31→20:44)
[2020-07-27 08:37] LABS: Calcium 8.1 mg/dL (8.4-10.2); Potassium 5.1 mmol/L (3.5-5.1)
--- NOTE | 2020-07-27 12:19 | P.PN ---
Subjective This is a 74-year-old gentleman with recent CVA approximately 2 weeks ago, at [place] as per PCP, with expressive aphasia, some residual right-sided weakness, tested positive for influenza at [facility] subacute rehab, admitted with acute respiratory failure, acute renal failure, enterococcus bacteremia, etiology unclear and multiple other medical issues. Patient denies any chest pain, palpitations or shortness of breath. Echo pending. Maintained on vancomycin. Renal function continues to improve with IV fluid hydration. Potassium up to 5.2, IV fluids adjusted to normal saline. CT of abdomen and pelvis noted. 07/23/2020 maintained on Unasyn for enterococcus faecalis bacteremia. Follow-up blood culture from 21 reporting gram-positive cocci in chains Echo reported low normal LV function, EF 50-55%. evaluated by speech therapy, aphasic treatment initiated. MBS pending. Follow-up chest x-ray pending. Renal function improving with creatinine down to 1.22, potassium remains at 5.2. Maintaining O2 sats in the 90s on room air. Denies chest pain, palpitations or shortness of breath. Denies nausea vomiting or diarrhea. Denies abdominal pain. 07/24/2020 persistent bacteremia, JACOB ordered. Antibiotics adjusted to ampicillin yesterday. Chest x-ray from yesterday afternoon reported significant improvement. Afebrile. Maintaining O2 sats in the high 90s on room air. Continues on gentle IV fluid hydration. Patient not sitting up right in bed, choking on lunch tray. MBS performed reporting no impairment. Creatinine 1.31. Potassium improved down to 5. 07/25/2020 telemetry sinus rhythm with PACs, in a patient with history of chronic proximal A. fib. ID reports recent outpatient negative JACOB. MRI of lumbar spine ordered secondary to persistent bacteremia. Maintaining O2 sats in the 90s on room air. Afebrile, normal WBC. Creatinine 1.33, potassium 5.3. 07/26/2020 MRI failed to report discitis or abscess ,scheduled for JACOB. Continues on ampicillin. Afebrile. Preliminary Follow-up blood culture of 07/25 reporting no growth at 24 hours. Maintaining O2 sats in the low 90s on room air. Creatinine 1.56. Heath is a 74-year-old white male, new patient to me. He lives in [facility]. He was transferred to [facility] from [facility] after having new onset aphasia and right-sided weakness. This was on 07/07/2020. He was found to have a small left-sided MCA infarct. He underwent thrombectomy. MRI revealed a successful intervention. He was started on Elequis on July 08 along with aspirin. A swallow study at that time her. Mild dysfunction. He had a JACOB that was negative for any thrombus for discharge. He was sent to [facility] on the [place] where I met Heath. He is a pleasant gentleman in their he developed acute pneumonia and some respiratory distress. He was sent to the hospital here at [facility]. He was admitted for pneumonia thought to be from suspected streptococcal cause. Blood cultures were grown out group D enterococcus area which she is currently on ampicillin for. Pulmonology is following him. Their notes reviewed. Nephrology is following him for his acute on chronic stage IIIB kidney failure. Infectious disease is following him for the repeated positive enterococcus blood cultures now found to be from an aortic valve growth. Most recent blood cultures dating July 25 of 07/26/2020 have been negative. Cardiology is niall palacios him was consult for the JACOB. Heath does have known paroxysmal atrial fibrillation was on long-term anticoagulation previously to this. He currently remains on Elequis. The patient is getting up with physical therapy. He does have some mild noted aphasia and right-sided hemiplegia. He denies any significant complaints, but is always pleasant. He specifically denies chest pains, pressures, or shortness of breath. He remains on oxygen at 2 L via nasal cannula. Blood pressure remains controlled. He remains afebrile. Laboratory studies show a slowly progressing anemia that started at 12.1 and is currently 9.5. MCV is 85.7. Electrolytes show a ongoing hyponatremia. This is something they're watching at [facility] related to his CVA. His GFR is again worsening after more normalizing around July 23. It went from 30 at admission up to 59 on July 23 and is now down to 37 again. Objective - Vital Signs Vital signs: Vital Signs Temp 96 F L 07/27/20 08:00 Pulse 84 07/27/20 08:00 Resp 20 07/27/20 08:00 BP 138/65 07/27/20 08:00 Pulse Ox 100 07/27/20 08:00 Intake & Output 07/26/20 07/27/20 07/27/20 18:59 06:59 18:59 Intake Total 1320 240 Output Total 2 Balance 1320 -2 240 Weight 101 kg Intake: IV 100 Intake, IV Titration 500 Amount Ampicillin 2,000 mg In 100 Sodium Chloride 0.9% 100 ml @ 200 mls/hr IVPB Q4HR [facility] Rx#:[id number] Sodium Chloride 0.9% 1, 400 000 ml @ 50 mls/hr IV . Q20H [facility] Rx#:[id number] Oral 720 240 Output: Stool 2 Other: Voiding Method Diaper Diaper Diaper Incontinent Incontinent Incontinent # Voids 1 2 3 - Exam GENERAL: Sitting up in bed, no acute distress, expressive aphasia, NECK: No JVD. No thyroid enlargement. No LNs CARDIOVASCULAR: S1, S2 regular. No murmur, rubs or gallops noted today. RESPIRATION: Breath sounds diminished in the bases. Fine left basilar crackles ABDOMEN: Soft, nontender . No guarding. no masses palpable.Bowel sounds heard. LEGS: No edema. no swelling PSYCHIATRY: Alert and oriented X2-3, mood and affect normal. NERVOUS SYSTEM: Cranial N 2-12 grossly normal. Moves all 4 limbs. Minimal residual Right-sided weakness Skin: Warm and dry ,no rash, healing stage II ulcer left third toe - Labs CBC & Chem 7: 07/27/20 07:02 07/27/20 07:02 Labs: Abnormal Lab Results - Last 24 Hours (Table) 07/27/20 07/27/20 Range/Units 07:02 07:02 RBC 3.56 L (4.30-5.90) m/uL Hgb 9.5 L (13.0-17.5) gm/dL Hct 30.5 L (39.0-53.0) % RDW 17.7 H (11.5-15.5) % Lymphocytes # 0.9 L (1.0-4.8) k/uL Sodium 132 L (137-145) mmol/L BUN 41 H (9-20) mg/dL Creatinine 1.79 H (0.66-1.25) mg/dL Calcium 8.1 L (8.4-10.2) mg/dL Microbiology - Last 24 Hours (Table) 07/25/20 07:47 Blood Culture - Preliminary Blood No Growth after 48 hours 07/26/20 06:38 Blood Culture - Preliminary Blood No Growth after 24 hours Assessment and Plan (1) Aortic valve endocarditis Current Visit: Yes Status: Acute Code(s): I35.8 - OTHER NONRHEUMATIC AORTIC VALVE DISORDERS SNOMED Code(s): 56836323 (2) Acute respiratory failure with hypoxia Current Visit: Yes Status: Acute Code(s): J96.01 - ACUTE RESPIRATORY FAILURE WITH HYPOXIA SNOMED Code(s): 97899022 (3) Streptococcal pneumonia Current Visit: Yes Status: Acute Code(s): J15.4 - PNEUMONIA DUE TO OTHER STREPTOCOCCI SNOMED Code(s): 29119940 (4) Bacteremia Current Visit: Yes Status: Acute Code(s): R78.81 - BACTEREMIA SNOMED Code(s): 5721414 (5) Acute on chronic renal failure Current Visit: Yes Status: Acute Code(s): N17.9 - ACUTE KIDNEY FAILURE, UNSPECIFIED; N18.9 - CHRONIC KIDNEY DISEASE, UNSPECIFIED SNOMED Code(s): 826086509 (6) Paroxysmal atrial fibrillation Current Visit: Yes Status: Acute Code(s): I48.0 - PAROXYSMAL ATRIAL FIB RILLATION SNOMED Code(s): 187827240 (7) shelter current use of anticoagulant therapy Current Visit: Yes Status: Acute Code(s): Z79.01 - EMG TECHNICIAN (CURRENT) USE OF ANTICOAGULANTS SNOMED Code(s): 833489330 (8) Hemiparesis of right dominant side Current Visit: Yes Status: Acute Code(s): G81.91 - HEMIPLEGIA, UNSPECIFIED AFFECTING RIGHT DOMINANT SIDE SNOMED Code(s): 488915090 (9) Dysphagia following cerebral infarction Current Visit: Yes Status: Acute Code(s): I69.391 - DYSPHAGIA FOLLOWING CEREBRAL INFARCTION SNOMED Code(s): 12633676 (10) Unspecified abnormalities of gait and mobility Current Visit: Yes Status: Acute Code(s): R26.9 - UNSPECIFIED ABNORMALITIES OF GAIT AND MOBILITY SNOMED Code(s): 52037666 (11) Cerebrovascular accident (CVA) due to occlusion of middle cerebral artery Current Visit: Yes Status: Acute Code(s): I63.519 - CEREB INFRC D/T UNSP OCCLS OR STENOS OF UNSP MID CEREB ART SNOMED Code(s): 280086211 (12) Essential (primary) hypertension Current Visit: Yes Status: Acute Code(s): I10 - ESSENTIAL (PRIMARY) HYPERTENSION SNOMED Code(s): 20929114 (13) Mixed hyperlipidemia Current Visit: Yes Status: Acute Code(s): E78.2 - MIXED HYPERLIPIDEMIA SNOMED Code(s): 556995569 (14) History of CVA (cerebrovascular accident) Current Visit: Yes Status: Acute Code(s): Z86.73 - PRSNL HX OF TIA (TIA), AND CEREB INFRC W/O RESID DEFICITS SNOMED Code(s): 477635846 (15) Sepsis Current Visit: Yes Status: Acute Code(s): A41.9 - SEPSIS, UNSPECIFIED ORGANISM SNOMED Code(s): 00038478 (16) Chronic diastolic (congestive) heart failure Current Visit: Yes Status: Acute Code(s): I50.32 - CHRONIC DIASTOLIC (CONGESTIVE) HEART FAILURE SNOMED Code(s): 625395328 (17) Anemia Current Visit: Yes Status: Acute Code(s): D64.9 - ANEMIA, UNSPECIFIED SNOMED Code(s): 425062988 (18) Hyponatremia Current Visit: Yes Status: Acute Code(s): E87.1 - HYPO-OSMOLALITY AND HYPONATREMIA SNOMED Code(s): 77653987 Plan: Heath will continue on his antibiotics ampicillin. Infectious disease clinic 6 week course. He'll have a PICC line on Wednesday. He'll continue physical therapy. Continue long-term anticoagulation for his atrial fibrillation Awaiting further recommendations from pulmonology regarding his pneumonia and respiratory failure. Plan further recommendations on the worsening Chronic renal failure from nephrology. Continue to monitor his hyponatremia and recent anemia. Hemoccult stools, check a serum and urine osmolality and spot urine sodium, Repeat labs in a.m. Reevaluate in the next 24 hours.
[2020-07-27] MEDS: SODIUM CHLORIDE 0.9% 1,000 ML IV SCH (12:39)
--- NOTE | 2020-07-27 12:53 | P.PN ---
Subjective Progress Note Date: 07/27/20 Principal diagnosis: This is a 74-year-old gentleman who resides at [facility] on the [facility]. He has a history of CVA/TIA with residual right leg weakness, angina, GERD, hyperlipidemia, hypertension, osteoarthritis, chronic kidney disease stage III, former smoker. He was brought into the emergency room yesterday after being found be short of breath than him and O2 saturations in the 70s. Chest x- ray revealed some chronic changes but no acute pulmonary disease. There is some questionable left lower lobe infiltrate. Initial temperature 102.8. He is seen today on the selective care unit. He is currently awake and alert. Resting in bed. Somewhat of a poor historian. Answering most questions appropriately however. Continue O2 saturations up to 100% on 3 L/m per nasal cannula. Currently afebrile. Preliminary blood cultures revealing gram-positive cocci in pairs. White count 15.0. Hemoglobin 10.3. D-dimer 1.20. Sodium 135. Potassium 4.6. Creatinine 1.67. Initial lactic 2.4 currently 1.5. Pro- calcitonin 1.13. LDH 7.39. C-reactive protein 58.7. Fink virus not detected. He's been initiated on Tamiflu, ceftriaxone and azithromycin. Anticoagulated with Eliquis. The patient is seen today 07/21/2020 in follow-up on the selective care unit. He is currently resting comfortably in bed. Awake and alert in no acute distress and maintaining O2 saturation of 200% on 3 L/m per nasal cannula. He's been afebrile. Hemodynamically stable. The cultures positive for group D enterococcus. Currently on vancomycin. White count 8.6. Hemoglobin 10.4. Sodium 137. Potassium 4.3. Creatinine 1.48. On 07/22/2020 patient seen in follow-up on selective care unit. He is awake and alert, in no acute distress, he is resting comfortably in bed, currently on room air, pulse ox is 99%, occasional cough, lung sounds are diminished at the bases, he denies any chest pain, his last chest x-ray from yesterday showed bilateral airspace disease, low lung volumes and prominence of the central vascularity. CT of the abdomen and pelvis showed fecal impaction, indeterminate inflammatory changes in the left groin, diverticulosis and postop changes this was noncontrast exam. Patient has been afebrile overnight, his vitals have been stable, his blood cultures were positive for Enterococcus faecalis, patient is currently on Unasyn. On 07/23/2020 patient seen in follow-up on selective care unit, patient is doing well, he is awake and alert, in no acute distress, resting comfortably in bed, he is on room air, denies any cough, denies any chest pain, denies any significant phlegm production. He is on room air. Pulse ox is 98%, no fever or chills. He remains on antibiotics, for enterococcus bacteremia, follow blood culture collected on 07/22/2020 has shown no growth. Clinically patient is stable, no reported difficulty breathing or chest pain, abdominal pain, no nausea vomiting or diarrhea. Follow-up chest x-ray is pending The patient is seen today 07/24/2020 in follow-up on the selective care unit. He is currently resting comfortably in bed. Awake and alert in no acute distress. Maintaining O2 saturation in the mid to upper 90s on room air. Chest x-ray had revealed a left lower lobe infiltrate. He is afebrile. Hemodynamically stable. Follow-up blood cultures were positive for group D enterococcus. Sodium 134. Potassium 5.0. Creatinine 1.31. He remains on ampicillin. Anticoagulated with Eliquis. On oral prednisone. On oral bicarb. Remains in 0.9 at 50 mL per hour. Plan is for [facility] upon discharge. The patient is seen today 07/25/2020 in follow-up on the selective care unit. He is currently sitting up in bed. Awake and alert in no acute distress. He is maintaining good O2 saturations in the 90s on room air. She's afebrile. Hemodynamically stable. Blood cultures were positive for Enterococcus faecalis. White count 7.5. Hemoglobin 11.0. Sodium 134. Potassium 5.3. Creatinine 1.33. He remains on ampicillin. MRI of the lumbar spine is pending. Possible JACOB to follow. The patient is seen today 07/26/2020 in follow-up on the selective care unit. He is currently awake and alert in no acute distress. Resting comfortably in bed. Maintaining O2 saturations in the 90s on room air. He is afebrile. Hemodynamically stable. Blood cultures are positive for Enterococcus faecalis. White count 6.8. Hemoglobin 10.2. Sodium 132. Potassium 5.2. Creatinine 1.56. He remains on ampicillin. Anticoagulated with Eliquis. Remains on bronchodilators. Oral prednisone. MRI of the spine revealed no suspicious enhancement of the disc spaces or vertebral bodies to suggest acute discitis. Plan is for JACOB today. The patient is seen today 07/27/2020 in follow-up on the selective care unit. He is currently sitting up in a chair at the bedside. Awake and alert in no acute distress. He is maintaining O2 saturations up to 100% on 2 L/m per nasal cannula. He is afebrile. Hemodynamically stable. Follow-up blood cultures are revealing no growth. Initial blood cultures were Enterococcus faecalis. He did undergo JACOB yesterday that did reveal a small echogenic lesion on the aortic valve suspicious for vegetation. White count 6.4. Hemoglobin 9.5. Sodium 132. Potassium 5.1. Creatinine 1.79. He remains on ampicillin. Objective - Vital Signs Vital signs: Vital Signs Temp 97.3 F L 07/27/20 12:05 Pulse 77 07/27/20 12:05 Resp 20 07/27/20 12:05 BP 145/72 07/27/20 12:05 Pulse Ox 100 07/27/20 12:05 Intake & Output 07/26/20 07/27/20 07/27/20 18:59 06:59 18:59 Intake Total 1320 240 Output Total 2 Balance 1320 -2 240 Weight 101 kg Intake: IV 100 Intake, IV Titration 500 Amount Ampicillin 2,000 mg In 100 Sodium Chloride 0.9% 100 ml @ 200 mls/hr IVPB Q4HR [facility] Rx#:[id number] Sodium Chloride 0.9% 1, 400 000 ml @ 50 mls/hr IV . Q20H [facility] Rx#:[id number] Oral 720 240 Output: Stool 2 Other: Voiding Method Diaper Diaper Diaper Incontinent Incontinent Incontinent # Voids 1 2 3 - Exam GENERAL EXAM: Alert, pleasant 74-year-old gentleman, on room air, comfortable in no apparent distress. HEAD: Normocephalic. EYES: Normal reaction of pupils, equal size. NOSE: Clear with pink turbinates. THROAT: No erythema or exudates. NECK: No masses, no JVD. CHEST: No chest wall deformity. LUNGS: Equal air entry with crackles in the posterior left base. CVS: S1 and S2 normal with no audible murmur, regular rhythm. ABDOMEN: No hepatosplenomegaly, normal bowel sounds, no guarding or rigidity. SPINE: No scoliosis or deformity SKIN: No rashes CENTRAL NERVOUS SYSTEM: No focal deficits, tone is normal in all 4 extremities. EXTREMITIES: There is no peripheral edema. No clubbing, no cyanosis. Peripheral pulses are intact. - Labs CBC & Chem 7: 07/27/20 07:02 07/27/20 07:02 Labs: Abnormal Lab Results - Last 24 Hours (Table) 07/27/20 07/27/20 Range/Units 07:02 07:02 RBC 3.56 L (4.30-5.90) m/uL Hgb 9.5 L (13.0-17.5) gm/dL Hct 30.5 L (39.0-53.0) % RDW 17.7 H (11.5-15.5) % Lymphocytes # 0.9 L (1.0-4.8) k/uL Sodium 132 L (137-145) mmol/L BUN 41 H (9-20) mg/dL Creatinine 1.79 H (0.66-1.25) mg/dL Calcium 8.1 L (8.4-10.2) mg/dL Microbiology - Last 24 Hours (Table) 07/25/20 07:47 Blood Culture - Preliminary Blood No Growth after 48 hours 07/26/20 06:38 Blood Culture - Preliminary Blood No Growth after 24 hours Assessment and Plan Assessment: 1 Acute hypoxic respiratory failure secondary to suspected streptococcal pneumonia, pro-calcitonin 1.13 2 Bacteremia secondary to enterococcus faecalis. This was found to be related to aortic valve endocarditis. currently on ampicillin 3 Febrile illness secondary to above, recovered 4 History of CVA 5 History of chronic kidney disease stage III 6 Hyperlipidemia 7 Gastroesophageal reflux disease 8 Hypertension 9 Osteoarthritis 10 Poor overall functional performance based on the above-mentioned multiple comorbidities Plan: The patient was seen and evaluated by Dr. Muse Found to have Enterococcus faecalis bacteremia secondary to aortic valve endocarditis Plan is for 6 weeks of IV ampicillin PICC line on Wednesday We will follow on as-needed basis I, the cosigning physician, performed a history & physical examination of the patient. Lungs sounds with crackles in the left lung base. Maintaining good O2 saturations in the 90s on room air. I discussed the assessment and plan of care with my nurse practitioner, Kathleen Begum. I attest to the above note as dictated by her.
--- NOTE | 2020-07-27 14:20 | P.PN ---
Subjective Progress Note Date: 07/27/20 The patient was interviewed and examined lying comfortably in bed. He states he is feeling relatively well. Unfortunately has been lying in bed since his JACOB yesterday and has not been ambulating to the chair or bathroom. We discussed the importance of getting and moving around to improve mobility and pulmonary hygiene. Patient states he does have a little bit of a sore throat today. No chest pain or chest pressure. No dyspnea, orthopnea, palpitations, dizziness, or lightheadedness. He does have expressive aphasia. GENERAL: Well-appearing, well-nourished and in no acute distress. NECK: Supple without JVD or thyromegaly. LUNGS: Breath sounds clear to auscultation bilaterally. Respiration equal and unlabored. No wheezes, rales or rhonchi. HEART: Regular rate and rhythm without murmurs, rubs or gallops. S1 and S2 heard. EXTREMITIES: Normal range of motion, no edema. No clubbing or cyanosis. Peripheral pulses intact and strong. VITALS: Blood pressure 138/65, heart rate 84, respiratory rate 20, texture 96F, SpO2 100% on 2 L nasal cannula TELEMETRY: Sinus rhythm with heart rates in the 80s to 90s LABS: WBC 6.4, hemoglobin 9.5, hematocrit 30.5, platelet 241, sodium 132, potassium 5.1, BUN 41, creatinine 1.79, TSH 4.0 IMPRESSION: #1 acute hypoxic respiratory failure #2 Enterococcus bacteremia #3 septicemia with linear mobile density on aortic valve #4 paroxysmal atrial fibrillation on long-term anticoagulation #5 hypertension #6 chronic kidney disease, worsening with GFR 37 PLAN: Continue to follow with ID for septicemia and vegetation on aortic valve Repeat 2-D echocardiogram in 2-3 weeks to reassess valve No additional recommendations at this time. Please don't hesitate to call with any additional questions. The patient has been seen and evaluated. Plan of care has been reviewed and agreed upon by Dr Arthur. Objective - Vital Signs Vital signs: Vital Signs Temp 97.3 F L 07/27/20 12:05 Pulse 77 07/27/20 12:05 Resp 20 07/27/20 12:05 BP 145/72 07/27/20 12:05 Pulse Ox 100 07/27/20 12:05 Intake & Output 07/26/20 07/27/20 07/27/20 18:59 06:59 18:59 Intake Total 1320 240 Output Total 2 Balance 1320 -2 240 Weight 101 kg Intake: IV 100 Intake, IV Titration 500 Amount Ampicillin 2,000 mg In 100 Sodium Chloride 0.9% 100 ml @ 200 mls/hr IVPB Q4HR [facility] Rx#:[id number] Sodium Chloride 0.9% 1, 400 000 ml @ 50 mls/hr IV . Q20H [facility] Rx#:[id number] Oral 720 240 Output: Stool 2 Other: Voiding Method Diaper Diaper Diaper Incontinent Incontinent Incontinent # Voids 1 2 3 - Labs CBC & Chem 7: 07/27/20 07:02 07/27/20 07:02 Labs: Abnormal Lab Results - Last 24 Hours (Table) 07/27/20 07/27/20 Range/Units 07:02 07:02 RBC 3.56 L (4.30-5.90) m/uL Hgb 9.5 L (13.0-17.5) gm/dL Hct 30.5 L (39.0-53.0) % RDW 17.7 H (11.5-15.5) % Lymphocytes # 0.9 L (1.0-4.8) k/uL Sodium 132 L (137-145) mmol/L BUN 41 H (9-20) mg/dL Creatinine 1.79 H (0.66-1.25) mg/dL Calcium 8.1 L (8.4-10.2) mg/dL Microbiology - Last 24 Hours (Table) 07/25/20 07:47 Blood Culture - Preliminary Blood No Growth after 48 hours 07/26/20 06:38 Blood Culture - Preliminary Blood No Growth after 24 hours
--- NOTE | 2020-07-27 15:17 | P.PN ---
Subjective Progress Note Date: 07/27/20 Follow-up for acute kidney injury. Urine output marginal. Objective - Vital Signs Vital signs: Vital Signs Temp 97.3 F L 07/27/20 12:05 Pulse 77 07/27/20 12:05 Resp 20 07/27/20 12:05 BP 145/72 07/27/20 12:05 Pulse Ox 100 07/27/20 12:05 Intake & Output 07/26/20 07/27/20 07/27/20 18:59 06:59 18:59 Intake Total 1320 480 Output Total 2 Balance 1320 -2 480 Weight 101 kg Intake: IV 100 Intake, IV Titration 500 Amount Ampicillin 2,000 mg In 100 Sodium Chloride 0.9% 100 ml @ 200 mls/hr IVPB Q4HR [facility] Rx#:[id number] Sodium Chloride 0.9% 1, 400 000 ml @ 50 mls/hr IV . Q20H [facility] Rx#:[id number] Oral 720 480 Output: Stool 2 Other: Voiding Method Diaper Diaper Diaper Incontinent Incontinent Incontinent # Voids 1 2 3 - Exam No acute distress S1-S2 heard Decreased breath sounds Abdomen soft No edema - Labs CBC & Chem 7: 07/27/20 07:02 07/27/20 07:02 Labs: Abnormal Lab Results - Last 24 Hours (Table) 07/27/20 07/27/20 Range/Units 07:02 07:02 RBC 3.56 L (4.30-5.90) m/uL Hgb 9.5 L (13.0-17.5) gm/dL Hct 30.5 L (39.0-53.0) % RDW 17.7 H (11.5-15.5) % Lymphocytes # 0.9 L (1.0-4.8) k/uL Sodium 132 L (137-145) mmol/L BUN 41 H (9-20) mg/dL Creatinine 1.79 H (0.66-1.25) mg/dL Calcium 8.1 L (8.4-10.2) mg/dL Microbiology - Last 24 Hours (Table) 07/25/20 07:47 Blood Culture - Preliminary Blood No Growth after 48 hours 07/26/20 06:38 Blood Culture - Preliminary Blood No Growth after 24 hours Assessment and Plan Assessment: #1 acute kidney injury secondary to septic ATN. #2 CKD stage III suspect nephrosclerosis with a baseline creatinine of 1.3-1.5 MG per DL. #3 enterococcus bacteremia with endocarditis #4 hyponatremia hypervolemia #5 mild hyperkalemia secondary to acute kidney injury #6 hypertension with chronic kidney disease Plan: #1 stop normal saline at Lasix 20 mg IV twice a day. #2 strict ins and outs. #3 avoid nephrotoxic agents and hypotensive episodes.
[2020-07-27] MEDS: FUROSEMIDE 10 MG/ML 2 ML VIAL IV SCH ×2 (15:45→20:44)
--- NOTE | 2020-07-27 18:41 | PN ---
PROGRESS NOTE DATE OF SERVICE: 07/27/2020 REASON FOR FOLLOWUP: Enterococcus faecalis bacteremia secondary to endocarditis. INTERVAL HISTORY: The patient is currently afebrile. The patient is breathing comfortably. The patient denies having any chest pain. No shortness of breath or cough. No nausea. No abdominal pain, no diarrhea. PHYSICAL EXAMINATION: Blood pressure 145/72 with a pulse of 77, temperature 97.8. He is 100% on 2 L nasal cannula. General description is an elderly male lying in bed in no distress. Respiratory system: Unlabored breathing, clear to auscultation anteriorly. Heart S1, S2. Regular rate and rhythm. Abdomen soft, no tenderness. LABS: Hemoglobin 9.1, white count 6.4, BUN of 41, creatinine 1.79. Blood culture has been negative so far. 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 The patient has cleared his bacteremia covered with ampicillin, and worsening of his kidney function. Nephrology is following the patient. He will get his PICC line on Wednesday for outpatient antibiotic therapy. 's questions and concerns were answered. MMODL / IJN: [id number] /
[2020-07-27] MEDS: ASCORBIC ACID 500 MG TAB PO SCH (20:43)
[2020-07-27] MEDS: ATORVASTATIN 20 MG TAB PO SCH (20:43)
[2020-07-27] MEDS: CHOLECALCIFEROL 25 MCG (1000 IU) TABLET PO SCH (20:43)
[2020-07-28] MEDS: AMPICILLIN 2,000 MG in SODIUM CHLORIDE 0.9% 100 ML IVPB SCH ×4 (06:15→23:40)
[2020-07-28 07:35] LABS: Anisocytosis Slight; Basophils % (A) 0 %; Eosinophils % (A) 0 %; HCT 32.4 % (39.0-53.0); HGB 9.9 gm/dL (13.0-17.5); Hypochromasia Marked; Lymphocytes # (A) 1.1 k/uL (1.0-4.8); Lymphocytes % (A) 17 %; MCH 27.2 pg (25.0-35.0); MCHC 30.6 g/dL (31.0-37.0); Mean Platelet Volume 7.3; Monocytes # (A) 0.3 k/uL (0-1.0); Monocytes % (A) 5 %; Neutrophils # (A) 4.8 k/uL (1.3-7.7); Neutrophils % (A) 75 %; Platelet Count 249 k/uL (150-450); RBC 3.65 m/uL (4.30-5.90); RDW 17.9 % (11.5-15.5); WBC 6.4 k/uL (3.8-10.6)
[2020-07-28 07:57] LABS: Calcium 8.6 mg/dL (8.4-10.2); Magnesium 2.2 mg/dL (1.6-2.3); Potassium 4.7 mmol/L (3.5-5.1)
[2020-07-28] MEDS: SODIUM BICARBONATE TAB 650 MG TAB PO SCH ×4 (08:50→21:45)
[2020-07-28] MEDS: APIXABAN 5 MG TAB PO SCH ×2 (08:50→21:45)
[2020-07-28] MEDS: ASPIRIN 81 MG PO SCH (08:50)
[2020-07-28] MEDS: predniSONE 20 MG TAB PO SCH (08:50)
[2020-07-28] MEDS: carvediloL 6.25 MG TAB PO SCH (08:51)
[2020-07-28] MEDS: FUROSEMIDE 10 MG/ML 2 ML VIAL IV SCH (08:51)
[2020-07-28] MEDS: PANTOPRAZOLE 40 MG TABLET PO SCH (08:51)
[2020-07-28] MEDS: GABAPENTIN 300 MG CAP PO SCH (08:51)
--- NOTE | 2020-07-28 12:42 | P.PN ---
Subjective This is a 74-year-old gentleman with recent CVA approximately 2 weeks ago, at [facility] as per PCP, with expressive aphasia, some residual right-sided weakness, tested positive for influenza at [facility] subacute rehab, admitted with acute respiratory failure, acute renal failure, enterococcus bacteremia, etiology unclear and multiple other medical issues. Patient denies any chest pain, palpitations or shortness of breath. Echo pending. Maintained on vancomycin. Renal function continues to improve with IV fluid hydration. Potassium up to 5.2, IV fluids adjusted to normal saline. CT of abdomen and pelvis noted. 07/23/2020 maintained on Unasyn for enterococcus faecalis bacteremia. Follow-up blood culture from 21 reporting gram-positive cocci in chains Echo reported low normal LV function, EF 50-55%. evaluated by speech therapy, aphasic treatment initiated. MBS pending. Follow-up chest x-ray pending. Renal function improving with creatinine down to 1.22, potassium remains at 5.2. Maintaining O2 sats in the 90s on room air. Denies chest pain, palpitations or shortness of breath. Denies nausea vomiting or diarrhea. Denies abdominal pain. 07/24/2020 persistent bacteremia, JACOB ordered. Antibiotics adjusted to ampicillin yesterday. Chest x-ray from yesterday afternoon reported significant improvement. Afebrile. Maintaining O2 sats in the high 90s on room air. Continues on gentle IV fluid hydration. Patient not sitting up right in bed, choking on lunch tray. MBS performed reporting no impairment. Creatinine 1.31. Potassium improved down to 5. 07/25/2020 telemetry sinus rhythm with PACs, in a patient with history of chronic proximal A. fib. ID reports recent outpatient negative JACOB. MRI of lumbar spine ordered secondary to persistent bacteremia. Maintaining O2 sats in the 90s on room air. Afebrile, normal WBC. Creatinine 1.33, potassium 5.3. 07/26/2020 MRI failed to report discitis or abscess ,scheduled for JACOB. Continues on ampicillin. Afebrile. Preliminary Follow-up blood culture of 07/25 reporting no growth at 24 hours. Maintaining O2 sats in the low 90s on room air. Creatinine 1.56. 07/27/2020: Heath is a 74-year-old white male, new patient to me. He lives in [facility]. He was transferred to [facility] from [facility] after having new onset aphasia and right-sided weakness. This was on 07/07/2020. He was found to have a small left-sided MCA infarct. He underwent thrombectomy. MRI revealed a successful intervention. He was started on Elequis on July 08 along with aspirin. A swallow study at that time her. Mild dysfunction. He had a JACOB that was negative for any thrombus for discharge. He was sent to [facility] on the [address] where I met Heath. He is a pleasant gentleman in their he developed acute pneumonia and some respiratory distress. He was sent to the hospital here at [facility]. He was admitted for pneumonia thought to be from suspected streptococcal cause. Blood cultures were grown out group D enterococcus area which she is currently on ampicillin for. Pulmonology is following him. Their notes reviewed. Nephruben fitzpatricky is following him for his acute on chronic stage IIIB kidney failure. Infectious disease is following him for the repeated positive enterococcus blood cultures now found to be from an aortic valve growth. Most recent blood cultures dating July 25 of 07/26/2020 have been negative. Cardiology is following him was consult for the JACOB. Heath does have known paroxysmal atrial fibrillation was on long-term anticoagulation previously to this. He currently remains on Elequis. The patient is getting up with physical therapy. He does have some mild noted aphasia and right-sided hemiplegia. He denies any significant complaints, but is always pleasant. He specifically denies chest pains, pressures, or shortness of breath. He remains on oxygen at 2 L via nasal cannula. Blood pressure remains controlled. He remains afebrile. Laboratory studies show a slowly progressing anemia that started at 12.1 and is currently 9.5. MCV is 85.7. Electrolytes show a ongoing hyponatremia. This is something they're watching at [facility] related to his CVA. His GFR is again worsening after more normalizing around July 23. It went from 30 at admission up to 59 on July 23 and is now down to 37 again. 07/28/2020: patient seen and examined today. he has enterococcus faecalis aortic valve endocarditis, with bacteremia now cleared. Blood cultures negative at 48 and 72 hours. He remains on AMpicillin. ID following. He is on Room air and maintaining saturations. Pulmonolgy has bee seeing him. Kidney funcion slightly worse and Nephrology is following. He remains on LT anticogulation for Afib. Cardiology following. Sodium remains low. He remains similarr to yesterday. Objective - Vital Signs Vital signs: Vital Signs Temp 97.6 F 07/28/20 12:00 Pulse 76 07/28/20 12:00 Resp 20 07/28/20 12:00 BP 119/86 07/28/20 12:00 Pulse Ox 97 07/28/20 12:00 Intake & Output 07/27/20 07/28/20 07/28/20 18:59 06:59 18:59 Intake Total 1220 1520 240 Output Total 1350 3200 900 Balance -130 -1680 -660 Weight 102.6 kg Intake: Intake, IV Titration 500 320 Amount Ampicillin 2,000 mg In 100 100 Sodium Chloride 0.9% 100 ml @ 200 mls/hr IVPB Q6HR [facility] Rx#:[id number] Sodium Chloride 0.9% 1, 400 220 000 ml @ 20 mls/hr IV . Q24H [facility] Rx#:[id number] Oral 720 1200 240 Output: Urine 1350 3200 900 Other: Voiding Method Incontinent Diaper Incontinent External Catheter Incontinent External Catheter # Voids 3 - Exam GENERAL: Sitting up in bed, no acute distress, expressive aphasia, NECK: No JVD. No thyroid enlargement. No LNs CARDIOVASCULAR: S1, S2 regular. No murmur, rubs or gallops noted today. RESPIRATION: Breath sounds diminished in the bases. Fine left basilar crackles ABDOMEN: Soft, nontender . No guarding. no masses palpable.Bowel sounds heard. LEGS: No edema. no swelling PSYCHIATRY: Alert and oriented X2-3, mood and affect normal. NERVOUS SYSTEM: Cranial N 2-12 grossly normal. Moves all 4 limbs. Minimal residual Right-sided weakness Skin: Warm and dry ,no rash, healing stage II ulcer left third toe - Labs CBC & Chem 7: 07/28/20 07:00 07/28/20 07:00 Labs: Abnormal Lab Results - Last 24 Hours (Table) 07/28/20 07/28/20 Range/Units 07:00 07:00 RBC 3.65 L (4.30-5.90) m/uL Hgb 9.9 L (13.0-17.5) gm/dL Hct 32.4 L (39.0-53.0) % MCHC 30.6 L (31.0-37.0) g/dL RDW 17.9 H (11.5-15.5) % Sodium 132 L (137-145) mmol/L Carbon Dioxide 21 L (22-30) mmol/L BUN 51 H (9-20) mg/dL Creatinine 1.97 H (0.66-1.25) mg/dL Microbiology - Last 24 Hours (Table) 07/25/20 07:47 Blood Culture - Preliminary Blood No Growth after 72 hours 07/26/20 06:38 Blood Culture - Preliminary Blood No Growth after 48 hours Assessment and Plan (1) Aortic valve endocarditis Current Visit: Yes Status: Acute Code(s): I35.8 - OTHER NONRHEUMATIC AORTIC VALVE DISORDERS SNOMED Code(s): 93448837 (2) Acute respiratory failure with hypoxia Current Visit: Yes Status: Acute Code(s): J96.01 - ACUTE RESPIRATORY FAILURE WITH HYPOXIA SNOMED Code(s): 83712515 (3) Streptococcal pneumonia Current Visit: Yes Status: Acute Code(s): J15.4 - PNEUMONIA DUE TO OTHER STREPTOCOCCI SNOMED Code(s): 89566951 (4) Bacteremia Current Visit: Yes Status: Acute Code(s): R78.81 - BACTEREMIA SNOMED Code(s): 4980733 (5) Acute on chronic renal failure Current Visit: Yes Status: Acute Code(s): N17.9 - ACUTE KIDNEY FAILURE, UNSPECIFIED; N18.9 - CHRONIC KIDNEY DISEASE, UNSPECIFIED SNOMED Code(s): 252697296 (6) Paroxysmal atrial fibrillation Current Visit: Yes Status: Acute Code(s): I48.0 - PAROXYSMAL ATRIAL FIBRILLATION SNOMED Code(s): 390002130 (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 Current Visit: Yes Status: Acute Code(s): Z79.01 - LIGHTNING ROD ERECTOR (CURRENT) USE OF ANTICOAGULANTS SNOMED Code(s): 308854277 (8) Hemiparesis of right dominant side Current Visit: Yes Status: Acute Code(s): G81.91 - HEMIPLEGIA, UNSPECIFIED AFFECTING RIGHT DOMINANT SIDE SNOMED Code(s): 752736583 (9) Dysphagia following cerebral infarction Current Visit: Yes Status: Acute Code(s): I69.391 - DYSPHAGIA FOLLOWING CEREBRAL INFARCTION SNOMED Code(s): 08130198 (10) Unspecified abnormalities of gait and mobility Current Visit: Yes Status: Acute Code(s): R26.9 - UNSPECIFIED ABNORMALITIES OF GAIT AND MOBILITY SNOMED Code(s): 77052755 (11) Cerebrovascular accident (CVA) due to occlusion of middle cerebral artery Current Visit: Yes Status: Acute Code(s): I63.519 - CEREB INFRC D/T UNSP OCCLS OR STENOS OF UNSP MID CEREB ART SNOMED Code(s): 629606529 (12) Essential (primary) hypertension Current Visit: Yes Status: Acute Code(s): I10 - ESSENTIAL (PRIMARY) HYPERTENSION SNOMED Code(s): 29407064 (13) Mixed hyperlipidemia Current Visit: Yes Status: Acute Code(s): E78.2 - MIXED HYPERLIPIDEMIA SNOMED Code(s): 105304848 (14) History of CVA (cerebrovascular accident) Current Visit: Yes Status: Acute Code(s): Z86.73 - PRSNL HX OF TIA (TIA), AND CEREB INFRC W/O RESID DEFICITS SNOMED Code(s): 175654492 (15) Sepsis Current Visit: Yes Status: Acute Code(s): A41.9 - SEPSIS, UNSPECIFIED ORGANISM SNOMED Code(s): 12919622 (16) Chronic diastolic (congestive) heart failure Current Visit: Yes Status: Acute Code(s): I50.32 - CHRONIC DIASTOLIC (CONGESTIVE) HEART FAILURE SNOMED Code(s): 942320554 (17) Anemia Current Visit: Yes Status: Acute Code(s): D64.9 - ANEMIA, UNSPECIFIED SNOMED Code(s): 495440124 (18) Hyponatremia Current Visit: Yes Status: Acute Code(s): E87.1 - HYPO-OSMOLALITY AND HYPONATREMIA SNOMED Code(s): 35046416 (19) Debility Current Visit: Yes Status: Acute Code(s): R53.81 - OTHER MALAISE SNOMED Code(s): 49922867 Plan: Heath will continue on his antibiotics ampicillin. Infectious disease planning 6 week course. He'll have a PICC line on Wednesday. He'll continue physical therapy. Continue long-term anticoagulation for his atrial fibrillation pulmonology feels he is stable. wati on further recommendations on the worsening Chronic renal failure from nephrology. Continue to monitor his hyponatremia and recent anemia. Repeat labs in a.m. Reevaluate in the next 24 hours. possible d/c soon
--- NOTE | 2020-07-28 13:26 | P.PN ---
Subjective Progress Note Date: 07/28/20 Follow-up for acute kidney injury. Urine output of 4.5 L in the last 24 hours. Objective - Vital Signs Vital signs: Vital Signs Temp 97.6 F 07/28/20 12:00 Pulse 76 07/28/20 12:00 Resp 20 07/28/20 12:00 BP 119/86 07/28/20 12:00 Pulse Ox 97 07/28/20 12:00 Intake & Output 07/27/20 07/28/20 07/28/20 18:59 06:59 18:59 Intake Total 1220 1520 240 Output Total 1350 3200 900 Balance -130 -1680 -660 Weight 102.6 kg Intake: Intake, IV Titration 500 320 Amount Ampicillin 2,000 mg In 100 100 Sodium Chloride 0.9% 100 ml @ 200 mls/hr IVPB Q6HR [facility] Rx#:[id number] Sodium Chloride 0.9% 1, 400 220 000 ml @ 20 mls/hr IV . Q24H [facility] Rx#:[id number] Oral 720 1200 240 Output: Urine 1350 3200 900 Other: Voiding Method Incontinent Diaper Incontinent External Catheter Incontinent External Catheter # Voids 3 - Exam No acute distress S1-S2 heard Decreased breath sounds Abdomen soft No edema - Labs CBC & Chem 7: 07/28/20 07:00 07/28/20 07:00 Labs: Abnormal Lab Results - Last 24 Hours (Table) 07/28/20 07/28/20 Range/Units 07:00 07:00 RBC 3.65 L (4.30-5.90) m/uL Hgb 9.9 L (13.0-17.5) gm/dL Hct 32.4 L (39.0-53.0) % MCHC 30.6 L (31.0-37.0) g/dL RDW 17.9 H (11.5-15.5) % Sodium 132 L (137-145) mmol/L Carbon Dioxide 21 L (22-30) mmol/L BUN 51 H (9-20) mg/dL Creatinine 1.97 H (0.66-1.25) mg/dL Microbiology - Last 24 Hours (Table) 07/25/20 07:47 Blood Culture - Preliminary Blood No Growth after 72 hours 07/26/20 06:38 Blood Culture - Preliminary Blood No Growth after 48 hours Assessment and Plan Assessment: #1 acute kidney injury secondary to septic ATN. #2 CKD stage III suspect nephrosclerosis with a baseline creatinine of 1.3-1.5 MG per DL. #3 enterococcus bacteremia with endocarditis #4 hyponatremia hypervolemia #5 mild hyperkalemia secondary to acute kidney injury, improved #6 hypertension with chronic kidney disease Plan: #1 continue with Lasix, decrease to 20 mg IV daily. #2 strict ins and outs. #3 avoid nephrotoxic agents and hypotensive episodes.
[2020-07-28] MEDS: ASCORBIC ACID 500 MG TAB PO SCH (21:45)
[2020-07-28] MEDS: CHOLECALCIFEROL 25 MCG (1000 IU) TABLET PO SCH (21:45)
[2020-07-28] MEDS: ATORVASTATIN 20 MG TAB PO SCH (21:45)
--- NOTE | 2020-07-28 23:00 | PN ---
PROGRESS NOTE DATE OF SERVICE: 07/28/2020 REASON FOR FOLLOWUP: Enterococcus faecalis bacteremia secondary to endocarditis. INTERVAL HISTORY: The patient is currently afebrile. The patient is breathing comfortably. Denies having any chest pain or shortness of breath or cough. No abdominal pain. No diarrhea. PHYSICAL EXAMINATION: Blood pressure is 125/66, pulse of 92, temperature 96.9. He is 98% on room air. General description: The patient is an elderly male lying in bed in no distress. Respiratory system: Unlabored breathing. Clear to auscultation anteriorly. Heart S1, S2. Regular rate and rhythm. ABDOMEN: Soft, no tenderness. EXTREMITIES are no edema of the feet. LABS: Hemoglobin 9.9, white count of 6.4, BUN of 51, creatinine 1.97. 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 Follow-up blood culture has been negative. He will get a PICC line with the plan for ampicillin 2 grams q.6 hours for a total of 6 weeks. Continue supportive care. MMODL / EDUARDON: [id number] / MTDD
[2020-07-28] MEDS: ACETAMINOPHEN TAB 325 MG TAB PO PRN (23:47)
[2020-07-29 04:32] VITALS: RESP 18
[2020-07-29] MEDS: AMPICILLIN 2,000 MG in SODIUM CHLORIDE 0.9% 100 ML IVPB SCH ×2 (05:27→14:34)
[2020-07-29 07:03] LABS: Anisocytosis Slight; Basophils % (A) 0 %; Eosinophils % (A) 1 %; HCT 31.7 % (39.0-53.0); HGB 10.5 gm/dL (13.0-17.5); Lymphocytes % (A) 18 %; MCH 28.5 pg (25.0-35.0); MCHC 33.1 g/dL (31.0-37.0); MCV 86.2 fL (80.0-100.0); Mean Platelet Volume 7.9; Monocytes # (A) 0.3 k/uL (0-1.0); Monocytes % (A) 5 %; Neutrophils # (A) 4.5 k/uL (1.3-7.7); Neutrophils % (A) 76 %; Platelet Count 225 k/uL (150-450); RBC 3.67 m/uL (4.30-5.90); WBC 5.9 k/uL (3.8-10.6)
[2020-07-29 07:14] LABS: Prothrombin Time 10.6 sec (9.0-12.0)
[2020-07-29 07:21] LABS: Calcium 8.8 mg/dL (8.4-10.2); Potassium 4.6 mmol/L (3.5-5.1)
[2020-07-29] MEDS ORDERED: FUROSEMIDE 10 MG/ML 2 ML VIAL IV SCH (09:00)
[2020-07-29] MEDS: PANTOPRAZOLE 40 MG TABLET PO SCH (09:31)
[2020-07-29] MEDS: SODIUM BICARBONATE TAB 650 MG TAB PO SCH (09:31)
[2020-07-29] MEDS: GABAPENTIN 300 MG CAP PO SCH (09:31)
[2020-07-29] MEDS: ASPIRIN 81 MG PO SCH (09:31)
[2020-07-29] MEDS: predniSONE 20 MG TAB PO SCH (09:31)
[2020-07-29] MEDS: APIXABAN 5 MG TAB PO SCH (09:31)
[2020-07-29] MEDS: carvediloL 6.25 MG TAB PO SCH (09:31)
--- NOTE | 2020-07-29 10:11 | P.PN ---
Subjective Progress Note Date: 07/29/20 On 07/29/2020 and seeing the patient for a follow-up. This is a 74-year-old male patient is currently being treated for an enterococcal endocarditis. The patient is currently on IV ampicillin. The patient's aortic valve seems to be infected and please refer to the JACOB results regarding further details. There is a small echodense lesion involving the noncoronary cusp of the aortic valve. The patient also has history of CVA/TIA with residual right-sided weakness, COPD, acid reflux, hypertension and hyperlipidemia and chronic stage III kidney disease. The patient came in septic and ultimately his his cultures came back positive for enterococcus faecalis. ID is on the case and the patient is currently on IV ampicillin 2 g every 6 hours. Hemodynamically, the patient is doing well. The patient on no pressors. The patient is afebrile. Pulse ox 98% on room air oxygen. The blood work from today shows a white cell count of 5.9 with a hemoglobin of 10.5. Coagulation profile is within normal limits. Creatinine is stable at 2.1. The patient is chronic stage III kidney disease. Otherwise, no other significant events. No signs of any septic emboli. His last chest x-ray available was within normal limits. He did have some suprahilar infiltrates which essentially improved. MRI of the lumbar spine showed no evidence of any septic emboli to the spine. Objective - Vital Signs Vital signs: Vital Signs Temp 97.3 F L 07/29/20 03:20 Pulse 81 07/29/20 03:20 Resp 18 07/29/20 03:20 BP 121/67 07/29/20 03:20 Pulse Ox 98 07/29/20 03:20 Intake & Output 07/28/20 07/29/20 07/29/20 18:59 06:59 18:59 Intake Total 1020 Output Total 1100 1840 Balance -80 -1840 Weight 98.5 kg Intake: Intake, IV Titration 360 Amount Ampicillin 2,000 mg In 200 Sodium Chloride 0.9% 100 ml @ 200 mls/hr IVPB Q6HR [facility] Rx#:[id number] IV Fluid Continuation 850 160 ml @ 0 mls/hr IV .STK- [facility] Rx#:[id number] Oral 660 Output: Urine 1100 1840 Other: Voiding Method Incontinent Incontinent External Catheter External Catheter - Exam GENERAL EXAM: Alert, pleasant 74-year-old gentleman, on room air, comfortable in no apparent distress. HEAD: Normocephalic. EYES: Normal reaction of pupils, equal size. NOSE: Clear with pink turbinates. THROAT: No erythema or exudates. NECK: No masses, no JVD. CHEST: No chest wall deformity. LUNGS: Equal air entry with crackles in the posterior left base. CVS: S1 and S2 normal with no audible murmur, regular rhythm. ABDOMEN: No hepatosplenomegaly, normal bowel sounds, no guarding or rigidity. SPINE: No scoliosis or deformity SKIN: No rashes CENTRAL NERVOUS SYSTEM: No focal deficits, tone is normal in all 4 extremities. EXTREMITIES: There is no peripheral edema. No clubbing, no cyanosis. Peripheral pulses are intact. - Labs CBC & Chem 7: 07/29/20 06:44 07/29/20 06:44 Labs: Abnormal Lab Results - Last 24 Hours (Table) 07/29/20 07/29/20 Range/Units 06:44 06:44 RBC 3.67 L (4.30-5.90) m/uL Hgb 10.5 L (13.0-17.5) gm/dL Hct 31.7 L (39.0-53.0) % RDW 18.0 H (11.5-15.5) % Sodium 133 L (137-145) mmol/L BUN 56 H (9-20) mg/dL Creatinine 2.12 H (0.66-1.25) mg/dL Microbiology - Last 24 Hours (Table) 07/26/20 06:38 Blood Culture - Preliminary Blood No Growth after 72 hours 07/25/20 07:47 Blood Culture - Preliminary Blood No Growth after 72 hours Assessment and Plan Plan: 07/27/20 07:02 Assessment: 1 Acute hypoxic respiratory failure secondary to suspected enterococcal sepsis, pro-calcitonin 1.13 2 Bacteremia secondary to enterococcus faecalis. This was found to be related to aortic valve endocarditis. JACOB done and showed a small echo dense lesion over the noncoronary because of the aortic valve consistent with vegetation. 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
--- NOTE | 2020-07-29 11:21 | P.DS ---
Providers Date of admission: 07/19/20 15:38 Expected date of discharge: 07/29/20 Attending physician: Napoleon Osorio Consults: 07/19/20 15:38 Consult Physician Routine Consulting Provider: Arun Farrell Consult Reason/Comments: respiratory failure Do you want consulting provider notified?: Yes 07/20/20 08:00 Consult Physician Routine Consulting Provider: Jm Hunt Consult Reason/Comments: Elevated BUN/Cr Do you want consulting provider notified?: Yes, Notify in am 07/20/20 14:02 Consult Physician Routine Consulting Provider: Johny Sandoval Consult Reason/Comments: Bacteremia Do you want consulting provider notified?: Yes 07/25/20 14:49 Consult Physician Routine Consulting Provider: Quang Arthur Consult Reason/Comments: Patient needs a JACOB to RO infection. 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 Recent influenza A from [facility] reported per PCP. Acute renal failure, prerenal secondary to the above Chronic renal failure stage IIIB secondary to nephrosclerosis Recent CVA with minimal residual right-sided weakness, expressive aphasia Gastroesophageal reflux disease Hypertension Hyperlipidemia Osteoarthritis Stage II ulcer left third toe, healing, present on admission Chronic paroxysmal atrial fibrillation Hospital course:This is a 74-year-old gentleman with recent CVA approximately 2 weeks ago, at [facility] as per PCP, with expressive aphasia, some residual right-sided weakness, tested positive for influenza at [facility] subacute rehab, admitted with acute respiratory failure, acute renal failure, enterococcus bacteremia, etiology unclear and multiple other medical issues. Patient denies any chest pain, palpitations or shortness of breath. Echo pending. Maintained on vancomycin. Renal function continues to improve with IV fluid hydration. Potassium up to 5.2, IV fluids adjusted to normal saline. CT of abdomen and pelvis noted. 07/23/2020 maintained on Unasyn for enterococcus faecalis bacteremia. Follow-up blood culture from 21 reporting gram-positive cocci in chains Echo reported low normal LV function, EF 50-55%. evaluated by speech therapy, aphasic treatment initiated. MBS pending. Follow-up chest x-ray pending. Renal function improving with creatinine down to 1.22, potassium remains at 5.2. Maintaining O2 sats in the 90s on room air. Denies chest pain, palpitations or shortness of breath. Denies nausea vomiting or diarrhea. Denies abdominal pain. 07/24/2020 persistent bacteremia, JACOB ordered. Antibiotics adjusted to ampicillin yesterday. Chest x-ray from yesterday afternoon reported significant improvement. Afebrile. Maintaining O2 sats in the high 90s on room air. Continues on gentle IV fluid hydration. Patient not sitting up right in bed, choking on lunch tray. MBS performed reporting no impairment. Creatinine 1.31. Potassium improved down to 5. 07/25/2020 telemetry sinus rhythm with PACs, in a patient with history of chronic proximal A. fib. ID reports recent outpatient negative JACOB. MRI of lumbar spine ordered secondary to persistent bacteremia. Maintaining O2 sats in the 90s on room air. Afebrile, normal WBC. Creatinine 1.33, potassium 5.3. 07/26/2020 MRI failed to report discitis or abscess ,scheduled for JACOB. Continues on ampicillin. Afebrile. Preliminary Follow-up blood culture of 07/25 reporting no growth at 24 hours. Maintaining O2 sats in the low 90s on room air. Creatinine 1.56. 07/27/2020: Heath is a 74-year-old white male, new patient to me. He lives in [place]. He was transferred to [facility] from [facility] after having new onset aphasia and right-sided weakness. This was on 07/07/2020. He was found to have a small left-sided MCA infarct. He underwent thrombectomy. MRI revealed a successful intervention. He was started on Elequis on July 08 along with aspirin. A swallow study at that time her. Mild dysfunction. He had a JACOB that was negative for any thrombus for discharge. He was sent to [facility] on the [place] where I met Heath. He is a pleasant gentleman in their he developed acute pneumonia and some respiratory distress. He was sent to the hospital here at [facility]. He was admitted for pneumonia thought to be from suspected streptococcal cause. Blood cultures were grown out group D enterococcus area which she is currently on ampicillin for. Pulmonology is following him. Their notes reviewed. Nephrology is following him for his acute on chronic stage IIIB kidney failure. Infectious disease is following him for the repeated positive enterococcus blood cultures now found to be from an aortic valve growth. Most recent blood cultures dating July 25 of 07/26/2020 have been negative. Cardiology is following him was consult for the JACOB. Heath does have known paroxysmal atrial fibrillation was on long-term anticoagulation previously to this. He currently remains on Elequis. The patient is getting up with physical therapy. He does have some mild noted a phasia and right-sided hemiplegia. He denies any significant complaints, but is always pleasant. He specifically denies chest pains, pressures, or shortness of breath. He remains on oxygen at 2 L via nasal cannula. Blood pressure remains controlled. He remains afebrile. Laboratory studies show a slowly progressing anemia that started at 12.1 and is currently 9.5. MCV is 85.7. Electrolytes show a ongoing hyponatremia. This is something they're watching at [facility] related to his CVA. His GFR is again worsening after more normalizing around July 23. It went from 30 at admission up to 59 on July 23 and is now down to 37 again. 07/28/2020: patient seen and examined today. he has enterococcus faecalis aortic valve endocarditis, with bacteremia now cleared. Blood cultures negative at 48 and 72 hours. He remains on AMpicillin. ID following. He is on Room air and maintaining saturations. Pulmonolgy has bee seeing him. Kidney funcion slightly worse and Nephrology is following. He remains on LT anticogulation for Afib. Cardiology following. Sodium remains low. He remains similarr to yesterday. Patient is currently on IV ampicillin. JACOB reported small echodense lesion in the aortic surface of the non-coronary cusp, small, echodense and mobile with no evidence of aortic root abscess, consistent with vegetation. Aortic valve 3 leaflet valve appears sclerotic. Normal LV function with EF 60%. Follow-up blood cultures have been negative, patient is scheduled for PICC line today. Patient will be discharged to [facility] subacute rehab today in a stable condi tion with guarded prognosis, pending final DC recommendations and clearance from infectious disease and nephrology. The impression and plan of care has been dictated as directed. : I performed a history and examination of this patient, discussed the same with the dictator. I agree with the dictator's note ,documented as a scribe. Any additional findings or plans will be noted. Patient Condition at Discharge: Stable Plan - Discharge Summary Discharge Rx Participant: No New Discharge Prescriptions: New predniSONE 10 mg PO DIRECTED #30 tab Sodium Bicarbonate Tab 650 mg PO BID tab Continue Lansoprazole [Prevacid] 30 mg PO DAILY@0900 carvediloL [Coreg] 6.25 mg PO BID@0900,2100 Furosemide [Lasix] 40 mg PO DAILY@0900 Gabapentin [Neurontin] 300 mg PO DAILY@0900 Acetaminophen Tab [Tylenol] 650 mg PO Q4H PRN PRN Reason: Pain Magnesium Hydroxide [Milk of Magnesia] 2,400 mg PO BID PRN PRN Reason: Constipation Ipratropium-Albuterol Nebulize [Duoneb 0.5 mg-3 mg/3 ml Soln] 3 ml INHALATION RT-Q4H PRN PRN Reason: Shortness Of Breath Cholecalciferol [Vitamin D3 (25 Mcg = 1000 Iu)] 25 mcg PO HS@2100 bisacodyL [Bisacodyl] 10 mg RECTAL DAILY PRN PRN Reason: Constipation Apixaban [Eliquis] 5 mg PO BID@0900,2100 Ascorbic Acid [Vitamin C] 1,000 mg PO HS@2100 Atorvastatin [Lipitor] 20 mg PO HS@2100 Aspirin 81 mg PO DAILY@0900 Discontinued cefTRIAXone [Rocephin] 1 gm IVPB DAILY Oseltamivir [Tamiflu] 75 mg PO Q12HR@0900,2100 Azithromycin [Zithromax] 500 mg PO HS@2100 Dexamethasone [Decadron] 6 mg PO DAILY@0900 Discharge Medication List Lansoprazole [Prevacid] 30 mg PO DAILY@0900 03/09/14 [History] carvediloL [Coreg] 6.25 mg PO BID@0900,2100 04/28/19 [History] Furosemide [Lasix] 40 mg PO DAILY@0900 09/01/19 [History] Gabapentin [Neurontin] 300 mg PO DAILY@0900 09/01/19 [History] Acetaminophen Tab [Tylenol] 650 mg PO Q4H PRN 07/19/20 [History] Apixaban [Eliquis] 5 mg PO BID@0900,2100 07/19/20 [History] Ascorbic Acid [Vitamin C] 1,000 mg PO HS@2100 07/19/20 [History] Aspirin 81 mg PO DAILY@0900 07/19/20 [History] Atorvastatin [Lipitor] 20 mg PO HS@209907/19/20 [History] Cholecalciferol [Vitamin D3 (25 Mcg = 1000 Iu)] 25 mcg PO HS@209907/19/20 [History] Ipratropium-Albuterol Nebulize [Duoneb 0.5 mg-3 mg/3 ml Soln] 3 ml INHALATION RT-Q4H PRN 07/19/20 [History] Magnesium Hydroxide [Milk of Magnesia] 2,400 mg PO BID PRN 07/19/20 [History] bisacodyL [Bisacodyl] 10 mg RECTAL DAILY PRN 07/19/20 [History] Sodium Bicarbonate Tab 650 mg PO BID tab 07/29/20 [Rx] predniSONE 10 mg PO DIRECTED #30 tab 07/29/20 [Rx] Follow up Appointment(s)/Referral(s): Aron Simon MD [Primary Care Provider] - 1 Week Luis Hurtado MD [STAFF PHYSICIAN] - 1 Week Felecia Thomason MD [STAFF PHYSICIAN] - 2 Weeks Activity/Diet/Wound Care/Special Instructions: Pneing PICC line, dc antibx . [place] Diet: heart Healthy cbc,bmp in 3 days Discharge Disposition: TRANSFER TO SNF/ECF
[2020-07-29] MEDS ORDERED: LIDOCAINE 1% INJ 10MG/ML (20 ML MDV) SQ ONE (11:26)
--- NOTE | 2020-07-29 12:03 | IR ---
EXAMINATION TYPE: IR cvc insert >=5 years DATE OF EXAM: 07/29/2020 COMPARISON: NONE CLINICAL HISTORY: Bacteremia Needs long-term intravenous access for antibiotics. PROCEDURE: Hand hygiene obtained with soap and water and alcohol-based hand rub. After informed consent, the skin overlying the left basilic vein was localized with ultrasound and no nara to be compressible and patent. An ultrasound image was obtained and submitted on the patient's c sterling. The overlying skin was prepped and draped and Lidocaine was used for local anesthesia. A skin nichelle was made with a scalpel. Access was gained to the vein under ultrasound guidance with a 21 gau ge needle and a 0.018 inch wire was advanced. Access site was dilated with Peel-Away sheath and cath eter tailored to the appropriate length and advanced such that the distal tip is at the cavoatrial ju nction. Spot image was obtained verifying placement. Catheter was fixed to the skin and a sterile d ressing was placed following hemostasis. Catheter was aspirated and flushed with saline. Patient wa s discharged in stable condition without complication. Maximal barrier technique is utilized. Ultras ound image is documented on the chart. Ultrasound used with sterile technique. Fluoro time and fluoroscopic images submitted to document procedure: 48 intraoperative C-arm images, 0.2 minutes fluoroscopy time IMPRESSION: STATUS POST ULTRASOUND AND FLUOROSCOPIC GUIDED PICC LINE PLACEMENT, READY FOR USE. THIS PROCEDURE WAS PERFORMED BY THE UNDERSIGNED.
[2020-07-29 14:56] VITALS: BP 121/71; PULSE 84; TEMP 97.5
[2020-07-29] MEDS ORDERED: SODIUM BICARBONATE TAB 650 MG TAB PO SCH (21:00)
--- NOTE | 2020-07-29 21:03 | PN ---
PROGRESS NOTE Patient is seen for followup for acute kidney injury, mostly ATN, associated with underlying sepsis and infection. Serum creatinine has been slowly worsening, with creatinine up to 2.1 today from 1.3 and 1.5 about 4 to 5 days ago. Currently patient has an external catheter. He has been incontinent; 24-hour urine output documented at 2.9 L. Blood pressure has been slightly on the lower side with systolic around 120s mostly. On examination this morning, blood pressure 120/73, heart rate 71 per minute. He is afebrile. EXAMINATION OF THE HEART: S1 and S2. EXAMINATION OF LUNGS: Bilateral breath sounds are heard. Decreased breath sounds at bases. ABDOMEN: Soft, non-tender. Examination of lower extremities shows edema 1+ bilaterally. BEE FARMER exam is grossly intact. Labs show sodium 133, potassium 4.6, chloride 102, BUN 56, creatinine 2.1, hemoglobin 10.5 g/dL. ASSESSMENT: 1. Acute kidney injury secondary to underlying sepsis. No nephrotoxic agents on board. Patient has evidence of mild volume overload. I will continue with the small dose of IV Lasix. I will also decrease the sodium bicarb, as it will add to the fluid retention. 2. Chronic kidney disease, stage 3, secondary to nephrosclerosis. Baseline creatinine about 1.3 mg/dL. 3. Enterococcus bacteremia with endocarditis. 4. Hypervolemic hyponatremia. 5. Mild hyperkalemia associated acute kidney injury, now improved. 6. Hypertension. PLAN: Continue with IV Lasix for now and decrease the sodium bicarb to 650 once a day. Repeat labs in a.m. Avoid hypotension. Consider decreasing prednisone as well. MMODL / IJN: [id number] /
--- NOTE | 2020-07-29 21:39 | P.PN ---
Progress Note - Text Progress Note Date: 07/29/20 REASON FOR FOLLOWUP: Enterococcus faecalis bacteremia secondary to endocarditis. INTERVAL HISTORY: The patient is afebrile The patient is breathing comfortably. the Pt denies having any chest pain or shortness of breath or cough. No abdominal pain. No diarrhea. PHYSICAL EXAMINATION: Blood pressure is 120/60, pulse of 90, temperature 96.9. He is 98% on room air. General description: The patient is an elderly male lying in bed in no distress. Respiratory system: Unlabored breathing. Clear to auscultation anteriorly. Heart S1, S2. Regular rate and rhythm. ABDOMEN: Soft, no tenderness. EXTREMITIES are no edema of the feet. LABS: reviewed DIAGNOSTIC IMPRESSION AND PLAN: Patient with Enterococcus faecalis bacteremia secondary to aortic valve endocarditis. Follow-up blood culture has been negative. The pt got PICC line and plan is for ampicillin 2 grams q.6 hours for a total of 6 weeks. Continue supportive care.
[2020-07-30] MEDS ORDERED: carvediloL 3.125 MG TAB PO SCH (09:00)
[2020-07-30] MEDS ORDERED: SODIUM BICARBONATE TAB 650 MG TAB PO SCH (09:00)
== END 2020-07-29 16:28 | DRG 871 ==
LOC: EC 13:13 → 3SCARD 15:38 → 4SSUR 07-29 08:39
PROVIDERS: ADMIT Family Medicine; ATTEND Family Medicine
PROC: 5A09357 Assistance with Respiratory Ventilation, Less than 24 Consecutive Hours, Continuous Positive Airway Pressure (ICD-10-PCS; 2020-07-19)
PROC: B24BZZ4 Ultrasonography of Heart with Aorta, Transesophageal (ICD-10-PCS; principal; 2020-07-26 11:05)
PROC: 02HV33Z Insertion of Infusion Device into Superior Vena Cava, Percutaneous Approach (ICD-10-PCS; 2020-07-29)
DX: A41.81 Sepsis due to Enterococcus (principal); J96.01 Acute respiratory failure with hypoxia; N17.0 Acute kidney failure with tubular necrosis; J15.4 Pneumonia due to other streptococci; I33.0 Acute and subacute infective endocarditis; I13.0 Hypertensive heart and chronic kidney disease with heart failure and stage 1 through stage 4 chronic kidney disease, or unspecified chronic kidney disease; I69.351 Hemiplegia and hemiparesis following cerebral infarction affecting right dominant side; J44.1 Chronic obstructive pulmonary disease with (acute) exacerbation; E87.1 Hypo-osmolality and hyponatremia; E87.2 Acidosis; J44.0 Chronic obstructive pulmonary disease with (acute) lower respiratory infection; I50.32 Chronic diastolic (congestive) heart failure; D63.1 Anemia in chronic kidney disease; L97.521 Non-pressure chronic ulcer of other part of left foot limited to breakdown of skin; F03.90 Unspecified dementia, unspecified severity, without behavioral disturbance, psychotic disturbance, mood disturbance, and anxiety; N18.32 Chronic kidney disease, stage 3b; I48.0 Paroxysmal atrial fibrillation; K56.41 Fecal impaction; Z20.822 Contact with and (suspected) exposure to COVID-19; I69.320 Aphasia following cerebral infarction; E87.5 Hyperkalemia; I69.391 Dysphagia following cerebral infarction; R13.10 Dysphagia, unspecified; E86.0 Dehydration; M54.12 Radiculopathy, cervical region; K57.30 Diverticulosis of large intestine without perforation or abscess without bleeding; K21.9 Gastro-esophageal reflux disease without esophagitis; E78.2 Mixed hyperlipidemia; R32 Unspecified urinary incontinence; M15.9 Polyosteoarthritis, unspecified; R53.81 Other malaise; N62 Hypertrophy of breast; I83.90 Asymptomatic varicose veins of unspecified lower extremity; Z79.01 Long term (current) use of anticoagulants; Z79.82 Long term (current) use of aspirin; Z79.899 Other long term (current) drug therapy; Z87.891 Personal history of nicotine dependence; Z90.49 Acquired absence of other specified parts of digestive tract; Z87.19 Personal history of other diseases of the digestive system; Z96.643 Presence of artificial hip joint, bilateral; Z98.42 Cataract extraction status, left eye; Z98.41 Cataract extraction status, right eye; Z98.890 Other specified postprocedural states; Z88.5 Allergy status to narcotic agent; Z88.2 Allergy status to sulfonamides; Z88.8 Allergy status to other drugs, medicaments and biological substances; Z82.49 Family history of ischemic heart disease and other diseases of the circulatory system; Z83.2 Family history of diseases of the blood and blood-forming organs and certain disorders involving the immune mechanism
CPT/HCPCS: 36415; 36573; 71045; 71046; 72158; 74176; 74230; 80048; 80053; 81001; 82728; 83605; 83615; 83735; 83930; 83935; 84145; 84300; 84443; 85025; 85027; 85379; 85610; 85652; 85730; 86140; 87040; 87077; 87186; 87502; 87635; 93005; 93306; 93312; 93325; 93970; 94644; 94660; 96361; 96365; 96375; 99285

== ENCOUNTER 2020-08-12 23:13 | Inpatient (IN) | payer MEDICARE ==
--- NOTE | 2020-08-13 00:21 | XR ---
EXAMINATION TYPE: XR chest 1V portable DATE OF EXAM: 08/13/2020 COMPARISON: 07/21/2020 HISTORY: Altered mental status TECHNIQUE: FINDINGS: There is interstitial infiltrates in both lungs and more on the left side. There are chest leads. Heart is top normal in size. There is no obvious heart failure. There is no definite pleural e ffusion. IMPRESSION: Pulmonary interstitial fibrotic changes. There is improved aeration of the lungs compared to last exam. There is clearing of airspace pneumonic infiltrates in the mid lung [place] compared to old exam. This could relate to resolving congestive heart failure.
[2020-08-13 00:32] LABS: Anisocytosis Slight; Basophils % (A) 0 %; Eosinophils # (A) 0.4 k/uL (0-0.7); Eosinophils % (A) 11 %; HCT 34.3 % (39.0-53.0); HGB 10.8 gm/dL (13.0-17.5); Hypochromasia Slight; Lymphocytes # (A) 0.3 k/uL (1.0-4.8); Lymphocytes % (A) 7 %; MCH 26.7 pg (25.0-35.0); MCHC 31.4 g/dL (31.0-37.0); Mean Platelet Volume 6.8; Monocytes # (A) 0.2 k/uL (0-1.0); Monocytes % (A) 4 %; Neutrophils % (A) 78 %; Platelet Count 165 k/uL (150-450); RBC 4.03 m/uL (4.30-5.90); RDW 17.8 % (11.5-15.5); WBC 3.9 k/uL (3.8-10.6)
[2020-08-13 00:37] LABS: INR 1.1 (<1.2); Partial Thromboplastin Time 31.7 sec (22.0-30.0); Prothrombin Time 11.4 sec (9.0-12.0)
[2020-08-13 00:38] LABS: Albumin 3.1 g/dL (3.5-5.0); Calcium 8.4 mg/dL (8.4-10.2); Total Bilirubin 0.6 mg/dL (0.2-1.3); Total Protein 5.8 g/dL (6.3-8.2)
--- NOTE | 2020-08-13 01:02 | ED ---
Altered Mental Status HPI - General Chief Complaint: Altered Mental Status Stated Complaint: altered mental status Time Seen by Provider: 08/13/20 00:13 Source: patient, EMS Mode of arrival: EMS Limitations: altered mental status - History of Present Illness Initial Comments: This patient is a 74-year-old man who was transferred here from outside hospital to have admission for altered mental status. The patient had gone to the other hospital to be evaluated for change in his mental status. It was felt that he was more confused than usual and also that he was having generalized weakness. The patient does have history of recent stroke. The patient's had expressed concerns that he was weaker than he had been following the stroke. On further the outside hospital notes, the symptoms had been going on for greater than 6 hours when he arrived at the other facility. Workup at the other facility did reveal presence of subacute CVA. Review of the transfer paperwork also reveals patient is having ampicillin, 2 g every 6 hours as treatment for endocarditis. The patient himself is denying any complaints. He does appear to have significa nt underlying dementia versus some acute delirium, but he is denying pain. He denies dyspnea. No nausea. He recognized that he was in a health care facility but could not state the date. MD Complaint: altered mental status, confusion, weakness Onset/Timin -: days(s) Consistency of Symptoms: getting worse Associated Symptoms: denies other symptoms - Related Data Home Medications Medication Instructions Recorded Confirmed carvediloL [Coreg] 6.25 mg PO BID@0900,1700 04/28/19 08/13/20 Furosemide [Lasix] 40 mg PO DAILY@0909/01/19 08/13/20 Acetaminophen Tab [Tylenol] 650 mg PO Q4H PRN 07/19/20 08/13/20 Apixaban [Eliquis] 5 mg PO BID@0900,1700 07/19/20 08/13/20 Ascorbic Acid [Vitamin C] 1,000 mg PO HS@209907/19/20 08/13/20 Aspirin 81 mg PO DAILY@0900 07/19/20 08/13/20 Atorvastatin [Lipitor] 20 mg PO HS@209907/19/20 08/13/20 Cholecalciferol [Vitamin D3 (25 25 mcg PO HS@209907/19/20 08/13/20 Mcg = 1000 Iu)] Ipratropium-Albuterol Nebulize 3 ml INHALATION RT-Q4H PRN 07/19/20 08/13/20 [Duoneb 0.5 mg-3 mg/3 ml Soln] Magnesium Hydroxide [Milk of 2,400 mg PO Q12H PRN 07/19/20 08/13/20 Magnesia] bisacodyL [Bisacodyl] 10 mg RECTAL DAILY PRN 07/19/20 08/13/20 Omeprazole 20 mg PO DAILY@0600 08/13/20 08/13/20 Sodium Bicarbonate Tab 650 mg PO BID@0900,1700 08/13/20 08/13/20 traMADol HCL 50 mg PO TID@0600,1300,2100 08/13/20 08/13/20 Previous Rx's Medication Instructions Recorded Gabapentin [Neurontin] 300 mg PO DAILY@0900 #3 cap 07/29/20 Acetaminophen Tab [Tylenol] 650 mg PO Q6HR PRN tab 08/22/20 Calamine/Zinc Oxide Lotion 1 applic TOPICAL BID PRN applic 08/22/20 [Calamine Lotion] DAPTOmycin [Cubicin] 600 mg IVPB Q48H vial 08/22/20 Darbepoetin Roderick [Aranesp] 25 mcg SQ Q7D syringe 08/22/20 Midodrine [ProAmatine] 10 mg PO AC-TID tab 08/22/20 Allergies Allergy/AdvReac Type Severity Reaction Status Date / Time MATHIEU Inhibitors Allergy Unknown Verified 08/13/20 07:16 Sulfa (Sulfonamide Allergy Rash/Hives Verified 08/13/20 07:16 Antibiotics) baclofen AdvReac Hallucinati Verified 08/13/20 07:16 ons hydromorphone [From Dilaudid] AdvReac Hallucinati Verified 08/13/20 07:16 ons meperidine HCl [From Demerol] AdvReac Nausea & Verified 08/13/20 07:16 Vomiting sulfamethoxazole AdvReac Rash/Hives Verified 08/13/20 07:16 [From Bactrim] trimethoprim [From Bactrim] AdvReac Rash/Hives Verified 08/13/20 07:16 Review of Systems ROS Statement: Those systems with pertinent positive or pertinent negative responses have been documented in the HPI. ROS Other: All systems not noted in ROS Statement are negative. Limitations: ROS unobtainable due to patients medical condition Respiratory: Denies: dyspnea Cardiovascular: Denies: chest pain Gastrointestinal: Denies: abdominal pain Musculoskeletal: Denies: back pain Neurological: Denies: headache Past Medical History Past Medical History: Chest Pain / Angina, CVA/TIA, GERD/Reflux, Hyperlipidemia, Hypertension, Osteoarthritis (OA), Renal Disease Additional Past Medical History / Comment(s): 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 Expressive aphasia History of Any Multi-Drug Resistant Organisms: None Reported Past Surgical History: Appendectomy, Back Surgery, Heart Catheterization, Joint Replacement Additional Past Surgical History / Comment(s): back surgery x 4, bilateral cataracts removed, alicia hip replacments, cardiac cath 2010 - normal, EGD/colonoscopy, varicose vein stripping, tilt table test, loop recorder was shut off in 06/08 Past Anesthesia/Blood Transfusion Reactions: No Reported Reaction Past Psychological History: No Psychological Hx Reported, Bipolar Smoking Status: Former smoker Past Alcohol Use History: Occasional Past Drug Use History: None Reported - Past Family History Father Family Medical History: Vascular Disorder Additional Family Medical History / Comment(s): PVD-double amputee. Mother Family Medical History: Pulmonary Embolus Additional Family Medical History / Comment(s): Mother of a pulmonary embolism at the age of 63 yrs. General Exam Limitations: altered mental status General appearance: alert, in no apparent distress Head exam: Present: atraumatic, normocephalic, normal inspection Eye exam: Present: normal appearance, PERRL, EOMI. Absent: scleral icterus, conjunctival injection ENT exam: Present: mucous membranes dry Neck exam: Present: normal inspection, full ROM. Absent: tenderness Respiratory exam: Present: wheezes. Absent: respiratory distress, rales, rhonchi, stridor, chest wall tenderness Cardiovascular Exam: Present: regular rate, normal rhythm, normal heart sounds. Absent: systolic murmur, diastolic murmur, rubs, gallop GI/Abdominal exam: Present: soft. Absent: distended, tenderness, guarding, rebound, rigid, mass Extremities exam: Present: normal inspection, normal capillary refill. Absent: pedal edema, calf tenderness Back exam: Present: normal inspection. Absent: CVA tenderness (R), CVA tenderness (L) Neurological exam: Present: alert, CN II-XII intact, motor sensory deficit (Patient does have some right-sided deficit versus contralateral.). Absent: oriented X3 (Disoriented to time) Skin exam: Present: warm, dry, intact, normal color. Absent: rash Course Vital Signs 08/12/20 08/13/20 08/13/20 23:19 01:18 02:31 Temperature 100.4 F H Pulse Rate 88 92 90 Respiratory 18 18 18 Rate Blood Pressure 137/65 127/66 102/64 O2 Sat by Pulse 98 98 98 Oximetry 08/13/20 08/13/20 08/13/20 04:07 06:00 07:32 Temperature 98.8 F 98.8 F Pulse Rate 79 78 Respiratory 16 18 Rate Blood Pressure 110/59 104/70 O2 Sat by Pulse 95 100 Oximetry 08/13/20 08/13/20 08/13/20 09:15 11:49 13:56 Temperature Pulse Rate 80 80 77 Respiratory 18 18 17 Rate Blood Pressure 115/70 99/66 121/63 O2 Sat by Pulse 98 97 96 Oximetry Medical Decision Making - Medical Decision Making Patient is 74-year-old man with history of recent stroke who is transferred here from outside hospital for altered mental status. Patient will be admitted here for neurology evaluation. - Lab Data Result diagrams: 08/22/20 05:43 08/22/20 05:43 Lab Results 08/13/20 08/13/20 08/13/20 Range/Units 00:07 00:07 00:07 WBC 3.9 (3.8-10.6) k/uL RBC 4.03 L (4.30-5.90) m/uL Hgb 10.8 L (13.0-17.5) gm/dL Hct 34.3 L (39.0-53.0) % MCV 85.0 (80.0-100.0) fL MCH 26.7 (25.0-35.0) pg MCHC 31.4 (31.0-37.0) g/dL RDW 17.8 H (11.5-15.5) % Plt Count 165 (150-450) k/uL MPV 6.8 Neutrophils % 78 % Lymphocytes % 7 % Monocytes % 4 % Eosinophils % 11 % Basophils % 0 % Neutrophils # 3.0 (1.3-7.7) k/uL Lymphocytes # 0.3 L (1.0-4.8) k/uL Monocytes # 0.2 (0-1.0) k/uL Eosinophils # 0.4 (0-0.7) k/uL Basophils # 0.0 (0-0.2) k/uL Hypochromasia Slight Anisocytosis Slight PT 11.4 (9.0-12.0) sec INR 1.1 (<1.2) APTT 31.7 H (22.0-30.0) sec Sodium 129 L (137-145) mmol/L Potassium 4.0 (3.5-5.1) mmol/L Chloride 93 L (98-107) mmol/L Carbon Dioxide 28 (22-30) mmol/L Anion Gap 8 mmol/L BUN 28 H (9-20) mg/dL Creatinine 2.17 H (0.66-1.25) mg/dL Est GFR (CKD-EPI)AfAm 34 (>60 ml/min/1.73 sqM) Est GFR (CKD-EPI)NonAf 29 (>60 ml/min/1.73 sqM) Glucose 104 H (74-99) mg/dL Calcium 8.4 (8.4-10.2) mg/dL Total Bilirubin 0.6 (0.2-1.3) mg/dL AST 24 (17-59) U/L ALT 12 (4-49) U/L Alkaline Phosphatase 64 (38-126) U/L Troponin I (0.000-0.034) ng/mL Total Protein 5.8 L (6.3-8.2) g/dL Albumin 3.1 L (3.5-5.0) g/dL Urine Color Urine Appearance (Clear) Urine pH (5.0-8.0) Ur Specific [place] (1.001-1.035) Urine Protein (Negative) Urine Glucose (UA) (Negative) Urine Ketones (Negative) Urine Blood (Negative) Urine Nitrite (Negative) Urine Bilirubin (Negative) Urine Urobilinogen (<2.0) mg/dL Ur Leukocyte Esterase (Negative) Urine RBC (0-5) /hpf Urine WBC (0-5) /hpf Urine Mucus (None) /hpf Urine Opiates Screen (NotDetected) Ur Oxycodone Screen (NotDetected) Urine Methadone Screen (NotDetected) Ur Propoxyphene Screen (NotDetected) Ur Barbiturates Screen (NotDetected) U Tricyclic Antidepress (NotDetected) Ur Phencyclidine Scrn (NotDetected) Ur Amphetamines Screen (NotDetected) U Methamphetamines Scrn (NotDetected) U Benzodiazepines Scrn (NotDetected) Urine Cocaine Screen (NotDetected) U Marijuana (THC) Screen (NotDetected) Coronavirus (PCR) (Not Detectd) 08/13/20 08/13/20 08/13/20 Range/Units 00:07 01:09 04:06 WBC (3.8-10.6) k/uL RBC (4.30-5.90) m/uL Hgb (13.0-17.5) gm/dL Hct (39.0-53.0) % MCV (80.0-100.0) fL MCH (25.0-35.0) pg MCHC (31.0-37.0) g/dL RDW (11.5-15.5) % Plt Count (150-450) k/uL MPV Neutrophils % % Lymphocytes % % Monocytes % % Eosinophils % % Basophils % % Neutrophils # (1.3-7.7) k/uL Lymphocytes # (1.0-4.8) k/uL Monocytes # (0-1.0) k/uL Eosinophils # (0-0.7) k/uL Basophils # (0-0.2) k/uL Hypochromasia Anisocytosis PT (9.0-12.0) sec INR (<1.2) APTT (22.0-30.0) sec Sodium (137-145) mmol/L Potassium (3.5-5.1) mmol/L Chloride (98-107) mmol/L Carbon Dioxide (22-30) mmol/L Anion Gap mmol/L BUN (9-20) mg/dL Creatinine (0.66-1.25) mg/dL Est GFR (CKD-EPI)AfAm (>60 ml/min/1.73 sqM) Est GFR (CKD-EPI)NonAf (>60 ml/min/1.73 sqM) Glucose (74-99) mg/dL Calcium (8.4-10.2) mg/dL Total Bilirubin (0.2-1.3) mg/dL AST (17-59) U/L ALT (4-49) U/L Alkaline Phosphatase (38-126) U/L Troponin I <0.012 (0.000-0.034) ng/mL Total Protein (6.3-8.2) g/dL Albumin (3.5-5.0) g/dL Urine Color Yellow Urine Appearance Clear (Clear) Urine pH 7.5 (5.0-8.0) Ur Specific [place] 1.014 (1.001-1.035) Urine Protein 1+ H (Negative) Urine Glucose (UA) Negative (Negative) Urine Ketones Negative (Negative) Urine Blood Small H (Negative) Urine Nitrite Negative (Negative) Urine Bilirubin Negative (Negative) Urine Urobilinogen <2.0 (<2.0) mg/dL Ur Leukocyte Esterase Negative (Negative) Urine RBC 22 H (0-5) /hpf Urine WBC 2 (0-5) /hpf Urine Mucus Rare H (None) /hpf Urine Opiates Screen Not Detected (NotDetected) Ur Oxycodone Screen Not Detected (NotDetected) Urine Methadone Screen Not Detected (NotDetected) Ur Propoxyphene Screen Not Detected (NotDetected) Ur Barbiturates Screen Not Detected (NotDetected) U Tricyclic Antidepress Not Detected (NotDetected) Ur Phencyclidine Scrn Not Detected (NotDetected) Ur Amphetamines Screen Not Detected (NotDetected) U Methamphetamines Scrn Not Detected (NotDetected) U Benzodiazepines Scrn Not Detected (NotDetected) Urine Cocaine Screen Not Detected (NotDetected) U Marijuana (THC) Screen Not Detected (NotDetected) Coronavirus (PCR) Not Detected (Not Detectd) - EKG Data -: EKG Interpreted by Me EKG shows normal: sinus rhythm, axis (Normal), intervals (Normal) Rate: normal (Rate 87 bpm) Interpretation: nonspecific ST-T wave changes, LVH (By voltage criteria) Disposition Clinical Impression: Aortic valve endocarditis, Altered mental status Disposition: ADMITTED IP TO THIS [facility] Condition: Poor
[2020-08-13 01:27] LABS: Appearance,Urine Clear (Clear); Bilirubin,Urine Negative (Negative); Blood,Urine Small (Negative); Color,Urine Yellow; Glucose,Urine (UA) Negative (Negative); Ketones,Urine Negative (Negative); Leukocyte Esterase,Urine Negative (Negative); Mucus,Urine Rare /hpf; Nitrite,Urine Negative (Negative); PH, Urine 7.5 (5.0-8.0); Protein,Urine 1+ (Negative); RBC,Urine 22 /hpf (0-5); Specific Gravity,Urine 1.014 (1.001-1.035); Urobilinogen,Urine <2.0 mg/dL (<2.0); WBC,Urine 2 /hpf (0-5)
[2020-08-13 01:32] LABS: Amphetamine Screen,Urine Not Detected (NotDetected); Barbiturate Screen,Urine Not Detected (NotDetected); Benzodiazepines Screen,Urine Not Detected (NotDetected); Cocaine Screen,Urine Not Detected (NotDetected); Methadone Screen, Urine Not Detected (NotDetected); Opiate Screen,Urine Not Detected (NotDetected); Oxycodone Screen, Urine Not Detected (NotDetected); Phencyclidine Screen,Urine Not Detected (NotDetected); Tricyclic Antidepressant,Urine Not Detected (NotDetected); Urn Cannabinoid Scrn Not Detected (NotDetected)
[2020-08-13] MEDS ORDERED: NALOXONE 0.4 MG/ML 1 ML VIAL IV PRN (02:59)
[2020-08-13] MEDS ORDERED: bisacodyL 10 MG SUPP RECTAL PRN (03:01)
[2020-08-13] MEDS ORDERED: MAGNESIUM HYDROXIDE 2,400 MG/10 ML CUP PO PRN (03:01)
[2020-08-13] MEDS ORDERED: IPRATROPIUM-ALBUTEROL 3 ML NEB INHALATION PRN (03:01)
[2020-08-13] MEDS ORDERED: AMPICILLIN 2,000 MG in SODIUM CHLORIDE 0.9% 100 ML IVPB STA (03:10)
[2020-08-13] MEDS: SODIUM CHLORIDE 0.9% 1,000 ML IV SCH (03:37)
[2020-08-13] MEDS: carvediloL 6.25 MG TAB PO SCH ×2 (07:34→17:42)
[2020-08-13] MEDS: APIXABAN 5 MG TAB PO SCH ×2 (09:09→20:19)
[2020-08-13] MEDS: PANTOPRAZOLE 40 MG TABLET PO SCH (09:10)
[2020-08-13] MEDS: ASPIRIN 81 MG PO SCH (09:10)
[2020-08-13] MEDS: FUROSEMIDE 40 MG TAB PO SCH (09:11)
[2020-08-13] MEDS: SODIUM BICARBONATE TAB 650 MG TAB PO SCH ×2 (09:11→20:19)
[2020-08-13] MEDS: GABAPENTIN 300 MG CAP PO SCH (09:14)
[2020-08-13] MEDS: AMPICILLIN 2,000 MG in SODIUM CHLORIDE 0.9% 100 ML IVPB SCH ×3 (11:48→20:19)
--- NOTE | 2020-08-13 18:11 | P.CNNES ---
History of Present Illness Consult date: 08/13/20 Requesting physician: Yusef Bain Reason for Consult: Altered mental status History of Present Illness: Patient is a 74-year-old male came to the hospital by ambulance yesterday at 11:13 PM, who [facility] yesterday at 8:10 PM for mental status change that started more than 6 hours ago. Patient's has reported that patient had a recent stroke about 3 weeks ago and that he had had multiple strokes prior to that. Patient has been diagnosed with bacterial endocarditis for which he is on prolonged IV antibiotics. Patient has a PICC line in the left upper arm. 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 Computed tomography scan of the head revealed age indeterminate, possible acute or subacute infarct in the left temporal convexity. MRI would be helpful to further characterize. Patient's blood tests shows WBC 4.1 hemoglobin 8.7, hematocrit 27.7 and platelets were adequate. Sodium 133 potassium 3.6, BUN 28, creatinine 2.4. Hepatic panel normal. Troponin negative, calcium 8.1. BNP 99.1. EKG shows normal sinus rhythm with first-degree AV block. Patient's medication at nursing facility include Eliquis 5 mg twice a day, aspirin 81 mg, Lasix 40 mg daily, Lipitor 20 mg, gabapentin 300 mg daily, omeprazole 20 mg, Pr evacid 30 mg, Coreg and tramadol. Patient also is on IV ampicillin. Vital signs on arrival at [facility] revealed blood pressure 137/65, pulse rate 88 temperature 100.4. Blood test shows normal WBC hemoglobin 10.8 platelets 165. PT/PTT normal. Sodium 129 potassium 4.0, BUN 28, creatinine 2.17. Patient does have chronic renal insufficiency, and renal functions are stable. Calcium is normal. Hepatic panel normal, UA negative, urine drug screen negative and coronal virus PCR negative. Patient's last hemoglobin A1c 5.8 on 05/13/2020. Chest x-ray revealed pulmonary interstitial fibrotic changes. There is improved a radiation of the lungs compared to last exam. There is clearing of airspace pneumonic infiltrates in the mid lung cal[place] compared to old exam. This could relate to resolving CHF. Patient at present not provide any history. Patient has severe expressive and r eceptive aphasia. On review of records, patient had an MRI of the brain 10/30/2015 which revealed acute lacunar infarct left parietal periventricular white matter. Mild to moderate diffuse cerebral atrophy and advanced chronic small vessel ischemic changes without significant progression from prior study. No evidence of acute venous thrombosis. No evidence of significant aneurysm at the level of [place] of [place]. Review of Systems ROS unobtainable: due to mental status Past Medical History Past Medical History: Chest Pain / Angina, CVA/TIA, GERD/Reflux, Hyperlipidemia, Hypertension, Osteoarthritis (OA), Renal Disease Additional Past Medical History / Comment(s): 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 Expressive aphasia History of Any Multi-Drug Resistant Organisms: None Reported Past Surgical History: Appendectomy, Back Surgery, Heart Catheterization, Joint Replacement Additional Past Surgical History / Comment(s): back surgery x 4, bilateral cataracts removed, alicia hip replacments, cardiac cath 2010 - normal, EGD/colonoscopy, varicose vein stripping, tilt table test, loop recorder was shut off in 06/08 Past Anesthesia/Blood Transfusion Reactions: No Reported Reaction Past Psychological History: No Psychological Hx Reported, Bipolar Smoking Status: Former smoker Past Alcohol Use History: Occasional Past Drug Use History: None Reported - Past Family History Father Family Medical History: Vascular Disorder Additional Family Medical History / Comment(s): PVD-double amputee. Mother Family Medical History: Pulmonary Embolus Additional Family Medical History / Comment(s): Mother of a pulmonary embolism at the age of 63 yrs. Medications and Allergies Home Medications Medication Instructions Recorded Confirmed Type carvediloL [Coreg] 6.25 mg PO BID@0900,1700 04/28/19 08/13/20 History Furosemide [Lasix] 40 mg PO DAILY@0900 09/01/19 08/13/20 History Acetaminophen Tab [Tylenol] 650 mg PO Q4H PRN 07/19/20 08/13/20 History Apixaban [Eliquis] 5 mg PO BID@0900,1700 07/19/20 08/13/20 History Ascorbic Acid [Vitamin C] 1,000 mg PO HS@2100 07/19/20 08/13/20 History Aspirin 81 mg PO DAILY@0900 07/19/20 08/13/20 History Atorvastatin [Lipitor] 20 mg PO HS@2100 07/19/20 08/13/20 History Cholecalciferol [Vitamin D3 (25 25 mcg PO HS@2100 07/19/20 08/13/20 History Mcg = 1000 Iu)] Ipratropium-Albuterol Nebulize 3 ml INHALATION RT-Q4H PRN 07/19/20 08/13/20 History [Duoneb 0.5 mg-3 mg/3 ml Soln] Magnesium Hydroxide [Milk of 2,400 mg PO Q12H PRN 07/19/20 08/13/20 History Magnesia] bisacodyL [Bisacodyl] 10 mg RECTAL DAILY PRN 07/19/20 08/13/20 History Gabapentin [Neurontin] 300 mg PO DAILY@0900 #3 cap 07/29/20 08/13/20 Rx Ampicillin Sodium 2,000 mg IV Q6H 08/13/20 08/13/20 History Omeprazole 20 mg PO DAILY@0600 08/13/20 08/13/20 History Sodium Bicarbonate Tab 650 mg PO BID@0900,1700 08/13/20 08/13/20 History traMADol HCL 50 mg PO TID@0600,1300,2100 08/13/20 08/13/20 History Allergies Allergy/AdvReac Type Severity Reaction Status Date / Time MATHIEU Inhibitors Allergy Unknown Verified 08/13/20 07:16 Sulfa (Sulfonamide Allergy Rash/Hives Verified 08/13/20 07:16 Antibiotics) baclofen AdvReac Hallucinati Verified 08/13/20 07:16 ons hydromorphone [From Dilaudid] AdvReac Hallucinati Verified 08/13/20 07:16 ons meperidine HCl [From Demerol] AdvReac Nausea & Verified 08/13/20 07:16 Vomiting sulfamethoxazole AdvReac Rash/Hives Verified 08/13/20 07:16 [From Bactrim] trimethoprim [From Bactrim] AdvReac Rash/Hives Verified 08/13/20 07:16 Physical Examination - Vital Signs Vital Signs: Vital Signs Temp Pulse Resp BP Pulse Ox 08/13/20 09:15 80 18 115/70 98 08/13/20 07:32 98.8 F 78 18 104/70 100 08/13/20 06:00 79 16 110/59 95 08/13/20 04:07 98.8 F 08/13/20 02:31 90 18 102/64 98 08/13/20 01:18 92 18 127/66 98 08/12/20 23:19 100.4 F H 88 18 137/65 98 Intake and Output 08/12/20 08/13/20 08/13/20 22:59 06:59 14:59 Output Total 700 Balance -700 Output: Urine 700 Uretheral (Foreman) 700 Other: Weight 99.79 kg On examination patient is an elderly male, laying comfortably in the bed. Patient has significant expressive and receptive aphasia. Patient at times appears fluent. He has significant paraphasic errors. Patient at times appears to have jargon aphasia. Patient does not know his birthday, his age, and states the year is [birth year]. Patient nods "no" for the headache. There is no cyanosis, jaundice or skin lesions. Apparently earlier in [facility], it was reported patient has right upper 70 weakness and flattening of the right nasolabial 4, which was not noticed. Patient not able to tell how many children he has. This is likely due to acute aphasia rather than dementia. On cranial nerve examination, pupils are round and reacting to light, visual [place] could not be tested. He does not clearly blink to visual threat on either side. Face appears symmetric and tongue protrudes the midline. Palatal elevation could not be checked. Hearing appears decreased, facial sensations could not be checked. Shoulder shrug could not be checked. Patient was able to cooperate with muscle strength testing. The strength is completely normal in the arms and legs except toe extension which is 2 on the right, 4-on the left. Reflexes are (right/left) biceps 2+/1+, brachioradialis 2+/1+, knees 2/1, ankles 0/0, plantars are flat bilaterally. Sensory functions could not be tested. No definitive ataxia for [id number] testing. Patient has problems with following directions as well. Gait not tested. Results - Laboratory Findings CBC and BMP: 08/13/20 00:07 08/13/20 00:07 Abnormal Lab Findings: Abnormal Labs 08/13/20 08/13/20 08/13/20 00:07 00:07 00:07 RBC 4.03 L Hgb 10.8 L Hct 34.3 L RDW 17.8 H Lymphocytes # 0.3 L APTT 31.7 H Sodium 129 L Chloride 93 L BUN 28 H Creatinine 2.17 H Glucose 104 H Total Protein 5.8 L Albumin 3.1 L Urine Protein Urine Blood Urine RBC Urine Mucus 08/13/20 01:09 RBC Hgb Hct RDW Lymphocytes # APTT Sodium Chloride BUN Creatinine Glucose Total Protein Albumin Urine Protein 1+ H Urine Blood Small H Urine RBC 22 H Urine Mucus Rare H Assessment and Plan Assessment: * Subacute ischemic stroke involving left temporal convexity, manifesting with some fluent aphasia. * Reported history of endocarditis, possible septic embolism. * Hyperlipidemia * Hypertension * Chronic renal insufficiency * History of back surgery. Plan: * MRI of the brain with and without contrast. * Carotid Doppler. * Suggest JACOB to evaluate for endocarditis. * Patient's hemoglobin A1c 5.8 on 05/13/2020. * Lipid panel showed cholesterol 164, LDL 77, HDL 45 and triglycerides 209 on 05/13/2020. Continue statins. * Continue Apixaban and aspirin 81 mg. * Suggest ID consult for reported bacterial endocarditis. * We will follow.
--- NOTE | 2020-08-13 18:45 | P.HPIM ---
History of Present Illness H&P Date: 08/13/20 Chief Complaint: Mental status changes Ramin Green, is a 74-year-old male currently residing at a nursing facility after having a stroke about 3 weeks ago, he was noticed to have mental status changes and was transferred to [facility], he was evaluated at [facility]. Computed tomography scan of the head revealed age indeterminate, possible acute or subacute infarct in the left temporal convexityand then transferred to [facility] via ambulance further evaluation and treatment. On arrival to emergency room patient was alert confused in no apparent distress his vital examination reveals a temperature of 100.4 pulse 88 respiration 18 pressure 137/65 pulse ox 98% on room air his white blood count was 3.9 hemoglobin 10.8 platelet count 165 sodium 129 potassium 4.0 chloride 93 BUN 28 creatinine 2.17 chest x-ray revealed pulmo nary interstitial fibrotic changes EKG revealed normal sinus rhythm with nonspecific ST abnormality. Patient was admitted to telemetry floor neurology consultation was requested in that regard to mental status changes. Patient is unable to give any significant history, from review of chart patient has been diagnosed with bacterial endocarditis for which he is on prolonged IV antibiotics. Patient has a PICC line in the left arm. Past medical history is significant for history of hypertension, history of hyperlipidemia, history of multiple strokes in the past, history of coronary artery disease, history of chronic kidney disease, history of gastroesophageal reflux disease, history of osteoarthritis with previous history of bilateral hip replacement, history of degenerative disc disease with history of back surgery. Review of system is not amenable due to patient confusion. 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 Expressive aphasia History of Any Multi-Drug Resistant Organisms: None Reported Past Surgical History: Appendectomy, Back Surgery, Heart Catheterization, Joint Replacement Additional Past Surgical History / Comment(s): back surgery x 4, bilateral cataracts removed, alicia hip replacments, cardiac cath 2010 - normal, EGD/colonoscopy, varicose vein stripping, tilt table test, loop recorder was shut off in 06/08 Past Anesthesia/Blood Transfusion Reactions: No Reported Reaction Past Psychological History: No Psychological Hx Reported, Bipolar Smoking Status: Former smoker Past Alcohol Use History: Occasional Past Drug Use History: None Reported - Past Family History Father Family Medical History: Vascular Disorder Additional Family Medical History / Comment(s): PVD-double amputee. Mother Family Medical History: Pulmonary Embolus Additional Family Medical History / Comment(s): Mother of a pulmonary embolism at the age of 63 yrs. Medications and Allergies Home Medications Medication Instructions Recorded Confirmed Type carvediloL [Coreg] 6.25 mg PO BID@0900,1700 04/28/19 08/13/20 History Furosemide [Lasix] 40 mg PO DAILY@0900 09/01/19 08/13/20 History Acetaminophen Tab [Tylenol] 650 mg PO Q4H PRN 07/19/20 08/13/20 History Apixaban [Eliquis] 5 mg PO BID@0900,1700 07/19/20 08/13/20 History Ascorbic Acid [Vitamin C] 1,000 mg PO HS@209907/19/20 08/13/20 History Aspirin 81 mg PO DAILY@0900 07/19/20 08/13/20 History Atorvastatin [Lipitor] 20 mg PO HS@209907/19/20 08/13/20 History Cholecalciferol [Vitamin D3 (25 25 mcg PO HS@209907/19/20 08/13/20 History Mcg = 1000 Iu)] Ipratropium-Albuterol Nebulize 3 ml INHALATION RT-Q4H PRN 07/19/20 08/13/20 Hist ory [Duoneb 0.5 mg-3 mg/3 ml Soln] Magnesium Hydroxide [Milk of 2,400 mg PO Q12H PRN 07/19/20 08/13/20 History Magnesia] bisacodyL [Bisacodyl] 10 mg RECTAL DAILY PRN 07/19/20 08/13/20 History Gabapentin [Neurontin] 300 mg PO DAILY@0900 #3 cap 07/29/20 08/13/20 Rx Ampicillin Sodium 2,000 mg IV Q6H 08/13/20 08/13/20 History Omeprazole 20 mg PO DAILY@0600 08/13/20 08/13/20 History Sodium Bicarbonate Tab 650 mg PO BID@0900,1700 08/13/20 08/13/20 History traMADol HCL 50 mg PO TID@0600,1300,2100 08/13/20 08/13/20 History Allergies Allergy/AdvReac Type Severity Reaction Status Date / Time MATHIEU Inhibitors Allergy Unknown Verified 08/13/20 07:16 Sulfa (Sulfonamide Allergy Rash/Hives Verified 08/13/20 07:16 Antibiotics) baclofen AdvReac Hallucinati Verified 08/13/20 07:16 ons hydromorphone [From Dilaudid] AdvReac Hallucinati Verified 08/13/20 07:16 ons meperidine HCl [From Demerol] AdvReac Nausea & Verified 08/13/20 07:16 Vomiting sulfamethoxazole AdvReac Rash/Hives Verified 08/13/20 07:16 [From Bactrim] trimethoprim [From Bactrim] AdvReac Rash/Hives Verified 08/13/20 07:16 Physical Exam Vitals: Vital Signs Temp Pulse Resp BP Pulse Ox 08/13/20 13:56 77 17 121/63 96 08/13/20 11:49 80 18 99/66 97 08/13/20 09:15 80 18 115/70 98 08/13/20 07:32 98.8 F 78 18 104/70 100 08/13/20 06:00 79 16 110/59 95 08/13/20 04:07 98.8 F 08/13/20 02:31 90 18 102/64 98 08/13/20 01:18 92 18 127/66 98 08/12/20 23:19 100.4 F H 88 18 137/65 98 Intake and Output 08/13/20 08/13/20 08/13/20 06:59 14:59 22:59 Output Total 700 1500 900 Balance -700 -1500 -900 Output: Urine 700 1500 900 Uretheral (Foreman) 700 Other: Weight 99.79 kg In general patient is alert confused in no apparent distress HEENT head normocephalic and atraumatic Neck is supple no JVD no goiter no lymphadenopathy Chest exam reveals a few scattered rhonchi no wheezing Cardiac exam reveals regular heart sounds S1 and S2 no gallops no murmurs Abdomen is soft nontender no hepatosplenomegaly with normal bowel sounds Extremity examination reveals no edema there is pretibial erythema bilaterally with some scratching montez, there is a scabbed ulcer on the second left toe. Neurological examination patient is alert confused exam very limited due to pa tient inability to cooperate with exam pupils are round and reactive there is mild weakness in the right lower extremity as compared to the left otherwise no significant abnormality detected. Results CBC & Chem 7: 08/13/20 00:07 08/13/20 00:07 Labs: Abnormal Lab Results - Last 24 Hours (Table) 08/13/20 08/13/20 08/13/20 Range/Units 00:07 00:07 00:07 RBC 4.03 L (4.30-5.90) m/uL Hgb 10.8 L (13.0-17.5) gm/dL Hct 34.3 L (39.0-53.0) % RDW 17.8 H (11.5-15.5) % Lymphocytes # 0.3 L (1.0-4.8) k/uL APTT 31.7 H (22.0-30.0) sec Sodium 129 L (137-145) mmol/L Chloride 93 L (98-107) mmol/L BUN 28 H (9-20) mg/dL Creatinine 2.17 H (0.66-1.25) mg/dL Glucose 104 H (74-99) mg/dL Total Protein 5.8 L (6.3-8.2) g/dL Albumin 3.1 L (3.5-5.0) g/dL Urine Protein (Negative) Urine Blood (Negative) Urine RBC (0-5) /hpf Urine Mucus (None) /hpf 08/13/20 Range/Units 01:09 RBC (4.30-5.90) m/uL Hgb (13.0-17.5) gm/dL Hct (39.0-53.0) % RDW (11.5-15.5) % Lymphocytes # (1.0-4.8) k/uL APTT (22.0-30.0) sec Sodium (137-145) mmol/L Chloride (98-107) mmol/L BUN (9-20) mg/dL Creatinine (0.66-1.25) mg/dL Glucose (74-99) mg/dL Total Protein (6.3-8.2) g/dL Albumin (3.5-5.0) g/dL Urine Protein 1+ H (Negative) Urine Blood Small H (Negative) Urine RBC 22 H (0-5) /hpf Urine Mucus Rare H (None) /hpf Assessment and Plan Plan: 1. Acute mental status changes cause is not currently, neurology consultation and MRI of the brain are pending 2. Subacute ischemic stroke in the left temporal area 3 weeks ago 3. Underlying history of endocarditis maintained on IV antibiotic via PICC line, will continue at this time will consult infectious disease for further evaluation, consult cardiology 4. Underlying history of chronic kidney disease Will monitor kidney function 5. Underlying history of hypertension 6. Underlying history of hyperlipidemia 7. Underlying history of degenerative disc disease with previous history of back surgery Medication and labs were reviewed For DVT prophylaxis patient is on Eliquis For GI prophylaxis patient is on Protonix
--- NOTE | 2020-08-13 19:29 | US ---
EXAMINATION TYPE: US carotid duplex BILAT DATE OF EXAM: 08/13/2020 COMPARISON: US CLINICAL HISTORY: CVA. CVA. Patient poor historian. EXAM MEASUREMENTS: RIGHT: Peak Systolic Velocity (PSV) cm/sec ----- Right CCA: 51.6 ----- Right ICA: 103.4 ----- Right ECA: 112.6 ICA/CCA ratio: 2.0 RIGHT: End Diastole cm/sec ----- Right CCA: 8.6 ----- Right ICA: 20.0 ----- Right ECA: 4.3 LEFT: Peak Systolic Velocity (PSV) cm/sec ----- Left CCA: 55.5 ----- Left ICA: 88.3 ----- Left ECA: 97.1 ICA/CCA ratio: 1.6 LEFT: End Diastole cm/sec ----- Left CCA: 9.2 ----- Left ICA: 19.0 ----- Left ECA: 1.4 VERTEBRALS (direction of flow): Right Vertebral: Antegrade Left Vertebral: Antegrade Rhythm: Normal Hyperechoic plaque with shadowing is seen right bulb, right prox ICA, right prox ECA, left bulb, left prox ICA, and left prox ECA. No elevated velocities at this time. ICA/CCA ratio is 2.0 on the right and 1.6 on the left. IMPRESSION: No hemodynamically significant stenosis of the bilateral ICAs. Criteria for Assigning % of Stenosis / Diameter reduction (Estimation based on the indirect measurements of the internal carotid artery velocities (ICA PSV). 1. Normal (no stenosis)=ICA PSV < 125 cm/s: ratio < 2.0: ICA EDV<40 cm/s. 2. Less than 50% stenosis=ICA PSV < 125 cm/s: ratio < 2.0: ICA EDV<40 cm/s. 3. 50 to 69% stenosis=ICA PSV of 125 to 230 cm/s: ration 2.0 ? 4.0: ICA EDV 40-100 cm/s. 4. Greater than 70% stenosis to near occlusion= ICA PSV > 230 cm/s: ratio > 4.0: ICA EDV > 100 cm/s. 5. Near occlusion= ICA PSV velocities may be low or undetectable: variable ratio and ICA EDV. 6. Total occlusion=unable to detect flow.
[2020-08-13] MEDS: ASCORBIC ACID 500 MG TAB PO SCH (20:19)
[2020-08-13] MEDS: CHOLECALCIFEROL 25 MCG (1000 IU) TABLET PO SCH (20:19)
[2020-08-13] MEDS ORDERED: ATORVASTATIN 20 MG TAB PO SCH (21:00)
[2020-08-14] MEDS: AMPICILLIN 2,000 MG in SODIUM CHLORIDE 0.9% 100 ML IVPB SCH ×4 (02:25→20:24)
[2020-08-14] MEDS: SODIUM CHLORIDE 0.9% 1,000 ML IV SCH (04:39)
[2020-08-14] MEDS: carvediloL 6.25 MG TAB PO SCH ×2 (07:00→17:14)
[2020-08-14] MEDS: ASPIRIN 81 MG PO SCH (10:07)
[2020-08-14] MEDS: APIXABAN 5 MG TAB PO SCH ×2 (10:07→20:24)
[2020-08-14] MEDS: SODIUM BICARBONATE TAB 650 MG TAB PO SCH (10:07)
[2020-08-14] MEDS: FUROSEMIDE 40 MG TAB PO SCH (10:07)
[2020-08-14] MEDS: GABAPENTIN 300 MG CAP PO SCH (10:07)
[2020-08-14] MEDS: PANTOPRAZOLE 40 MG TABLET PO SCH (10:07)
[2020-08-14 10:12] LABS: Anisocytosis Slight; Basophils % (A) 0 %; Eosinophils # (A) 0.3 k/uL (0-0.7); Eosinophils % (A) 9 %; HCT 27.9 % (39.0-53.0); Hypochromasia Slight; Lymphocytes # (A) 0.4 k/uL (1.0-4.8); Lymphocytes % (A) 9 %; MCH 26.9 pg (25.0-35.0); MCHC 31.7 g/dL (31.0-37.0); MCV 84.8 fL (80.0-100.0); Mean Platelet Volume 7.3; Monocytes # (A) 0.1 k/uL (0-1.0); Monocytes % (A) 4 %; Neutrophils % (A) 77 %; Platelet Count 179 k/uL (150-450); RBC 3.29 m/uL (4.30-5.90); RDW 17.6 % (11.5-15.5); WBC 3.9 k/uL (3.8-10.6)
[2020-08-14 10:14] LABS: HGB 8.9 gm/dL (13.0-17.5)
[2020-08-14 10:15] LABS: Albumin 2.5 g/dL (3.5-5.0); Calcium 8.3 mg/dL (8.4-10.2); Potassium 4.2 mmol/L (3.5-5.1); Total Bilirubin 0.6 mg/dL (0.2-1.3); Total Protein 5.1 g/dL (6.3-8.2)
--- NOTE | 2020-08-14 10:41 | CONS ---
CONSULTATION Mr. Green is a 74-year-old male who was transferred with change in mental status. He is a resident of a nursing facility and apparently was more confused and transferred to [facility] subsequently to [facility]. The patient has a known history of expressive aphasia, status post cerebrovascular accident. He was in the hospital recently and was diagnosed with endocarditis, underwent a transesophageal echocardiogram on the of this month by Dr. Hurtado and was found to have a small echodense lesion on the aortic surface of the non coronary cusp with no evidence for aortic root abscess and trace aortic regurgitation. His left ventricular systolic function was normal. The patient is awake, alert but unable to give a full history. His answers are predominantly yes and no. He has underwent cardiac catheterization in April [address] Hurtado and at that time had no evidence of obstructive coronary artery disease. He had an event monitor in 2015 showed predominantly sinus mechanism. The patient denies any symptoms of chest discomfort. He denies any dyspnea. He denies any dizziness or palpitation. He is in sinus mechanism on the monitor. He carries the diagnosis of atrial fibrillation in the past and has been anticoagulated. During his last admission, he had Enterococcus bacteremia. The patient has no history of congestive heart failure or ventricular ectopic activity. He has no history of myocardial infarction. His coronary risk factors are positive for history of hyperlipidemia. He is nondiabetic, nonsmoker. MEDICATIONS: His medications at home include Eliquis 5 mg twice a day, aspirin once a day, Lipitor 20 mg daily, Lasix 40 mg daily, sodium bicarb, Coreg 6.25 mg twice a day, tramadol, omeprazole, Neurontin, DuoNeb, vitamin C. REVIEW OF SYSTEMS: Review of systems is limited but the patient denies any dyspnea or cough. He denies any nausea and vomiting. No GI bleeding. He had a prior history of stroke with expressive aphasia. PHYSICAL EXAMINATION: A 74-year-old male, alert, oriented, with expressive aphasia. Blood pressure 104/60 with the heart rate in the 80s. HEAD: Normocephalic. EYES: Sclerae anicteric. NECK: Good carotid upstroke. No bruit. LUNGS: Clear to auscultation. HEART: Regular rate and rhythm. S1, S2. No S3 with no significant systolic murmur appreciated. No diastolic murmur. ABDOMEN: Soft, nontender. Positive bowel sounds. No organomegaly. EXTREMITIES: No edema. Intact distal pulses. LAB DATA: Lab data revealed a hemoglobin of 10.8. BUN and creatinine 28 and 2.17. Potassium 4.0. Troponin less than 0.012. EKG revealed a sinus mechanism with a voltage criteria for left ventricular hypertrophy, but no acute ST-segment changes. His chest x-ray shows pulmonary interstitial fibrosis. He had a carotid duplex scan that showed no significant obstructive disease. IMPRESSION: 1. Change in mental status, etiology unclear. 2. History of stroke. 3. History of endocarditis, receiving antibiotics. No evidence of persistent bacteremia. 4. History of hypertension. 5. Hyperlipidemia. 6. Chronic kidney disease. 7. Paroxysmal atrial fibrillation. RECOMMENDATION: We will continue on the anticoagulation as present. The patient is on a statin and that will be continued. I will increase the dose of his statin. At this time, there is no clear evidence to suggest a recurrent infectious process from his endocarditis. We will hold on repeating the JACOB unless there is any clear indication. Thank you for this consult. We will follow with you. MMODL / IJN: [id number] /
[2020-08-14] MEDS: ACETAMINOPHEN TAB 325 MG TAB PO PRN ×2 (11:46→17:31)
--- NOTE | 2020-08-14 11:58 | P.PN ---
Subjective Progress Note Date: 08/14/20 Ramin Green, is a 74-year-old male currently residing at a nursing facility after having a stroke about 3 weeks ago, he was noticed to have mental status changes and was transferred to [facility], he was evaluated at [facility]. Computed tomography scan of the head revealed age indeterminate, possible acute or subacute infarct in the left temporal convexityand then transferred to [facility] via ambulance further evaluation and treatment. On arrival to emergency room patient was alert confused in no apparent distress his vital examination reveals a tempera ture of 100.4 pulse 88 respiration 18 pressure 137/65 pulse ox 98% on room air his white blood count was 3.9 hemoglobin 10.8 platelet count 165 sodium 129 potassium 4.0 chloride 93 BUN 28 creatinine 2.17 chest x-ray revealed pulmonary interstitial fibrotic changes EKG revealed normal sinus rhythm with nonspecific ST abnormality. Patient was admitted to telemetry floor neurology consultation was requested in that regard to mental status changes. Patient is unable to give any significant history, from review of chart patient has been diagnosed with bacterial endocarditis for which he is on prolonged IV antibiotics. Patient has a PICC line in the left arm. Past medical history is significant for history of hypertension, history of hyperlipidemia, history of multiple strokes in the past, history of coronary artery disease, history of chronic kidney disease, history of gastroesophageal reflux disease, history of osteoarthritis with previous history of bilateral hip replacement, history of degenerative disc disease with history of back surgery. Review of system is not amenable due to patient confusion. On 08/14/2020 patient is resting comfortably in bed. Patient does appear more alert today. Patient was evaluated by neurology services and they're recommending MRI. Patient was evaluated by cardiology services for a JACOB at this time continue IV antibiotics. Nephrology infectious disease neurology and cardiology services are following. At this time patient denies any significant complaints. Patient denies nausea vomiting or diarrhea. Patient denies any urinary burning or frequency. Patient denies any chest pain or shortness breath. Objective - Vital Signs Vital signs: Vital Signs Temp 97.8 F 08/14/20 08:00 Pulse 84 08/14/20 08:00 Resp 17 08/14/20 08:00 BP 117/61 08/14/20 08:00 Pulse Ox 95 08/14/20 08:00 Intake & Output 02/08/14/20 08/14/20 18:59 06:59 18:59 Output Total 2400 900 Balance -2400 -900 Weight 99.79 kg Output: Urine 2400 900 Other: Voiding Method Indwelling Catheter Indwelling Catheter Indwelling Catheter # Bowel Movements 1 - Exam In general patient is alert confused in no apparent distress HEENT head normocephalic and atraumatic Neck is supple no JVD no goiter no lymphadenopathy Chest exam reveals a few scattered rhonchi no wheezing Cardiac exam reveals regular heart sounds S1 and S2 no gallops no murmurs Abdomen is soft nontender no hepatosplenomegaly with normal bowel sounds Extremity examination reveals no edema there is pretibial erythema bilaterally with some scratching montez, there is a scabbed ulcer on the second left toe. Neurological examination patient is alert confused exam very limited due to patient inability to cooperate with exam pupils are round and reactive there is mild weakness in the right lower extremity as compared to the left otherwise no significant abnormality detected. - Labs CBC & Chem 7: 08/14/20 09:43 08/14/20 09:43 Labs: Abnormal Lab Results - Last 24 Hours (Table) 08/14/20 08/14/20 Range/Units 09:43 09:43 RBC 3.29 L (4.30-5.90) m/uL Hgb 8.9 L D (13.0-17.5) gm/dL Hct 27.9 L (39.0-53.0) % RDW 17.6 H (11.5-15.5) % Lymphocytes # 0.4 L (1.0-4.8) k/uL Sodium 129 L (137-145) mmol/L Chloride 94 L (98-107) mmol/L BUN 25 H (9-20) mg/dL Creatinine 2.12 H (0.66-1.25) mg/dL Glucose 112 H (74-99) mg/dL Calcium 8.3 L (8.4-10.2) mg/dL Total Protein 5.1 L (6.3-8.2) g/dL Albumin 2.5 L (3.5-5.0) g/dL Microbiology - Last 24 Hours (Table) 08/13/20 01:15 Blood Culture - Preliminary Blood No Growth after 24 hours 08/13/20 01:00 Blood Culture - Preliminary Blood No Growth after 24 hours Assessment and Plan Plan: 1. Acute mental status changes cause is not currently, neurology consultation and MRI of the brain are pending 2. Subacute ischemic stroke in the left temporal area 3 weeks ago 3. Underlying history of endocarditis maintained on IV antibiotic via PICC line, will continue at this time will consult infectious disease for further evaluation, consult cardiology 4. Underlying history of chronic kidney disease Will monitor kidney function 5. Underlying history of hypertension 6. Underlying history of hyperlipidemia 7. Underlying history of degenerative disc disease with previous history of back surgery Medication and labs were reviewed For DVT prophylaxis patient is on Eliquis For GI prophylaxis patient is on Protonix Infectious disease, neurology, cardiology and nephrology services consulted Carotid Doppler negative
--- NOTE | 2020-08-14 15:18 | CONS ---
CONSULTATION REASON FOR CONSULTATION: Renal failure. HISTORY OF PRESENT ILLNESS: The patient is a 74-year-old male who was recently discharged from the hospital on 07/29/20 after hospitalization for sepsis with enterococcus bacteremia and endocarditis. The patient had also developed acute kidney injury. However, his renal function had improved, and serum creatinine was staying around 1.9 mg/dL at the time of discharge. The patient was discharged to subacute rehab; however, he was readmitted, now with complaints of decreased responsiveness, increased weakness. The patient recently had a CVA with right-sided weakness about 3 months ago. It is difficult to obtain further history from him. However, his stated that his mentation has decreased significantly over the past few days. Blood pressure is 104 to 117 mmHg and we have another systolic blood pressure of 99 mmHg on 08/13/20. The patient has an indwelling Foreman catheter. No fevers or chills. No diarrhea. No bleeding noted. PAST MEDICAL HISTORY: Recent hospitalization for enterococcus bacteremia and sepsis. Recent CVA, coronary artery bypass surgery, hyperlipidemia, hypertension, CKD stage 3. PAST SURGICAL HISTORY: Appendectomy, back surgery, cardiac catheterization, cataract surgery, EGD, colonoscopy, bilateral hip arthroplasties. SOCIAL HISTORY: Patient is a former smoker. No history of drug abuse or alcohol abuse. MEDICATIONS: Medications prior to admission included Coreg, Lasix, Tylenol, Eliquis, vitamin C, aspirin, Lipitor, vitamin D, bisacodyl, Neurontin, ampicillin, omeprazole, sodium bicarb, tramadol. ALLERGIES: ALLERGIES include MATHIEU INHIBITORS, SULFA, BACLOFEN, DEMEROL, BACTRIM, DILAUDID. REVIEW OF SYSTEMS: As per HPI. Other systems negative. PHYSICAL EXAMINATION: Patient is comfortable, awake. He is not in any acute distress. It is difficult to understand his speech. Blood pressure is 117/61, heart rate 84 per minute. He is afebrile. EXAMINATION OF THE HEART: S1 and S2. EXAMINATION OF LUNGS: Bilateral breath sounds are heard. ABDOMEN: Soft, non-tender. Examination of lower extremities shows no significant edema. Patient has right hemiparesis and some mild facial droop noted as well. LABS: Sodium 129, potassium 4.2, chloride 94, BUN 25, creatinine 2.1, hemoglobin 8.9 g/dL. UA shows 1+ protein, small blood, RBCs 22. ASSESSMENT: 1. Acute kidney injury from last admission associated with sepsis and acute tubular necrosis. Renal function about the same. At this time patient is not on any IV fluids. He is maintained on a small dose of p.o. Lasix, which we can continue as he has some lower extremity edema. No nephrotoxic agents on board. I will discontinue the sodium bicarb, as it will add to the extra sodium load. 2. Mild hyponatremia, currently euvolemic to mildly hypervolemic. Continue with the current dose of oral Lasix. Check urine osmolality. 3. Recent cerebrovascular accident with right-sided weakness with previous history of CVA as well. 4. Recent enterococcus bacteremia and endocarditis. 5. Chronic kidney disease, stage 3. Creatinine at lowest was about 1.3 during his last admission. PLAN: Discontinue sodium bicarb. Repeat labs in a.m. May continue p.o. Lasix. Continue off of IV fluids. Thank you for this consultation. Will continue to follow the patient with you during his hospitalization. MMODL / IJN: [id number] /
--- NOTE | 2020-08-14 15:29 | MR ---
EXAMINATION TYPE: MR brain wo/w con DATE OF EXAM: 08/14/2020 COMPARISON: CT brain 03/03/2016 HISTORY: Sub acute stroke, expressive aphasia TECHNIQUE: Multiplanar, multisequence images of the brain and brainstem is performed without and with IV contras t, utilizing 10 mL intravenous Gadavist . FINDINGS: Fast brain protocol was utilized. Diffusion weighted images demonstrate focus of restricted diffusion adjacent to the medial aspect of the occipital horn of the left lateral ventricle as well as along the insular cortex on the left. In the centrum semiovale on the right there is a focus of restricted diffusion and also along the right frontal white matter, axial image 24. Some enhancement is present along the region of the putamen on the left as well as the corresponding restricted diffusion along the medial aspect of the left occip ital horn of the left lateral ventricle. Restricted diffusion also suspected along the cortex of the anterior left temporal lobe, there is underlying hypointensity on T1, increased signal on T2 and inve rsion recovery sequences involving the anterior temporal on the left. No definitive enhancement along the cortex of the anterior left temporal lobe which shows hyperintensity and precontrast images, exa m may be somewhat limited by sagittal imaging only precontrast and fast brain protocol. There is no e xtra-axial fluid collection. The ventricular system and cisternal spaces are normal in size and appe arance in accordance with patient's degree of atrophy. Midline structures demonstrate probable pontine infarct, focus of encephalomalacia. The craniocervic al junction appears within normal limits. Post contrast images demonstrate no abnormal enhancement. The dural venous sinuses appear patent. The visualized sinuses are clear and the globes are intact. M astoid air cells on the left show inflammatory change. IMPRESSION: Findings likely represent subacute infarcts bilaterally rather than herpes encephalitis, correlate for embolic phenomenon.
--- NOTE | 2020-08-14 17:21 | P.PN ---
Subjective Progress Note Date: 08/14/20 Patient's was also present today. She states that patient is no improvement. Still with significant expressive aphasia. No new focal symptoms. No headache. Telemetry monitoring showing sinus rhythm. Objective - Vital Signs Vital signs: Vital Signs Temp 98.0 F 08/14/20 16:00 Pulse 73 08/14/20 16:00 Resp 18 08/14/20 16:00 BP 95/54 08/14/20 16:00 Pulse Ox 97 08/14/20 16:00 Intake & Output 08/13/20 08/14/20 08/14/20 18:59 06:59 18:59 Output Total 2400 900 1400 Balance -2400 -900 -1400 Weight 99.79 kg Output: Urine 2400 900 1400 Other: Voiding Method Indwelling Catheter Indwelling Catheter Indwelling Catheter # Bowel Movements 1 - Exam Essentially unchanged. - Labs CBC & Chem 7: 08/14/20 09:43 08/14/20 09:43 Labs: Abnormal Lab Results - Last 24 Hours (Table) 08/14/20 08/14/20 Range/Units 09:43 09:43 RBC 3.29 L (4.30-5.90) m/uL Hgb 8.9 L D (13.0-17.5) gm/dL Hct 27.9 L (39.0-53.0) % RDW 17.6 H (11.5-15.5) % Lymphocytes # 0.4 L (1.0-4.8) k/uL Sodium 129 L (137-145) mmol/L Chloride 94 L (98-107) mmol/L BUN 25 H (9-20) mg/dL Creatinine 2.12 H (0.66-1.25) mg/dL Glucose 112 H (74-99) mg/dL Calcium 8.3 L (8.4-10.2) mg/dL Total Protein 5.1 L (6.3-8.2) g/dL Albumin 2.5 L (3.5-5.0) g/dL Microbiology - Last 24 Hours (Table) 08/13/20 01:15 Blood Culture - Preliminary Blood No Growth after 24 hours 08/13/20 01:00 Blood Culture - Preliminary Blood No Growth after 24 hours Assessment and Plan Assessment: * Subacute ischemic stroke involving left temporal convexity, manifesting with some fluent aphasia. * Reported history of endocarditis, possible septic embolism. * Hyperlipidemia * Hypertension * Chronic renal insufficiency * History of back surgery. Plan: * MRI of the brain with and without contrast revealed findings likely represent subacute infarcts bilaterally rather than herpes encephalitis, correlate for embolic phenomenon. * Carotid Doppler showed no significant stenosis. Antegrade flow in both vertebral arteries. * Apparently patient had a JACOB performed on 07/26/2020 (did not notice it yesterday), which revealed aortic valve was trileaflet valve appears sclerotic. There is small echo dense lesion noted on the aortic surface of the non-coronary cusp, which is small, echo dense and mobile. There is trace aortic regurgitation. These no evidence of aortic root abscess. Left atrium is enlarged. EF is 60%. Interatrial Septum is intact, with no [id number] shunt by color flow Doppler or [id number] shunt by agitated saline contrast study. Suggest JACOB to evaluate for endocarditis. * Patient's hemoglobin A1c 5.8 on 05/13/2020. * Lipid panel showed cholesterol 164, LDL 77, HDL 45 and triglycerides 209 on 05/13/2020. Continue statins. * Continue Apixaban and aspirin 81 mg.
[2020-08-14] MEDS: ASCORBIC ACID 500 MG TAB PO SCH (20:24)
[2020-08-14] MEDS: CHOLECALCIFEROL 25 MCG (1000 IU) TABLET PO SCH (20:24)
[2020-08-14] MEDS: ATORVASTATIN 40 MG TAB PO SCH (20:24)
--- NOTE | 2020-08-14 22:50 | CONS ---
CONSULTATION DATE OF SERVICE: 08/14/2020 REASON FOR CONSULTATION: Sepsis, enterococcus, endocarditis. HISTORY OF PRESENT ILLNESS: The patient is a 74-year-old male who was recently admitted to this facility. The patient did have evidence of Enterococcus faecalis bacteremia. Patient did have a workup and did have evidence of aortic valve endocarditis. Patient's follow-up blood cultures were negative. He was discharged on 07/29/2020 to complete a 6-week course of IV ampicillin, which the patient was receiving in the outpatient setting. The patient presented to the outside facility for mental status changes. Apparently his noticed the patient to be more weak than usual and he was noticed to be confused. There was no clear history of any fever or chills. The patient was evaluated at the outside facility and subsequently transferred to [facility] for further management. On presentation to the hospital, the patient was afebrile. He did have a normal white count. Creatinine was mildly elevated. Chest x-ray showed some pulmonary interstitial fibrotic changes. Color Doppler has been obtained with an MRI completed this afternoon that shows subacute infarct with a question of possible septic. The patient has been continued on ampicillin. Infectious Disease was consulted for further management of antibiotic therapy. The patient on my evaluation denies having any fever or any chills the patient denies having any headache. No URI symptoms. No chest pain, shortness of breath or cough. No abdominal pain and no diarrhea. REVIEW OF SYSTEMS: Positive points have been mentioned in the HPI. Rest of the systems are negative. PAST MEDICAL HISTORY: Enterococcus faecalis bacteremia with endocarditis, aortic valve, CVA, TIA, gastroesophageal reflux disease, hypertension, hyperlipidemia, osteoarthritis, renal insufficiency. PAST SURGICAL HISTORY: Appendectomy, back surgery, heart catheterization, bilateral cataract surgery, bilateral hip replacement. SOCIAL HISTORY: Remote history of smoking. Occasionally drinks. No drug use. , lives with his . FAMILY HISTORY: Father with history of PVD. Mother with history of pulmonary embolism. ALLERGIES: SULFA, BACLOFEN, HYDROMORPHONE, MEPERIDINE, SULFAMETHOXAZOLE. MEDICATIONS: The patient is currently on Tylenol, DuoNeb, ampicillin 2 grams q.6. He is on Eliquis, vitamin C, aspirin, Lipitor, Dulcolax, Coreg, vitamin D3, Lasix, Neurontin, Narcan, Protonix. PHYSICAL EXAMINATION: Blood pressure is 95/54 with a pulse of 73, temperature 98. He is 97% on room air. General description is an elderly male lying in bed in no distress. No tachypnea or accessory muscle of respiration use. HEENT: Examination shows slight pallor. No scleral icterus. Oral mucous membrane is dry. NECK: Trachea is central. No thyromegaly. LUNGS: Unlabored breathing. Clear to auscultation anteriorly. HEART: S1, S2. Regular rate and rhythm. No rub. No murmur. ABDOMEN: Soft, non-tender. No guarding or rigidity. EXTREMITIES: No edema of the feet. SKIN EXAMINATION: No rash or mass palpable. Neurologically the patient is awake, alert, oriented x3. Mood and affect normal. LABS: Hemoglobin is 8.9 with a white count of 3.9, BUN of 25, creatinine 2.12. Liver enzymes are normal. Urine was negative. Urine drug screen negative. Fink PCR was negative. Chest x-ray report mentioned above. DIAGNOSTIC IMPRESSION AND PLAN: Patient admitted to hospital with mental status changes in this patient who has been recently diagnosed with aortic valve endocarditis with Enterococcus faecalis bacteremia. On initial echo the was very small. Clinically doubt responsible for any septic emboli. PLAN: 1. We will review the MRI with Neurology. 2. The patient will benefit from a JACOB to make sure no worsening vegetation or any complications associated with the endocarditis. 3. Ampicillin 2 grams q.6 hours to continue. 4. Blood cultures have been obtained. Those will be followed. 5. Will follow clinical condition and investigations to further adjust medication if needed. Thank you for this consultation. Will follow this patient along with you. MMODL / IJN: [id number] /
[2020-08-15] MEDS: AMPICILLIN 2,000 MG in SODIUM CHLORIDE 0.9% 100 ML IVPB SCH ×4 (02:31→20:32)
[2020-08-15] MEDS: SODIUM CHLORIDE 0.9% 1,000 ML IV SCH (02:36)
[2020-08-15] MEDS: carvediloL 6.25 MG TAB PO SCH ×2 (06:00→15:56)
[2020-08-15 09:20] LABS: Anisocytosis Slight; Basophils % (A) 0 %; Eosinophils # (A) 0.2 k/uL (0-0.7); Eosinophils % (A) 7 %; HCT 31.2 % (39.0-53.0); Hypochromasia Slight; Lymphocytes # (A) 0.4 k/uL (1.0-4.8); Lymphocytes % (A) 11 %; MCH 27.2 pg (25.0-35.0); MCV 84.8 fL (80.0-100.0); Mean Platelet Volume 6.8; Monocytes # (A) 0.1 k/uL (0-1.0); Monocytes % (A) 3 %; Neutrophils # (A) 2.8 k/uL (1.3-7.7); Neutrophils % (A) 78 %; Platelet Count 176 k/uL (150-450); RBC 3.68 m/uL (4.30-5.90); RDW 17.6 % (11.5-15.5); WBC 3.6 k/uL (3.8-10.6)
[2020-08-15 09:28] LABS: Calcium 8.6 mg/dL (8.4-10.2); Potassium 3.9 mmol/L (3.5-5.1); Total Bilirubin 0.6 mg/dL (0.2-1.3); Total Protein 5.6 g/dL (6.3-8.2)
[2020-08-15 09:43] LABS: C Reactive Protein 201.7 mg/L (<10.0)
[2020-08-15] MEDS: PANTOPRAZOLE 40 MG TABLET PO SCH (09:44)
[2020-08-15] MEDS: GABAPENTIN 300 MG CAP PO SCH (09:44)
[2020-08-15] MEDS: FUROSEMIDE 40 MG TAB PO SCH (09:44)
[2020-08-15] MEDS: ASPIRIN 81 MG PO SCH (09:44)
[2020-08-15] MEDS: APIXABAN 5 MG TAB PO SCH ×2 (09:44→20:26)
[2020-08-15 10:24] LABS: Erythrocyte Sedimentation Rate 95 mm/hr (0-15)
[2020-08-15] MEDS ORDERED: CALAMINE/ZINC OXIDE LOTION 177 ML BTL TOPICAL PRN (12:01)
--- NOTE | 2020-08-15 15:30 | PN ---
PROGRESS NOTE The patient is seen for followup for acute kidney injury on top of chronic kidney disease. Renal function is fairly stable, with creatinine staying at about 2.1 mg/dL. The patient was admitted to the hospital with weakness and mental status changes. Currently his blood pressure is borderline. His mentation has improved. He has had good urine output. He has an indwelling Foreman catheter with 24-hour urine output of about 2.6 liters. The patient is maintained on a small dose of oral Lasix daily. PHYSICAL EXAMINATION: On examination today, blood pressure 97/51, heart rate 78 per minute. He is afebrile. EXAMINATION OF THE HEART: S1 and S2. EXAMINATION OF LUNGS: Decreased breath sounds at bases. ABDOMEN: Soft, non-tender. Examination of lower extremities shows trace edema bilaterally. DIGITAL MEDIA REPRESENTATIVE exam shows R sided weakness. LABS: Sodium of 130, potassium 3.9, BUN 25, creatinine 2.15, hemoglobin 10.0 g/dL. ASSESSMENT: 1. Acute kidney injury on top of chronic kidney disease, most likely related to some degree of hypoperfusion. Blood pressure is on the lower side. I will hold off on the Coreg for now. 2. Recent Enterococcus bacteremia and sepsis with endocarditis. 3. Mild hyponatremia, mostly hypervolemic, improved. Continue with Lasix for now. 4. Recent cerebrovascular accident with right-sided weakness. 5. Chronic kidney disease, stage 3. Baseline creatinine 1.3 during his last admission, mostly nephrosclerosis. PLAN: Continue with IV Lasix. Add parameters for Coreg and hold for systolic blood pressure less than 120. Repeat labs in a.m. MMODL / IJN: [id number] / MERVAT
[2020-08-15] MEDS: ACETAMINOPHEN TAB 325 MG TAB PO PRN (15:51)
--- NOTE | 2020-08-15 17:00 | P.PN ---
Subjective Progress Note Date: 08/15/20 Ramin Green, is a 74-year-old male currently residing at a nursing facility after having a stroke about 3 weeks ago, he was noticed to have mental status changes and was transferred to [facility], he was evaluated at [facility]. Computed tomography scan of the head revealed age indeterminate, possible acute or subacute infarct in the left temporal convexityand then transferred to [facility] via ambulance further evaluation and treatment. On arrival to emergency room patient was alert confused in no apparent distress his vital examination reveals a tempera ture of 100.4 pulse 88 respiration 18 pressure 137/65 pulse ox 98% on room air his white blood count was 3.9 hemoglobin 10.8 platelet count 165 sodium 129 potassium 4.0 chloride 93 BUN 28 creatinine 2.17 chest x-ray revealed pulmonary interstitial fibrotic changes EKG revealed normal sinus rhythm with nonspecific ST abnormality. Patient was admitted to telemetry floor neurology consultation was requested in that regard to mental status changes. Patient is unable to give any significant history, from review of chart patient has been diagnosed with bacterial endocarditis for which he is on prolonged IV antibiotics. Patient has a PICC line in the left arm. Past medical history is significant for history of hypertension, history of hyperlipidemia, history of multiple strokes in the past, history of coronary artery disease, history of chronic kidney disease, history of gastroesophageal reflux disease, history of osteoarthritis with previous history of bilateral hip replacement, history of degenerative disc disease with history of back surgery. Review of system is not amenable due to patient confusion. On 08/14/2020 patient is resting comfortably in bed. Patient does appear more alert today. Patient was evaluated by neurology services and they're recommending MRI. Patient was evaluated by cardiology services for a JACOB at this time continue IV antibiotics. Nephrology infectious disease neurology and cardiology services are following. At this time patient denies any significant complaints. Patient denies nausea vomiting or diarrhea. Patient denies any urinary burning or frequency. Patient denies any chest pain or shortness breath. On 08/15/2020 patient was seen and examined on the telemetry floor he is more alert and oriented today his speech has somewhat improved MRI results, input from cardiology, infectious disease and neurology were reviewed, at this time pl an is to continue with IV ampicillin, patient is denying any pain or discomfort denies any chest pain or shortness of breath otherwise no significant information could be obtained from him , will follow closely Objective - Vital Signs Vital signs: Vital Signs Temp 97.8 F 08/15/20 15:54 Pulse 84 08/15/20 15:54 Resp 18 08/15/20 15:54 BP 92/51 08/15/20 15:54 Pulse Ox 99 08/15/20 15:54 Intake & Output 08/14/20 08/15/20 08/15/20 18:59 06:59 18:59 Intake Total 480 300 Output Total 0381 151 2450 Balance -1220 -950 -700 Intake: Oral 480 300 Output: Urine 4196 982 7595 Other: Voiding Method Indwelling Catheter Indwelling Catheter Indwelling Catheter # Bowel Movements 1 - Exam In general patient is alert confused in no apparent distress HEENT head normocephalic and atraumatic Neck is supple no JVD no goiter no lymphadenopathy Chest exam reveals a few scattered rhonchi no wheezing Cardiac exam reveals regular heart sounds S1 and S2 no gallops no murmurs Abdomen is soft nontender no hepatosplenomegaly with normal bowel sounds Extremity examination reveals no edema there is pretibial erythema bilaterally with some scratching montez, there is a scabbed ulcer on the second left toe. Neurological examination patient is alert confused exam very limited due to patient inability to cooperate with exam pupils are round and reactive there is mild weakness in the right lower extremity as compared to the left otherwise no significant abnormality detected. - Labs CBC & Chem 7: 08/15/20 08:27 08/15/20 08:27 Labs: Abnormal Lab Results - Last 24 Hours (Table) 08/15/20 08/15/20 Range/Units 08:27 08:27 WBC 3.6 L (3.8-10.6) k/uL RBC 3.68 L (4.30-5.90) m/uL Hgb 10.0 L (13.0-17.5) gm/dL Hct 31.2 L (39.0-53.0) % RDW 17.6 H (11.5-15.5) % Lymphocytes # 0.4 L (1.0-4.8) k/uL ESR 95 H (0-15) mm/hr Sodium 130 L (137-145) mmol/L Chloride 94 L (98-107) mmol/L BUN 25 H (9-20) mg/dL Creatinine 2.15 H (0.66-1.25) mg/dL Glucose 120 H (74-99) mg/dL C-Reactive Protein 201.7 H (<10.0) mg/L Total Protein 5.6 L (6.3-8.2) g/dL Albumin 3.0 L (3.5-5.0) g/dL Microbiology - Last 24 Hours (Table) 08/13/20 01:15 Blood Culture - Preliminary Blood No Growth after 48 hours 08/13/20 01:00 Blood Culture - Preliminary Blood No Growth after 48 hours Assessment and Plan Plan: 1. Acute mental status changes cause is not currently, neurology consultation and MRI of the brain are pending 2. Subacute ischemic stroke in the left temporal area 3 weeks ago 3. Underlying history of endocarditis maintained on IV antibiotic via PICC line, will continue at this time will consult infectious disease for further evaluation, consult cardiology 4. Underlying history of chronic kidney disease Will monitor kidney function 5. Underlying history of hypertension 6. Underlying history of hyperlipidemia 7. Underlying history of degenerative disc disease with previous history of back surgery Medication and labs were reviewed For DVT prophylaxis patient is on Eliquis For GI prophylaxis patient is on Protonix Infectious disease, neurology, cardiology and nephrology services consulted Carotid Doppler negative
[2020-08-15] MEDS: ASCORBIC ACID 500 MG TAB PO SCH (20:26)
[2020-08-15] MEDS: ATORVASTATIN 40 MG TAB PO SCH (20:27)
[2020-08-15] MEDS: CHOLECALCIFEROL 25 MCG (1000 IU) TABLET PO SCH (20:27)
--- NOTE | 2020-08-15 22:56 | PN ---
PROGRESS NOTE DATE OF SERVICE: 08/15/2020 REASON FOR FOLLOWUP: 1. Enterococcus faecalis bacteremia secondary to aortic valve endocarditis. 2. Contact dermatitis. INTERVAL HISTORY: The patient is currently afebrile. The patient is breathing comfortably. Denies having any chest pain, shortness of breath or cough. No abdominal pain and no diarrhea. PHYSICAL EXAMINATION: Blood pressure is 92/51 with a pulse of 84, temperature 97.8. He is 99% on room air. General description is an elderly male lying in bed in no distress. RESPIRATORY SYSTEM: Unlabored breathing. Clear to auscultation anteriorly. HEART: S1, S2. Regular rate and rhythm. ABDOMEN: Soft. No tenderness. LABS: Hemoglobin is 10, white count 3.6, BUN of 25, creatinine is 2.15. Blood culture has been negative. DIAGNOSTIC IMPRESSION AND PLAN: 1. Patient with Enterococcus faecalis bacteremia secondary to aortic valve endocarditis, for which the patient is currently covered with ampicillin; to continue. Repeat blood culture came back negative. JACOB was discussed with Cardiology. The patient is considered to be high risk for any surgical intervention to his valves and they did not see any benefit from doing a JACOB at this point, as it would not change the management. Will keep the patient on ampicillin and monitor his clinical course closely. 2. Patient with rash on the back, more likely contact dermatitis. Will apply Calmoseptine lotion and keep the area off pressure. MMODL / IJN: [id number] /
[2020-08-16] MEDS: AMPICILLIN 2,000 MG in SODIUM CHLORIDE 0.9% 100 ML IVPB SCH ×4 (04:59→20:25)
[2020-08-16] MEDS: SODIUM CHLORIDE 0.9% 1,000 ML IV SCH (05:00)
[2020-08-16] MEDS: carvediloL 6.25 MG TAB PO SCH ×2 (06:30→17:39)
[2020-08-16 07:05] LABS: Anisocytosis Slight; Basophils % (A) 0 %; Eosinophils # (A) 0.3 k/uL (0-0.7); Eosinophils % (A) 7 %; HCT 29.3 % (39.0-53.0); HGB 9.6 gm/dL (13.0-17.5); Lymphocytes # (A) 0.5 k/uL (1.0-4.8); Lymphocytes % (A) 10 %; MCH 27.3 pg (25.0-35.0); MCHC 32.7 g/dL (31.0-37.0); MCV 83.7 fL (80.0-100.0); Monocytes # (A) 0.1 k/uL (0-1.0); Monocytes % (A) 3 %; Neutrophils # (A) 3.4 k/uL (1.3-7.7); Neutrophils % (A) 79 %; Platelet Count 176 k/uL (150-450); RDW 17.4 % (11.5-15.5); WBC 4.4 k/uL (3.8-10.6)
[2020-08-16 07:17] LABS: Albumin 2.6 g/dL (3.5-5.0); Calcium 8.2 mg/dL (8.4-10.2); Potassium 3.7 mmol/L (3.5-5.1); Total Bilirubin 0.4 mg/dL (0.2-1.3); Total Protein 5.2 g/dL (6.3-8.2)
[2020-08-16] MEDS: GABAPENTIN 300 MG CAP PO SCH (09:16)
[2020-08-16] MEDS: PANTOPRAZOLE 40 MG TABLET PO SCH (09:16)
[2020-08-16] MEDS: FUROSEMIDE 40 MG TAB PO SCH (09:16)
[2020-08-16] MEDS: ASPIRIN 81 MG PO SCH (09:16)
[2020-08-16] MEDS: APIXABAN 5 MG TAB PO SCH ×2 (09:16→20:25)
--- NOTE | 2020-08-16 10:34 | P.PN ---
Subjective Progress Note Date: 08/16/20 Ramin Green, is a 74-year-old male currently residing at a nursing facility after having a stroke about 3 weeks ago, he was noticed to have mental status changes and was transferred to [facility], he was evaluated at [facility]. Computed tomography scan of the head revealed age indeterminate, possible acute or subacute infarct in the left temporal convexityand then transferred to [facility] via ambulance further evaluation and treatment. On arrival to emergency room patient was alert confused in no apparent distress his vital examination reveals a tempera ture of 100.4 pulse 88 respiration 18 pressure 137/65 pulse ox 98% on room air his white blood count was 3.9 hemoglobin 10.8 platelet count 165 sodium 129 potassium 4.0 chloride 93 BUN 28 creatinine 2.17 chest x-ray revealed pulmonary interstitial fibrotic changes EKG revealed normal sinus rhythm with nonspecific ST abnormality. Patient was admitted to telemetry floor neurology consultation was requested in that regard to mental status changes. Patient is unable to give any significant history, from review of chart patient has been diagnosed with bacterial endocarditis for which he is on prolonged IV antibiotics. Patient has a PICC line in the left arm. Past medical history is significant for history of hypertension, history of hyperlipidemia, history of multiple strokes in the past, history of coronary artery disease, history of chronic kidney disease, history of gastroesophageal reflux disease, history of osteoarthritis with previous history of bilateral hip replacement, history of degenerative disc disease with history of back surgery. Review of system is not amenable due to patient confusion. On 08/14/2020 patient is resting comfortably in bed. Patient does appear more alert today. Patient was evaluated by neurology services and they're recommending MRI. Patient was evaluated by cardiology services for a JACOB at this time continue IV antibiotics. Nephrology infectious disease neurology and cardiology services are following. At this time patient denies any significant complaints. Patient denies nausea vomiting or diarrhea. Patient denies any urinary burning or frequency. Patient denies any chest pain or shortness breath. On 08/15/2020 patient was seen and examined on the telemetry floor he is more alert and oriented today his speech has somewhat improved MRI results, input from cardiology, infectious disease and neurology were reviewed, at this time pl an is to continue with IV ampicillin, patient is denying any pain or discomfort denies any chest pain or shortness of breath otherwise no significant information could be obtained from him , will follow closely On 08/16/2020 patient is resting comfortably in bed. EEG has been ordered per neurology services. Patient remains on IV ampicillin. Neurology, cardiology, infectious disease and nephrology services are following. Creatinine increasing to 2.23 and bun 24. This time patient denies any acute pains. Denies chest pain or shortness breath. Patient denies nausea vomiting or diarrhea. Patient denies any urinary burning or frequency. Objective - Vital Signs Vital signs: Vital Signs Temp 97.6 F 08/16/20 08:00 Pulse 86 08/16/20 08:00 Resp 16 08/16/20 08:00 BP 84/54 08/16/20 08:00 Pulse Ox 98 08/16/20 08:00 Intake & Output 08/15/20 08/16/20 08/16/20 18:59 06:59 18:59 Intake Total 860 240 Output Total 1600 900 Balance -740 -900 240 Intake: Intake, IV Titration 320 Amount Ampicillin 2,000 mg In 320 Sodium Chloride 0.9% 100 ml @ 200 mls/hr IVPB Q6H [facility] Rx#:[id number] Oral 540 240 Output: Urine 1600 900 Other: Voiding Method Indwelling Catheter Indwelling Catheter - Exam In general patient is alert confused in no apparent distress HEENT head normocephalic and atraumatic Neck is supple no JVD no goiter no lymphadenopathy Chest exam reveals a few scattered rhonchi no wheezing Cardiac exam reveals regular heart sounds S1 and S2 no gallops no murmurs Abdomen is soft nontender no hepatosplenomegaly with normal bowel sounds Extremity examination reveals no edema there is pretibial erythema bilaterally with some scratching montez, there is a scabbed ulcer on the second left toe. Neurological examination patient is alert confused exam very limited due to patient inability to cooperate with exam pupils are round and reactive there is mild weakness in the right lower extremity as compared to the left otherwise no significant abnormality detected. - Labs CBC & Chem 7: 08/16/20 06:31 08/16/20 06:31 Labs: Abnormal Lab Results - Last 24 Hours (Table) 08/16/20 08/16/20 Range/Units 06:31 06:31 RBC 3.50 L (4.30-5.90) m/uL Hgb 9.6 L (13.0-17.5) gm/dL Hct 29.3 L (39.0-53.0) % RDW 17.4 H (11.5-15.5) % Lymphocytes # 0.5 L (1.0-4.8) k/uL Sodium 129 L (137-145) mmol/L Chloride 96 L (98-107) mmol/L BUN 24 H (9-20) mg/dL Creatinine 2.33 H (0.66-1.25) mg/dL Glucose 110 H (74-99) mg/dL Calcium 8.2 L (8.4-10.2) mg/dL Total Protein 5.2 L (6.3-8.2) g/dL Albumin 2.6 L (3.5-5.0) g/dL Microbiology - Last 24 Hours (Table) 08/13/20 01:15 Blood Culture - Preliminary Blood No Growth after 72 hours 08/13/20 01:00 Blood Culture - Preliminary Blood No Growth after 72 hours Assessment and Plan Plan: 1. Acute mental status changes cause is not currently. Neurology Services are following. MRI of the head was completed showing findings likely represent subacute infarcts bilaterally rather than herpes encephalitis. Correlate for embolic phenomenon. 2. Subacute ischemic stroke in the left temporal area 3 weeks ago 3. Underlying history of endocarditis maintained on IV antibiotic via PICC line, will continue at this time will consult infectious disease for further evaluation, consult cardiology 4. Underlying history of chronic kidney disease Will monitor kidney function 5. Underlying history of hypertension 6. Underlying history of hyperlipidemia 7. Underlying history of degenerative disc disease with previous history of back surgery Medication and labs were reviewed For DVT prophylaxis patient is on Eliquis For GI prophylaxis patient is on Protonix Infectious disease, neurology, cardiology and nephrology services consulted Carotid Doppler negative
[2020-08-16] MEDS: MIDODRINE 5 MG TAB PO SCH ×2 (12:58→18:13)
--- NOTE | 2020-08-16 13:09 | P.PN ---
Subjective This is a pleasant 74-year-old male seen and examined resting comfortably laying flat in bed in no acute distress. He has a known history of expressive aphasia status post CVA. Brain MRI on this admission reveals subacute infarcts bilaterally rather than herpes encephalitis, correlate for embolic phenomenon. Blood pressure 114/53 heart rate 86 afebrile and maintaining oxygen saturation on room air. Laboratory data reviewed, sodium 129, potassium 3.7, creatinine 2.33. Currently maintained on Eliquis 5 mg twice a day, aspirin 81 mg daily, atorvastatin 40 mg daily, Coreg 6.25 mg twice a day, Lasix 40 mg by mouth daily and midodrine 5 mg 3 times a day was added today per nephrology. Telemetry tracings reveal persistent sinus mechanism with no arrhythmia or pauses noted. GENERAL: Well-appearing, well-nourished and in no acute distress. NECK: Supple without JVD or thyromegaly. LUNGS: Breath sounds clear to auscultation bilaterally. Respiration equal and unlabored. No wheezes, rales or rhonchi. HEART: Regular rate and rhythm without murmurs, rubs or gallops. S1 and S2 heard. EXTREMITIES: Normal range of motion, no edema. No clubbing or cyanosis. Peripheral pulses intact. 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 No plans for JACOB at this time, he is high risk surgical candidate therefore a JACOB would not change his management at this point. Decrease lasix to 20 mg daily. We will follow along as needed, please call with further questions or concerns. Nurse Practitioner note has been reviewed, I agree with a documented findings and plan of care. Patient was seen and examined. Objective - Vital Signs Vital signs: Vital Signs Temp 97.8 F 08/16/20 12:00 Pulse 86 08/16/20 12:00 Resp 18 08/16/20 12:00 BP 114/53 08/16/20 12:00 Pulse Ox 97 08/16/20 12:00 Intake & Output 08/15/20 08/16/20 08/16/20 18:59 06:59 18:59 Intake Total 860 240 Output Total 1600 900 Balance -740 -900 240 Intake: Intake, IV Titration 320 Amount Ampicillin 2,000 mg In 320 Sodium Chloride 0.9% 100 ml @ 200 mls/hr IVPB Q6H [facility] Rx#:[id number] Oral 540 240 Output: Urine 1600 900 Other: Voiding Method Indwelling Catheter Indwelling Catheter Indwelling Catheter - Labs CBC & Chem 7: 08/16/20 06:31 08/16/20 06:31 Labs: Abnormal Lab Results - Last 24 Hours (Table) 08/16/20 08/16/20 Range/Units 06:31 06:31 RBC 3.50 L (4.30-5.90) m/uL Hgb 9.6 L (13.0-17.5) gm/dL Hct 29.3 L (39.0-53.0) % RDW 17.4 H (11.5-15.5) % Lymphocytes # 0.5 L (1.0-4.8) k/uL Sodium 129 L (137-145) mmol/L Chloride 96 L (98-107) mmol/L BUN 24 H (9-20) mg/dL Creatinine 2.33 H (0.66-1.25) mg/dL Glucose 110 H (74-99) mg/dL Calcium 8.2 L (8.4-10.2) mg/dL Total Protein 5.2 L (6.3-8.2) g/dL Albumin 2.6 L (3.5-5.0) g/dL Microbiology - Last 24 Hours (Table) 08/13/20 01:15 Blood Culture - Preliminary Blood No Growth after 72 hours 08/13/20 01:00 Blood Culture - Preliminary Blood No Growth after 72 hours
[2020-08-16] MEDS: ACETAMINOPHEN TAB 325 MG TAB PO PRN ×2 (15:54→23:31)
--- NOTE | 2020-08-16 17:36 | PN ---
PROGRESS NOTE DATE OF SERVICE: 08/16/2020 REASON FOR FOLLOWUP: Enterococcus faecalis endocarditis. INTERVAL HISTORY: The patient is currently afebrile. The patient is breathing comfortably. No chest pain, shortness of breath or cough. No abdominal pain or any diarrhea has been reported. PHYSICAL EXAMINATION: Blood pressure is 114/53, pulse of 86, temperature 97.8. He is 97% on room air. General description is an elderly male lying in bed in no distress. RESPIRATORY SYSTEM: Unlabored breathing. Clear to auscultation anteriorly. HEART: S1, S2. Regular rate and rhythm. ABDOMEN: Soft. No tenderness. LABS: Hemoglobin is 9.6, white count 4.4, BUN of 24, creatinine is 2.33. Blood culture has been negative. DIAGNOSTIC IMPRESSION AND PLAN: 1. 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 Blood culture repeat has been negative in the hospital with possible CVA, being managed closely Neurology. Patient to continue with ampicillin. 2. Patient with contact dermatitis on the back. No evidence of any rash on the anterior abdominal wall. Clinically doubt related to ampicillin, and will be treated locally with Calmoseptine lotion. MMODL / IJN: [id number] /
--- NOTE | 2020-08-16 18:17 | PN ---
PROGRESS NOTE Patient is seen for followup for acute kidney injury on top of chronic kidney disease. He was recently discharged from the hospital after hospitalization for sepsis and Enterococcus bacteremia and endocarditis. He was readmitted with mental status changes. The patient's blood pressure has been on the lower side. His creatinine has increased from about 1.9 to 2 to 2.3 today. Otherwise, mostly staying at about 2.1. Lowest creatinine on 07/25/2020 was 1.3 to 1.5 mg/dL. PHYSICAL EXAMINATION: On examination today, patient is comfortable. He is awake, not in any acute distress. Blood pressure was 84/54 this morning, heart rate of 80 per minute. He is afebrile. EXAMINATION OF THE HEART: S1 and S2. EXAMINATION OF LUNGS: Decreased breath sounds at bases. ABDOMEN: Soft, non-tender. Examination of lower extremities shows chronic skin changes. No significant edema. SECTION [employer] exam shows right-sided weakness. LABS: Sodium 129, potassium 3.7, chloride 96, BUN 24, creatinine 2.33, hemoglobin 9.6 g/dL. ASSESSMENT: 1. Acute kidney injury secondary to hypotension, hypoperfusion. Midodrine has been added. Add parameters for Coreg. 2. Recent Enterococcus bacteremia sepsis from endocarditis. Repeat blood cultures currently negative, being followed by Infectious Disease, maintained on antibiotics. 3. Mild hyponatremia, mostly hypervolemic, status post Lasix. Sodium is staying at 129 to 130. I will hold off on the diuretics, given the significant hypotension and worsening renal function at this point. 4. Recent cerebrovascular accident with right-sided weakness. 5. Chronic kidney disease, stage 3. Baseline creatinine 1.3, mostly secondary to nephrosclerosis. PLAN: Add midodrine for hypotension. Hold off on Lasix and Coreg for now. Repeat labs in a.m. MMODL / IJN: [id number] /
--- NOTE | 2020-08-16 20:19 | P.PN ---
Subjective Progress Note Date: 08/15/20 Patient's was also present today. Patient continues to be severely aphasic. Not able to answer any questions. Patient has garbled speech. Patient can name some objects, but appears to have significant paraphasic errors. She states that patient is no improvement. Still with significant expressive aphasia. Patient's states that patient had history of a stroke in 2016, which affected his right side of the body. 3 months later it affected the opposite side but was a much minor stroke. No headache. Telemetry monitoring showing sinus rhythm. Objective - Vital Signs Vital signs: Vital Signs Temp 97.8 F 08/15/20 15:54 Pulse 84 08/15/20 15:54 Resp 18 08/15/20 15:54 BP 92/51 08/15/20 15:54 Pulse Ox 99 08/15/20 15:54 Intake & Output 08/14/20 08/15/20 08/15/20 18:59 06:59 18:59 Intake Total 480 860 Output Total 6401 217 4752 Balance -1220 -950 -740 Intake: Intake, IV Titration 320 Amount Ampicillin 2,000 mg In 320 Sodium Chloride 0.9% 100 ml @ 200 mls/hr IVPB Q6H [facility] Rx#:[id number] Oral 480 540 Output: Urine 6951 339 5492 Other: Voiding Method Indwelling Catheter Indwelling Catheter Indwelling Catheter # Bowel Movements 1 - Exam Patient is alert and awake. Patient cannot name, cannot repeat. Patient has mild right hemiparesis. Toe extension is much weaker on the right. - Labs CBC & Chem 7: 08/16/20 06:31 08/16/20 06:31 Labs: Abnormal Lab Results - Last 24 Hours (Table) 08/15/20 08/15/20 Range/Units 08:27 08:27 WBC 3.6 L (3.8-10.6) k/uL RBC 3.68 L (4.30-5.90) m/uL Hgb 10.0 L (13.0-17.5) gm/dL Hct 31.2 L (39.0-53.0) % RDW 17.6 H (11.5-15.5) % Lymphocytes # 0.4 L (1.0-4.8) k/uL ESR 95 H (0-15) mm/hr Sodium 130 L (137-145) mmol/L Chloride 94 L (98-107) mmol/L BUN 25 H (9-20) mg/dL Creatinine 2.15 H (0.66-1.25) mg/dL Glucose 120 H (74-99) mg/dL C-Reactive Protein 201.7 H (<10.0) mg/L Total Protein 5.6 L (6.3-8.2) g/dL Albumin 3.0 L (3.5-5.0) g/dL Microbiology - Last 24 Hours (Table) 08/13/20 01:15 Blood Culture - Preliminary Blood No Growth after 48 hours 08/13/20 01:00 Blood Culture - Preliminary Blood No Growth after 48 hours Assessment and Plan Assessment: * Subacute ischemic stroke involving left temporal convexity, manifesting with some fluent aphasia. * Reported history of endocarditis, possible septic embolism. * Hyperlipidemia * Hypertension * Chronic renal insufficiency * History of back surgery. Plan: * MRI of the brain with and without contrast revealed findings likely represent subacute infarcts bilaterally rather than herpes encephalitis, correlate for embolic phenomenon. * Carotid Doppler showed no significant stenosis. Antegrade flow in both vertebral arteries. * Apparently patient had a JACOB performed on 07/26/2020 (did not notice it yester day), which revealed aortic valve was trileaflet valve appears sclerotic. There is small echo dense lesion noted on the aortic surface of the non- coronary cusp, which is small, echo dense and mobile. There is trace aortic regurgitation. These no evidence of aortic root abscess. Left atrium is en larged. EF is 60%. Interatrial Septum is intact, with no ggvn-yf-ursad shunt by color flow Doppler or [id number]-az-rbqs shunt by agitated saline contrast study. No need to repeat this study. Will discuss with infectious disease. * Patient's hemoglobin A1c 5.8 on 05/13/2020. * Lipid panel showed cholesterol 164, LDL 77, HDL 45 and triglycerides 209 on 05/13/2020. Continue statins. * Continue Apixaban and aspirin 81 mg.
--- NOTE | 2020-08-16 20:19 | EEG ---
ELECTROENCEPHALOGRAM REPORT DATE OF SERVICE: 08/16/2020. PREAMBLE: This is a 74-year-old male who has history of stroke with altered mental status. This study is performed to evaluate for any epileptiform activity. EEG FINDINGS: This is a 21-channel routine EEG recording in a patient utilizing 10-20 international system with referential and bipolar montages. Background consists of well-developed, moderately well-regulated, slightly dysrhythmic theta activity, somewhat better seen in the right hemispheric region. Background seems to be minimally reactive to eye opening and closing. There is near-continuous focal dysrhythmic theta and delta activity seen in the left hemispheric region. Photic driving response was not seen. Different stages of sleep were not seen. No focal or generalized epileptiform activity was seen. EKG rhythm showed no definite arrhythmia. IMPRESSION: This is an abnormal EEG due to: 1. Constant focal slowing and dysrhythmic delta and theta activity in the left hemispheric region, suggestive of underlying cortical dysfunction. 2. Background slowing of mild to moderate degree, suggestive of generalized cerebral dysfunction as can be seen with toxic metabolic encephalopathy or due to diffuse structural brain abnormality. 3. No epileptiform activity was seen. MMODL / IJN: [id number] /
[2020-08-16] MEDS: CHOLECALCIFEROL 25 MCG (1000 IU) TABLET PO SCH (20:25)
[2020-08-16] MEDS: ASCORBIC ACID 500 MG TAB PO SCH (20:25)
[2020-08-16] MEDS: ATORVASTATIN 40 MG TAB PO SCH (20:25)
--- NOTE | 2020-08-16 20:38 | P.PN ---
Subjective Progress Note Date: 08/16/20 Patient was seen for a follow-up. Patient appears much better today. Patient able to answer questions and follow directions much better as compared to yesterday. Please refer to examination below. Patient denies headache. Patient's had mentioned that patient had history of a stroke in 2016, which affected his right side of the body. 3 months later it affected the opposite side but was a much minor stroke. No headache. Telemetry monitoring showing sinus rhythm. Objective - Vital Signs Vital signs: Vital Signs Temp 98.5 F 08/16/20 19:58 Pulse 81 08/16/20 19:58 Resp 16 08/16/20 19:58 BP 90/50 08/16/20 19:58 Pulse Ox 98 08/16/20 19:58 Intake & Output 08/16/20 08/16/20 08/17/20 06:59 18:59 06:59 Intake Total 480 Output Total 900 800 Balance -900 -320 Intake: Oral 480 Output: Urine 900 800 Other: Voiding Method Indwelling Catheter Indwelling Catheter - Exam Patient is alert and awake. Patient was able to name thumb. He has some paraphasic errors, saying "[employer]" for eyeglasses. Patient not able to tell what city he is in. He could not tell name of the current president, but when I give him choices, he picked up the correct president. Patient sometimes speak complete sentences, like said "don't know what comes out right" on cranial examination pupils are round and reactive to light, patient has right homonymous hemianopia. Patient has no facial droop and tongue protrudes to the midline. Hearing is decreased. On muscle strength testing patient has right pronator drift. The strength is (right/left) deltoid 5-/5, biceps 4+/5, pipe layer helper 5-/5, triceps 4+/5. Hip flexion 3-4/4+5, ankle dorsiflexion 4 to 4-/4+5- Patient has equal sensations, no neglect on double simultaneous stimulation. Telemetry monitoring showing sinus rhythm. - Labs CBC & Chem 7: 08/16/20 06:31 08/16/20 06:31 Labs: Abnormal Lab Results - Last 24 Hours (Table) 08/16/20 08/16/20 Range/Units 06:31 06:31 RBC 3.50 L (4.30-5.90) m/uL Hgb 9.6 L (13.0-17.5) gm/dL Hct 29.3 L (39.0-53.0) % RDW 17.4 H (11.5-15.5) % Lymphocytes # 0.5 L (1.0-4.8) k/uL Sodium 129 L (137-145) mmol/L Chloride 96 L (98-107) mmol/L BUN 24 H (9-20) mg/dL Creatinine 2.33 H (0.66-1.25) mg/dL Glucose 110 H (74-99) mg/dL Calcium 8.2 L (8.4-10.2) mg/dL Total Protein 5.2 L (6.3-8.2) g/dL Albumin 2.6 L (3.5-5.0) g/dL Microbiology - Last 24 Hours (Table) 08/13/20 01:15 Blood Culture - Preliminary Blood No Growth after 72 hours 08/13/20 01:00 Blood Culture - Preliminary Blood No Growth after 72 hours Assessment and Plan Assessment: * Subacute infarcts bilaterally, suggestive of embolic phenomenon. Patient has expressive aphasia, right homonymous hemianopia and mild right hemiparesis. Patient's clinical condition including speech and comprehension has improved as compared to yesterday examination. * Reported history of endocarditis, possible septic embolism. * Hyperlipidemia * Hypertension * Chronic renal insufficiency * History of back surgery. Plan: * Patient appears to be better as compared to yesterday. His speech and comprehension has improved. Patient able to express himself, and has some intelligible speech. Able to participate with examination. * MRI of the brain with and without contrast revealed findings likely represent subacute infarcts bilaterally rather than herpes encephalitis, correlate for embolic phenomenon. * Carotid Doppler showed no significant stenosis. Antegrade flow in both vertebral arteries. * Apparently patient had a JACOB performed on 07/26/2020, which revealed aortic valve was trileaflet valve appears sclerotic. There is small echo dense lesion noted on the aortic surface of the non-coronary cusp, which is small, echo dense and mobile. There is trace aortic regurgitation. These no evidence of aortic root abscess. Left atrium is enlarged. EF is 60%. Interatrial Septum is intact, with no quic-re-qdqfk shunt by color flow Doppler or xraws-ko-tbgn shunt by agitated saline contrast study. No need to repeat this study. Discussed with infectious disease, no need to repeat the JACOB, as it will not change the management. Patient needs to complete the course of antibiotic. * Patient's hemoglobin A1c 5.8 on 05/13/2020. * Lipid panel showed cholesterol 164, LDL 77, HDL 45 and triglycerides 209 on 05/13/2020. Continue statins. * Continue Apixaban and aspirin 81 mg. * EEG was performed today, which was abnormal due to constant focal slowing and dysrhythmic delta and theta activity in the left hemispheric region, suggestive of underlying cortical dysfunction. Background slowing of mild to moderate degree suggestive of generalized cerebral dysfunction as can be seen with toxic metabolic encephalopathy or due to diffuse structural brain abnormality. No epileptiform activity was seen. * Continue present management and complete the course of antibiotics as per ID. As there is no active neurological issue, neurologically he is clear for discharge to rehab facility. No other neurological workup indicated. Neurology will sign off. Please reconsult us if any other concerns
[2020-08-17] MEDS: AMPICILLIN 2,000 MG in SODIUM CHLORIDE 0.9% 100 ML IVPB SCH ×4 (03:15→20:17)
[2020-08-17 03:17] LABS: Glucose,Whole Blood 142 mg/dL (75-99)
[2020-08-17] MEDS: SODIUM CHLORIDE 0.9% 1,000 ML IV SCH (03:24)
[2020-08-17] MEDS: MIDODRINE 5 MG TAB PO SCH ×3 (06:25→17:15)
[2020-08-17] MEDS: carvediloL 6.25 MG TAB PO SCH ×2 (06:25→17:15)
[2020-08-17 07:40] LABS: Anisocytosis Slight; Basophils % (A) 0 %; Eosinophils # (A) 0.4 k/uL (0-0.7); Eosinophils % (A) 9 %; HCT 31.1 % (39.0-53.0); HGB 9.8 gm/dL (13.0-17.5); Hypochromasia Moderate; Lymphocytes # (A) 0.4 k/uL (1.0-4.8); Lymphocytes % (A) 9 %; MCH 26.8 pg (25.0-35.0); MCHC 31.7 g/dL (31.0-37.0); MCV 84.5 fL (80.0-100.0); Mean Platelet Volume 6.8; Monocytes # (A) 0.1 k/uL (0-1.0); Monocytes % (A) 3 %; Neutrophils # (A) 3.7 k/uL (1.3-7.7); Neutrophils % (A) 79 %; Platelet Count 206 k/uL (150-450); RBC 3.67 m/uL (4.30-5.90); RDW 17.4 % (11.5-15.5); WBC 4.7 k/uL (3.8-10.6)
[2020-08-17 08:17] LABS: Albumin 2.6 g/dL (3.5-5.0); Calcium 8.5 mg/dL (8.4-10.2); Potassium 3.6 mmol/L (3.5-5.1); Total Bilirubin 0.6 mg/dL (0.2-1.3); Total Protein 5.2 g/dL (6.3-8.2)
[2020-08-17] MEDS: FUROSEMIDE 20 MG TAB PO SCH (08:56)
[2020-08-17] MEDS: APIXABAN 5 MG TAB PO SCH ×2 (08:56→20:17)
[2020-08-17] MEDS: PANTOPRAZOLE 40 MG TABLET PO SCH (08:57)
[2020-08-17] MEDS: ASPIRIN 81 MG PO SCH (08:57)
[2020-08-17] MEDS: GABAPENTIN 300 MG CAP PO SCH (08:57)
[2020-08-17] MEDS ORDERED: POTASSIUM CHLORIDE ER 20 MEQ TAB.ER PO STA (09:31)
--- NOTE | 2020-08-17 09:33 | P.PN ---
Subjective Patient is seen in follow-up for acute kidney injury on chronic kidney disease. Renal function is stable. Has a Foreman catheter. Nonoliguric. Oral intake has been fair. No vomiting or diarrhea. Blood pressure remains on the lower side. Vital signs are stable. Blood pressure on the lower side. General: The patient appeared well nourished and normally developed. HEENT: Head exam is unremarkable. Neck is without jugular venous distension. LUNGS: Breath sounds decreased. HEART: Rate and Rhythm are regular. ABDOMEN: Soft, nontender. EXTREMITITES: Trace edema. Objective - Vital Signs Vital signs: Vital Signs Temp 98.1 F 08/17/20 08:00 Pulse 93 08/17/20 08:00 Resp 18 08/17/20 08:00 BP 96/54 08/17/20 08:00 Pulse Ox 96 08/17/20 08:00 Intake & Output 08/16/20 08/17/20 08/17/20 18:59 06:59 18:59 Intake Total 480 Output Total 800 500 Balance -320 -500 Intake: Oral 480 Output: Urine 800 500 Other: Voiding Method Indwelling Catheter Indwelling Catheter # Bowel Movements 1 - Labs CBC & Chem 7: 08/17/20 07:06 08/17/20 07:06 Labs: Abnormal Lab Results - Last 24 Hours (Table) 08/17/20 08/17/20 08/17/20 Range/Units 03:15 07:06 07:06 RBC 3.67 L (4.30-5.90) m/uL Hgb 9.8 L (13.0-17.5) gm/dL Hct 31.1 L (39.0-53.0) % RDW 17.4 H (11.5-15.5) % Lymphocytes # 0.4 L (1.0-4.8) k/uL Sodium 130 L (137-145) mmol/L Chloride 97 L (98-107) mmol/L BUN 26 H (9-20) mg/dL Creatinine 2.28 H (0.66-1.25) mg/dL Glucose 104 H (74-99) mg/dL POC Glucose (mg/dL) 142 H (75-99) mg/dL Total Protein 5.2 L (6.3-8.2) g/dL Albumin 2.6 L (3.5-5.0) g/dL Microbiology - Last 24 Hours (Table) 08/13/20 01:15 Blood Culture - Preliminary Blood No Growth after 96 hours 08/13/20 01:00 Blood Culture - Preliminary Blood No Growth after 96 hours Assessment and Plan Plan: Assessment: 1. Acute kidney injury secondary to ATN secondary to infection and hypotension. Renal function stable. Creatinine 2.28 today. 2. Recent enterococcus bacteremia with endocarditis. On antibiotics per infectious disease. 3. Hypervolemic hyponatremia. 4. Chronic kidney disease stage III with baseline creatinine near 1.3 secondary to nephrosclerosis. 5. Hypotension maintained on midodrine. 6. Volume overload. Maintained on oral Lasix. 7. Hypokalemia from diuresis. Plan: Maintain Lasix 20 mg orally once daily. 1500 mL fluid restriction. Check morning cortisol level. Avoid nephrotoxins. Continue to monitor renal function and urine output. Replace potassium.
--- NOTE | 2020-08-17 12:58 | P.PN ---
Subjective Progress Note Date: 08/17/20 Ramin Green, is a 74-year-old male currently residing at a nursing facility after having a stroke about 3 weeks ago, he was noticed to have mental status changes and was transferred to [facility], he was evaluated at [facility]. Computed tomography scan of the head revealed age indeterminate, possible acute or subacute infarct in the left temporal convexityand then transferred to [facility] via ambulance further evaluation and treatment. On arrival to emergency room patient was alert confused in no apparent distress his vital examination reveals a tempera ture of 100.4 pulse 88 respiration 18 pressure 137/65 pulse ox 98% on room air his white blood count was 3.9 hemoglobin 10.8 platelet count 165 sodium 129 potassium 4.0 chloride 93 BUN 28 creatinine 2.17 chest x-ray revealed pulmonary interstitial fibrotic changes EKG revealed normal sinus rhythm with nonspecific ST abnormality. Patient was admitted to telemetry floor neurology consultation was requested in that regard to mental status changes. Patient is unable to give any significant history, from review of chart patient has been diagnosed with bacterial endocarditis for which he is on prolonged IV antibiotics. Patient has a PICC line in the left arm. Past medical history is significant for history of hypertension, history of hyperlipidemia, history of multiple strokes in the past, history of coronary artery disease, history of chronic kidney disease, history of gastroesophageal reflux disease, history of osteoarthritis with previous history of bilateral hip replacement, history of degenerative disc disease with history of back surgery. Review of system is not amenable due to patient confusion. On 08/14/2020 patient is resting comfortably in bed. Patient does appear more alert today. Patient was evaluated by neurology services and they're recommending MRI. Patient was evaluated by cardiology services for a JACOB at this time continue IV antibiotics. Nephrology infectious disease neurology and cardiology services are following. At this time patient denies any significant complaints. Patient denies nausea vomiting or diarrhea. Patient denies any urinary burning or frequency. Patient denies any chest pain or shortness breath. On 08/15/2020 patient was seen and examined on the telemetry floor he is more alert and oriented today his speech has somewhat improved MRI results, input from cardiology, infectious disease and neurology were reviewed, at this time pl an is to continue with IV ampicillin, patient is denying any pain or discomfort denies any chest pain or shortness of breath otherwise no significant information could be obtained from him , will follow closely On 08/16/2020 patient is resting comfortably in bed. EEG has been ordered per neurology services. Patient remains on IV ampicillin. Neurology, cardiology, infectious disease and nephrology services are following. Creatinine increasing to 2.23 and bun 24. This time patient denies any acute pains. Denies chest pain or shortness breath. Patient denies nausea vomiting or diarrhea. Patient denies any urinary burning or frequency. On 08/17/2020 patient was seen and examined on the medical floor he is alert and oriented 3 in no apparent distress he is still having some difficulty with his speech otherwise no significant abnormality at this time he is maintained on IV antibiotics and is followed by infectious disease cardiology and neurology there is no fever or chills at this time no headache or dizziness no chest pain no shortness of breath no cough no nausea or vomiting no abdominal pain no diarrhea and no urinary symptoms Objective - Vital Signs Vital signs: Vital Signs Temp 98.1 F 08/17/20 08:00 Pulse 93 08/17/20 08:00 Resp 18 08/17/20 08:00 BP 96/54 08/17/20 08:00 Pulse Ox 96 08/17/20 08:00 Intake & Output 08/16/20 08/17/20 08/17/20 18:59 06:59 18:59 Intake Total 480 Output Total 800 500 Balance -320 -500 Weight 99.79 kg Intake: Oral 480 Output: Urine 800 500 Other: Voiding Method Indwelling Catheter Indwelling Catheter Indwelling Catheter # Bowel Movements 1 - Exam In general patient is alert confused in no apparent distress HEENT head normocephalic and atraumatic Neck is supple no JVD no goiter no lymphadenopathy Chest exam reveals a few scattered rhonchi no wheezing Cardiac exam reveals regular heart sounds S1 and S2 no gallops no murmurs Abdomen is soft nontender no hepatosplenomegaly with normal bowel sounds Extremity examination reveals no edema there is pretibial erythema bilaterally with some scratching montez, there is a scabbed ulcer on the second left toe. Neurological examination patient is alert confused exam very limited due to patient inability to cooperate with exam pupils are round and reactive there is mild weakness in the right lower extremity as compared to the left otherwise no significant abnormality detected. - Labs CBC & Chem 7: 08/17/20 07:06 08/17/20 07:06 Labs: Abnormal Lab Results - Last 24 Hours (Table) 08/17/20 08/17/20 08/17/20 Range/Units 03:15 07:06 07:06 RBC 3.67 L (4.30-5.90) m/uL Hgb 9.8 L (13.0-17.5) gm/dL Hct 31.1 L (39.0-53.0) % RDW 17.4 H (11.5-15.5) % Lymphocytes # 0.4 L (1.0-4.8) k/uL Sodium 130 L (137-145) mmol/L Chloride 97 L (98-107) mmol/L BUN 26 H (9-20) mg/dL Creatinine 2.28 H (0.66-1.25) mg/dL Glucose 104 H (74-99) mg/dL POC Glucose (mg/dL) 142 H (75-99) mg/dL Total Protein 5.2 L (6.3-8.2) g/dL Albumin 2.6 L (3.5-5.0) g/dL Microbiology - Last 24 Hours (Table) 08/13/20 01:15 Blood Culture - Preliminary Blood No Growth after 96 hours 08/13/20 01:00 Blood Culture - Preliminary Blood No Growth after 96 hours Assessment and Plan Plan: 1. Acute mental status changes cause is not currently. Neurology Services are following. MRI of the head was completed showing findings likely represent subacute infarcts bilaterally rather than herpes encephalitis. Correlate for embolic phenomenon. 2. Subacute ischemic stroke in the left temporal area 3 weeks ago 3. Underlying history of endocarditis maintained on IV antibiotic via PICC line, will continue at this time will consult infectious disease for further evaluation, consult cardiology 4. Underlying history of chronic kidney disease Will monitor kidney function 5. Underlying history of hypertension 6. Underlying history of hyperlipidemia 7. Underlying history of degenerative disc disease with previous history of back surgery Medication and labs were reviewed For DVT prophylaxis patient is on Eliquis For GI prophylaxis patient is on Protonix Infectious disease, neurology, cardiology and nephrology services consulted Carotid Doppler negative
--- NOTE | 2020-08-17 13:07 | PN ---
PROGRESS NOTE DATE OF SERVICE: 08/17/2020 REASON FOR FOLLOWUP VISIT: Enterococcus and aortic valve endocarditis. INTERVAL HISTORY: Patient is currently afebrile. The patient is more awake and alert. He denies any chest pain, shortness of breath, abdominal pain. Denies any change and no worsening rash has been noticed. PHYSICAL EXAMINATION: VITAL SIGNS: Blood pressure is 96/54, pulse of 93, temperature 98.1, he is 93% on room air. GENERAL DESCRIPTION: The patient is an elderly male lying in bed in no distress. RESPIRATORY SYSTEM: Unlabored breathing, clear to auscultation anteriorly. HEART: S1, S2. Regular rate and rhythm. ABDOMEN: Soft, no tenderness. SKIN: Examination of rash snows no worsening. LABS: Hemoglobin is 9.1, white count of 4.7 BUN of 20, creatinine is 2.28. 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 Follow-up blood culture this admission has been negative. Patient is covered with ampicillin to continue and finish a 6 week course of therapy. Continue supportive care. MMODL / IJN: [id number] /
[2020-08-17] MEDS: ATORVASTATIN 40 MG TAB PO SCH (20:17)
[2020-08-17] MEDS: ASCORBIC ACID 500 MG TAB PO SCH (20:17)
[2020-08-17] MEDS: CHOLECALCIFEROL 25 MCG (1000 IU) TABLET PO SCH (20:17)
[2020-08-17] MEDS: ACETAMINOPHEN TAB 325 MG TAB PO PRN (23:33)
[2020-08-18] MEDS: SODIUM CHLORIDE 0.9% 1,000 ML IV SCH (03:32)
[2020-08-18] MEDS: AMPICILLIN 2,000 MG in SODIUM CHLORIDE 0.9% 100 ML IVPB SCH ×2 (03:32→08:56)
[2020-08-18] MEDS: MIDODRINE 5 MG TAB PO SCH ×3 (06:40→16:20)
[2020-08-18] MEDS: carvediloL 6.25 MG TAB PO SCH ×2 (06:41→16:13)
[2020-08-18] MEDS: PANTOPRAZOLE 40 MG TABLET PO SCH (08:56)
[2020-08-18] MEDS: APIXABAN 5 MG TAB PO SCH ×2 (08:56→20:03)
[2020-08-18] MEDS: FUROSEMIDE 20 MG TAB PO SCH (08:56)
[2020-08-18] MEDS: ASPIRIN 81 MG PO SCH (08:56)
[2020-08-18] MEDS: GABAPENTIN 300 MG CAP PO SCH (08:56)
[2020-08-18] MEDS: ACETAMINOPHEN TAB 325 MG TAB PO PRN ×3 (09:00→22:32)
[2020-08-18 09:03] LABS: Calcium 9.1 mg/dL (8.4-10.2); Magnesium 1.9 mg/dL (1.6-2.3); Potassium 4.5 mmol/L (3.5-5.1)
--- NOTE | 2020-08-18 10:04 | P.PN ---
Subjective Patient is seen in follow-up for acute kidney injury on chronic kidney disease. Renal function is stable. Has a Foreman catheter. Nonoliguric. Oral intake has been fair. No vomiting or diarrhea. Blood pressure remains on the lower side. No changes overnight. Vital signs are stable. Blood pressure on the lower side. General: The patient appeared well nourished and normally developed. HEENT: Head exam is unremarkable. Neck is without jugular venous distension. LUNGS: Breath sounds decreased. HEART: Rate and Rhythm are regular. ABDOMEN: Soft, nontender. EXTREMITITES: Trace edema. Objective - Vital Signs Vital signs: Vital Signs Temp 100.6 F H 08/18/20 08:00 Pulse 99 08/18/20 08:00 Resp 20 08/18/20 08:00 BP 91/53 08/18/20 08:00 Pulse Ox 98 08/18/20 08:00 Intake & Output 08/17/20 08/18/20 08/18/20 18:59 06:59 18:59 Intake Total 595 760 240 Output Total 800 600 Balance -205 160 240 Weight 99.79 kg Intake: Intake, IV Titration 520 Amount Ampicillin 2,000 mg In 200 Sodium Chloride 0.9% 100 ml @ 200 mls/hr IVPB Q6H ANGLE Rx#:[id number] Sodium Chloride 0.9% 1, 320 000 ml @ 20 mls/hr IV . Q24H ANGLE Rx#:[id number] Oral 595 240 240 Output: Urine 800 600 Other: Voiding Method Indwelling Catheter Indwelling Catheter # Bowel Movements 1 - Labs CBC & Chem 7: 08/17/20 07:06 08/18/20 08:15 Labs: Abnormal Lab Results - Last 24 Hours (Table) 08/18/20 Range/Units 08:15 Sodium 130 L (137-145) mmol/L Chloride 97 L (98-107) mmol/L Carbon Dioxide 20 L (22-30) mmol/L BUN 26 H (9-20) mg/dL Creatinine 2.22 H (0.66-1.25) mg/dL Glucose 107 H (74-99) mg/dL Microbiology - Last 24 Hours (Table) 08/13/20 01:15 Blood Culture - Preliminary Blood No Growth after 120 hours 08/13/20 01:00 Blood Culture - Preliminary Blood No Growth after 120 hours Assessment and Plan Plan: Assessment: 1. Acute kidney injury secondary to ATN secondary to infection and hypotension. Renal function stable. Creatinine 2.22 today. 2. Recent enterococcus bacteremia with endocarditis. On antibiotics per infectious disease. 3. Hypervolemic hyponatremia. 4. Chronic kidney disease stage III with baseline creatinine near 1.3 secondary to nephrosclerosis. 5. Hypotension maintained on midodrine. Cortisol level normal. 6. Volume overload. Maintained on oral Lasix. 7. Hypokalemia from diuresis. Status post placement. Better. Plan: Maintain Lasix 20 mg orally once daily. 1500 mL fluid restriction. Avoid nephrotoxins. Continue to monitor renal function and urine output. Increase midodrine to 10 mg 3 times daily.
--- NOTE | 2020-08-18 12:26 | P.PN ---
Subjective Progress Note Date: 08/18/20 Ramin Green, is a 74-year-old male currently residing at a nursing facility after having a stroke about 3 weeks ago, he was noticed to have mental status changes and was transferred to [facility], he was evaluated at [facility]. Computed tomography scan of the head revealed age indeterminate, possible acute or subacute infarct in the left temporal convexityand then transferred to [facility] via ambulance further evaluation and treatment. On arrival to emergency room patient was alert confused in no apparent distress his vital examination reveals a tempera ture of 100.4 pulse 88 respiration 18 pressure 137/65 pulse ox 98% on room air his white blood count was 3.9 hemoglobin 10.8 platelet count 165 sodium 129 potassium 4.0 chloride 93 BUN 28 creatinine 2.17 chest x-ray revealed pulmonary interstitial fibrotic changes EKG revealed normal sinus rhythm with nonspecific ST abnormality. Patient was admitted to telemetry floor neurology consultation was requested in that regard to mental status changes. Patient is unable to give any significant history, from review of chart patient has been diagnosed with bacterial endocarditis for which he is on prolonged IV antibiotics. Patient has a PICC line in the left arm. Past medical history is significant for history of hypertension, history of hyperlipidemia, history of multiple strokes in the past, history of coronary artery disease, history of chronic kidney disease, history of gastroesophageal reflux disease, history of osteoarthritis with previous history of bilateral hip replacement, history of degenerative disc disease with history of back surgery. Review of system is not amenable due to patient confusion. On 08/14/2020 patient is resting comfortably in bed. Patient does appear more alert today. Patient was evaluated by neurology services and they're recommending MRI. Patient was evaluated by cardiology services for a JACOB at this time continue IV antibiotics. Nephrology infectious disease neurology and cardiology services are following. At this time patient denies any significant complaints. Patient denies nausea vomiting or diarrhea. Patient denies any urinary burning or frequency. Patient denies any chest pain or shortness breath. On 08/15/2020 patient was seen and examined on the telemetry floor he is more alert and oriented today his speech has somewhat improved MRI results, input from cardiology, infectious disease and neurology were reviewed, at this time pl an is to continue with IV ampicillin, patient is denying any pain or discomfort denies any chest pain or shortness of breath otherwise no significant information could be obtained from him , will follow closely On 08/16/2020 patient is resting comfortably in bed. EEG has been ordered per neurology services. Patient remains on IV ampicillin. Neurology, cardiology, infectious disease and nephrology services are following. Creatinine increasing to 2.23 and bun 24. This time patient denies any acute pains. Denies chest pain or shortness breath. Patient denies nausea vomiting or diarrhea. Patient denies any urinary burning or frequency. On 08/17/2020 patient was seen and examined on the medical floor he is alert and oriented 3 in no apparent distress he is still having some difficulty with his speech otherwise no significant abnormality at this time he is maintained on IV antibiotics and is followed by infectious disease cardiology and neurology there is no fever or chills at this time no headache or dizziness no chest pain no shortness of breath no cough no nausea or vomiting no abdominal pain no diarrhea and no urinary symptoms On 08/18/2020 patient alert and oriented 3. Patient having elevated temperature 102 last night. Will discuss with infectious disease. Patient denies any acute complaints. Patient denies chest pain or shortness of breath. Patient denies nausea vomiting or diarrhea. Patient denies any urinary burning or frequency Objective - Vital Signs Vital signs: Vital Signs Temp 98.6 F 08/18/20 11:36 Pulse 56 L 08/18/20 11:36 Resp 16 08/18/20 11:36 BP 86/53 08/18/20 11:36 Pulse Ox 96 08/18/20 11:36 Intake & Output 08/17/20 08/18/20 08/18/20 18:59 06:59 18:59 Intake Total 595 760 240 Output Total 800 600 Balance -205 160 240 Weight 99.79 kg Intake: Intake, IV Titration 520 Amount Ampicillin 2,000 mg In 200 Sodium Chloride 0.9% 100 ml @ 200 mls/hr IVPB Q6H ANGLE Rx#:[id number] Sodium Chloride 0.9% 1, 320 000 ml @ 20 mls/hr IV . Q24H ANGLE Rx#:[id number] Oral 595 240 240 Output: Urine 800 600 Other: Voiding Method Indwelling Catheter Indwelling Catheter Indwelling Catheter # Bowel Movements 1 - Exam In general patient is alert confused in no apparent distress HEENT head normocephalic and atraumatic Neck is supple no JVD no goiter no lymphadenopathy Chest exam reveals a few scattered rhonchi no wheezing Cardiac exam reveals regular heart sounds S1 and S2 no gallops no murmurs Abdomen is soft nontender no hepatosplenomegaly with normal bowel sounds Extremity examination reveals no edema there is pretibial erythema bilaterally with some scratching montez, there is a scabbed ulcer on the second left toe. Neurological examination patient is alert confused exam very limited due to patient inability to cooperate with exam pupils are round and reactive there is mild weakness in the right lower extremity as compared to the left otherwise no significant abnormality detected. - Labs CBC & Chem 7: 08/17/20 07:06 08/18/20 08:15 Labs: Abnormal Lab Results - Last 24 Hours (Table) 08/18/20 Range/Units 08:15 Sodium 130 L (137-145) mmol/L Chloride 97 L (98-107) mmol/L Carbon Dioxide 20 L (22-30) mmol/L BUN 26 H (9-20) mg/dL Creatinine 2.22 H (0.66-1.25) mg/dL Glucose 107 H (74-99) mg/dL Microbiology - Last 24 Hours (Table) 08/13/20 01:15 Blood Culture - Preliminary Blood No Growth after 120 hours 08/13/20 01:00 Blood Culture - Preliminary Blood No Growth after 120 hours Assessment and Plan Plan: 1. Acute mental status changes cause is not currently. Neurology Services are following. MRI of the head was completed showing findings likely represent subacute infarcts bilaterally rather than herpes encephalitis. Correlate for embolic phenomenon. 2. Subacute ischemic stroke in the left temporal area 3 weeks ago 3. Underlying history of endocarditis maintained on IV antibiotic via PICC dayanara chan, will continue at this time will consult infectious disease for further evaluation, consult cardiology 4. Underlying history of chronic kidney disease Will monitor kidney function 5. Underlying history of hypertension 6. Underlying history of hyperlipidemia 7. Underlying history of degenerative disc disease with previous history of back surgery Medication and labs were reviewed For DVT prophylaxis patient is on Eliquis For GI prophylaxis patient is on Protonix Infectious disease, neurology, cardiology and nephrology services consulted Carotid Doppler negative
[2020-08-18 14:46] LABS: Appearance,Urine Cloudy (Clear); Bacteria,Urine Occasional /hpf; Bilirubin,Urine Negative (Negative); Blood,Urine Large (Negative); Color,Urine Light Yellow; Glucose,Urine (UA) Negative (Negative); Ketones,Urine Negative (Negative); Leukocyte Esterase,Urine Moderate (Negative); Mucus,Urine Rare /hpf; Nitrite,Urine Negative (Negative); Protein,Urine 1+ (Negative); RBC,Urine 27 /hpf (0-5); Specific Gravity,Urine 1.005 (1.001-1.035); Squamous Epithelial Cell,Urine 4 /hpf (0-4); Urobilinogen,Urine <2.0 mg/dL (<2.0); WBC,Urine 18 /hpf (0-5)
--- NOTE | 2020-08-18 16:31 | P.PN ---
Subjective Progress Note Date: 08/18/20 08/18/2020: Patient continues to be stable. Still with significant fluent aphasia. Some preserved comprehension as below. Denies headache. Denies any chest pain. 08/16/2020: Patient was seen for a follow-up. Patient appears much better today. Patient able to answer questions and follow directions much better as compared to yesterday. Please refer to examination below. Patient denies headache. Patient's had mentioned that patient had history of a stroke in 2016, which affected his right side of the body. 3 months later it affected the opposite side but was a much minor stroke. No headache. Telemetry monitoring showing sinus rhythm. Objective - Vital Signs Vital signs: Vital Signs Temp 98.8 F 08/18/20 16:00 Pulse 78 08/18/20 16:00 Resp 24 08/18/20 16:00 BP 98/54 08/18/20 16:00 Pulse Ox 96 08/18/20 16:00 Intake & Output 08/17/20 08/18/20 08/18/20 18:59 06:59 18:59 Intake Total 595 760 540 Output Total 800 600 Balance -205 160 540 Weight 99.79 kg Intake: Intake, IV Titration 520 Amount Ampicillin 2,000 mg In 200 Sodium Chloride 0.9% 100 ml @ 200 mls/hr IVPB Q6H ANGLE Rx#:[id number] Sodium Chloride 0.9% 1, 320 000 ml @ 20 mls/hr IV . Q24H ANGLE Rx#:[id number] Oral 595 240 540 Output: Urine 800 600 Other: Voiding Method Indwelling Catheter Indwelling Catheter Indwelling Catheter # Bowel Movements 1 - Exam 08/18/2020: Patient is alert and awake. Patient has fluent aphasia. Patient can name some objects like a pen although he is stating as pencil. Patient not able to name eyeglasses. Patient was able to point to the ceiling correctly, but not to the window, which is on the right side where he has homonymous hemianopia. Patient cannot repeat. Patient sometimes speaks appropriate words, like for ceiling patient states "up there", and sometimes stays correct phrases. Patient continues to have right homonymous hemianopia. Face is symmetric. Hearing is decreased. On muscle strength testing patient has right pronator d rift. The strength is (right/left) deltoid 5-/5, biceps 4+/5, line crew supervisor 5-/5, triceps 4+/5. Hip flexion 3-4/4+5, ankle dorsiflexion 4 to 4-/4+5- Patient has equal sensations, no neglect on double simultaneous stimulation. Telemetry monitoring showing sinus rhythm. - Labs CBC & Chem 7: 08/17/20 07:06 08/18/20 08:15 Labs: Abnormal Lab Results - Last 24 Hours (Table) 08/18/20 08/18/20 Range/Units 08:15 14:20 Sodium 130 L (137-145) mmol/L Chloride 97 L (98-107) mmol/L Carbon Dioxide 20 L (22-30) mmol/L BUN 26 H (9-20) mg/dL Creatinine 2.22 H (0.66-1.25) mg/dL Glucose 107 H (74-99) mg/dL Urine Protein 1+ H (Negative) Urine Blood Large H (Negative) Ur Leukocyte Esterase Moderate H (Negative) Urine RBC 27 H (0-5) /hpf Urine WBC 18 H (0-5) /hpf Urine Bacteria Occasional H (None) /hpf Urine Mucus Rare H (None) /hpf Microbiology - Last 24 Hours (Table) 08/13/20 01:15 Blood Culture - Preliminary Blood No Growth after 120 hours 08/13/20 01:00 Blood Culture - Preliminary Blood No Growth after 120 hours Assessment and Plan Assessment: * Subacute infarcts bilaterally, suggestive of embolic phenomenon. Patient has expressive aphasia, right homonymous hemianopia and mild right hemiparesis. Patient's clinical condition including speech and comprehension has improved as compared to yesterday examination. * Reported history of endocarditis, possible septic embolism. * Hyperlipidemia * Hypertension * Chronic renal insufficiency * History of back surgery. Plan: * Patient's neurological examination is stable. Continues to have some fluent aphasia, but does have some comprehension and expression of speech. Significant paraphasic errors but stable. * MRI of the brain with and without contrast revealed findings likely represent subacute infarcts bilaterally rather than herpes encephalitis, correlate for embolic phenomenon. * Carotid Doppler showed no significant stenosis. Antegrade flow in both vertebral arteries. * Apparently patient had a JACOB performed on 07/26/2020, which revealed aortic valve was trileaflet valve appears sclerotic. There is small echo dense lesion noted on the aortic surface of the non-coronary cusp, which is small, echo dense and mobile. There is trace aortic regurgitation. These no evidenc e of aortic root abscess. Left atrium is enlarged. EF is 60%. Interatrial Septum is intact, with no [id number] shunt by color flow Doppler or [id number] shunt by agitated saline contrast study. No need to repeat this study. Discussed with infectious disease, no need to repeat the JACOB, as it will not change the management. Patient needs to complete the course of antibiotic. * Patient's hemoglobin A1c 5.8 on 05/13/2020. * Lipid panel showed cholesterol 164, LDL 77, HDL 45 and triglycerides 209 on 05/13/2020. Continue statins. * Continue Apixaban and aspirin 81 mg. * EEG was performed today, which was abnormal due to constant focal slowing and dysrhythmic delta and theta activity in the left hemispheric region, suggestive of underlying cortical dysfunction. Background slowing of mild to moderate degree suggestive of generalized cerebral dysfunction as can be seen with toxic metabolic encephalopathy or due to diffuse structural brain abnormality. No epileptiform activity was seen. * Continue present management and complete the course of antibiotics as per ID. As there is no active neurological issue, neurologically he is clear for discharge to rehab facility. No other neurological workup indicated. Neurology will sign off. Please reconsult us if any other concerns
[2020-08-18] MEDS: ASCORBIC ACID 500 MG TAB PO SCH (20:03)
[2020-08-18] MEDS: CHOLECALCIFEROL 25 MCG (1000 IU) TABLET PO SCH (20:03)
[2020-08-18] MEDS: ATORVASTATIN 40 MG TAB PO SCH (20:03)
[2020-08-19] MEDS: SODIUM CHLORIDE 0.9% 1,000 ML IV SCH (06:12)
[2020-08-19] MEDS: carvediloL 6.25 MG TAB PO SCH ×2 (06:23→16:31)
[2020-08-19] MEDS: MIDODRINE 5 MG TAB PO SCH ×3 (06:23→16:31)
--- NOTE | 2020-08-19 06:23 | PN ---
PROGRESS NOTE DATE OF SERVICE: 08/18/2020 REASON FOR FOLLOWUP: 1. Enterococcus faecalis aortic valve endocarditis. 2. Drug rash. 3. New fever. INTERVAL HISTORY: The patient did have a low-grade fever of 100. The patient did have a fever of 102 degrees Fahrenheit last night and 100.3 this morning. The patient denies having any headache. No chest pain, shortness of breath or cough. No nausea, vomiting, abdominal pain or diarrhea. PHYSICAL EXAMINATION: Blood pressure 122/65, pulse of 97, temperature 99.6, T-max 102, he is 98% on room air. General description is a middle-aged male lying in bed in no distress. Respiratory system: Unlabored breathing, clear to auscultation anteriorly. Heart S1, S2. Regular rate and rhythm. Abdomen is soft, no tenderness. EXTREMITIES: No edema of the feet. LABS: No new labs. No CBC was done today. Creatinine is 2.22. DIAGNOSTIC IMPRESSION AND PLAN: Patient with Enterococcus faecalis endocarditis. This patient now developing a rash possibly related to ampicillin which will be discontinued. We will switch him over to start the patient on daptomycin as the patient is high risk of nephrotoxicity from vancomycin. We will obtain blood cultures peripherally, as well as from the central line. Check a UA and culture and re-evaluate the patient tomorrow. Family at the bedside and questions were answered. MMODL / IJN: [id number] /
[2020-08-19 07:27] LABS: Anisocytosis Slight; Basophils % (A) 0 %; Eosinophils # (A) 0.6 k/uL (0-0.7); Eosinophils % (A) 8 %; HCT 31.4 % (39.0-53.0); HGB 9.7 gm/dL (13.0-17.5); Hypochromasia Marked; Lymphocytes # (A) 0.6 k/uL (1.0-4.8); Lymphocytes % (A) 8 %; MCH 26.5 pg (25.0-35.0); MCHC 30.9 g/dL (31.0-37.0); MCV 85.7 fL (80.0-100.0); Mean Platelet Volume 6.8; Monocytes # (A) 0.2 k/uL (0-1.0); Monocytes % (A) 3 %; Neutrophils # (A) 6.2 k/uL (1.3-7.7); Neutrophils % (A) 80 %; Platelet Count 270 k/uL (150-450); RBC 3.66 m/uL (4.30-5.90); RDW 17.4 % (11.5-15.5); WBC 7.7 k/uL (3.8-10.6)
[2020-08-19 07:41] LABS: Calcium 8.9 mg/dL (8.4-10.2); Magnesium 1.8 mg/dL (1.6-2.3); Potassium 4.1 mmol/L (3.5-5.1)
--- NOTE | 2020-08-19 09:07 | P.PN ---
Subjective Progress Note Date: 08/19/20 Ramin Green, is a 74-year-old male currently residing at a nursing facility after having a stroke about 3 weeks ago, he was noticed to have mental status changes and was transferred to [facility], he was evaluated at [facility]. Computed tomography scan of the head revealed age indeterminate, possible acute or subacute infarct in the left temporal convexityand then transferred to [facility] via ambulance further evaluation and treatment. On arrival to emergency room patient was alert confused in no apparent distress his vital examination reveals a tempera ture of 100.4 pulse 88 respiration 18 pressure 137/65 pulse ox 98% on room air his white blood count was 3.9 hemoglobin 10.8 platelet count 165 sodium 129 potassium 4.0 chloride 93 BUN 28 creatinine 2.17 chest x-ray revealed pulmonary interstitial fibrotic changes EKG revealed normal sinus rhythm with nonspecific ST abnormality. Patient was admitted to telemetry floor neurology consultation was requested in that regard to mental status changes. Patient is unable to give any significant history, from review of chart patient has been diagnosed with bacterial endocarditis for which he is on prolonged IV antibiotics. Patient has a PICC line in the left arm. Past medical history is significant for history of hypertension, history of hyperlipidemia, history of multiple strokes in the past, history of coronary artery disease, history of chronic kidney disease, history of gastroesophageal reflux disease, history of osteoarthritis with previous history of bilateral hip replacement, history of degenerative disc disease with history of back surgery. Review of system is not amenable due to patient confusion. On 08/14/2020 patient is resting comfortably in bed. Patient does appear more alert today. Patient was evaluated by neurology services and they're recommending MRI. Patient was evaluated by cardiology services for a JACOB at this time continue IV antibiotics. Nephrology infectious disease neurology and cardiology services are following. At this time patient denies any significant complaints. Patient denies nausea vomiting or diarrhea. Patient denies any urinary burning or frequency. Patient denies any chest pain or shortness breath. On 08/15/2020 patient was seen and examined on the telemetry floor he is more alert and oriented today his speech has somewhat improved MRI results, input from cardiology, infectious disease and neurology were reviewed, at this time pl an is to continue with IV ampicillin, patient is denying any pain or discomfort denies any chest pain or shortness of breath otherwise no significant information could be obtained from him , will follow closely On 08/16/2020 patient is resting comfortably in bed. EEG has been ordered per neurology services. Patient remains on IV ampicillin. Neurology, cardiology, infectious disease and nephrology services are following. Creatinine increasing to 2.23 and bun 24. This time patient denies any acute pains. Denies chest pain or shortness breath. Patient denies nausea vomiting or diarrhea. Patient denies any urinary burning or frequency. On 08/17/2020 patient was seen and examined on the medical floor he is alert and oriented 3 in no apparent distress he is still having some difficulty with his speech otherwise no significant abnormality at this time he is maintained on IV antibiotics and is followed by infectious disease cardiology and neurology there is no fever or chills at this time no headache or dizziness no chest pain no shortness of breath no cough no nausea or vomiting no abdominal pain no diarrhea and no urinary symptoms On 08/18/2020 patient alert and oriented 3. Patient having elevated temperature 102 last night. Will discuss with infectious disease. Patient denies any acute complaints. Patient denies chest pain or shortness of breath. Patient denies nausea vomiting or diarrhea. Patient denies any urinary burning or frequency Objective - Vital Signs Vital signs: Vital Signs Temp 98.6 F 08/19/20 03:38 Pulse 93 08/19/20 03:38 Resp 19 08/19/20 03:38 BP 82/50 08/19/20 03:38 Pulse Ox 96 08/19/20 03:38 Intake & Output 08/18/20 08/19/20 08/19/20 18:59 06:59 18:59 Intake Total 655 490 Output Total 550 550 Balance 105 -60 Weight 101.5 kg Intake: Intake, IV Titration 220 Amount Sodium Chloride 0.9% 1, 220 000 ml @ 20 mls/hr IV . Q24H [facility] Rx#:[id number] Oral 655 270 Output: Urine 550 550 Other: Voiding Method Indwelling Catheter Indwelling Catheter - Exam In general patient is alert confused in no apparent distress HEENT head normocephalic and atraumatic Neck is supple no JVD no goiter no lymphadenopathy Chest exam reveals a few scattered rhonchi no wheezing Cardiac exam reveals regular heart sounds S1 and S2 no gallops no murmurs Abdomen is soft nontender no hepatosplenomegaly with normal bowel sounds Extremity examination reveals no edema there is pretibial erythema bilaterally with some scratching montez, there is a scabbed ulcer on the second left toe. Neurological examination patient is alert confused exam very limited due to patient inability to cooperate with exam pupils are round and reactive there is mild weakness in the right lower extremity as compared to the left otherwise no significant abnormality detected. - Labs CBC & Chem 7: 08/19/20 06:52 08/19/20 06:52 Labs: Abnormal Lab Results - Last 24 Hours (Table) 08/18/20 08/19/20 08/19/20 Range/Units 14:20 06:52 06:52 RBC 3.66 L (4.30-5.90) m/uL Hgb 9.7 L (13.0-17.5) gm/dL Hct 31.4 L (39.0-53.0) % MCHC 30.9 L (31.0-37.0) g/dL RDW 17.4 H (11.5-15.5) % Lymphocytes # 0.6 L (1.0-4.8) k/uL Sodium 128 L (137-145) mmol/L Chloride 97 L (98-107) mmol/L Carbon Dioxide 19 L (22-30) mmol/L BUN 30 H (9-20) mg/dL Creatinine 2.28 H (0.66-1.25) mg/dL Urine Protein 1+ H (Negative) Urine Blood Large H (Negative) Ur Leukocyte Esterase Moderate H (Negative) Urine RBC 27 H (0-5) /hpf Urine WBC 18 H (0-5) /hpf Urine Bacteria Occasional H (None) /hpf Urine Mucus Rare H (None) /hpf Microbiology - Last 24 Hours (Table) 08/13/20 01:15 Blood Culture - Final Blood No Growth after 144 hours 08/13/20 01:00 Blood Culture - Final Blood No Growth after 144 hours 08/18/20 14:20 Urine Culture - Preliminary Urine,Voided Assessment and Plan Plan: 1. Acute mental status changes cause is not currently. Neurology Services are following. MRI of the head was completed showing findings likely represent subacute infarcts bilaterally rather than herpes encephalitis. Correlate for embolic phenomenon. 2. Subacute ischemic stroke in the left temporal area 3 weeks ago 3. Underlying history of endocarditis maintained on IV antibiotic via PICC line, will continue at this time will consult infectious disease for further evaluation, consult cardiology 4. Underlying history of chronic kidney disease Will monitor kidney function 5. Underlying history of hypertension 6. Underlying history of hyperlipidemia 7. Underlying history of degenerative disc disease with previous history of back surgery Medication and labs were reviewed For DVT prophylaxis patient is on Eliquis For GI prophylaxis patient is on Protonix Infectious disease, neurology, cardiology and nephrology services consulted Carotid Doppler negative
[2020-08-19] MEDS: GABAPENTIN 300 MG CAP PO SCH (09:40)
[2020-08-19] MEDS: FUROSEMIDE 20 MG TAB PO SCH ×2 (09:40→16:31)
[2020-08-19] MEDS: ASPIRIN 81 MG PO SCH (09:40)
[2020-08-19] MEDS: PANTOPRAZOLE 40 MG TABLET PO SCH (09:41)
[2020-08-19] MEDS: APIXABAN 5 MG TAB PO SCH ×2 (09:41→20:03)
--- NOTE | 2020-08-19 11:07 | P.PN ---
Subjective Patient is seen in follow-up for acute kidney injury on chronic kidney disease. Renal function is stable. Has a Foreman catheter. Nonoliguric. Oral intake has been fair. No vomiting or diarrhea. Blood pressure remains on the lower side. No changes overnight. Vital signs are stable. Blood pressure on the lower side. General: The patient appeared well nourished and normally developed. HEENT: Head exam is unremarkable. Neck is without jugular venous distension. LUNGS: Breath sounds decreased. HEART: Rate and Rhythm are regular. ABDOMEN: Soft, nontender. EXTREMITITES: Trace edema. Objective - Vital Signs Vital signs: Vital Signs Temp 99 F 08/19/20 08:00 Pulse 89 08/19/20 08:00 Resp 16 08/19/20 08:00 BP 97/50 08/19/20 08:00 Pulse Ox 96 08/19/20 08:00 Intake & Output 08/18/20 08/19/20 08/19/20 18:59 06:59 18:59 Intake Total 655 490 Output Total 550 550 Balance 105 -60 Weight 101.5 kg Intake: Intake, IV Titration 220 Amount Sodium Chloride 0.9% 1, 220 000 ml @ 20 mls/hr IV . Q24H [facility] Rx#:[id number] Oral 655 270 Output: Urine 550 550 Other: Voiding Method Indwelling Catheter Indwelling Catheter - Labs CBC & Chem 7: 08/19/20 06:52 08/19/20 06:52 Labs: Abnormal Lab Results - Last 24 Hours (Table) 08/18/20 08/19/20 08/19/20 Range/Units 14:20 06:52 06:52 RBC 3.66 L (4.30-5.90) m/uL Hgb 9.7 L (13.0-17.5) gm/dL Hct 31.4 L (39.0-53.0) % MCHC 30.9 L (31.0-37.0) g/dL RDW 17.4 H (11.5-15.5) % Lymphocytes # 0.6 L (1.0-4.8) k/uL Sodium 128 L (137-145) mmol/L Chloride 97 L (98-107) mmol/L Carbon Dioxide 19 L (22-30) mmol/L BUN 30 H (9-20) mg/dL Creatinine 2.28 H (0.66-1.25) mg/dL Urine Protein 1+ H (Negative) Urine Blood Large H (Negative) Ur Leukocyte Esterase Moderate H (Negative) Urine RBC 27 H (0-5) /hpf Urine WBC 18 H (0-5) /hpf Urine Bacteria Occasional H (None) /hpf Urine Mucus Rare H (None) /hpf Microbiology - Last 24 Hours (Table) 08/13/20 01:15 Blood Culture - Final Blood No Growth after 144 hours 08/13/20 01:00 Blood Culture - Final Blood No Growth after 144 hours 08/18/20 14:20 Urine Culture - Preliminary Urine,Voided Assessment and Plan Plan: Assessment: 1. Acute kidney injury secondary to ATN secondary to infection and hypotension. Renal function stable. Creatinine 2.28 today. 2. Recent enterococcus bacteremia with endocarditis. On antibiotics per infectious disease. 3. Hypervolemic hyponatremia. 4. Chronic kidney disease stage III with baseline creatinine near 1.3 secondary to nephrosclerosis. 5. Hypotension maintained on midodrine. Cortisol level normal. 6. Volume overload. Maintained on oral Lasix. 7. Hypokalemia from diuresis. Status post placement. Better. Plan: Increase Lasix to 20 mg orally twice daily. Check serum and urine osmolality and random urine sodium level. Check TSH. 1500 mL fluid restriction. Encouraged oral intake, particularly protein. Avoid nephrotoxins. Continue to monitor renal function and urine output. Maintain midodrine.
[2020-08-19 11:59] LABS: Glucose,Whole Blood 132 mg/dL (75-99)
--- NOTE | 2020-08-19 17:00 | P.PN ---
Subjective Progress Note Date: 08/19/20 Ramin Green, is a 74-year-old male currently residing at a nursing facility after having a stroke about 3 weeks ago, he was noticed to have mental status changes and was transferred to [facility], he was evaluated at [facility]. Computed tomography scan of the head revealed age indeterminate, possible acute or subacute infarct in the left temporal convexityand then transferred to [facility] via ambulance further evaluation and treatment. On arrival to emergency room patient was alert confused in no apparent distress his vital examination reveals a tempera ture of 100.4 pulse 88 respiration 18 pressure 137/65 pulse ox 98% on room air his white blood count was 3.9 hemoglobin 10.8 platelet count 165 sodium 129 potassium 4.0 chloride 93 BUN 28 creatinine 2.17 chest x-ray revealed pulmonary interstitial fibrotic changes EKG revealed normal sinus rhythm with nonspecific ST abnormality. Patient was admitted to telemetry floor neurology consultation was requested in that regard to mental status changes. Patient is unable to give any significant history, from review of chart patient has been diagnosed with bacterial endocarditis for which he is on prolonged IV antibiotics. Patient has a PICC line in the left arm. Past medical history is significant for history of hypertension, history of hyperlipidemia, history of multiple strokes in the past, history of coronary artery disease, history of chronic kidney disease, history of gastroesophageal reflux disease, history of osteoarthritis with previous history of bilateral hip replacement, history of degenerative disc disease with history of back surgery. Review of system is not amenable due to patient confusion. On 08/14/2020 patient is resting comfortably in bed. Patient does appear more alert today. Patient was evaluated by neurology services and they're recommending MRI. Patient was evaluated by cardiology services for a JACOB at this time continue IV antibiotics. Nephrology infectious disease neurology and cardiology services are following. At this time patient denies any significant complaints. Patient denies nausea vomiting or diarrhea. Patient denies any urinary burning or frequency. Patient denies any chest pain or shortness breath. On 08/15/2020 patient was seen and examined on the telemetry floor he is more alert and oriented today his speech has somewhat improved MRI results, input from cardiology, infectious disease and neurology were reviewed, at this time pl an is to continue with IV ampicillin, patient is denying any pain or discomfort denies any chest pain or shortness of breath otherwise no significant information could be obtained from him , will follow closely On 08/16/2020 patient is resting comfortably in bed. EEG has been ordered per neurology services. Patient remains on IV ampicillin. Neurology, cardiology, infectious disease and nephrology services are following. Creatinine increasing to 2.23 and bun 24. This time patient denies any acute pains. Denies chest pain or shortness breath. Patient denies nausea vomiting or diarrhea. Patient denies any urinary burning or frequency. On 08/17/2020 patient was seen and examined on the medical floor he is alert and oriented 3 in no apparent distress he is still having some difficulty with his speech otherwise no significant abnormality at this time he is maintained on IV antibiotics and is followed by infectious disease cardiology and neurology there is no fever or chills at this time no headache or dizziness no chest pain no shortness of breath no cough no nausea or vomiting no abdominal pain no diarrhea and no urinary symptoms On 08/18/2020 patient alert and oriented 3. Patient having elevated temperature 102 last night. Will discuss with infectious disease. Patient denies any acute complaints. Patient denies chest pain or shortness of breath. Patient denies nausea vomiting or diarrhea. Patient denies any urinary burning or frequency On 08/19/2020 patient was seen and examined on the medical floor, he is alert and oriented 3 in no distress, vital exam reveals a temperature of 99 pulse 89 respiration 16 blood pressure 97/50 pulse ox 96% on room air, his white blood count is 7.7 hemoglobin 9.7 platelet count 270 sodium 128 potassium 4.1 chloride 97 CO2 19 BUN 30 creatinine 2.28, he is having episodes of low-grade temperature there is no chills no headache or dizziness no chest pain no shortness of breath no cough no nausea or vomiting no abdominal pain no diarrhea no blood in the stools no burning with urination no frequency or urgency and no hematuria his speech has improved, nephrology infectious disease and cardiology are following Objective - Vital Signs Vital signs: Vital Signs Temp 99 F 08/19/20 08:00 Pulse 97 08/19/20 12:00 Resp 16 08/19/20 12:00 BP 93/52 08/19/20 12:00 Pulse Ox 99 08/19/20 12:00 Intake & Output 08/18/20 08/19/20 08/19/20 18:59 06:59 18:59 Intake Total 655 490 Output Total 550 550 Balance 105 -60 Weight 101.5 kg Intake: Intake, IV Titration 220 Amount Sodium Chloride 0.9% 1, 220 000 ml @ 20 mls/hr IV . Q24H [facility] Rx#:[id number] Oral 655 270 Output: Urine 550 550 Other: Voiding Method Indwelling Catheter Indwelling Catheter Indwelling Catheter - Exam In general patient is alert confused in no apparent distress HEENT head normocephalic and atraumatic Neck is supple no JVD no goiter no lymphadenopathy Chest exam reveals a few scattered rhonchi no wheezing Cardiac exam reveals regular heart sounds S1 and S2 no gallops no murmurs Abdomen is soft nontender no hepatosplenomegaly with normal bowel sounds Extremity examination reveals no edema there is pretibial erythema bilaterally with some scratching montez, there is a scabbed ulcer on the second left toe. Neurological examination patient is alert and oriented there is still mild abnormality with his speech otherwise no significant abnormality - Labs CBC & Chem 7: 08/19/20 06:52 08/19/20 06:52 Labs: Abnormal Lab Results - Last 24 Hours (Table) 08/19/20 08/19/20 08/19/20 Range/Units 06:52 06:52 06:52 RBC 3.66 L (4.30-5.90) m/uL Hgb 9.7 L (13.0-17.5) gm/dL Hct 31.4 L (39.0-53.0) % MCHC 30.9 L (31.0-37.0) g/dL RDW 17.4 H (11.5-15.5) % Lymphocytes # 0.6 L (1.0-4.8) k/uL Sodium 128 L (137-145) mmol/L Chloride 97 L (98-107) mmol/L Carbon Dioxide 19 L (22-30) mmol/L BUN 30 H (9-20) mg/dL Creatinine 2.28 H (0.66-1.25) mg/dL POC Glucose (mg/dL) (75-99) mg/dL Osmolality 274 L (280-301) mosm/kg 08/19/20 Range/Units 11:57 RBC (4.30-5.90) m/uL Hgb (13.0-17.5) gm/dL Hct (39.0-53.0) % MCHC (31.0-37.0) g/dL RDW (11.5-15.5) % Lymphocytes # (1.0-4.8) k/uL Sodium (137-145) mmol/L Chloride (98-107) mmol/L Carbon Dioxide (22-30) mmol/L BUN (9-20) mg/dL Creatinine (0.66-1.25) mg/dL POC Glucose (mg/dL) 132 H (75-99) mg/dL Osmolality (280-301) mosm/kg Microbiology - Last 24 Hours (Table) 08/18/20 14:06 Blood Culture - Preliminary Blood No Growth after 24 hours 08/13/20 01:15 Blood Culture - Final Blood No Growth after 144 hours 08/13/20 01:00 Blood Culture - Final Blood No Growth after 144 hours 08/18/20 14:20 Urine Culture - Preliminary Urine,Voided Assessment and Plan Plan: 1. Acute mental status changes cause is not currently. Neurology Services are following. MRI of the head was completed showing findings likely represent subacute infarcts bilaterally rather than herpes encephalitis. Correlate for embolic phenomenon. 2. Subacute ischemic stroke in the left temporal area 3 weeks ago 3. Underlying history of endocarditis maintained on IV antibiotic via PICC line, will continue at this time will consult infectious disease for further evaluation, consult cardiology 4. Underlying history of chronic kidney disease Will monitor kidney function 5. Underlying history of hypertension 6. Underlying history of hyperlipidemia 7. Underlying history of degenerative disc disease with previous history of back surgery 8. Continued episodes of low-grade fever infectious disease following and rechecking blood cultures Medication and labs were reviewed For DVT prophylaxis patient is on Eliquis For GI prophylaxis patient is on Protonix Infectious disease, neurology, cardiology and nephrology services consulted Carotid Doppler negative
[2020-08-19] MEDS: ASCORBIC ACID 500 MG TAB PO SCH (20:03)
[2020-08-19] MEDS: ATORVASTATIN 40 MG TAB PO SCH (20:03)
[2020-08-19] MEDS: CHOLECALCIFEROL 25 MCG (1000 IU) TABLET PO SCH (20:03)
--- NOTE | 2020-08-19 23:17 | PN ---
PROGRESS NOTE DATE OF SERVICE: 08/19/2020. REASON FOR FOLLOW UP: Enterococcus aortic valve endocarditis. INTERVAL HISTORY: Patient is currently afebrile. . The patient is more awake and alert. He is breathing comfortably. Denies having any chest pain. No shortness of breath or cough. No abdominal pain. No diarrhea. PHYSICAL EXAMINATION: Blood pressure 92/56, pulse of 95, temperature 98.8. He is 96% on room air. General description is an elderly male lying in bed in no distress. Respiratory system: Unlabored breathing. Clear to auscultation anteriorly. Heart S1, S2. Regular rate and rhythm. ABDOMEN: Soft, no tenderness. LABORATORY DATA: Hemoglobin 9.7, white count 7.7. Creatinine 2.28. Urine was moderate leukocyte esterase and WBC. DIAGNOSTIC IMPRESSION AND PLAN: Patient with Enterococcus faecalis bacteremia secondary to aortic valve endocarditis in this patient treated with ampicillin that has to be discontinued because of rash and fever. Covered with daptomycin to continue while monitoring clinical course closely. Continue supportive care. MMODL / IJN: [id number] /
[2020-08-20] MEDS: SODIUM CHLORIDE 0.9% 1,000 ML IV SCH (05:09)
[2020-08-20] MEDS: carvediloL 6.25 MG TAB PO SCH ×2 (06:30→16:25)
[2020-08-20] MEDS: MIDODRINE 5 MG TAB PO SCH ×3 (06:31→16:25)
[2020-08-20 07:45] LABS: Magnesium 1.9 mg/dL (1.6-2.3); Potassium 3.9 mmol/L (3.5-5.1)
[2020-08-20] MEDS: APIXABAN 5 MG TAB PO SCH ×2 (09:42→20:07)
[2020-08-20] MEDS: FUROSEMIDE 20 MG TAB PO SCH ×2 (09:42→16:25)
[2020-08-20] MEDS: ASPIRIN 81 MG PO SCH (09:42)
[2020-08-20] MEDS: PANTOPRAZOLE 40 MG TABLET PO SCH (09:42)
[2020-08-20] MEDS: GABAPENTIN 300 MG CAP PO SCH (09:42)
--- NOTE | 2020-08-20 11:10 | P.PN ---
Subjective Patient is seen in follow-up for acute kidney injury on chronic kidney disease. Renal function is stable. Has a Foreman catheter. Nonoliguric. Oral intake has been fair. No vomiting or diarrhea. No changes overnight. Vital signs are stable. Blood pressure on the lower side. General: The patient appeared well nourished and normally developed. HEENT: Head exam is unremarkable. Neck is without jugular venous distension. LUNGS: Breath sounds decreased. HEART: Rate and Rhythm are regular. ABDOMEN: Soft, nontender. EXTREMITITES: Trace edema. Objective - Vital Signs Vital signs: Vital Signs Temp 97.7 F 08/20/20 03:28 Pulse 94 08/20/20 03:28 Resp 18 08/20/20 03:28 BP 98/50 08/20/20 03:28 Pulse Ox 95 08/20/20 03:28 Intake & Output 08/19/20 08/20/20 08/20/20 18:59 06:59 18:59 Intake Total 240 240 Output Total 700 200 Balance -460 -200 240 Weight 106 kg Intake: Oral 240 240 Output: Urine 700 200 Other: Voiding Method Indwelling Catheter Indwelling Catheter # Voids 150 - Labs CBC & Chem 7: 08/19/20 06:52 08/20/20 06:46 Labs: Abnormal Lab Results - Last 24 Hours (Table) 08/19/20 08/19/20 08/20/20 Range/Units 06:52 11:57 06:46 Sodium 129 L (137-145) mmol/L BUN 33 H (9-20) mg/dL Creatinine 2.20 H (0.66-1.25) mg/dL Glucose 105 H (74-99) mg/dL POC Glucose (mg/dL) 132 H (75-99) mg/dL Osmolality 274 L (280-301) mosm/kg Microbiology - Last 24 Hours (Table) 08/18/20 14:20 Urine Culture - Final Urine,Voided 08/18/20 14:35 Blood Culture - Preliminary Blood No Growth after 24 hours 08/18/20 14:06 Blood Culture - Preliminary Blood No Growth after 24 hours Assessment and Plan Plan: Assessment: 1. Acute kidney injury secondary to ATN secondary to infection and hypotension. Renal function stable. Creatinine 2.2 today. 2. Recent enterococcus bacteremia with endocarditis. On antibiotics per infectious disease. 3. Hypervolemic hyponatremia. Stable. Urine osmolality 325 and urine sodium 39. TSH normal. 4. Chronic kidney disease stage III with baseline creatinine near 1.3 secondary to nephrosclerosis. 5. Hypotension maintained on midodrine. Cortisol level normal. 6. Volume overload. Maintained on oral Lasix. 7. Hypokalemia from diuresis. Status post placement. Plan: Maintain Lasix 20 mg orally twice daily. Check serum and urine osmolality and random urine sodium level. 1500 mL fluid restriction. Encouraged oral intake, particularly protein. Avoid nephrotoxins. Continue to monitor renal function and urine output. Maintain midodrine.
[2020-08-20 13:57] VITALS: BMI 32.5
--- NOTE | 2020-08-20 17:34 | P.PN ---
Subjective Progress Note Date: 08/20/20 Ramin Green, is a 74-year-old male currently residing at a nursing facility after having a stroke about 3 weeks ago, he was noticed to have mental status changes and was transferred to [facility], he was evaluated at [facility]. Computed tomography scan of the head revealed age indeterminate, possible acute or subacute infarct in the left temporal convexityand then transferred to [facility] via ambulance further evaluation and treatment. On arrival to emergency room patient was alert confused in no apparent distress his vital examination reveals a tempera ture of 100.4 pulse 88 respiration 18 pressure 137/65 pulse ox 98% on room air his white blood count was 3.9 hemoglobin 10.8 platelet count 165 sodium 129 potassium 4.0 chloride 93 BUN 28 creatinine 2.17 chest x-ray revealed pulmonary interstitial fibrotic changes EKG revealed normal sinus rhythm with nonspecific ST abnormality. Patient was admitted to telemetry floor neurology consultation was requested in that regard to mental status changes. Patient is unable to give any significant history, from review of chart patient has been diagnosed with bacterial endocarditis for which he is on prolonged IV antibiotics. Patient has a PICC line in the left arm. Past medical history is significant for history of hypertension, history of hyperlipidemia, history of multiple strokes in the past, history of coronary artery disease, history of chronic kidney disease, history of gastroesophageal reflux disease, history of osteoarthritis with previous history of bilateral hip replacement, history of degenerative disc disease with history of back surgery. Review of system is not amenable due to patient confusion. On 08/14/2020 patient is resting comfortably in bed. Patient does appear more alert today. Patient was evaluated by neurology services and they're recommending MRI. Patient was evaluated by cardiology services for a JACOB at this time continue IV antibiotics. Nephrology infectious disease neurology and cardiology services are following. At this time patient denies any significant complaints. Patient denies nausea vomiting or diarrhea. Patient denies any urinary burning or frequency. Patient denies any chest pain or shortness breath. On 08/15/2020 patient was seen and examined on the telemetry floor he is more alert and oriented today his speech has somewhat improved MRI results, input from cardiology, infectious disease and neurology were reviewed, at this time pl an is to continue with IV ampicillin, patient is denying any pain or discomfort denies any chest pain or shortness of breath otherwise no significant information could be obtained from him , will follow closely On 08/16/2020 patient is resting comfortably in bed. EEG has been ordered per neurology services. Patient remains on IV ampicillin. Neurology, cardiology, infectious disease and nephrology services are following. Creatinine increasing to 2.23 and bun 24. This time patient denies any acute pains. Denies chest pain or shortness breath. Patient denies nausea vomiting or diarrhea. Patient denies any urinary burning or frequency. On 08/17/2020 patient was seen and examined on the medical floor he is alert and oriented 3 in no apparent distress he is still having some difficulty with his speech otherwise no significant abnormality at this time he is maintained on IV antibiotics and is followed by infectious disease cardiology and neurology there is no fever or chills at this time no headache or dizziness no chest pain no shortness of breath no cough no nausea or vomiting no abdominal pain no diarrhea and no urinary symptoms On 08/18/2020 patient alert and oriented 3. Patient having elevated temperature 102 last night. Will discuss with infectious disease. Patient denies any acute complaints. Patient denies chest pain or shortness of breath. Patient denies nausea vomiting or diarrhea. Patient denies any urinary burning or frequency On 08/19/2020 patient was seen and examined on the medical floor, he is alert and oriented 3 in no distress, vital exam reveals a temperature of 99 pulse 89 respiration 16 blood pressure 97/50 pulse ox 96% on room air, his white blood count is 7.7 hemoglobin 9.7 platelet count 270 sodium 128 potassium 4.1 chloride 97 CO2 19 BUN 30 creatinine 2.28, he is having episodes of low-grade temperature there is no chills no headache or dizziness no chest pain no shortness of breath no cough no nausea or vomiting no abdominal pain no diarrhea no blood in the stools no burning with urination no frequency or urgency and no hematuria his speech has improved, nephrology infectious disease and cardiology are following. On 08/20/2020 patient was seen and examined on the medical floor he is alert and oriented 3 in no distress no fever or chills no headache or dizziness this morning he had some cough with eating his breakfast speech therapy consultation was requested check chest x-ray otherwise patient is denying any complaints at this time Objective - Vital Signs Vital signs: Vital Signs Temp 97.7 F 08/20/20 03:28 Pulse 94 08/20/20 03:28 Resp 18 08/20/20 03:28 BP 98/50 08/20/20 03:28 Pulse Ox 95 08/20/20 03:28 Intake & Output 08/19/20 08/20/20 08/20/20 18:59 06:59 18:59 Intake Total 240 240 Output Total 700 200 Balance -460 -200 240 Weight 106 kg Intake: Oral 240 240 Output: Urine 700 200 Other: Voiding Method Indwelling Catheter Indwelling Catheter # Voids 150 - Exam In general patient is alert confused in no apparent distress HEENT head normocephalic and atraumatic Neck is supple no JVD no goiter no lymphadenopathy Chest exam reveals a few scattered rhonchi no wheezing Cardiac exam reveals regular heart sounds S1 and S2 no gallops no murmurs Abdomen is soft nontender no hepatosplenomegaly with normal bowel sounds Extremity examination reveals no edema there is pretibial erythema bilaterally with some scratching montez, there is a scabbed ulcer on the second left toe. Neurological examination patient is alert and oriented there is still mild abnormality with his speech otherwise no significant abnormality - Labs CBC & Chem 7: 08/19/20 06:52 08/20/20 06:46 Labs: Abnormal Lab Results - Last 24 Hours (Table) 08/19/20 08/19/20 08/20/20 Range/Units 06:52 11:57 06:46 Sodium 129 L (137-145) mmol/L BUN 33 H (9-20) mg/dL Creatinine 2.20 H (0.66-1.25) mg/dL Glucose 105 H (74-99) mg/dL POC Glucose (mg/dL) 132 H (75-99) mg/dL Osmolality 274 L (280-301) mosm/kg Microbiology - Last 24 Hours (Table) 08/18/20 14:20 Urine Culture - Final Urine,Voided 08/18/20 14:35 Blood Culture - Preliminary Blood No Growth after 24 hours 08/18/20 14:06 Blood Culture - Preliminary Blood No Growth after 24 hours Assessment and Plan Plan: 1. Acute mental status changes cause is not currently. Neurology Services are following. MRI of the head was completed showing findings likely represent subacute infarcts bilaterally rather than herpes encephalitis. Correlate for embolic phenomenon. 2. Subacute ischemic stroke in the left temporal area 3 weeks ago 3. Underlying history of endocarditis maintained on IV antibiotic via PICC line, will continue at this time will consult infectious disease for further evaluation, consult cardiology 4. Underlying history of chronic kidney disease Will monitor kidney function 5. Underlying history of hypertension 6. Underlying history of hyperlipidemia 7. Underlying history of degenerative disc disease with previous history of back surgery 8. Continued episodes of low-grade fever infectious disease following and rechecking blood cultures Medication and labs were reviewed For DVT prophylaxis patient is on Eliquis For GI prophylaxis patient is on Protonix Infectious disease, neurology, cardiology and nephrology services consulted Carotid Doppler negative
--- NOTE | 2020-08-20 18:23 | XR ---
EXAMINATION TYPE: XR chest 1V portable DATE OF EXAM: 08/20/2020 COMPARISON: 08/13/2020 HISTORY: Cough TECHNIQUE: FINDINGS: There is coarse interstitial infiltrates in both lungs. There are chest leads. There is poo r inspiration. I do not suspect heart failure. IMPRESSION: Interstitial pneumonia which is slightly worse than old exam. Mild subsegmental atelectas is at the lung bases.
[2020-08-20] MEDS: CHOLECALCIFEROL 25 MCG (1000 IU) TABLET PO SCH (20:07)
[2020-08-20] MEDS: ASCORBIC ACID 500 MG TAB PO SCH (20:07)
[2020-08-20] MEDS: ATORVASTATIN 40 MG TAB PO SCH (20:07)
--- NOTE | 2020-08-20 23:30 | PN ---
PROGRESS NOTE DATE OF SERVICE: 08/20/2020 REASON FOR FOLLOWUP: 1. Enterococcus faecalis endocarditis. 2. Drug rash. INTERVAL HISTORY: The patient did have a low-grade fever this evening of 99.8. The patient otherwise is feeling better, breathing comfortably. He denies having any chest pain, shortness of breath or cough. No abdominal pain or diarrhea. PHYSICAL EXAMINATION: Blood pressure 90/55, pulse of 98, temperature 99.8. He is 93% on room air. General description is an elderly male lying in bed in no distress. RESPIRATORY SYSTEM: Unlabored breathing. Clear to auscultation anteriorly. HEART: S1, S2. Regular rate and rhythm. ABDOMEN: Soft. No tenderness. LAB: Creatinine is 2.20. Blood culture repeat has been negative. DIAGNOSTIC IMPRESSION AND PLAN: Patient with Enterococcus faecalis bacteremia and mild aortic valve endocarditis in this patient who did have a drug rash secondary to ampicillin and renal failure, currently covered with daptomycin. To continue to finish a 6-week course of therapy. Continue supportive care. MMODL / IJN: [id number] /
[2020-08-21] MEDS: SODIUM CHLORIDE 0.9% 1,000 ML IV SCH (04:48)
[2020-08-21 06:18] LABS: Anisocytosis Slight; Basophils % (A) 0 %; Eosinophils # (A) 0.5 k/uL (0-0.7); Eosinophils % (A) 9 %; HCT 28.7 % (39.0-53.0); Hypochromasia Moderate; Lymphocytes # (A) 0.8 k/uL (1.0-4.8); Lymphocytes % (A) 17 %; MCH 26.5 pg (25.0-35.0); MCHC 31.2 g/dL (31.0-37.0); MCV 84.9 fL (80.0-100.0); Mean Platelet Volume 6.9; Monocytes # (A) 0.2 k/uL (0-1.0); Monocytes % (A) 3 %; Neutrophils # (A) 3.5 k/uL (1.3-7.7); Neutrophils % (A) 69 %; Platelet Count 323 k/uL (150-450); RBC 3.38 m/uL (4.30-5.90); RDW 17.5 % (11.5-15.5)
[2020-08-21 06:42] LABS: Albumin 2.5 g/dL (3.5-5.0); Calcium 9.4 mg/dL (8.4-10.2); Total Bilirubin 0.4 mg/dL (0.2-1.3); Total Protein 4.9 g/dL (6.3-8.2)
[2020-08-21] MEDS: ASPIRIN 81 MG PO SCH (09:40)
[2020-08-21] MEDS: PANTOPRAZOLE 40 MG TABLET PO SCH (09:40)
--- NOTE | 2020-08-21 09:58 | P.CONS ---
History of Present Illness - Chief Complaint Gait disturbance, right hemiparesthesias, a aphasia - History of Present Illness I had the opportunity to see patient for inpatient rehab consultation with regard to gait disturbance. He was admitted to [facility] August 13 as a transfer from [facility] history of stroke 3 weeks earlier. His mental status change. Seen by Dr. Little for neurology who notes history of bacterial endocarditis requiring IV antibiotics. Laboratories carotid duplex negative. Brain MRI with subacute bilateral infarcts. Brain EEG with left disturbance as well as [id number] in general disturbance. Chest x-ray consistent with pneumonia as well as mild atelectasis. Seen by PT reports two- person total assistance for bed mobility. OT reports two-person maximal assistance for upper dressing and 3 person total assistance to a for lower dressing, bathing, toileting. Previous functional history as elicited from patient: 71-year-old right-handed white male who is lives and 2 floor home with . Patient describes works full-time and does the cooking, laundry, driving. Patient retired. Describes independent with own dressing, sitdown shower and gait without device previously. Denies tobacco or alcohol. Unsure whose PMD is. Review of Systems Review of systems: ENT: Denies sneezes or discharge. Eyes: Denies discharge or photophobia. Cardiac: Denies chest pain or palpitation. Pulmonary: Denies cough or shortness of breath. Gastrointestinal: Denies nausea, emesis, constipation, diarrhea. Genitourinary: Denies discharge or frequency. Musculoskeletal: Denies muscle or bone aches. Neurologic: Vision, right-sided weakness, speech disturbance. Endocrine: Denies shakes or sweats. Oncology: Denies cancers. Dermatologic: Denies rash, itching, pruritus. ALLERGY/immunology: Denies sneezes, rashes. 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 Expressive aphasia History of Any Multi-Drug Resistant Organisms: None Reported Past Surgical History: Appendectomy, Back Surgery, Heart Catheterization, Joint Replacement Additional Past Surgical History / Comment(s): back surgery x 4, bilateral cataracts removed, alicia hip replacments, cardiac cath 2010 - normal, EGD/colonoscopy, varicose vein stripping, tilt table test, loop recorder was aman t off in 06/08 Past Anesthesia/Blood Transfusion Reactions: No Reported Reaction Past Psychological History: No Psychological Hx Reported, Bipolar Smoking Status: Former smoker Past Alcohol Use History: Occasional Past Drug Use History: None Reported - Past Family History Father Family Medical History: Vascular Disorder Additional Family Medical History / Comment(s): PVD-double amputee. Mother Family Medical History: Pulmonary Embolus Additional Family Medical History / Comment(s): Mother of a pulmonary embolism at the age of 63 yrs. Medications and Allergies Home Medications Medication Instructions Recorded Confirmed Type carvediloL [Coreg] 6.25 mg PO BID@0900,1700 04/28/19 08/13/20 History Furosemide [Lasix] 40 mg PO DAILY@0900 09/01/19 08/13/20 History Acetaminophen Tab [Tylenol] 650 mg PO Q4H PRN 07/19/20 08/13/20 History Apixaban [Eliquis] 5 mg PO BID@0900,1700 07/19/20 08/13/20 History Ascorbic Acid [Vitamin C] 1,000 mg PO HS@209907/19/20 08/13/20 History Aspirin 81 mg PO DAILY@0900 07/19/20 08/13/20 History Atorvastatin [Lipitor] 20 mg PO HS@209907/19/20 08/13/20 History Cholecalciferol [Vitamin D3 (25 25 mcg PO HS@209907/19/20 08/13/20 History Mcg = 1000 Iu)] Ipratropium-Albuterol Nebulize 3 ml INHALATION RT-Q4H PRN 07/19/20 08/13/20 History [Duoneb 0.5 mg-3 mg/3 ml Soln] Magnesium Hydroxide [Milk of 2,400 mg PO Q12H PRN 07/19/20 08/13/20 History Magnesia] bisacodyL [Bisacodyl] 10 mg RECTAL DAILY PRN 07/19/20 08/13/20 History Gabapentin [Neurontin] 300 mg PO DAILY@0900 #3 cap 07/29/20 08/13/20 Rx Ampicillin Sodium 2,000 mg IV Q6H 08/13/20 08/13/20 History Omeprazole 20 mg PO DAILY@0600 08/13/20 08/13/20 History Sodium Bicarbonate Tab 650 mg PO BID@0900,1700 08/13/20 08/13/20 History traMADol HCL 50 mg PO TID@0600,1300,2100 08/13/20 08/13/20 History Allergies Allergy/AdvReac Type Severity Reaction Status Date / Time MATHIEU Inhibitors Allergy Unknown Verified 08/13/20 07:16 Sulfa (Sulfonamide Allergy Rash/Hives Verified 08/13/20 07:16 Antibiotics) baclofen AdvReac Hallucinati Verified 08/13/20 07:16 ons hydromorphone [From Dilaudid] AdvReac Hallucinati Verified 08/13/20 07:16 ons meperidine HCl [From Demerol] AdvReac Nausea & Verified 08/13/20 07:16 Vomiting sulfamethoxazole AdvReac Rash/Hives Verified 08/13/20 07:16 [From Bactrim] trimethoprim [From Bactrim] AdvReac Rash/Hives Verified 08/13/20 07:16 Physical Exam Vitals: Vital Signs Temp Pulse Resp BP Pulse Ox 08/21/20 07:39 20 08/21/20 07:35 98.8 F 92 20 95/58 91 L 08/21/20 05:00 97.8 F 74 15 92/55 97 08/20/20 22:34 99.8 F H 98 22 90/55 93 L 08/20/20 20:00 98.4 F 95 17 98/52 96 08/20/20 16:00 96 16 94/55 95 08/20/20 13:53 16 08/20/20 12:00 80 16 98/55 100 Intake and Output 08/20/20 08/21/20 08/21/20 22:59 06:59 14:59 Intake Total 240 Output Total 600 400 Balance -360 -400 Intake: Oral 240 Output: Urine 600 400 Other: Voiding Method Indwelling Catheter Indwelling Catheter Skin: Good color, texture, turgor. General: Medium build and comfortable appearance. Head: Normocephalic, atraumatic. Eyes: Symmetric. Pupils equal round. Ears: Symmetric. Hearing within normal limits. Mouth: Clear. Neck: Supple. Carotid without bruit. Cardiac: Regular rate and rhythm. Lungs: Clear anteriorly and posteriorly. Abdomen: Soft active nontender. Extremities: Normal tone. Neurological: Mental status: Aphasic. Cranial nerves: Symmetric facial tone and trapezius. Motor: Normal strength left side. Right side week and with elements of synergy. Sensation: Intact throughout. DTRs: Symmetric and equal throughout. Mobility: Did not attempt to sit or stand on my own. Results CBC & Chem 7: 08/21/20 05:47 08/21/20 05:47 Labs: Abnormal Lab Results - Last 24 Hours (Table) 08/21/20 08/21/20 Range/Units 05:47 05:47 RBC 3.38 L (4.30-5.90) m/uL Hgb 9.0 L (13.0-17.5) gm/dL Hct 28.7 L (39.0-53.0) % RDW 17.5 H (11.5-15.5) % Lymphocytes # 0.8 L (1.0-4.8) k/uL Sodium 131 L (137-145) mmol/L BUN 32 H (9-20) mg/dL Creatinine 2.13 H (0.66-1.25) mg/dL Glucose 101 H (74-99) mg/dL Alkaline Phosphatase 165 H (38-126) U/L Total Protein 4.9 L (6.3-8.2) g/dL Albumin 2.5 L (3.5-5.0) g/dL Microbiology - Last 24 Hours (Table) 08/18/20 14:35 Blood Culture - Preliminary Blood No Growth after 48 hours 08/18/20 14:06 Blood Culture - Preliminary Blood No Growth after 48 hours Assessment and Plan (1) Aortic valve endocarditis Current Visit: Yes Status: Acute Code(s): I35.8 - OTHER NONRHEUMATIC AORTIC VALVE DISORDERS SNOMED Code(s): 01659657 (2) CVA (cerebral vascular accident) Current Visit: No Status: Acute Onset Date: 10/30/15 Code(s): I63.9 - CEREBRAL INFARCTION, UNSPECIFIED SNOMED Code(s): 701840159 Plan: Impression: 1. Gait disturbance with stroke result in right hemiparesthesias and aphasia with history of previous stroke. 2. Bacterial endocarditis. 3. Acute on chronic kidney disease. 4. Hypertension. 5. Osteoarthritis. 6. Dyslipidemia. 7. Heart disease with history of angina. Comments and plan: At this time patient was a recent admission to [facility] and now admitted to [facility] with regard to mental status change. This suggests patient was too much to handle for previously. For this reason, bili return to [facility] as appropriate with regard to this stroke.
[2020-08-21] MEDS: APIXABAN 5 MG TAB PO SCH ×2 (09:59→21:19)
[2020-08-21] MEDS: FUROSEMIDE 20 MG TAB PO SCH ×2 (10:00→17:28)
[2020-08-21] MEDS: GABAPENTIN 300 MG CAP PO SCH (10:00)
[2020-08-21] MEDS: MIDODRINE 5 MG TAB PO SCH ×3 (10:54→17:28)
[2020-08-21] MEDS: carvediloL 6.25 MG TAB PO SCH ×2 (10:55→17:28)
--- NOTE | 2020-08-21 11:58 | P.PN ---
Subjective Patient is seen in follow-up for acute kidney injury on chronic kidney disease. Renal function is stable. Has a Foreman catheter. Nonoliguric. Oral intake has been fair. No vomiting or diarrhea. Sodium level improving. No changes overnight. Vital signs are stable. Blood pressure on the lower side. General: The patient appeared well nourished and normally developed. HEENT: Head exam is unremarkable. Neck is without jugular venous distension. LUNGS: Breath sounds decreased. HEART: Rate and Rhythm are regular. ABDOMEN: Soft, nontender. EXTREMITITES: Trace edema. Objective - Vital Signs Vital signs: Vital Signs Temp 99.7 F H 08/21/20 11:47 Pulse 86 08/21/20 11:47 Resp 18 08/21/20 11:47 BP 97/60 08/21/20 11:47 Pulse Ox 93 L 08/21/20 11:47 Intake & Output 08/20/20 08/21/20 08/21/20 18:59 06:59 18:59 Intake Total 598 Output Total 675 1000 Balance -77 -1000 Weight 106 kg Intake: Oral 598 Output: Urine 675 1000 Other: Voiding Method Indwelling Catheter Indwelling Catheter Indwelling Catheter - Labs CBC & Chem 7: 08/21/20 05:47 08/21/20 05:47 Labs: Abnormal Lab Results - Last 24 Hours (Table) 08/21/20 08/21/20 Range/Units 05:47 05:47 RBC 3.38 L (4.30-5.90) m/uL Hgb 9.0 L (13.0-17.5) gm/dL Hct 28.7 L (39.0-53.0) % RDW 17.5 H (11.5-15.5) % Lymphocytes # 0.8 L (1.0-4.8) k/uL Sodium 131 L (137-145) mmol/L BUN 32 H (9-20) mg/dL Creatinine 2.13 H (0.66-1.25) mg/dL Glucose 101 H (74-99) mg/dL Alkaline Phosphatase 165 H (38-126) U/L Total Protein 4.9 L (6.3-8.2) g/dL Albumin 2.5 L (3.5-5.0) g/dL Microbiology - Last 24 Hours (Table) 08/18/20 14:35 Blood Culture - Preliminary Blood No Growth after 48 hours 08/18/20 14:06 Blood Culture - Preliminary Blood No Growth after 48 hours Assessment and Plan Plan: Assessment: 1. Acute kidney injury secondary to ATN secondary to infection and hypotension. Renal function stable. Creatinine 2.13 today. 2. Recent enterococcus bacteremia with endocarditis. On antibiotics per infectious disease. 3. Hypervolemic hyponatremia. Improving. Urine osmolality 325 and urine sodium 39. TSH normal. 4. Chronic kidney disease stage III with baseline creatinine near 1.3 secondary to nephrosclerosis. 5. Hypotension maintained on midodrine. Cortisol level normal. 6. Volume overload. Maintained on oral Lasix. 7. Hypokalemia from diuresis. Status post placement. Better. Plan: Maintain Lasix 20 mg orally twice daily. 1500 mL fluid restriction. Encouraged oral intake, particularly protein. Avoid nephrotoxins. Continue to monitor renal function and urine output. Maintain midodrine.
[2020-08-21] MEDS: ACETAMINOPHEN TAB 325 MG TAB PO PRN (13:48)
--- NOTE | 2020-08-21 13:52 | P.PN ---
Subjective Progress Note Date: 08/21/20 Ramin Green, is a 74-year-old male currently residing at a nursing facility after having a stroke about 3 weeks ago, he was noticed to have mental status changes and was transferred to [facility], he was evaluated at [facility]. Computed tomography scan of the head revealed age indeterminate, possible acute or subacute infarct in the left temporal convexityand then transferred to [facility] via ambulance further evaluation and treatment. On arrival to emergency room patient was alert confused in no apparent distress his vital examination reveals a tempera ture of 100.4 pulse 88 respiration 18 pressure 137/65 pulse ox 98% on room air his white blood count was 3.9 hemoglobin 10.8 platelet count 165 sodium 129 potassium 4.0 chloride 93 BUN 28 creatinine 2.17 chest x-ray revealed pulmonary interstitial fibrotic changes EKG revealed normal sinus rhythm with nonspecific ST abnormality. Patient was admitted to telemetry floor neurology consultation was requested in that regard to mental status changes. Patient is unable to give any significant history, from review of chart patient has been diagnosed with bacterial endocarditis for which he is on prolonged IV antibiotics. Patient has a PICC line in the left arm. Past medical history is significant for history of hypertension, history of hyperlipidemia, history of multiple strokes in the past, history of coronary artery disease, history of chronic kidney disease, history of gastroesophageal reflux disease, history of osteoarthritis with previous history of bilateral hip replacement, history of degenerative disc disease with history of back surgery. Review of system is not amenable due to patient confusion. On 08/14/2020 patient is resting comfortably in bed. Patient does appear more alert today. Patient was evaluated by neurology services and they're recommending MRI. Patient was evaluated by cardiology services for a JACOB at this time continue IV antibiotics. Nephrology infectious disease neurology and cardiology services are following. At this time patient denies any significant complaints. Patient denies nausea vomiting or diarrhea. Patient denies any urinary burning or frequency. Patient denies any chest pain or shortness breath. On 08/15/2020 patient was seen and examined on the telemetry floor he is more alert and oriented today his speech has somewhat improved MRI results, input from cardiology, infectious disease and neurology were reviewed, at this time pl an is to continue with IV ampicillin, patient is denying any pain or discomfort denies any chest pain or shortness of breath otherwise no significant information could be obtained from him , will follow closely On 08/16/2020 patient is resting comfortably in bed. EEG has been ordered per neurology services. Patient remains on IV ampicillin. Neurology, cardiology, infectious disease and nephrology services are following. Creatinine increasing to 2.23 and bun 24. This time patient denies any acute pains. Denies chest pain or shortness breath. Patient denies nausea vomiting or diarrhea. Patient denies any urinary burning or frequency. On 08/17/2020 patient was seen and examined on the medical floor he is alert and oriented 3 in no apparent distress he is still having some difficulty with his speech otherwise no significant abnormality at this time he is maintained on IV antibiotics and is followed by infectious disease cardiology and neurology there is no fever or chills at this time no headache or dizziness no chest pain no shortness of breath no cough no nausea or vomiting no abdominal pain no diarrhea and no urinary symptoms On 08/18/2020 patient alert and oriented 3. Patient having elevated temperature 102 last night. Will discuss with infectious disease. Patient denies any acute complaints. Patient denies chest pain or shortness of breath. Patient denies nausea vomiting or diarrhea. Patient denies any urinary burning or frequency On 08/19/2020 patient was seen and examined on the medical floor, he is alert and oriented 3 in no distress, vital exam reveals a temperature of 99 pulse 89 respiration 16 blood pressure 97/50 pulse ox 96% on room air, his white blood count is 7.7 hemoglobin 9.7 platelet count 270 sodium 128 potassium 4.1 chloride 97 CO2 19 BUN 30 creatinine 2.28, he is having episodes of low-grade temperature there is no chills no headache or dizziness no chest pain no shortness of breath no cough no nausea or vomiting no abdominal pain no diarrhea no blood in the stools no burning with urination no frequency or urgency and no hematuria his speech has improved, nephrology infectious disease and cardiology are following. On 08/20/2020 patient was seen and examined on the medical floor he is alert and oriented 3 in no distress no fever or chills no headache or dizziness this morning he had some cough with eating his breakfast speech therapy consultation was requested check chest x-ray otherwise patient is denying any complaints at this time On 08/21/2020 patient is alert and oriented 3. Patient is currently resting comfortably in bed. Discharge planning process. Discussed case with neonatal social worker awaiting insurance decision in regards to inpatient rehab versus return to [facility]. Per the plan is for patient to be DC'd on daptomycin. At this time patient denies chest pain or shortness of breath. Patient denies nausea vomiting diarrhea. Patient denies any urinary burning or frequency Objective - Vital Signs Vital signs: Vital Signs Temp 99.7 F H 08/21/20 11:47 Pulse 86 08/21/20 11:47 Resp 18 08/21/20 11:47 BP 97/60 08/21/20 11:47 Pulse Ox 93 L 08/21/20 11:47 Intake & Output 08/20/20 08/21/20 08/21/20 18:59 06:59 18:59 Intake Total 598 Output Total 675 1000 Balance -77 -1000 Weight 106 kg Intake: Oral 598 Output: Urine 675 1000 Other: Voiding Method Indwelling Catheter Indwelling Catheter Indwelling Catheter - Exam In general patient is alert confused in no apparent distress HEENT head normocephalic and atraumatic Neck is supple no JVD no goiter no lymphadenopathy Chest exam reveals a few scattered rhonchi no wheezing Cardiac exam reveals regular heart sounds S1 and S2 no gallops no murmurs Abdomen is soft nontender no hepatosplenomegaly with normal bowel sounds Extremity examination reveals no edema there is pretibial erythema bilaterally with some scratching montez, there is a scabbed ulcer on the second left toe. Neurological examination patient is alert and oriented there is still mild abnormality with his speech otherwise no significant abnormality - Labs CBC & Chem 7: 08/21/20 05:47 08/21/20 05:47 Labs: Abnormal Lab Results - Last 24 Hours (Table) 08/21/20 08/21/20 Range/Units 05:47 05:47 RBC 3.38 L (4.30-5.90) m/uL Hgb 9.0 L (13.0-17.5) gm/dL Hct 28.7 L (39.0-53.0) % RDW 17.5 H (11.5-15.5) % Lymphocytes # 0.8 L (1.0-4.8) k/uL Sodium 131 L (137-145) mmol/L BUN 32 H (9-20) mg/dL Creatinine 2.13 H (0.66-1.25) mg/dL Glucose 101 H (74-99) mg/dL Alkaline Phosphatase 165 H (38-126) U/L Total Protein 4.9 L (6.3-8.2) g/dL Albumin 2.5 L (3.5-5.0) g/dL Microbiology - Last 24 Hours (Table) 08/18/20 14:35 Blood Culture - Preliminary Blood No Growth after 48 hours 08/18/20 14:06 Blood Culture - Preliminary Blood No Growth after 48 hours Assessment and Plan Plan: 1. Acute mental status changes cause is not currently. Neurology Services are following. MRI of the head was completed showing findings likely represent subacute infarcts bilaterally rather than herpes encephalitis. Correlate for embolic phenomenon. 2. Subacute ischemic stroke in the left temporal area 3 weeks ago 3. Underlying history of endocarditis maintained on IV antibiotic via PICC line , will continue at this time will consult infectious disease for further evaluation, consult cardiology. Per ID antibiotics have been adjusted to daptomycin 4. Underlying history of chronic kidney disease Will monitor kidney function 5. Underlying history of hypertension 6. Underlying history of hyperlipidemia 7. Underlying history of degenerative disc disease with previous history of back surgery 8. Continued episodes of low-grade fever infectious disease following and rechecking blood cultures Medication and labs were reviewed For DVT prophylaxis patient is on Eliquis For GI prophylaxis patient is on Protonix Infectious disease, neurology, cardiology and nephrology services consulted Carotid Doppler negative Per social work awaiting insurance to see in regards to inpatient rehab versus return to ECF Patient will be DC'd on daptomycin per ID recommendation
--- NOTE | 2020-08-21 19:30 | PN ---
PROGRESS NOTE DATE OF SERVICE: 08/21/2020 REASON FOR FOLLOWUP: Enterococcus faecalis aortic valve endocarditis. INTERVAL HISTORY: The patient has been running a low-grade fever of 99.8. However, the patient overall is feeling better. He is breathing comfortably. The patient denies having any chest pain, shortness of breath or cough. No nausea, no vomiting, no abdominal pain or diarrhea. PHYSICAL EXAMINATION: Blood pressure 97/60 with a pulse of 86, temperature 99.7. He is 93% on room air. General description is an elderly male lying in bed in no distress. RESPIRATORY SYSTEM: Unlabored breathing. Clear to auscultation anteriorly. HEART: S1, S2. Regular rate and rhythm. ABDOMEN: Soft. No tenderness. LABS: Hemoglobin of 9 with a white count of 5.0, creatinine 2.13. DIAGNOSTIC IMPRESSION AND PLAN: Patient with Enterococcus faecalis aortic valve endocarditis. The patient was on ampicillin and that has been switched to daptomycin because of his rash, probably related to the ampicillin. We will continue daptomycin to finish a 6-week course of therapy. Continue supportive care. MMODL / IJN: [id number] /
[2020-08-21] MEDS: CHOLECALCIFEROL 25 MCG (1000 IU) TABLET PO SCH (21:19)
[2020-08-21] MEDS: ATORVASTATIN 40 MG TAB PO SCH (21:20)
[2020-08-21] MEDS: ASCORBIC ACID 500 MG TAB PO SCH (21:20)
[2020-08-22] MEDS: SODIUM CHLORIDE 0.9% 1,000 ML IV SCH (07:09)
[2020-08-22] MEDS: GABAPENTIN 300 MG CAP PO SCH (08:43)
[2020-08-22] MEDS: ACETAMINOPHEN TAB 325 MG TAB PO PRN (08:43)
[2020-08-22] MEDS: APIXABAN 5 MG TAB PO SCH (08:43)
[2020-08-22] MEDS: PANTOPRAZOLE 40 MG TABLET PO SCH (08:43)
[2020-08-22] MEDS: FUROSEMIDE 20 MG TAB PO SCH ×2 (08:44→17:14)
[2020-08-22] MEDS: carvediloL 6.25 MG TAB PO SCH ×2 (08:44→17:17)
[2020-08-22] MEDS: ASPIRIN 81 MG PO SCH (08:44)
[2020-08-22] MEDS: MIDODRINE 5 MG TAB PO SCH ×3 (08:44→17:17)
[2020-08-22 09:15] LABS: Basophils # (A) 0.01 X 10*3/uL (0.00-0.10); Basophils % (A) 0.2 %; Eosinophils # (A) 0.65 X 10*3/uL (0.04-0.35); HCT 26.6 % (39.6-50.0); HGB 8.2 g/dL (13.0-17.0); Lymphocytes # (A) 0.94 X 10*3/uL (0.90-5.00); MCH 26.3 pg (27.0-32.0); MCHC 30.8 g/dL (32.0-37.0); MCV 85.3 fL (80.0-97.0); Mean Platelet Volume 9.4 fL (9.5-12.2); Monocytes # (A) 0.22 X 10*3/uL (0.20-1.00); Monocytes % (A) 3.7 %; Neutrophils # (A) 4.03 X 10*3/uL (1.80-7.70); Neutrophils % (A) 68.4 %; Platelet Count 347 X 10*3/uL (140-440); RBC 3.12 X 10*6/uL (4.40-5.60); RDW 18.3 % (11.5-14.5); WBC 5.89 X 10*3/uL (4.50-10.00)
[2020-08-22 10:01] LABS: African American GFR (CKD) 37.3 (60.0-200.0); Albumin 2.8 g/dL (3.80-4.90); Albumin/Globulin Ratio 1.56 (1.60-3.17); Anion Gap 8.5 mmol/L (4.00-12.00); Calcium 8.8 mg/dL (8.7-10.3); Carbon Dioxide 24.5 mmol/L (21.6-31.8); Globulin 1.8 g/dL (1.6-3.3); Non-African American GFR(CKD) 32.2 (60.0-200.0); Potassium 4.2 mmol/L (3.5-5.5); Total Bilirubin 0.2 mg/dL (0.2-1.2); Total Protein 4.6 g/dL (6.2-8.2)
--- NOTE | 2020-08-22 12:31 | P.PN ---
Subjective Patient is seen in follow-up for acute kidney injury on chronic kidney disease. Renal function is stable. Has a Foreman catheter. Nonoliguric. Oral intake has been fair. No vomiting or diarrhea. Sodium level improving. No changes overnight. No active complaints. Vital signs are stable. Blood pressure on the lower side. General: The patient appeared well nourished and normally developed. HEENT: Head exam is unremarkable. Neck is without jugular venous distension. LUNGS: Breath sounds decreased. HEART: Rate and Rhythm are regular. ABDOMEN: Soft, nontender. EXTREMITITES: Trace edema. Objective - Vital Signs Vital signs: Vital Signs Temp 97.8 F 08/22/20 04:06 Pulse 90 08/22/20 04:06 Resp 18 08/22/20 04:06 BP 94/58 08/22/20 04:06 Pulse Ox 92 L 08/22/20 04:06 Intake & Output 08/21/20 08/22/20 08/22/20 18:59 06:59 18:59 Intake Total 500 Output Total 700 1200 Balance -200 -1200 Intake: Intake, IV Titration 100 Amount DAPTOmycin 600 mg In 100 Sodium Chloride 0.9% 50 ml @ 100 mls/hr IVPB Q48H [facility] Rx#:[id number] Oral 400 Output: Urine 700 1200 Uretheral (Foreman) 1200 Other: Voiding Method Indwelling Catheter Indwelling Catheter Indwelling Catheter # Bowel Movements 1 1 - Labs CBC & Chem 7: 08/22/20 05:43 08/22/20 05:43 Labs: Abnormal Lab Results - Last 24 Hours (Table) 08/22/20 08/22/20 Range/Units 05:43 05:43 RBC 3.12 L (4.40-5.60) X 10*6/uL Hgb 8.2 L (13.0-17.0) g/dL Hct 26.6 L (39.6-50.0) % MCH 26.3 L (27.0-32.0) pg MCHC 30.8 L (32.0-37.0) g/dL RDW 18.3 H (11.5-14.5) % MPV 9.4 L (9.5-12.2) fL Eosinophils # 0.65 H (0.04-0.35) X 10*3/uL Sodium 133 L (135-145) mmol/L BUN 32.0 H (9.0-27.0) mg/dL Creatinine 2.0 H (0.6-1.5) mg/dL Est GFR (CKD-EPI)AfAm 37.3 L (60.0-200.0) Est GFR (CKD-EPI)NonAf 32.2 L (60.0-200.0) Alkaline Phosphatase 146 H (41-126) U/L Total Protein 4.6 L (6.2-8.2) g/dL Albumin 2.80 L (3.80-4.90) g/dL Albumin/Globulin Ratio 1.56 L (1.60-3.17) g/dL Microbiology - Last 24 Hours (Table) 08/18/20 14:35 Blood Culture - Preliminary Blood No Growth after 72 hours 08/18/20 14:06 Blood Culture - Preliminary Blood No Growth after 72 hours Assessment and Plan Plan: Assessment: 1. Acute kidney injury secondary to ATN secondary to infection and hypotension. Renal function stable. Creatinine 2.0 today. 2. Recent enterococcus bacteremia with endocarditis. On antibiotics per infectious disease. 3. Hypervolemic hyponatremia. Improving. Urine osmolality 325 and urine sodium 39. TSH normal. 4. Chronic kidney disease stage III with baseline creatinine near 1.3 secondary to nephrosclerosis. 5. Hypotension maintained on midodrine. Cortisol level normal. 6. Volume overload. Maintained on oral Lasix. 7. Hypokalemia from diuresis. Status post placement. Better. 8. Anemia of chronic kidney disease. Plan: Maintain Lasix 20 mg orally twice daily. 1500 mL fluid restriction. Encouraged oral intake, particularly protein. Avoid nephrotoxins. Continue to monitor renal function and urine output. Maintain midodrine. Add low-dose Aranesp.
[2020-08-22 12:46] VITALS: BP 93/54; RESP 16; TEMP 97.6
[2020-08-22] MEDS ORDERED: DARBEPOETIN ALFA 25 MCG/0.42 ML SYRINGE SQ SCH (13:00)
--- NOTE | 2020-08-22 14:20 | P.DS ---
Providers Date of admission: 08/13/20 11:33 Expected date of discharge: 08/22/20 Attending physician: Amelia Borja Consults: 08/13/20 03:00 Consult Physician Routine Consulting Provider: Brian Yanez Consult Reason/Comments: altered mental status Do you want consulting provider notified?: Yes 08/13/20 10:35 Consult Physician Routine Consulting Provider: Amelia Borja Consult Reason/Comments: inpatient care Do you want consulting provider notified?: Yes 08/13/20 18:13 Consult Physician Routine Consulting Provider: Margie Gutiérrez Consult Reason/Comments: elevated kidney function/known to patient Do you want consulting provider notified?: Yes, Notify in am 08/13/20 18:28 Consult Physician Routine Consulting Provider: Johny Sandoval Consult Reason/Comments: sepsis Do you want consulting provider notified?: Yes 08/13/20 18:45 Consult Physician Routine Consulting Provider: Erin Ramríez Consult Reason/Comments: endocarditis Do you want consulting provider notified?: Yes 08/21/20 08:31 Consult Physician Routine Consulting Provider: Sylvain Parsons Consult Reason/Comments: in patient rehab Do you want consulting provider notified?: Yes Primary care physician: Sylvain Lira Hospital Course: Diagnoses on discharge: 1. Acute mental status changes cause is not currently. Neurology Services are following. MRI of the head was completed showing findings likely represent subacute infarcts bilaterally rather than herpes encephalitis. Correlate for embolic phenomenon. 2. Subacute ischemic stroke in the left temporal area 3 weeks ago 3. Underlying history of endocarditis maintained on IV antibiotic via PICC line, will continue at this time will consult infectious disease for further evaluation, consult cardiology. Per ID antibiotics have been adjusted to daptomycin 4. Underlying history of chronic kidney disease Will monitor kidney function 5. Underlying history of hypertension 6. Underlying history of hyperlipidemia 7. Underlying history of degenerative disc disease with previous history of back surgery 8. Continued episodes of low-grade fever infectious disease following and rechecking blood cultures 9. Allergic reaction with rash likely related to IV Ampicillin. Antibiotics switched to Daptomycin during this admission. Hospital course: Ramin Green, is a 74-year-old male currently residing at a nursing facility after having a stroke about 3 weeks ago, he was noticed to have mental status changes and was transferred to [facility], he was evaluated at [facility]. Computed tomography scan of the head revealed age indeterminate, possible acute or subacute infarct in the left temporal convexityand then transferred to [facility] via ambulance further evaluation and treatment. On arrival to emergency room patient was alert confused in no apparent distress his vital examination reveals a temperature of 100.4 pulse 88 respiration 18 pressure 137/65 pulse ox 98% on room air his white blood count was 3.9 hemoglobin 10.8 platelet count 165 sodium 129 potassium 4.0 chloride 93 BUN 28 creatinine 2.17 chest x-ray revealed pulmonary interstitial fibrotic changes EKG revealed normal sinus rhythm with nonspecific ST abnormality. Patient was admitted to telemetry floor neurology consultation was requested in that regard to mental status changes. Patient is unable to give any significant history, from review of chart patient has been diagnosed with bacterial endocarditis for which he is on prolonged IV antibiotics. Patient has a PICC line in the left arm. Past medical history is significant for history of hypertension, history of hyperlipidemia, history of multiple strokes in the past, history of coronary art princess disease, history of chronic kidney disease, history of gastroesophageal reflux disease, history of osteoarthritis with previous history of bilateral hip replacement, history of degenerative disc disease with history of back surgery. Review of system is not amenable due to patient confusion. On 08/14/2020 patient is resting comfortably in bed. Patient does appear more alert today. Patient was evaluated by neurology services and they're recommending MRI. Patient was evaluated by cardiology services for a JACOB at this time continue IV antibiotics. Nephrology infectious disease neurology and cardiology services are following. At this time patient denies any significant complaints. Patient denies nausea vomiting or diarrhea. Patient denies any urinary burning or frequency. Patient denies any chest pain or shortness breath. On 08/15/2020 patient was seen and examined on the telemetry floor he is more alert and oriented today his speech has somewhat improved MRI results, input from cardiology, infectious disease and neurology were reviewed, at this time plan is to continue with IV ampicillin, patient is denying any pain or discomfort denies any chest pain or shortness of breath otherwise no significant information could be obtained from him , will follow closely On 08/16/2020 patient is resting comfortably in bed. EEG has been ordered per neurology services. Patient remains on IV ampicillin. Neurology, cardiology, infectious disease and nephrology services are following. Creatinine increasing to 2.23 and bun 24. This time patient denies any acute pains. Denies chest pain or shortness breath. Patient denies nausea vomiting or diarrhea. Patient denies any urinary burning or frequency. On 08/17/2020 patient was seen and examined on the medical floor he is alert and oriented 3 in no apparent distress he is still having some difficulty with his speech otherwise no significant abnormality at this time he is maintained on IV antibiotics and is followed by infectious disease cardiology and neurology there is no fever or chills at this time no headache or dizziness no chest pain no shortness of breath no cough no nausea or vomiting no abdominal pain no diarrhea and no urinary symptoms On 08/18/2020 patient alert and oriented 3. Patient having elevated temperature 102 last night. Will discuss with infectious disease. Patient denies any acute complaints. Patient denies chest pain or shortness of breath. Patient denies nausea vomiting or diarrhea. Patient denies any urinary burning or frequency On 08/19/2020 patient was seen and examined on the medical floor, he is alert and oriented 3 in no distress, vital exam reveals a temperature of 99 pulse 89 respiration 16 blood pressure 97/50 pulse ox 96% on room air, his white blood count is 7.7 hemoglobin 9.7 platelet count 270 sodium 128 potassium 4.1 chloride 97 CO2 19 BUN 30 creatinine 2.28, he is having episodes of low-grade temperature there is no chills no headache or dizziness no chest pain no shortness of breath no cough no nausea or vomiting no abdominal pain no diarrhea no blood in the stools no burning with urination no frequency or urgency and no hematuria his speech has improved, nephrology infectious disease and cardiology are following. On 08/20/2020 patient was seen and examined on the medical floor he is alert and oriented 3 in no distress no fever or chills no headache or dizziness this morning he had some cough with eating his breakfast speech therapy consultation was requested check chest x-ray otherwise patient is denying any complaints at this time On 08/21/2020 patient is alert and oriented 3. Patient is currently resting comfortably in bed. Discharge planning process. Discussed case with social problems specialist awaiting insurance decision in regards to inpatient rehab versus return to [facility]. Per the plan is for patient to be DC'd on daptomycin. At this time patient denies chest pain or shortness of breath. Patient denies nausea vomiting diarrhea. Patient denies any urinary burning or frequency Patient Condition at Discharge: Poor Plan - Discharge Summary Discharge Rx Participant: No New Discharge Prescriptions: New Darbepoetin Roderick [Aranesp] 25 mcg SQ Q7D syringe Calamine/Zinc Oxide Lotion [Calamine Lotion] 1 applic TOPICAL BID PRN applic PRN Reason: Skin Irritation DAPTOmycin [Cubicin] 600 mg IVPB Q48H vial Midodrine [ProAmatine] 10 mg PO AC-TID tab Acetaminophen Tab [Tylenol] 650 mg PO Q6HR PRN tab PRN Reason: Mild Pain Or Fever > 100.5 Continue carvediloL [Coreg] 6.25 mg PO BID@0900,1700 Furosemide [Lasix] 40 mg PO DAILY@0900 Acetaminophen Tab [Tylenol] 650 mg PO Q4H PRN PRN Reason: Pain Magnesium Hydroxide [Milk of Magnesia] 2,400 mg PO Q12H PRN PRN Reason: Constipation Ipratropium-Albuterol Nebulize [Duoneb 0.5 mg-3 mg/3 ml Soln] 3 ml INHALATION RT-Q4H PRN PRN Reason: Shortness Of Breath Or Wheezing Cholecalciferol [Vitamin D3 (25 Mcg = 1000 Iu)] 25 mcg PO HS@2100 bisacodyL [Bisacodyl] 10 mg RECTAL DAILY PRN PRN Reason: Constipation Apixaban [Eliquis] 5 mg PO BID@0900,1700 Ascorbic Acid [Vitamin C] 1,000 mg PO HS@2100 Atorvastatin [Lipitor] 20 mg PO HS@2100 Aspirin 81 mg PO DAILY@0900 Gabapentin [Neurontin] 300 mg PO DAILY@0900 #3 cap Omeprazole 20 mg PO DAILY@0600 Sodium Bicarbonate Tab 650 mg PO BID@0900,1700 traMADol HCL 50 mg PO TID@0600,1300,2100 Discontinued Ampicillin Sodium 2,000 mg IV Q6H Discharge Medication List carvediloL [Coreg] 6.25 mg PO BID@0900,1700 04/28/19 [History] Furosemide [Lasix] 40 mg PO DAILY@0900 09/01/19 [History] Acetaminophen Tab [Tylenol] 650 mg PO Q4H PRN 07/19/20 [History] Apixaban [Eliquis] 5 mg PO BID@0900,1700 07/19/20 [History] Ascorbic Acid [Vitamin C] 1,000 mg PO HS@209907/19/20 [History] Aspirin 81 mg PO DAILY@0900 07/19/20 [History] Atorvastatin [Lipitor] 20 mg PO HS@209907/19/20 [History] Cholecalciferol [Vitamin D3 (25 Mcg = 1000 Iu)] 25 mcg PO HS@209907/19/20 [History] Ipratropium-Albuterol Nebulize [Duoneb 0.5 mg-3 mg/3 ml Soln] 3 ml INHALATION RT-Q4H PRN 07/19/20 [History] Magnesium Hydroxide [Milk of Magnesia] 2,400 mg PO Q12H PRN 07/19/20 [History] bisacodyL [Bisacodyl] 10 mg RECTAL DAILY PRN 07/19/20 [History] Gabapentin [Neurontin] 300 mg PO DAILY@0900 #3 cap 07/29/20 [Rx] Omeprazole 20 mg PO DAILY@0600 08/13/20 [History] Sodium Bicarbonate Tab 650 mg PO BID@0900,1700 08/13/20 [History] traMADol HCL 50 mg PO TID@0600,1300,2100 08/13/20 [History] Acetaminophen Tab [Tylenol] 650 mg PO Q6HR PRN tab 08/22/20 [Rx] Calamine/Zinc Oxide Lotion [Calamine Lotion] 1 applic TOPICAL BID PRN applic 08/22/20 [Rx] DAPTOmycin [Cubicin] 600 mg IVPB Q48H vial 08/22/20 [Rx] Darbepoetin Roderick [Aranesp] 25 mcg SQ Q7D syringe 08/22/20 [Rx] Midodrine [ProAmatine] 10 mg PO AC-TID tab 08/22/20 [Rx] Follow up Appointment(s)/Referral(s): Quang Arthur MD [STAFF PHYSICIAN] - 2 Weeks Sylvain Lira MD [Primary Care Provider] - 1-2 days
--- NOTE | 2020-08-22 14:42 | PN ---
PROGRESS NOTE DATE OF SERVICE: 08/22/2020 REASON FOR FOLLOWUP: Enterococcus faecalis aortic valve endocarditis. INTERVAL HISTORY: The patient is currently afebrile. Patient is breathing comfortably. Patient denies having any chest pain, shortness of breath or cough. No nausea, no vomiting. No abdominal pain. PHYSICAL EXAMINATION: Blood pressure 93/54, pulse of 71, temperature 97.6. He is 92% on room air. General description is an elderly male lying in bed in no distress. RESPIRATORY SYSTEM: Unlabored breathing, clear to auscultation anteriorly. HEART: S1, S2. Regular rate and rhythm. ABDOMEN: Soft, no tenderness. LABS: Hemoglobin 8.2, white count 5.89, BUN of 32, creatinine 2.0. DIAGNOSTIC IMPRESSION AND PLAN: Patient with Enterococcus faecalis endocarditis aortic valve did develop rash secondary to ampicillin currently on daptomycin to continue to finish his 6-week course of therapy and close outpatient followup. MMODL / IJN: [id number] /
[2020-08-22 15:41] VITALS: PULSE 75
--- NOTE | 2020-08-26 07:35 | CDI ---
Documentation Clarification Form Date: 08/26/2020 07:05:00 AM From: Priscilla Saini Phone: If you have a question about this query, please contact Yvonne Quiros Head [employer] Reactor Operator at [phone] between 8am and 5pm. Admit Date: 08/13/2020 11:33:00 AM Patient Name: Ramin Green Visit Number: [id number] Discharge Date: 08/22/2020 05:30:00 PM ATTENTION: The Clinical Documentation Specialists (CDI) and [facility] Coding Staff appreciate your assistance in clarifying documentation. Please respond to the clarification below the line at the bottom and electronically sign. The CDI & [facility] Coding staff will review the response and follow-up if needed. Please note: Queries are made part of the Legal Health Record. If you have any questions, please contact the author of this message via ITS. Dr. Amelia Borja Pneumonia was documented in 3/3 PN's "CXR showing pneumonia and atelectasis". Please clarify if patient had pneumonia or was it ruled out. History/Risk Factors: endocarditis Clinical Indicators: Vital signs: 100.4 F, 88 bpm, 18, 137/65, 98% RA WBC/Left shift: 3.9 X-ray: pneumonia atelectasis Antibiotics Daptomycin Please clarify if patient had pneumonia or was it ruled out: Pneumonia Pneumonia ruled out. Bacterial Pneumonia, specify causal organism (if known) Gram Negative Pneumonia Due to Strep ?Due to Staph ?Due to E. Coli ?Other bacteria (please specify) Viral Pneumonia, specify casual organism (if known) Healthcare Acquired Pneumonia/Pneumonia, unspecified Other, please specify Unable to determine pneumonia ruled out per ID MTDD
--- NOTE | 2020-09-06 07:18 | CDI ---
Documentation Clarification Form Date: 09/06/2020 06:56:00 AM From: Priscilla Saini Phone: If you have a question about this query, please contact Yvonne Quiros, Uniformer at [phone] between 8am and 5pm. Admit Date: 08/13/2020 11:33:00 AM Patient Name: Ramin Green Visit Number: [id number] Discharge Date: 08/22/2020 05:30:00 PM ATTENTION: The Clinical Documentation Specialists (CDI) and [facility] Coding Staff appreciate your assistance in clarifying documentation. Please respond to the clarification below the line at the bottom and electronically sign. The CDI & [facility] Coding staff will review the response and follow-up if needed. Please note: Queries are made part of the Legal Health Record. If you have any questions, please contact the author of this message via ITS. Dr. Amelia Borja The patients principal diagnosis has not been clearly identified and requires clarification. Per DCS "Acute Mental Status changes cause is not currently." MRI of head showing findings likely represent infarcts bilaterally rather than herpes encephalitis. Subacute ischemic stroke in the left temporal area 3 weeks ago. Please clarify if MRI findings of subacute infarcts / subacute ischemic stroke are possible cause of Acute mental changes. Please clarify. He/She presented with the following AMS, subacute stroke 3 weeks ago. Generalized weakness. aortic valve endocarditis, difficulty with speech, confused Radiology findings: MRI bilateral infarcts Vital Signs:100.4 F, 88 bpm, 18, 137/65, 98 RA Other Clinical Indicators: Treatment: EEG, MRI Consults: neurology Other tx: Patient is on Eliquis In your professional opinion, can you please clarify which diagnosis, after study, accounted for the patients presenting symptoms and was the reason chiefly responsible for the admission? Subacute ischemic infarct Subacute ischemic infarct not the cause of AMS Other: Unable to determine Subacute acute ischemic infarct MTDD
== END 2020-08-22 17:30 | DRG 64 ==
LOC: EC 23:13 → 3SCARD 08-13 02:59 → OBSVTOIN 08-13 11:33 → 3SCARD 08-13 14:52 → 5NMEDONC 08-20 21:25 → 3SCARD 08-20 21:29 → 5NMEDONC 08-20 21:48
PROVIDERS: ADMIT Internal Medicine; ATTEND Internal Medicine
DX: I63.89 Other cerebral infarction (principal); I33.0 Acute and subacute infective endocarditis; N17.0 Acute kidney failure with tubular necrosis; G92 Toxic encephalopathy; I69.351 Hemiplegia and hemiparesis following cerebral infarction affecting right dominant side; J98.11 Atelectasis; E87.1 Hypo-osmolality and hyponatremia; I13.0 Hypertensive heart and chronic kidney disease with heart failure and stage 1 through stage 4 chronic kidney disease, or unspecified chronic kidney disease; J84.9 Interstitial pulmonary disease, unspecified; I69.320 Aphasia following cerebral infarction; L27.0 Generalized skin eruption due to drugs and medicaments taken internally; D63.1 Anemia in chronic kidney disease; E78.5 Hyperlipidemia, unspecified; E87.6 Hypokalemia; T50.2X5A Adverse effect of carbonic-anhydrase inhibitors, benzothiadiazides and other diuretics, initial encounter; H53.461 Homonymous bilateral field defects, right side; I25.10 Atherosclerotic heart disease of native coronary artery without angina pectoris; I35.8 Other nonrheumatic aortic valve disorders; I44.0 Atrioventricular block, first degree; I48.0 Paroxysmal atrial fibrillation; I50.9 Heart failure, unspecified; Z20.822 Contact with and (suspected) exposure to COVID-19; L25.9 Unspecified contact dermatitis, unspecified cause; M13.0 Polyarthritis, unspecified; N18.30 Chronic kidney disease, stage 3 unspecified; T36.0X5A Adverse effect of penicillins, initial encounter; Z79.01 Long term (current) use of anticoagulants; Z79.82 Long term (current) use of aspirin; Z79.899 Other long term (current) drug therapy; Z82.49 Family history of ischemic heart disease and other diseases of the circulatory system; Z86.79 Personal history of other diseases of the circulatory system; Z87.891 Personal history of nicotine dependence; Z95.1 Presence of aortocoronary bypass graft; Z96.643 Presence of artificial hip joint, bilateral; R26.9 Unspecified abnormalities of gait and mobility; Z88.2 Allergy status to sulfonamides; Z88.8 Allergy status to other drugs, medicaments and biological substances; Z98.42 Cataract extraction status, left eye; Z98.41 Cataract extraction status, right eye; Z83.2 Family history of diseases of the blood and blood-forming organs and certain disorders involving the immune mechanism; Z90.49 Acquired absence of other specified parts of digestive tract
CPT/HCPCS: 36415; 70553; 71045; 80048; 80053; 80306; 81001; 82533; 83735; 83930; 83935; 84300; 84443; 84484; 85025; 85610; 85652; 85730; 86140; 87040; 87086; 87635; 93005; 93880; 95816; 96365; 96376; 99285

== ENCOUNTER 2020-09-13 11:28 | Inpatient (IN) | payer MEDICARE ==
[2020-09-13 12:40] LABS: Anisocytosis Slight; Basophils % (A) 0 %; Eosinophils # (A) 0.6 k/uL (0-0.7); Eosinophils % (A) 4 %; HCT 30.7 % (39.0-53.0); HGB 9.6 gm/dL (13.0-17.5); Hypochromasia Slight; Lymphocytes % (A) 7 %; MCH 25.6 pg (25.0-35.0); MCHC 31.2 g/dL (31.0-37.0); MCV 81.9 fL (80.0-100.0); Mean Platelet Volume 7.2; Monocytes # (A) 0.3 k/uL (0-1.0); Monocytes % (A) 2 %; Neutrophils # (A) 12.1 k/uL (1.3-7.7); Neutrophils % (A) 86 %; Platelet Count 363 k/uL (150-450); RBC 3.75 m/uL (4.30-5.90); RDW 17.9 % (11.5-15.5)
[2020-09-13 12:53] LABS: Albumin 2.8 g/dL (3.5-5.0); Calcium 8.7 mg/dL (8.4-10.2); Potassium 4.1 mmol/L (3.5-5.1); Total Bilirubin 0.7 mg/dL (0.2-1.3); Total Protein 5.5 g/dL (6.3-8.2)
--- NOTE | 2020-09-13 12:53 | ED ---
SOB HPI - General Chief Complaint: Shortness of Breath Stated Complaint: CHF Source: patient Mode of arrival: EMS Limitations: no limitations - History of Present Illness Initial Comments: 74-year-old male who was recently hospitalized for subacute CVA, aortic valve endocarditis, presents to the emergency department as a transfer from [facility]. 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 Evaluation in the hospital throughout the month of July demonstrated patient had enterococcus faecalis aortic endocarditis. The patient was placed on daptomycin and transferred to [facility] for rehab. I received a call from [facility] stating that the patient was transferred to their facility for hypotension and respiratory insufficiency. Patient was placed on Levaquin 5 through his PICC line. They did place him on BiPAP due to his hypoxia of 88% with his increased work of breathing. They found that the patient had worsening renal insufficiency and therefore requested to transfer the patient back to our facility. The patient cannot provide any history as he does have altered mental status since his CVA. It is reported to me that the patient is at his normal neurologic baseline - Related Data Home Medications Medication Instructions Recorded Confirmed carvediloL [Coreg] 6.25 mg PO BID@0900,1700 04/28/19 09/15/20 Furosemide [Lasix] 40 mg PO DAILY@0900 09/01/19 09/15/20 Acetaminophen Tab [Tylenol] 650 mg PO Q4H PRN 07/19/20 09/15/20 Atorvastatin [Lipitor] 20 mg PO HS@2100 07/19/20 09/15/20 Cholecalciferol [Vitamin D3 (25 25 mcg PO HS@2100 07/19/20 09/15/20 Mcg = 1000 Iu)] Ipratropium-Albuterol Nebulize 3 ml INHALATION RT-Q4H PRN 07/19/20 09/15/20 [Duoneb 0.5 mg-3 mg/3 ml Soln] Magnesium Hydroxide [Milk of 2,400 mg PO Q12H PRN 07/19/20 09/15/20 Magnesia] bisacodyL [Bisacodyl] 10 mg RECTAL DAILY PRN 07/19/20 09/15/20 Omeprazole 20 mg PO DAILY@0600 08/13/20 09/15/20 Sodium Bicarbonate Tab 650 mg PO BID@0900,1700 08/13/20 09/15/20 traMADol HCL 50 mg PO TID@0600,1300,2100 08/13/20 09/15/20 Apixaban [Eliquis] 5 mg PO BID@0900,1700 09/13/20 09/15/20 Ascorbic Acid [Vitamin C] 1,000 mg PO HS@2100 09/13/20 09/15/20 Aspirin EC [Ecotrin Low Dose] 81 mg PO DAILY@0900 09/13/20 09/15/20 Calamine/Zinc Oxide Lotion 1 applic TOPICAL BID PRN 09/13/20 09/15/20 [Calamine Lotion] Darbepoetin Roderick [Aranesp] 25 mcg SQ TU@0900 09/13/20 09/15/20 Docusate [Colace] 100 mg PO DAILY@0900 09/13/20 09/15/20 Levocetirizine Dihydrochloride 5 mg PO DAILY PRN 09/13/20 09/15/20 Midodrine [ProAmatine] 10 mg PO AC-TID@07,11,16 09/13/20 09/15/20 guaiFENesin 400 mg PO BID@0900,1700 09/13/20 09/15/20 Previous Rx's Medication Instructions Recorded Gabapentin [Neurontin] 300 mg PO DAILY@0900 #3 cap 07/29/20 Allergies Allergy/AdvReac Type Severity Reaction Status Date / Time MATHIEU Inhibitors Allergy Unknown Verified 09/13/20 12:13 meperidine Allergy Unknown Verified 09/13/20 12:13 Sulfa (Sulfonamide Allergy Rash/Hives Verified 09/13/20 12:13 Antibiotics) baclofen AdvReac Hallucinati Verified 09/13/20 12:13 ons hydromorphone [From Dilaudid] AdvReac Hallucinati Verified 09/13/20 12:13 ons meperidine HCl [From Demerol] AdvReac Nausea & Verified 09/13/20 12:13 Vomiting sulfamethoxazole AdvReac Rash/Hives Verified 09/13/20 12:13 [From Bactrim] trimethoprim [From Bactrim] AdvReac Rash/Hives Verified 09/13/20 12:13 Review of Systems ROS Statement: Those systems with pertinent positive or pertinent negative responses have been documented in the HPI. ROS Other: All systems not noted in ROS Statement are negative. 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 Expressive aphasia History of Any Multi-Drug Resistant Organisms: None Reported Past Surgical History: Appendectomy, Back Surgery, Heart Catheterization, Joint Replacement Additional Past Surgical History / Comment(s): back surgery x 4, bilateral cataracts removed, alicia hip replacments, cardiac cath 2010 - normal, EGD/colonoscopy, varicose vein stripping, tilt table test, loop recorder was shut off in 06/08 Past Anesthesia/Blood Transfusion Reactions: No Reported Reaction Past Psychological History: No Psychological Hx Reported, Bipolar Smoking Status: Former smoker Past Alcohol Use History: Occasional Past Drug Use History: None Reported - Past Family History Father Family Medical History: Vascular Disorder Additional Family Medical History / Comment(s): PVD-double amputee. Mother Family Medical History: Pulmonary Embolus Additional Family Medical History / Comment(s): Mother of a pulmonary embolism at the age of 63 yrs. General Exam Limitations: physical limitation General appearance: lethargic Head exam: Present: atraumatic, normocephalic, normal inspection Eye exam: Present: normal appearance, PERRL, EOMI. Absent: scleral icterus, conjunctival injection, periorbital swelling ENT exam: Present: mucous membranes dry Respiratory exam: Present: rales, decreased breath sounds Cardiovascular Exam: Present: regular rate, normal rhythm, normal heart sounds. Absent: systolic murmur, diastolic murmur, rubs, gallop, clicks GI/Abdominal exam: Present: soft, normal bowel sounds. Absent: distended, tenderness, guarding, rebound, rigid Extremities exam: Present: pedal edema Back exam: Present: vertebral tenderness Neurological exam: Present: altered, other (expressive aphasia) Skin exam: Present: pallor Course Vital Signs 09/13/20 09/13/20 09/13/20 11:32 11:55 12:30 Temperature 97.7 F Pulse Rate 74 73 77 Respiratory 20 21 18 Rate Blood Pressure 119/66 119/102 77/67 O2 Sat by Pulse 100 99 96 Oximetry 09/13/20 09/13/20 09/13/20 12:53 13:11 13:21 Temperature Pulse Rate 73 73 76 Respiratory 19 22 18 Rate Blood Pressure 90/74 87/53 86/65 O2 Sat by Pulse 93 L 96 98 Oximetry 09/13/20 09/13/20 09/13/20 13:44 14:00 14:30 Temperature Pulse Rate 81 83 79 Respiratory 18 18 19 Rate Blood Pressure 96/56 118/69 101/66 O2 Sat by Pulse 96 99 99 Oximetry 09/13/20 09/13/20 09/13/20 14:51 15:36 16:07 Temperature 98.7 F Pulse Rate 81 96 82 Respiratory 18 18 20 Rate Blood Pressure 116/95 98/80 96/47 O2 Sat by Pulse 97 99 Oximetry 09/13/20 16:52 Temperature Pulse Rate 84 Respiratory 20 Rate Blood Pressure 107/52 O2 Sat by Pulse 99 Oximetry Medical Decision Making - Medical Decision Making Upon arrival the patient is placed into trauma bay 1. A thorough history and physical exam is performed. He does arrive with BiPAP settings at 16 over 4. He is continued at 16/5 at 50%. The levophed is turned off and the patient does slowly become hypotensive therefore it is reordered and placed through his PICC. The patient does have a second peripheral IV. I repeated laboratory studies. Patient's white blood cell count is up to 14. INR 1.5. Creatinine is 4.7, up from 2. BNP 5260. Covid negative. Chest x-ray does demonstrate bilateral diffuse infiltrates. The patient is covered with daptomycin after we did redraw blood cultures. Patient does remain with acceptable vital signs on the current BiPAP settings and pressor settings. I spoke with the patient's . I did recommend admission for which the patients agreed to. I spoke Dr. Borja who agreed to admit the patient under his service. I also spoke with Dr. Thomason. I will place nephrology and infectious disease on consult. Patient remained in stable condition with a guarded prognosis awaiting a bed in the ICU - Lab Data Result diagrams: 09/15/20 11:26 09/15/20 11:26 Lab Results 03/26/21 03/26/21 03/26/21 Range/Units 12:07 12:07 12:07 WBC 14.0 H (3.8-10.6) k/uL RBC 3.75 L (4.30-5.90) m/uL Hgb 9.6 L (13.0-17.5) gm/dL Hct 30.7 L (39.0-53.0) % MCV 81.9 (80.0-100.0) fL MCH 25.6 (25.0-35.0) pg MCHC 31.2 (31.0-37.0) g/dL RDW 17.9 H (11.5-15.5) % Plt Count 363 (150-450) k/uL MPV 7.2 Neutrophils % 86 % Lymphocytes % 7 % Monocytes % 2 % Eosinophils % 4 % Basophils % 0 % Neutrophils # 12.1 H (1.3-7.7) k/uL Lymphocytes # 1.0 (1.0-4.8) k/uL Monocytes # 0.3 (0-1.0) k/uL Eosinophils # 0.6 (0-0.7) k/uL Basophils # 0.0 (0-0.2) k/uL Hypochromasia Slight Anisocytosis Slight PT 15.2 H (9.0-12.0) sec INR 1.5 H (<1.2) APTT 37.9 H (22.0-30.0) sec Sodium 132 L (137-145) mmol/L Potassium 4.1 (3.5-5.1) mmol/L Chloride 90 L (98-107) mmol/L Carbon Dioxide 28 (22-30) mmol/L Anion Gap 14 mmol/L BUN 72 H (9-20) mg/dL Creatinine 4.76 H (0.66-1.25) mg/dL Est GFR (CKD-EPI)AfAm 13 (>60 ml/min/1.73 sqM) Est GFR (CKD-EPI)NonAf 11 (>60 ml/min/1.73 sqM) Glucose 133 H (74-99) mg/dL Plasma Lactic Acid Willard (0.7-2.0) mmol/L Calcium 8.7 (8.4-10.2) mg/dL Total Bilirubin 0.7 (0.2-1.3) mg/dL AST 37 (17-59) U/L ALT 14 (4-49) U/L Alkaline Phosphatase 103 (38-126) U/L Troponin I (0.000-0.034) ng/mL NT-Pro-B Natriuret Pep pg/mL Total Protein 5.5 L (6.3-8.2) g/dL Albumin 2.8 L (3.5-5.0) g/dL Coronavirus (PCR) (Not Detectd) 09/13/20 09/13/20 09/13/20 Range/Units 12:07 12:07 12:07 WBC (3.8-10.6) k/uL RBC (4.30-5.90) m/uL Hgb (13.0-17.5) gm/dL Hct (39.0-53.0) % MCV (80.0-100.0) fL MCH (25.0-35.0) pg MCHC (31.0-37.0) g/dL RDW (11.5-15.5) % Plt Count (150-450) k/uL MPV Neutrophils % % Lymphocytes % % Monocytes % % Eosinophils % % Basophils % % Neutrophils # (1.3-7.7) k/uL Lymphocytes # (1.0-4.8) k/uL Monocytes # (0-1.0) k/uL Eosinophils # (0-0.7) k/uL Basophils # (0-0.2) k/uL Hypochromasia Anisocytosis PT (9.0-12.0) sec INR (<1.2) APTT (22.0-30.0) sec Sodium (137-145) mmol/L Potassium (3.5-5.1) mmol/L Chloride (98-107) mmol/L Carbon Dioxide (22-30) mmol/L Anion Gap mmol/L BUN (9-20) mg/dL Creatinine (0.66-1.25) mg/dL Est GFR (CKD-EPI)AfAm (>60 ml/min/1.73 sqM) Est GFR (CKD-EPI)NonAf (>60 ml/min/1.73 sqM) Glucose (74-99) mg/dL Plasma Lactic Acid Willard 1.4 (0.7-2.0) mmol/L Calcium (8.4-10.2) mg/dL Total Bilirubin (0.2-1.3) mg/dL AST (17-59) U/L ALT (4-49) U/L Alkaline Phosphatase (38-126) U/L Troponin I <0.012 (0.000-0.034) ng/mL NT-Pro-B Natriuret Pep 5260 pg/mL Total Protein (6.3-8.2) g/dL Albumin (3.5-5.0) g/dL Coronavirus (PCR) (Not Detectd) 09/13/20 Range/Units 12:36 WBC (3.8-10.6) k/uL RBC (4.30-5.90) m/uL Hgb (13.0-17.5) gm/dL Hct (39.0-53.0) % MCV (80.0-100.0) fL MCH (25.0-35.0) pg MCHC (31.0-37.0) g/dL RDW (11.5-15.5) % Plt Count (150-450) k/uL MPV Neutrophils % % Lymphocytes % % Monocytes % % Eosinophils % % Basophils % % Neutrophils # (1.3-7.7) k/uL Lymphocytes # (1.0-4.8) k/uL Monocytes # (0-1.0) k/uL Eosinophils # (0-0.7) k/uL Basophils # (0-0.2) k/uL Hypochromasia Anisocytosis PT (9.0-12.0) sec INR (<1.2) APTT (22.0-30.0) sec Sodium (137-145) mmol/L Potassium (3.5-5.1) mmol/L Chloride (98-107) mmol/L Carbon Dioxide (22-30) mmol/L Anion Gap mmol/L BUN (9-20) mg/dL Creatinine (0.66-1.25) mg/dL Est GFR (CKD-EPI)AfAm (>60 ml/min/1.73 sqM) Est GFR (CKD-EPI)NonAf (>60 ml/min/1.73 sqM) Glucose (74-99) mg/dL Plasma Lactic Acid Willard (0.7-2.0) mmol/L Calcium (8.4-10.2) mg/dL Total Bilirubin (0.2-1.3) mg/dL AST (17-59) U/L ALT (4-49) U/L Alkaline Phosphatase (38-126) U/L Troponin I (0.000-0.034) ng/mL NT-Pro-B Natriuret Pep pg/mL Total Protein (6.3-8.2) g/dL Albumin (3.5-5.0) g/dL Coronavirus (PCR) Not Detected (Not Detectd) - EKG Data EKG Comments: EKG demonstrates normal sinus rhythm with a ventricular rate of 73. DE interval 182. QRS 108. QTC 442. Q wave in lead 3. No acute ST segment elevations Disposition Clinical Impression: Debility, Renal insufficiency, Respiratory failure, Hypotension, Aortic valve endocarditis Disposition: ADMITTED IP TO THIS HOSP Condition: Serious Is patient prescribed a controlled substance at d/c from ED?: No Decision to Admit Reason: Admit from EC Decision Date: 09/13/20 Decision Time: 14:55
[2020-09-13 12:56] LABS: INR 1.5 (<1.2); Partial Thromboplastin Time 37.9 sec (22.0-30.0); Prothrombin Time 15.2 sec (9.0-12.0)
[2020-09-13] MEDS: NOREPINEPHRINE 32 MG in SODIUM CHLORIDE 0.9% 218 ML IV SCH (13:10)
--- NOTE | 2020-09-13 13:13 | XR ---
EXAMINATION TYPE: XR chest 1V portable DATE OF EXAM: 09/13/2020 COMPARISON: NONE HISTORY: Shortness of breath TECHNIQUE: Single frontal view of the chest is obtained. FINDINGS: Bilateral pleural effusion and multifocal areas of consolidation. Heart enlarged. Diffuse osteopenia. No pneumothorax. Left-sided PICC line noted. IMPRESSION: Bilateral diffuse infiltrates and pleural effusion. Correlate for pneumonia
[2020-09-13] MEDS ORDERED: NALOXONE 0.4 MG/ML 1 ML VIAL IV PRN (14:58)
[2020-09-13] MEDS ORDERED: methylPREDNISolone SOD SUCCI 125 MG/2 ML VIAL IV STA (15:17)
[2020-09-13] MEDS ORDERED: SODIUM CHLORIDE 0.9% 2,000 ML IV ONE (15:29)
[2020-09-13] MEDS ORDERED: CALAMINE/ZINC OXIDE LOTION 177 ML BTL TOPICAL PRN (15:49)
--- NOTE | 2020-09-13 16:50 | P.CNPUL ---
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 The patient was in the hospital back in July 2020 and at that time he was diagnosed having aortic valve endocarditis, initially placed on ampicillin and he developed a diffuse maculopapular rash ultimately the patient was switched to daptomycin and he was discharged to a [facility] facility for further recuperation. His recuperation process as well as extremely weak and poor and unsuccessful. The patient remained in bed all the time. Unable to ambulate. Unable to do any significant recovery. Noted the patient also has history of subacute ischemic infarct involving the l eft temporal area back in June 2020. He has chronic kidney disease, hypertension and hyperlipidemia and chronic degenerative disc disease and diffuse osteoarthritis. The patient Was sent over to the emergency department to [facility] in following that he was transferred to our facility for further care. He has been having diminished level of consciousness, hypotension and respiratory insufficiency. He was given Levaquin 500 mg through his PICC line prior to his transfer. In the emergency, the patient was placed on BiPAP due to his increased work of breathing. On his b lood work, the patient was noted to have an acute on top of her chronic kidney disease and his creatinine is up to 4.76 and a BUN of 72. White cell count is 14 with a hemoglobin of 9.6 and a platelet count of 363. INR is 1.5 with a PT of 15.2 and a PTT of 37.9, serum bicarb was 28, troponin was less than 0.01, proBNP level was 5260, liver function tests are within normal limits. COVID 19 testing by PCR came back negative. The chest x-ray showed diffuse bilateral infiltrates and multifocal areas of consolidation more so on the left. There was some cardiomegaly. Diffuse osteopenia. A left-sided PICC line was noted. A left-sided pleural effusion cannot be completely excluded. I saw this patient emergency. Was ordered on the BiPAP at a pressure of 12/5 cm of water with an FiO2 of 50%.. He was quite restless. He was having a diffuse maculopapular rash involving the chest back found and lower extremities. The chronicity of this rash is not known. I was told that this rash improved and subsequently recurred. He was on norepinephrine infusion running at 0.04 mcg/kg per minute. Was not given any fluids. He was afebrile. Most recent BP is 96/47. Unable to communicate with the patient because of his speech deficits post CVA. The patient has his at the bedside. I discussed with her CODE STATUS and she did not want any CPR, defibrillation, or intubation. It labeled this patient is a DNR/DNI CODE STATUS. Review of Systems ROS unobtainable: due to mental status Past Medical History Past Medical History: Chest Pain / Angina, CVA/TIA, GERD/Reflux, Hyperlipidemia, Hypertension, Osteoarthritis (OA), Renal Disease Additional Past Medical History / Comment(s): Infective endocarditis with enterococcus, 10/2015 CVA with some residual R leg weakness, also had stroke 06/2020 chronic kidney disease stage III, vertigo at times, generalized arthritis, pedal edema at times. Expressive aphasia, paroxysmal atrial fibrillation History of Any Multi-Drug Resistant Organisms: None Reported Past Surgical History: Appendectomy, Back Surgery, Heart Catheterization, Joint Replacement Additional Past Surgical History / Comment(s): back surgery x 4, bilateral cataracts removed, alicia hip replacments, cardiac cath 2010 - normal, EGD/colonoscopy, varicose vein stripping, tilt table test, loop recorder was shut off in 06/08 Past Anesthesia/Blood Transfusion Reactions: No Reported Reaction Past Psychological History: No Psychological Hx Reported, Bipolar Smoking Status: Former smoker Past Alcohol Use History: Occasional Past Drug Use History: None Reported - Past Family History Father Family Medical History: Vascular Disorder Additional Family Medical History / Comment(s): PVD-double amputee. Mother Family Medical History: Pulmonary Embolus Additional Family Medical History / Comment(s): Mother of a pulmonary embolism at the age of 63 yrs. Medications and Allergies Home Medications Medication Instructions Recorded Confirmed Type carvediloL [Coreg] 6.25 mg PO BID@0900,1700 04/28/19 09/13/20 History Furosemide [Lasix] 40 mg PO DAILY@0900 /09/13/20 History Acetaminophen Tab [Tylenol] 650 mg PO Q4H PRN 07/19/20 09/13/20 History Atorvastatin [Lipitor] 20 mg PO HS@2100 07/19/2009/13/21 History Cholecalciferol [Vitamin D3 (25 25 mcg PO HS@209907/19/20 09/13/20 History Mcg = 1000 Iu)] Ipratropium-Albuterol Nebulize 3 ml INHALATION RT-Q4H PRN 07/19/20 09/13/20 History [Duoneb 0.5 mg-3 mg/3 ml Soln] Magnesium Hydroxide [Milk of 2,400 mg PO Q12H PRN 07/19/20 09/13/20 History Magnesia] bisacodyL [Bisacodyl] 10 mg RECTAL DAILY PRN 07/19/20 09/13/20 History Gabapentin [Neurontin] 300 mg PO DAILY@0900 #3 cap 07/29/20 09/13/20 Rx Omeprazole 20 mg PO DAILY@0600 08/13/20 09/13/20 History Sodium Bicarbonate Tab 650 mg PO BID@0900,1700 08/13/20 09/13/20 History traMADol HCL 50 mg PO TID@0600,1300,209908/13/20 09/13/20 History Apixaban [Eliquis] 5 mg PO BID@0900,1700 09/13/20 09/13/20 History Ascorbic Acid [Vitamin C] 1,000 mg PO HS@209909/13/20 09/13/20 History Aspirin EC [Ecotrin Low Dose] 81 mg PO DAILY@0900 09/13/20 09/13/20 History Calamine/Zinc Oxide Lotion 1 applic TOPICAL BID PRN 09/13/20 09/13/20 History [Calamine Lotion] Darbepoetin Roderick [Aranesp] 25 mcg SQ TU@0909/13/20 09/13/20 History Docusate [Colace] 100 mg PO DAILY@0900 09/13/20 09/13/20 History Levocetirizine Dihydrochloride 5 mg PO DAILY PRN 09/13/20 09/13/20 History Midodrine [ProAmatine] 10 mg PO AC-TID@07,11,16 09/13/20 09/13/20 History guaiFENesin 400 mg PO BID@0900,1700 09/13/20 09/13/20 History Allergies Allergy/AdvReac Type Severity Reaction Status Date / Time MATHIEU Inhibitors Allergy Unknown Verified 09/13/20 12:13 meperidine Allergy Unknown Verified 09/13/20 12:13 Sulfa (Sulfonamide Allergy Rash/Hives Verified 09/13/20 12:13 Antibiotics) baclofen AdvReac Hallucinati Verified 09/13/20 12:13 ons hydromorphone [From Dilaudid] AdvReac Hallucinati Verified 09/13/20 12:13 ons meperidine HCl [From Demerol] AdvReac Nausea & Verified 09/13/20 12:13 Vomiting sulfamethoxazole AdvReac Rash/Hives Verified 09/13/20 12:13 [From Bactrim] trimethoprim [From Bactrim] AdvReac Rash/Hives Verified 09/13/20 12:13 Physical Exam Vitals: Vital Signs Temp Pulse Resp BP Pulse Ox 09/13/20 15:36 96 18 98/80 99 09/13/20 14:51 81 18 116/95 97 09/13/20 14:30 79 19 101/66 99 09/13/20 14:00 83 18 118/69 99 09/13/20 13:44 81 18 96/56 96 09/13/20 13:21 76 18 86/65 98 09/13/20 13:11 73 22 87/53 96 09/13/20 12:53 73 19 90/74 93 L 09/13/20 12:30 77 18 77/67 96 09/13/20 11:55 73 21 119/102 99 09/13/20 11:32 97.7 F 74 20 119/66 100 Intake and Output 09/13/20 09/13/20 09/13/20 06:59 14:59 22:59 Intake Total 0.438 Output Total 400 Balance -399.562 Intake: Intake, IV Titration 0.438 Amount Norepinephrine 32 mg In 0.438 Sodium Chloride 0.9% 218 ml @ 0.05 MCG/KG/MIN 2. 391 mls/hr IV .Q24H [facility] Rx#:[id number] Output: Urine 400 Other: Weight 102.013 kg GENERAL EXAM: Alert, pleasant 74-year-old gentleman, on room air, confused, unable to communicate, currently on a BiPAP for respiratory support with a full facemask. Lethargic. HEAD: Normocephalic. EYES: Normal reaction of pupils, equal size. NOSE: Clear with pink turbinates. THROAT: No erythema or exudates. NECK: No masses, no JVD. CHEST: No chest wall deformity. LUNGS: Equal air entry with crackles in the posterior left base. CVS: S1 and S2 normal with no audible murmur, regular rhythm. ABDOMEN: No hepatosplenomegaly, normal bowel sounds, no guarding or rigidity. SPINE: No scoliosis or deformity SKIN: Diffuse maculopapular rash involving the chest, back, abdomen and extremities, likely ALLERGIC in nature CENTRAL NERVOUS SYSTEM: The patient has not been following commands. His confused. Expressive aphasia. Pupils are equal and reactive to light. Positive cough and a gag. Negative for Babinski. With also painful stimulation. EXTREMITIES: There is no peripheral edema. No clubbing, no cyanosis. Peripher al pulses are intact. The patient is a PICC line in left upper extremity Results - Laboratory Findings CBC and BMP: 09/13/20 12:07 09/13/20 12:07 PT/INR, D-dimer PT 15.2 sec (9.0-12.0) H 09/13/20 12:07 INR 1.5 (<1.2) H 09/13/20 12:07 Abnormal lab findings: Abnormal Labs 09/13/20 09/13/20 09/13/20 12:07 12:07 12:07 WBC 14.0 H RBC 3.75 L Hgb 9.6 L Hct 30.7 L RDW 17.9 H Neutrophils # 12.1 H PT 15.2 H INR 1.5 H APTT 37.9 H Sodium 132 L Chloride 90 L BUN 72 H Creatinine 4.76 H Glucose 133 H Total Protein 5.5 L Albumin 2.8 L Assessment and Plan Plan: 1. Multifocal pneumonia with secondary hypoxic respiratory failure. Consider aspiration. Consider healthcare acquired pneumonia. Possibility of enterococcal pneumonia secondary to seeding of the lungs from previous bacteremia is also possible. My understanding is that the patient was receiving daptomycin outpatient basis. Covid19 testing came back negative by PCR. 2 acute on chronic hypoxic respiratory failure and currently patient is on BiPAP for respiratory support 3 septic shock currently on pressors with norepinephrine 4 leukocytosis 5 acute on top of chronic kidney disease with a creatinine of 4.76 and oligoria 6 history of infective endocarditis of the aortic valve with enterococcus, has a PICC line and the patient was receiving daptomycin on outpatient basis 7 history of recurrent CVA. Initial severe was in October 2015 and the patient has some residual right-sided weakness. Subsequently the patient developed another stroke in June 2020 with expressive aphasia. 8 hypertension 9 hyperlipidemia 10 diffuse osteoarthritis 11 severe debility and marked improvement in the performance and functional status. The patient is nonambulatory, debilitated, bedridden. 12 diffuse maculopapular rash, likely ALLERGIC in nature Plan We'll give the patient immediately 2 L of IV fluid with normal saline and maintain him a normal sed rate of 100 mL an hour Continue BiPAP for respiratory support Obtain a blood gas Obtain lactic acid level Check blood cultures Continue daptomycin and proceed with broad-spectrum antibiotics and IV cefepime Continue pressors for hemodynamic support IV Solu-Medrol 60 mg every 12 hours regarding his diffuse rash\ Infectious disease consultation will be needed regarding his complicated infectious issues Nephrology consultation will be needed based on his ongoing renal failure Discussed all of these issues with the at the bedside. His CODE STATUS is DNR/DNI. Continue supportive care without any intubation or mechanical ventilation. Condition is critical at this point. We'll continue to follow.
[2020-09-13] MEDS: SODIUM BICARBONATE TAB 650 MG TAB PO SCH (17:41)
[2020-09-13] MEDS: SODIUM CHLORIDE 0.9% 1,000 ML IV SCH (17:43)
[2020-09-13 18:10] LABS: Glucose,Whole Blood 155 mg/dL (75-99)
[2020-09-13 21:34] LABS: Allen Test Performed? Yes
[2020-09-13 21:35] LABS: ABG Base Excess 4.1 mmol/L; ABG HCO3 29 mmol/L (21-25); ABG Oxygen Saturation 96.1 % (94-97); ABG PCO2 43 mmHg (35-45); ABG PH 7.43 (7.35-7.45); ABG PO2 81 mmHg (83-108); ABG TCO2 30 mmol/L (19-24)
[2020-09-14] MEDS: methylPREDNISolone SOD SUCCI 125 MG/2 ML VIAL IV SCH ×3 (00:11→20:14)
[2020-09-14] MEDS: CEFEPIME 2 GM in SODIUM CHLORIDE 0.9% 100 ML IVPB SCH ×2 (00:11→09:35)
[2020-09-14] MEDS: ATORVASTATIN 20 MG TAB PO SCH ×2 (00:11→20:14)
[2020-09-14] MEDS: SODIUM CHLORIDE 0.9% 1,000 ML IV SCH ×2 (00:13→07:13)
[2020-09-14 04:32] LABS: Anisocytosis Slight; Basophils % (A) 0 %; Eosinophils % (A) 0 %; HCT 28.6 % (39.0-53.0); HGB 8.9 gm/dL (13.0-17.5); Hypochromasia Slight; Lymphocytes # (A) 0.6 k/uL (1.0-4.8); Lymphocytes % (A) 7 %; MCH 25.9 pg (25.0-35.0); MCHC 31.2 g/dL (31.0-37.0); Mean Platelet Volume 6.6; Monocytes # (A) 0.1 k/uL (0-1.0); Monocytes % (A) 1 %; Neutrophils # (A) 8.9 k/uL (1.3-7.7); Neutrophils % (A) 92 %; Platelet Count 325 k/uL (150-450); RBC 3.44 m/uL (4.30-5.90); WBC 9.7 k/uL (3.8-10.6)
[2020-09-14 06:05] LABS: Calcium 8.1 mg/dL (8.4-10.2); Potassium 3.7 mmol/L (3.5-5.1)
[2020-09-14 06:10] LABS: Glucose,Whole Blood 163 mg/dL (75-99)
[2020-09-14] MEDS: INSULIN ASPART (NovoLOG) 100 UNIT/ML VIAL SQ SCH ×3 (06:33→17:12)
--- NOTE | 2020-09-14 06:46 | XR ---
EXAMINATION TYPE: XR chest 1V DATE OF EXAM: 09/14/2020 COMPARISON: 09/13/2020 HISTORY: Shortness of breath TECHNIQUE: Single frontal view of the chest is obtained. FINDINGS: There are scattered partially consolidative opacities/airspace opacities bilaterally left greater than right. There are probable small pleural effusions. There is no pneumothorax. Compared to the prior study, there is been no significant interval change. Note is made of a PICC line entering the left arm and terminating in the SVC/RA junction. The osseous structures are grossly intact. IMPRESSION: No change in the bilateral lung infiltrates and probable small pleural effusions.
--- NOTE | 2020-09-14 06:58 | CONS ---
CONSULTATION DATE OF SERVICE: 09/13/2020 REASON FOR CONSULTATION: Pneumonia and endocarditis. HISTORY OF PRESENT ILLNESS: The patient is a 74-year-old male with past medical history significant for CVA and did have a Enterococcus faecalis aortic valve endocarditis. Patient was treated with ampicillin with clinical improvement. Subsequently, the patient did have a rash, possible allergy to ampicillin. At that point, antibiotic was switched over to daptomycin because of his borderline kidney function, high risk of nephrotoxicity from vancomycin. [facility] to the [facility] for evaluation of hypotension and respiratory insufficiency. Apparently the patient's symptoms have been getting worse for the last few days. This patient was noticed to be hypoxic with O2 sats of 88%. Has been put on BiPAP and was subsequently transferred to [facility] for further evaluation. On presentation to this facility, the patient was afebrile. He was hypoxic requiring a BiPAP. The patient did have a white count of 14,000, creatinine was 4.76. Liver enzymes were normal. Fink PCR was negative. The patient did have a chest x-ray with diffuse bilateral infiltrates and pleural effusion. Correlate for pneumonia. The patient has been continued on daptomycin. Cefepime has been added. The patient was admitted to the hospital. Infectious Disease was consulted for further management of antibiotic therapy. The patient is slightly more awake and alert today.The patient denies having any chest pain though he did have a cough, not bringing up any sputum. No nausea, no vomiting. No choking on the food. No abdominal pain or any diarrhea. REVIEW OF SYSTEMS: Positive points have been mentioned in HPI. Rest of systems are negative. PAST MEDICAL HISTORY: Hypertension, hyperlipidemia, osteoarthritis, renal insufficiency, CVA, TIA and Enterococcus faecalis aortic valve endocarditis. PAST SURGERY HISTORY: Appendectomy, back surgery, heart catheterization . SOCIAL HISTORY: Remote history of smoking. No drinking or drug use. FAMILY HISTORY: Father with history of PAD. Mother with a history of pulmonary embolism. ALLERGIES: SULFA, AMPICILLIN AND MATHIEU INHIBITOR. MEDICATION: Include the patient is currently on aspirin, Lipitor, calamine lotion, cefepime 2 g q.12h, daptomycin, Solu-Medrol, Narcan, norepinephrine, IV fluid. PHYSICAL EXAMINATION: VITAL SIGNS: Blood pressure 110/57 with a pulse of 83, temperature 98, he is 97% GENERAL DESCRIPTION: Patient is an elderly male lying in bed in no distress. No tachypnea or accessory muscles of respiration use. HEENT: Examination shows pallor, no scleral icterus. Oral mucous membrane is dry. NECK: Trachea central, no thyromegaly. LUNGS: Unlabored breathing, decreased breath sounds at the bases. No wheeze. HEART: S1-S2, regular rate and rhythm. ABDOMEN: Soft, no tenderness. No guarding or rigidity. EXTREMITIES: No edema of the feet. SKIN: Maculopapular rash mostly on the upper thigh and arm area. NEUROLOGICAL: Patient is awake, alert, oriented times two. Mood and affect normal. LABS: Hemoglobin 9.1, white count 14,000, BUN of 72 and creatinine of 4.76. Electrolytes have been normal. DIAGNOSTIC IMPRESSION: 1. Patient admitted to the hospital with increasing shortness of breath which is multifactorial and could be related to fluid, especially in this patient with evidence of renal insufficiency and possible decreased output. Underlying pneumonia less likely but not entirely excluded. 2. Patient who developed a rash to the upper thigh area, questionable drug- related with the exact offending drugs not clear. 3. The patient with renal insufficiency and high risk of nephrotoxicity. 4. The patient has multiple antibiotic allergy that will limit the number of antibiotics safe to use. PLAN: 1. We will obtain sputum for Gram stain and culture and check a procalcitonin level. 2. Blood cultures x2. 3. The patient is covered with daptomycin and cefepime to continue while waiting for condition to stabilize and cultures to finalize. 4. We will follow on clinical condition and investigations to further adjust medication if needed. Thank you for this consultation. Will follow this patient along with you. MMODL / IJN: [id number] / MERVAT
[2020-09-14] MEDS ORDERED: Potassium Replacement Protocol 1 EACH MISC MISCELLANE PRN (06:59)
[2020-09-14] MEDS: POTASSIUM CHLORIDE 20 MEQ in WATER FOR INJECTION 1 100ML.BAG IVPB SCH ×2 (07:12→09:31)
--- NOTE | 2020-09-14 07:37 | P.PN ---
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 The patient was in the hospital back in July 2020 and at that time he was diagnosed having aortic valve endocarditis, initially placed on ampicillin and he developed a diffuse maculopapular rash ultimately the patient was switched to daptomycin and he was discharged to a custodial facility for further recuperation. His recuperation process as well as extremely weak and poor and unsuccessful. The patient remained in bed all the time. Unable to ambulate. Unable to do any significant recovery. Noted the patient also has history of subacute ischemic infarct involving the left temporal area back in June 2020. He has chronic kidney disease, hypertension and hyperlipidemia and chronic degenerative disc disease and diffuse osteoarthritis. The patient Was sent over to the emergency department to [facility] in following that he was transferred to our facility for further care. He has been having diminished level of consciousness, hypotension and respiratory insufficiency. He was given Levaquin 500 mg through his PICC line prior to his transfer. In the emergency, the patient was placed on BiPAP due to his increased work of breathing. On his blood work, the patient was noted to have an acute on top of her chronic kidney disease and his creatinine is up to 4.76 and a BUN of 72. White cell count is 14 with a hemoglobin of 9.6 and a platelet count of 363. INR is 1.5 with a PT of 15.2 and a PTT of 37.9, serum bicarb was 28, troponin was less than 0.01, proBNP level was 5260, liver function tests are within normal limits. COVID 19 testing by PCR came back negative. The chest x-ray showed diffuse bilateral infiltrates and multifocal areas of consolidation more so on the left. There was some cardiomegaly. Diffuse osteopenia. A left-sided PICC line was noted. A left-sided pleural effusion cannot be completely excluded. I saw this patient emergency. Was ordered on the BiPAP at a pressure of 12/5 cm of water with an FiO2 of 50%.. He was quite restless. He was having a diffuse maculopapular rash involving the chest back found and lower extremities. The chronicity of this rash is not known. I was told that this rash improved and subsequently recurred. He was on norepinephrine infusion running at 0.04 mcg/kg per minute. Was not given any fluids. He was afebrile. Most recent BP is 96/47. Unable to communicate with the patient because of his speech deficits post CVA. The patient has his at the bedside. I discussed with her CODE STATUS and she did not want any CPR, defibrillation, or intubation. It labeled this patient is a DNR/DNI CODE STATUS On today's evaluation of 09/14/2020, the patient continues to have some expressive aphasia. Heart communicate with the patient. His much more awake and interactive. He follows simple commands. Actually he has done much better this yesterday. Overnight, the patient was given fluid boluses received a total of 2 L of IV fluid bolus and currently is running at the rate of 80 and irre gular 150 mL an hour. I kept him on daptomycin and I added IV cefepime for the possibility of a gram-negative pneumonia. Note that the patient has infective endocarditis and the patient came in with patchy bilateral pulmonary infiltrates more so on the left consistent with either aspiration or hospital-acquired pneumonia or seeding of his lungs from enterococcal infection. In any rate, he is done well. His rash has subsided. He is on IV Solu-Medrol. He is also having A mean cream applied to the entire body. He is on oxygen currently running at 5 L of oxygen by nasal cannula. His pulse ox is around 94%. Repeat chest x-ray is stable. His afebrile. Blood cultures have been sent. Results are still pending. His white cell count is down to 9.7. Hemoglobin is at 8.9. Norepinephrine infusion has been cut down to 0.03 units per kilogram per minute. Potassium is replaced. Creatinine is at 4.45 knowing that the patient has an acute on top of chronic kidney injury. The acute component probably is improving. He has been a Covid negative case. Objective - Vital Signs Vital signs: Vital Signs Temp 97.5 F L 09/14/20 04:00 Pulse 82 09/14/20 07:00 Resp 14 09/14/20 07:00 BP 133/70 09/14/20 07:00 Pulse Ox 97 09/14/20 07:15 Intake & Output 09/13/20 09/14/20 09/14/20 18:59 06:59 18:59 Intake Total 209.688 4948.825 150 Output Total 700 660 40 Balance -611.154 5168.825 110 Weight 99.7 kg 96 kg Intake: IV 300 1750 150 Cefepime 2 gm In Sodium 100 Chloride 0.9% 100 ml @ 25 mls/hr IVPB Q12HR ANGLE Rx #:[id number] Sodium Chloride 0.9% 1, 300 1650 150 000 ml @ 150 mls/hr IV . Q6H40M ANGLE Rx#:[id number] Intake, IV Titration 0.438 49.825 Amount Norepinephrine 32 mg In 0.438 49.825 Sodium Chloride 0.9% 218 ml @ 0.05 MCG/KG/MIN 2. 391 mls/hr IV .Q24H ANGLE Rx#:[id number] Output: Urine 700 660 40 Other: Voiding Method Indwelling Catheter - Exam GENERAL EXAM: Alert, pleasant 74-year-old gentleman, on room air, confused, unable to communicate, currently off the BiPAP and currently on 5 L nasal cannula and he seems to much more interactive awake and following commands. He has expressive aphasia. HEAD: Normocephalic. EYES: Normal reaction of pupils, equal size. NOSE: Clear with pink turbinates. THROAT: No erythema or exudates. NECK: No masses, no JVD. CHEST: No chest wall deformity. LUNGS: Equal air entry with crackles in the posterior left base. CVS: S1 and S2 normal with no audible murmur, regular rhythm. ABDOMEN: No hepatosplenomegaly, normal bowel sounds, no guarding or rigidity. SPINE: No scoliosis or deformity SKIN: Diffuse maculopapular rash involving the chest, back, abdomen and extremities, likely ALLERGIC in nature CENTRAL NERVOUS SYSTEM: Expressive aphasia. Pupils are equal and reactive to light. Positive cough and a gag. Negative for Babinski. He was noted that the right side of the body slightly weaker in terms of movement and grasp patient in the right lower extremity. He continues to have expressive aphasia. Very hard to understand words that he says. EXTREMITIES: There is no peripheral edema. No clubbing, no cyanosis. Peripheral pulses are intact. The patient is a PICC line in left upper extremity - Labs CBC & Chem 7: 09/14/20 03:58 09/14/20 03:58 Labs: Abnormal Lab Results - Last 24 Hours (Table) 09/13/20 09/13/20 09/13/20 Range/Units 12:07 12:07 12:07 WBC 14.0 H (3.8-10.6) k/uL RBC 3.75 L (4.30-5.90) m/uL Hgb 9.6 L (13.0-17.5) gm/dL Hct 30.7 L (39.0-53.0) % RDW 17.9 H (11.5-15.5) % Neutrophils # 12.1 H (1.3-7.7) k/uL Lymphocytes # (1.0-4.8) k/uL PT 15.2 H (9.0-12.0) sec INR 1.5 H (<1.2) APTT 37.9 H (22.0-30.0) sec ABG pO2 (83-108) mmHg ABG HCO3 (21-25) mmol/L ABG Total CO2 (19-24) mmol/L Sodium 132 L (137-145) mmol/L Chloride 90 L (98-107) mmol/L BUN 72 H (9-20) mg/dL Creatinine 4.76 H (0.66-1.25) mg/dL Glucose 133 H (74-99) mg/dL POC Glucose (mg/dL) (75-99) mg/dL Calcium (8.4-10.2) mg/dL Total Protein 5.5 L (6.3-8.2) g/dL Albumin 2.8 L (3.5-5.0) g/dL 09/13/20 09/13/20 09/14/20 Range/Units 17:54 18:09 03:58 WBC (3.8-10.6) k/uL RBC 3.44 L (4.30-5.90) m/uL Hgb 8.9 L (13.0-17.5) gm/dL Hct 28.6 L (39.0-53.0) % RDW 18.0 H (11.5-15.5) % Neutrophils # 8.9 H (1.3-7.7) k/uL Lymphocytes # 0.6 L (1.0-4.8) k/uL PT (9.0-12.0) sec INR (<1.2) APTT (22.0-30.0) sec ABG pO2 81 L (83-108) mmHg ABG HCO3 29 H (21-25) mmol/L ABG Total CO2 30 H (19-24) mmol/L Sodium (137-145) mmol/L Chloride (98-107) mmol/L BUN (9-20) mg/dL Creatinine (0.66-1.25) mg/dL Glucose (74-99) mg/dL POC Glucose (mg/dL) 155 H (75-99) mg/dL Calcium (8.4-10.2) mg/dL Total Protein (6.3-8.2) g/dL Albumin (3.5-5.0) g/dL 09/14/20 09/14/20 Range/Units 03:58 06:09 WBC (3.8-10.6) k/uL RBC (4.30-5.90) m/uL Hgb (13.0-17.5) gm/dL Hct (39.0-53.0) % RDW (11.5-15.5) % Neutrophils # (1.3-7.7) k/uL Lymphocytes # (1.0-4.8) k/uL PT (9.0-12.0) sec INR (<1.2) APTT (22.0-30.0) sec ABG pO2 (83-108) mmHg ABG HCO3 (21-25) mmol/L ABG Total CO2 (19-24) mmol/L Sodium (137-145) mmol/L Chloride (98-107) mmol/L BUN 67 H (9-20) mg/dL Creatinine 4.45 H (0.66-1.25) mg/dL Glucose 155 H (74-99) mg/dL POC Glucose (mg/dL) 163 H (75-99) mg/dL Calcium 8.1 L (8.4-10.2) mg/dL Total Protein (6.3-8.2) g/dL Albumin (3.5-5.0) g/dL Assessment and Plan Plan: 1. Multifocal pneumonia with secondary hypoxic respiratory failure. Consider aspiration. Consider healthcare acquired pneumonia. Possibility of enterococcal pneumonia secondary to seeding of the lungs from previous bacteremia is also possible. My understanding is that the patient was receiving daptomycin outpatient basis. Covid19 testing came back negative by PCR. She is currently on a combination of daptomycin and IV cefepime. Hemodynamically improved. Still on pressors although at a lower dose of norepinephrine the patient is a well resuscitated IV fluids 2 acute on chronic hypoxic respiratory failure and currently BiPAP and the patient is currently on 5 L of oxygen by nasal cannula 3 septic shock currently on pressors with norepinephrine, and the norepinephrine doses lower 4 leukocytosis, improving 5 acute on top of chronic kidney disease with a creatinine of 4.4 mild urine output is also improving 6 history of infective endocarditis of the aortic valve with enterococcus, has a PICC line and the patient was receiving daptomycin on outpatient basis 7 history of recurrent CVA. Initial severe was in October 2015 and the patient has some residual right-sided weakness. Subsequently the patient developed another stroke in June 2020 with expressive aphasia. 8 hypertension 9 hyperlipidemia 10 diffuse osteoarthritis 11 severe debility and marked improvement in the performance and functional status. The patient is nonambulatory, debilitated, bedridden. 12 diffuse maculopapular rash, likely ALLERGIC in nature, currently on IV Solu- Medrol and calamine cream. 13 stage II sacral decub ulceration Plan The IV fluids with 150 mL of normal saline and wean off pressors The patient is currently off BiPAP on 5 L of oxygen by nasal cannula Obtain sputum Gram stain and cultures Continue IV Solu-Medrol Medihoney is stage II sacral wound and OptiForm Continue BiPAP for respiratory support Obtain a blood gas Obtain lactic acid level Check blood cultures Continue daptomycin and proceed with broad-spectrum antibiotics and IV cefepime Continue pressors for hemodynamic support Infectious disease consultation will be needed regarding his complicated infectious issues Nephrology consultation will be needed based on his ongoing renal failure Discussed all of these issues with the at the bedside. His CODE STATUS is DNR/DNI. Continue supportive care without any intubation or mechanical ventilation. Swallow evaluation Provide this patient soft renal diet, he is edentulous for now Condition is critical at this point. We'll continue to follow.
[2020-09-14] MEDS: ASPIRIN 81 MG PO SCH (09:31)
[2020-09-14] MEDS: SODIUM BICARBONATE TAB 650 MG TAB PO SCH ×2 (09:31→17:13)
--- NOTE | 2020-09-14 10:28 | P.NPCON ---
History of Present Illness - Reason for Consult Consult date: 09/14/20 acute renal failure - Chief Complaint Acute kidney injury secondary to sepsis - History of Present Illness This is a 74-year-old male seen in consultation because of acute kidney injury and chronic kidney disease. His creatinine baseline is 1.5 in 2013, 1.7 in the past last year on 11/23/2019, but then improved to 1.2 on 07/23/2020 probably secondary to hydration. His chronic kidney disease deemed to be from nephrosclerosis His history significant for enterococcus faecalis bacteremia and aortic valve endocarditis for which he was admitted here in June 2020. At the time was seen on 07/20/2020, acute kidney injury was deemed to be from volume depletion and he did respond with creatinine going down from 2.15-1.2. Subsequently he had Enterococcus faecalis bacteremia on 07/19/2020. Repeat blood cultures were positive on 07/22/2020 but 10 negative subsequently on and the last culture was negative on 08/18/2020 He was discharged to [facility] on daptomycin through a PICC line. He was readmitted now with shortness of breath. Found to have bilateral pneumonia In the [facility] his been doing somewhat poorly unable to ambulate based on admission records. Patient is unable to give a good history his had previous right-sided CVA and difficulty with speech. Past Medical History Past Medical History: Chest Pain / Angina, CVA/TIA, GERD/Reflux, Hyperlipidemia, Hypertension, Osteoarthritis (OA), Renal Disease Additional Past Medical History / Comment(s): Infective endocarditis with enterococcus, 10/2015 CVA with some residual R leg weakness, also had stroke 06/2020 chronic kidney disease stage III, vertigo at times, generalized arthritis, pedal edema at times. Expressive aphasia, paroxysmal atrial fibrillation History of Any Multi-Drug Resistant Organisms: None Reported Past Surgical History: Appendectomy, Back Surgery, Heart Catheterization, Joint Replacement Additional Past Surgical History / Comment(s): back surgery x 4, bilateral cataracts removed, alicia hip replacments, cardiac cath 2010 - normal, EGD/colonoscopy, varicose vein stripping, tilt table test, loop recorder was shut off in 06/08 Past Anesthesia/Blood Transfusion Reactions: No Reported Reaction Past Psychological History: No Psychological Hx Reported, Bipolar Smoking Status: Former smoker Past Alcohol Use History: Occasional Past Drug Use History: None Reported - Past Family History Father Family Medical History: Vascular Disorder Additional Family Medical History / Comment(s): PVD-double amputee. Mother Family Medical History: Pulmonary Embolus Additional Family Medical History / Comment(s): Mother of a pulmonary embolism at the age of 63 yrs. Medications and Allergies Home Medications Medication Instructions Recorded Confirmed Type carvediloL [Coreg] 6.25 mg PO BID@0900,1700 04/28/19 09/13/20 History Furosemide [Lasix] 40 mg PO DAILY@0900 09/01/19 09/13/20 History Acetaminophen Tab [Tylenol] 650 mg PO Q4H PRN 07/19/20 09/13/20 History Atorvastatin [Lipitor] 20 mg PO HS@209907/19/20 09/13/20 History Cholecalciferol [Vitamin D3 (25 25 mcg PO HS@209907/19/20 09/13/20 History Mcg = 1000 Iu)] Ipratropium-Albuterol Nebulize 3 ml INHALATION RT-Q4H PRN 07/19/20 09/13/20 History [Duoneb 0.5 mg-3 mg/3 ml Soln] Magnesium Hydroxide [Milk of 2,400 mg PO Q12H PRN 07/19/20 09/13/20 History Magnesia] bisacodyL [Bisacodyl] 10 mg RECTAL DAILY PRN 07/19/20 09/13/20 History Gabapentin [Neurontin] 300 mg PO DAILY@0900 #3 cap 07/29/20 09/13/20 Rx Omeprazole 20 mg PO DAILY@0600 08/13/20 09/13/20 History Sodium Bicarbonate Tab 650 mg PO BID@0900,1700 08/13/20 09/13/20 History traMADol HCL 50 mg PO TID@0600,1300,209908/13/20 09/13/20 History Apixaban [Eliquis] 5 mg PO BID@0900,1700 09/13/20 09/13/20 History Ascorbic Acid [Vitamin C] 1,000 mg PO HS@209909/13/20 09/13/20 History Aspirin EC [Ecotrin Low Dose] 81 mg PO DAILY@0900 09/13/20 09/13/20 History Calamine/Zinc Oxide Lotion 1 applic TOPICAL BID PRN 09/13/20 09/13/20 History [Calamine Lotion] Darbepoetin Roderick [Aranesp] 25 mcg SQ TU@0900 09/13/20 09/13/20 History Docusate [Colace] 100 mg PO DAILY@0900 09/13/20 09/13/20 History Levocetirizine Dihydrochloride 5 mg PO DAILY PRN 09/13/20 09/13/20 History Midodrine [ProAmatine] 10 mg PO AC-TID@07,11,16 09/13/20 09/13/20 History guaiFENesin 400 mg PO BID@0900,1700 09/13/20 09/13/20 History Allergies Allergy/AdvReac Type Severity Reaction Status Date / Time MATHIEU Inhibitors Allergy Unknown Verified 09/13/20 12:13 meperidine Allergy Unknown Verified 09/13/20 12:13 Sulfa (Sulfonamide Allergy Rash/Hives Verified 09/13/20 12:13 Antibiotics) baclofen AdvReac Hallucinati Verified 09/13/20 12:13 ons hydromorphone [From Dilaudid] AdvReac Hallucinati Verified 09/13/20 12:13 ons meperidine HCl [From Demerol] AdvReac Nausea & Verified 09/13/20 12:13 Vomiting sulfamethoxazole AdvReac Rash/Hives Verified 09/13/20 12:13 [From Bactrim] trimethoprim [From Bactrim] AdvReac Rash/Hives Verified 09/13/20 12:13 Physical Exam Vitals: Vital Signs Temp Pulse Resp BP Pulse Ox 09/14/20 10:00 86 16 90/31 92 L 09/14/20 09:30 82 17 111/62 91 L 09/14/20 09:00 89 20 153/88 91 L 09/14/20 08:30 80 13 125/102 95 09/14/20 08:00 96.2 F L 81 16 132/92 94 L 09/14/20 07:15 97 09/14/20 07:00 82 14 133/70 93 L 09/14/20 06:30 81 13 139/66 94 L 09/14/20 06:00 83 19 132/81 94 L 09/14/20 05:30 79 19 137/78 95 09/14/20 05:00 82 14 138/71 93 L 09/14/20 04:30 79 15 136/83 94 L 09/14/20 04:00 97.5 F L 81 16 130/69 94 L 09/14/20 03:30 79 15 125/71 96 09/14/20 03:00 79 15 133/61 95 09/14/20 02:30 86 12 117/78 96 09/14/20 02:00 84 24 116/69 93 L 09/14/20 01:30 80 16 117/70 97 09/14/20 01:00 79 14 115/70 97 09/14/20 00:30 80 22 118/60 96 09/14/20 00:00 97.5 F L 78 16 121/64 93 L 09/13/20 23:59 94 L 09/13/20 23:30 77 17 104/59 96 09/13/20 23:00 80 18 104/74 95 09/13/20 22:30 85 13 119/68 92 L 09/13/20 22:00 79 15 121/68 97 09/13/20 21:30 81 16 118/64 98 09/13/20 21:00 81 15 127/66 98 09/13/20 20:30 85 14 120/69 97 09/13/20 20:00 97.5 F L 88 20 120/68 97 09/13/20 19:30 88 12 126/68 97 09/13/20 19:00 83 15 110/59 97 09/13/20 18:45 82 13 82/64 98 09/13/20 18:30 84 16 107/54 98 09/13/20 18:15 84 17 101/54 98 09/13/20 18:00 18 87/54 96 09/13/20 17:40 98.5 F 87 11 L 129/75 98 09/13/20 16:52 84 20 107/52 99 09/13/20 16:07 98.7 F 82 20 96/47 09/13/20 15:36 96 18 98/80 99 09/13/20 14:51 81 18 116/95 97 09/13/20 14:30 79 19 101/66 99 09/13/20 14:00 83 18 118/69 99 09/13/20 13:44 81 18 96/56 96 09/13/20 13:21 76 18 86/65 98 09/13/20 13:11 73 22 87/53 96 09/13/20 12:53 73 19 90/74 93 L 09/13/20 12:30 77 18 77/67 96 09/13/20 11:55 73 21 119/102 99 09/13/20 11:32 97.7 F 74 20 119/66 100 Intake and Output 09/13/20 09/14/20 09/14/20 22:59 06:59 14:59 Intake Total 099.821 4568.455 673.692 Output Total 505 455 180 Balance 275.370 864.455 493.692 Intake: IV 750 1300 670 Cefepime 2 gm In Sodium 100 100 Chloride 0.9% 100 ml @ 25 mls/hr IVPB Q12HR ANGLE Rx #:[id number] Sodium Chloride 0.9% 1, 750 1200 570 000 ml @ 150 mls/hr IV . Q6H40M ANGLE Rx#:[id number] Intake, IV Titration 30.370 19.455 3.692 Amount Norepinephrine 32 mg In 30.370 19.455 3.692 Sodium Chloride 0.9% 218 ml @ 0.05 MCG/KG/MIN 2. 391 mls/hr IV .Q24H ANGLE Rx#:[id number] Output: Urine 505 455 180 Other: Voiding Method Indwelling Catheter Indwelling Catheter Weight 99.7 kg 96 kg Early on exam awake alert and responsive questions but unable to give any detailed history HEENT exam no JVP neck is supple no facial asymmetry Lungs are clear to auscultation with occasional coarse crackle at bases good air entry bilaterally Heart sounds unremarkable for any murmur rub gallop Abdomen soft nontender Extremity exam was trace edema Neurologically awake alert oriented seems to be able to move both his arms but has generalized weakness. Right leg weakness noted Difficult to communicate Results - Lab Results Most recent lab results ABG pH 7.43 (7.35-7.45) 09/13/20 17:54 ABG pCO2 43 mmHg (35-45) 09/13/20 17:54 ABG pO2 81 mmHg (83-108) L 09/13/20 17:54 ABG HCO3 29 mmol/L (21-25) H 09/13/20 17:54 ABG O2 Saturation 96.1 % (94-97) 09/13/20 17:54 Calcium 8.1 mg/dL (8.4-10.2) L 09/14/20 03:58 09/14/20 03:58 09/14/20 03:58 Assessment and Plan Assessment: Impression 1. Acute kidney injury secondary to pneumonia and sepsis. Nonoliguric, creatinine was 4.76 on admission yesterday and is down to 4.45 today. An element of volume depletion may be possible because of decreased intake. 2. Chronic kidney disease, stage III,. There is one creatinine off 1.2 recently likely from hydration but his real baseline is 1.7 over the last few years, etiology is secondary to nephrosclerosis with a baseline creatinine of 1.7 3. Admitted with bilateral pneumonia. 4. Recent bacterial endocarditis with Enterococcus faecalis with aortic valve endocarditis on IV daptomycin 5. History of right CVA in the past right leg weakness 6. Since last admission last admission June 2020 discharge July 2020 to [facility] and doing poorly Recommendation 1. Agree with IV hydration, but change to Ringer's lactate and discontinue normal saline. Entertained 150 mL an hour until tomorrow and then we will reduce it to 2. Check urinalysis to ensure there is no glomerulonephritis associated with infection, or embolic phenomena. 3. Check LDH. 4. Check bladder scan rule out Thank you for this consultation and will continue to follow
[2020-09-14] MEDS: LACTATED RINGERS 1,000 ML IV SCH ×2 (10:54→17:21)
[2020-09-14 11:10] VITALS: BMI 30.3
[2020-09-14 11:28] LABS: Glucose,Whole Blood 136 mg/dL (75-99)
[2020-09-14 11:44] LABS: Creatinine,Urine Random 71.4 mg/dL; Protein/Creatinine Ratio,Urine 1.345
--- NOTE | 2020-09-14 12:03 | US ---
EXAMINATION TYPE: US kidneys/renal and bladder DATE OF EXAM: 09/14/2020 COMPARISON: NONE CLINICAL HISTORY: renal failure. EXAM MEASUREMENTS: Right Kidney: 9.4 x 4.4 x 4.1 cm Left Kidney: 9.5 x 4.5 x 4.5 cm ICU patient unable to cooperate or move for examiner in any way. Limited views. Right Kidney: cysts noted, largest visualized measuring 2.1 x 2.1 x 1.9cm Left Kidney: medial hypoechoic area, this could represent a cyst vs hydro vs pyonephrosis, unable to clarify due to circumstances Bladder: not seen No nephrolithiasis is seen. No masses are identified. The urinary bladder is anechoic. Bilateral ureteral jets are seen. IMPRESSION: Limited evaluation. See above.
--- NOTE | 2020-09-14 15:01 | P.HPIM ---
History of Present Illness H&P Date: 09/14/20 Chief Complaint: Shortness of breath Ramin Green, is a 74-year-old male who presented to [facility] emergency room with a chief complaint of worsening shortness of breath, patient was evaluated in emergency room vital examination on presentation reveal ed a temperature of 97.7 pulse 74 respiration 20 blood pressure 119/66 O2 sat duration was 100% on BiPAP with FiO2 of 50% his white blood count was 14.0 hemoglobin 9.6 platelet count 363 INR 1.5 arterial blood gas revealed a pH of 7.43 PCO2 43 PO2 81 sodium 132 potassium 4.1 BUN 72 creatinine 4.76 coronavirus PCR was negative. Chest x-ray on presentation revealed bilateral diffuse infiltrates and pleural effusion correlate for pneumonia EKG revealed normal sinus rhythm with nonspecific ST and T wave abnormalities, patient was admitted to intensive care unit for further evaluation and treatment. 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 Patient was recently admitted to [facility] and was subsequently transferred to a longterm for IV antibiotic and rehabilitation patient condition worsened and he was transferred back to emergency room. 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 Expressive aphasia, paroxysmal atrial fibrillation History of Any Multi-Drug Resistant Organisms: None Reported Past Surgical History: Appendectomy, Back Surgery, Heart Catheterization, Joint Replacement Additional Past Surgical History / Comment(s): back surgery x 4, bilateral cataracts removed, alicia hip replacments, cardiac cath 2010 - normal, EGD/colonoscopy, varicose vein stripping, tilt table test, loop recorder was shut off in 06/08 Past Anesthesia/Blood Transfusion Reactions: No Reported Reaction Past Psychological History: No Psychological Hx Reported, Bipolar Smoking Status: Former smoker Past Alcohol Use History: Occasional Past Drug Use History: None Reported - Past Family History Father Family Medical History: Vascular Disorder Additional Family Medical History / Comment(s): PVD-double amputee. Mother Family Medical History: Pulmonary Embolus Additional Family Medical History / Comment(s): Mother of a pulmonary embolism at the age of 63 yrs. Medications and Allergies Home Medications Medication Instructions Recorded Confirmed Type carvediloL [Coreg] 6.25 mg PO BID@0900,1700 04/28/19 09/13/20 History Furosemide [Lasix] 40 mg PO DAILY@0900 09/01/19 09/13/20 History Acetaminophen Tab [Tylenol] 650 mg PO Q4H PRN 07/19/20 09/13/20 History Atorvastatin [Lipitor] 20 mg PO HS@209907/19/20 09/13/20 History Cholecalciferol [Vitamin D3 (25 25 mcg PO HS@209907/19/20 09/13/20 History Mcg = 1000 Iu)] Ipratropium-Albuterol Nebulize 3 ml INHALATION RT-Q4H PRN 07/19/20 09/13/20 History [Duoneb 0.5 mg-3 mg/3 ml Soln] Magnesium Hydroxide [Milk of 2,400 mg PO Q12H PRN 07/19/20 09/13/20 History Magnesia] bisacodyL [Bisacodyl] 10 mg RECTAL DAILY PRN 07/19/20 09/13/20 History Gabapentin [Neurontin] 300 mg PO DAILY@0900 #3 cap 07/29/20 09/13/20 Rx Omeprazole 20 mg PO DAILY@0600 08/13/20 09/13/20 History Sodium Bicarbonate Tab 650 mg PO BID@0900,1700 08/13/20 09/13/20 History traMADol HCL 50 mg PO TID@0600,1300,209908/13/20 09/13/20 History Apixaban [Eliquis] 5 mg PO BID@0900,1700 09/13/20 09/13/20 History Ascorbic Acid [Vitamin C] 1,000 mg PO HS@209909/13/20 09/13/20 History Aspirin EC [Ecotrin Low Dose] 81 mg PO DAILY@0900 09/13/20 09/13/20 History Calamine/Zinc Oxide Lotion 1 applic TOPICAL BID PRN 09/13/20 09/13/20 History [Calamine Lotion] Darbepoetin Roderick [Aranesp] 25 mcg SQ TU@0900 09/13/20 09/13/20 History Docusate [Colace] 100 mg PO DAILY@0900 09/13/20 09/13/20 History Levocetirizine Dihydrochloride 5 mg PO DAILY PRN 09/13/20 09/13/20 History Midodrine [ProAmatine] 10 mg PO AC-TID@07,11,16 09/13/20 09/13/20 History guaiFENesin 400 mg PO BID@0900,1700 09/13/20 09/13/20 History Allergies Allergy/AdvReac Type Severity Reaction Status Date / Time MATHIEU Inhibitors Allergy Unknown Verified 09/13/20 12:13 meperidine Allergy Unknown Verified 09/13/20 12:13 Sulfa (Sulfonamide Allergy Rash/Hives Verified 09/13/20 12:13 Antibiotics) baclofen AdvReac Hallucinati Verified 09/13/20 12:13 ons hydromorphone [From Dilaudid] AdvReac Hallucinati Verified 09/13/20 12:13 ons meperidine HCl [From Demerol] AdvReac Nausea & Verified 09/13/20 12:13 Vomiting sulfamethoxazole AdvReac Rash/Hives Verified 09/13/20 12:13 [From Bactrim] trimethoprim [From Bactrim] AdvReac Rash/Hives Verified 09/13/20 12:13 Physical Exam Vitals: Vital Signs Temp Pulse Resp BP Pulse Ox 09/14/20 09:00 89 20 153/88 91 L 09/14/20 08:30 80 13 125/102 95 09/14/20 08:00 96.2 F L 81 16 132/92 94 L 09/14/20 07:15 97 09/14/20 07:00 82 14 133/70 93 L 09/14/20 06:30 81 13 139/66 94 L 09/14/20 06:00 83 19 132/81 94 L 09/14/20 05:30 79 19 137/78 95 09/14/20 05:00 82 14 138/71 93 L 09/14/20 04:30 79 15 136/83 94 L 09/14/20 04:00 97.5 F L 81 16 130/69 94 L 09/14/20 03:30 79 15 125/71 96 09/14/20 03:00 79 15 133/61 95 09/14/20 02:30 86 12 117/78 96 09/14/20 02:00 84 24 116/69 93 L 09/14/20 01:30 80 16 117/70 97 09/14/20 01:00 79 14 115/70 97 09/14/20 00:30 80 22 118/60 96 09/14/20 00:00 97.5 F L 78 16 121/64 93 L 09/13/20 23:59 94 L 09/13/20 23:30 77 17 104/59 96 09/13/20 23:00 80 18 104/74 95 09/13/20 22:30 85 13 119/68 92 L 09/13/20 22:00 79 15 121/68 97 09/13/20 21:30 81 16 118/64 98 09/13/20 21:00 81 15 127/66 98 09/13/20 20:30 85 14 120/69 97 09/13/20 20:00 97.5 F L 88 20 120/68 97 09/13/20 19:30 88 12 126/68 97 09/13/20 19:00 83 15 110/59 97 09/13/20 18:45 82 13 82/64 98 09/13/20 18:30 84 16 107/54 98 09/13/20 18:15 84 17 101/54 98 09/13/20 18:00 18 87/54 96 09/13/20 17:40 98.5 F 87 11 L 129/75 98 09/13/20 16:52 84 20 107/52 99 09/13/20 16:07 98.7 F 82 20 96/47 09/13/20 15:36 96 18 98/80 99 09/13/20 14:51 81 18 116/95 97 09/13/20 14:30 79 19 101/66 99 09/13/20 14:00 83 18 118/69 99 09/13/20 13:44 81 18 96/56 96 09/13/20 13:21 76 18 86/65 98 09/13/20 13:11 73 22 87/53 96 09/13/20 12:53 73 19 90/74 93 L 09/13/20 12:30 77 18 77/67 96 09/13/20 11:55 73 21 119/102 99 09/13/20 11:32 97.7 F 74 20 119/66 100 Intake and Output 09/13/20 09/14/20 09/14/20 22:59 06:59 14:59 Intake Total 239.511 5578.455 453.588 Output Total 505 455 130 Balance 275.370 864.455 323.588 Intake: IV 750 1300 450 Cefepime 2 gm In Sodium 100 Chloride 0.9% 100 ml @ 25 mls/hr IVPB Q12HR ANGLE Rx #:[id number] Sodium Chloride 0.9% 1, 750 1200 450 000 ml @ 150 mls/hr IV . Q6H40M ANGLE Rx#:[id number] Intake, IV Titration 30.370 19.455 3.588 Amount Norepinephrine 32 mg In 30.370 19.455 3.588 Sodium Chloride 0.9% 218 ml @ 0.05 MCG/KG/MIN 2. 391 mls/hr IV .Q24H ANGLE Rx#:[id number] Output: Urine 505 455 130 Other: Voiding Method Indwelling Catheter Indwelling Catheter Weight 99.7 kg 96 kg In general patient is alert confused in no apparent distress HEENT head normocephalic and atraumatic Neck is supple no JVD no goiter Chest exam reveals a few scattered crackles bilaterally no wheezing Cardiac exam reveals regular heart sounds S1 and S2 no gallops no murmurs Abdomen is soft nontender no organomegaly with normal bowel sounds Extremity exam reveals no edema no cyanosis or clubbing Skin exam reveals generalized rash on the chest abdomen and back Results CBC & Chem 7: 09/14/20 03:58 09/14/20 03:58 Labs: Abnormal Lab Results - Last 24 Hours (Table) 09/13/20 09/13/20 09/13/20 Range/Units 12:07 12:07 12:07 WBC 14.0 H (3.8-10.6) k/uL RBC 3.75 L (4.30-5.90) m/uL Hgb 9.6 L (13.0-17.5) gm/dL Hct 30.7 L (39.0-53.0) % RDW 17.9 H (11.5-15.5) % Neutrophils # 12.1 H (1.3-7.7) k/uL Lymphocytes # (1.0-4.8) k/uL PT 15.2 H (9.0-12.0) sec INR 1.5 H (<1.2) APTT 37.9 H (22.0-30.0) sec ABG pO2 (83-108) mmHg ABG HCO3 (21-25) mmol/L ABG Total CO2 (19-24) mmol/L Sodium 132 L (137-145) mmol/L Chloride 90 L (98-107) mmol/L BUN 72 H (9-20) mg/dL Creatinine 4.76 H (0.66-1.25) mg/dL Glucose 133 H (74-99) mg/dL POC Glucose (mg/dL) (75-99) mg/dL Calcium (8.4-10.2) mg/dL Total Protein 5.5 L (6.3-8.2) g/dL Albumin 2.8 L (3.5-5.0) g/dL 09/13/20 09/13/20 09/14/20 Range/Units 17:54 18:09 03:58 WBC (3.8-10.6) k/uL RBC 3.44 L (4.30-5.90) m/uL Hgb 8.9 L (13.0-17.5) gm/dL Hct 28.6 L (39.0-53.0) % RDW 18.0 H (11.5-15.5) % Neutrophils # 8.9 H (1.3-7.7) k/uL Lymphocytes # 0.6 L (1.0-4.8) k/uL PT (9.0-12.0) sec INR (<1.2) APTT (22.0-30.0) sec ABG pO2 81 L (83-108) mmHg ABG HCO3 29 H (21-25) mmol/L ABG Total CO2 30 H (19-24) mmol/L Sodium (137-145) mmol/L Chloride (98-107) mmol/L BUN (9-20) mg/dL Creatinine (0.66-1.25) mg/dL Glucose (74-99) mg/dL POC Glucose (mg/dL) 155 H (75-99) mg/dL Calcium (8.4-10.2) mg/dL Total Protein (6.3-8.2) g/dL Albumin (3.5-5.0) g/dL 09/14/20 09/14/20 Range/Units 03:58 06:09 WBC (3.8-10.6) k/uL RBC (4.30-5.90) m/uL Hgb (13.0-17.5) gm/dL Hct (39.0-53.0) % RDW (11.5-15.5) % Neutrophils # (1.3-7.7) k/uL Lymphocytes # (1.0-4.8) k/uL PT (9.0-12.0) sec INR (<1.2) APTT (22.0-30.0) sec ABG pO2 (83-108) mmHg ABG HCO3 (21-25) mmol/L ABG Total CO2 (19-24) mmol/L Sodium (137-145) mmol/L Chloride (98-107) mmol/L BUN 67 H (9-20) mg/dL Creatinine 4.45 H (0.66-1.25) mg/dL Glucose 155 H (74-99) mg/dL POC Glucose (mg/dL) 163 H (75-99) mg/dL Calcium 8.1 L (8.4-10.2) mg/dL Total Protein (6.3-8.2) g/dL Albumin (3.5-5.0) g/dL Thrombosis Risk Factor Assmnt - Choose All That Apply Each Factor Represents 1 point: Medical pt on bed rest, Obesity (BMI >25), Sepsis (< 1month) Other Risk Factors: Yes Each Risk Factor Represents 2 Points: Age 61-74 years Other congenital or acquired thrombophilia - If yes, enter type in comment: No Thrombosis Risk Factor Assessment Total Risk Factor Score: 5 Thrombosis Risk Factor Assessment Level: High Risk Assessment and Plan Plan: 1. Pneumonia, possibly related to aspiration 2. Acute hypoxic respiratory failure 3. Hypotension likely related to sepsis 4. Acute on chronic renal failure 5. Known history of infective endocarditis with enterococcus patient has a PICC line and is receiving daptomycin 6. Underlying history of stroke 7. Underlying history of hypertension 8. Underlying history of hyperlipidemia 9. Generalized rash, during the last admission a 12 thought that it could be related to ampicillin, at that time ampicillin was discontinued and daptomycin was initiated, Will consult infectious disease for follow-up 10. Severe physical debility At this time patient is admitted to intensive care unit He was started on BiPAP he was given IV fluid boluses Continue with daptomycin, cefepime was added Patient also started on IV Solu-Medrol Condition is guarded and prognosis is poor due to advanced multiple medical problems Pulmonary critical care, nephrology, and infectious disease consultation are requested Will follow closely
[2020-09-14] MEDS: NOREPINEPHRINE 32 MG in SODIUM CHLORIDE 0.9% 218 ML IV SCH (15:36)
[2020-09-14 17:08] LABS: Glucose,Whole Blood 164 mg/dL (75-99)
[2020-09-14] MEDS: CEFEPIME 1 GM in SODIUM CHLORIDE 0.9% 50 ML IVPB SCH (20:15)
[2020-09-14 20:18] LABS: Glucose,Whole Blood 152 mg/dL (75-99)
--- NOTE | 2020-09-14 23:22 | PN ---
PROGRESS NOTE DATE OF SERVICE: 09/14/2020. REASON FOR FOLLOW UP: 1. Enterococcus faecalis endocarditis. 2. Rash. 3. Pneumonia. INTERVAL HISTORY: Patient is currently afebrile. The patient seemed to be more awake, alert, and has been transferred out of the ICU. The patient denies having any chest pain, shortness of breath. Occasional cough. No abdominal pain. No diarrhea and having no worsening of the rash. No mucous membrane drainage. PHYSICAL EXAMINATION: Blood pressure 144/75, pulse of 92, temperature of 98. He is 93% on 6 L nasal cannula. General description is an elderly male lying in bed in no distress. No tachypnea or accessory muscles of respiration use. HEENT: Examination shows slight pallor. No scleral icterus. Oral mucous membranes dry. No pharyngeal erythema or thrush. NECK: Trachea is central. No thyromegaly. LUNGS: Unlabored breathing. Intensive breath sounds. No wheeze. HEART: S1-S2 regular rate and rhythm. ABDOMEN: Soft, no tenderness. Skin examination: Rash has slightly decreased in intensity. LABS: Hemoglobin 8.9, white count 9.7, BUN of 57, creatinine 4.45. DIAGNOSTIC IMPRESSION AND PLAN: Patient with an episode of Enterococcus faecalis bacteremia, thought to be related to aortic valve endocarditis with worsening on the JACOB. Patient initially treated with Ampicillin, was switched to daptomycin because of his rash developing to the amoxicillin and the patient did have borderline kidney function. High risk of nephrotoxicity, on Vancomycin. Now the patient presented back to the hospital with weakness, increased shortness of breath, concern for pneumonia and did have extensive rash, possible drug-related. PLAN: 1. The patient has completed more than 6 weeks of IV antibiotic therapy for his underlying endocarditis should be more than enough and daptomycin was discontinued. 2. As for the rash, we will see response after discontinuation of the dapto and continue the calamine lotion and steroid. 3. Continue the patient on cefepime for possible pneumonia. 4. We will follow on clinical condition and further adjust medication if needed. Thank you for this consultation. We will follow this patient along with you. MMODL / IJN: [id number] / MERVAT
[2020-09-15 00:15] LABS: Glucose,Whole Blood 160 mg/dL (75-99)
[2020-09-15] MEDS: LACTATED RINGERS 1,000 ML IV SCH (00:17)
[2020-09-15] MEDS: INSULIN ASPART (NovoLOG) 100 UNIT/ML VIAL SQ SCH ×4 (00:17→16:35)
[2020-09-15] MEDS ORDERED: IPRATROPIUM-ALBUTEROL 3 ML NEB ONE (03:01)
[2020-09-15] MEDS ORDERED: FUROSEMIDE 10 MG/ML 4 ML VIAL IV STA (06:03)
[2020-09-15 06:15] LABS: Glucose,Whole Blood 144 mg/dL (75-99)
--- NOTE | 2020-09-15 07:21 | XR ---
EXAMINATION TYPE: XR chest 1V portable DATE OF EXAM: 09/15/2020 HISTORY: Shortness of breath. COMPARISON: EXAMINATION TYPE: XR chest 1V portable DATE OF EXAM: 09/15/2020 HISTORY: Shortness of breath. COMPARISON: 09/14/2020 TECHNIQUE: Single view of the chest is submitted. FINDINGS: Demonstrated are scattered senescent parenchymal change. Progressive diffuse airspace disease noted throughout both lung cal[place] with relative sparing of the r ight lung base. The heart is stable. Hilar and mediastinal structures are within normal limits. Degenerative changes are seen of the dorsal spine. IMPRESSION: 1. Progressive diffuse airspace disease noted throughout both lung calh[place] with relative sparing of t he right lung base.
[2020-09-15] MEDS: IPRATROPIUM-ALBUTEROL 3 ML NEB INHALATION PRN ×2 (07:31→11:39)
[2020-09-15] MEDS: methylPREDNISolone SOD SUCCI 125 MG/2 ML VIAL IV SCH (08:07)
[2020-09-15] MEDS: CEFEPIME 1 GM in SODIUM CHLORIDE 0.9% 50 ML IVPB SCH (08:07)
--- NOTE | 2020-09-15 09:07 | P.PN ---
Subjective Progress Note Date: 09/15/20 Ramin Green, is a 74-year-old male who presented to [facility] emergency room with a chief complaint of worsening shortness of breath, patient was evaluated in emergency room vital examination on presentation revealed a temperature of 97.7 pulse 74 respiration 20 blood pressure 119/66 O2 sat duration was 100% on BiPAP with FiO2 of 50% his white blood count was 14.0 hemoglobin 9.6 platelet count 363 INR 1.5 arterial blood gas revealed a pH of 7.43 PCO2 43 PO2 81 sodium 132 potassium 4.1 BUN 72 creatinine 4.76 coronavirus PCR was negative. Chest x-ray on presentation revealed bilateral diffuse infiltrates and pleural effusion correlate for pneumonia EKG revealed normal sinus rhythm with nonspecific ST and T wave abnormalities, patient was admitted to intensive care unit for further evaluation and treatment. 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 Patient was recently admitted to [facility] and was subsequently transferred to a shelter for IV antibiotic and rehabilitation patient condition worsened and he was transferred back to emergency room. On review of system patient was alert confused in no apparent distress planing of shortness of breath otherwise he denies any complaints there was no fever or chills no headache or dizziness no chest pain no nausea or vomiting no abdominal pain no diarrhea no blood in the stools no burning with urination no frequency or urgency and no hematuria. On 09/15/2020 patient was seen and examined on the telemetry floor he is alert slightly confused in no apparent distress he had some agitation last night and pulled out his PICC line is still has 2 peripheral lines working at this time. When asked patient denies any complaints there is no fever or chills no headache or dizziness no chest pain no shortness of breath no cough no nausea or vomiting no abdominal pain no diarrhea and no urinary symptoms Objective - Vital Signs Vital signs: Vital Signs Temp 97.5 F L 09/15/20 08:03 Pulse 72 09/15/20 08:03 Resp 20 09/15/20 08:03 BP 149/76 09/15/20 08:03 Pulse Ox 92 L 09/15/20 08:03 Intake & Output 09/14/20 09/15/20 09/15/20 18:59 06:59 18:59 Intake Total 4809.603 8217 Output Total 430 575 Balance 1143.931 725 Weight 96 kg 106 kg Intake: IV 1570 1300 Cefepime 2 gm In Sodium 100 100 Chloride 0.9% 100 ml @ 25 mls/hr IVPB Q12HR ANGLE Rx #:[id number] Lactated Ringers 1,000 ml 900 1200 @ 150 mls/hr IV .Q6H40M ANGLE Rx#:[id number] Sodium Chloride 0.9% 1, 570 000 ml @ 150 mls/hr IV . Q6H40M ANGLE Rx#:[id number] Intake, IV Titration 3.931 Amount Norepinephrine 32 mg In 3.931 Sodium Chloride 0.9% 218 ml @ 0.05 MCG/KG/MIN 2. 391 mls/hr IV .Q24H ANGLE Rx#:[id number] Output: Urine 430 575 Other: Voiding Method Indwelling Catheter Indwelling Catheter Indwelling Catheter - Exam In general patient is alert confused in no apparent distress HEENT head normocephalic and atraumatic Neck is supple no JVD no goiter Chest exam reveals a few scattered crackles bilaterally no wheezing Cardiac exam reveals regular heart sounds S1 and S2 no gallops no murmurs Abdomen is soft nontender no organomegaly with normal bowel sounds Extremity exam reveals no edema no cyanosis or clubbing Skin exam reveals generalized rash on the chest abdomen and back - Labs CBC & Chem 7: 09/14/20 03:58 09/14/20 03:58 Labs: Abnormal Lab Results - Last 24 Hours (Table) 09/14/20 09/14/20 09/14/20 Range/Units 03:58 11:26 16:56 POC Glucose (mg/dL) 136 H 164 H (75-99) mg/dL Lactate Dehydrogenase 1113 H (313-618) U/L 09/14/20 09/15/20 09/15/20 Range/Units 19:52 00:14 05:50 POC Glucose (mg/dL) 152 H 160 H 144 H (75-99) mg/dL Lactate Dehydrogenase (313-618) U/L Microbiology - Last 24 Hours (Table) 09/13/20 14:41 Blood Culture - Preliminary Blood No Growth after 24 hours 09/13/20 14:30 Blood Culture - Preliminary Blood No Growth after 24 hours Assessment and Plan Plan: 1. Pneumonia, possibly related to aspiration 2. Acute hypoxic respiratory failure 3. Hypotension likely related to sepsis 4. Acute on chronic renal failure 5. Known history of infective endocarditis with enterococcus patient has a PICC line and is receiving daptomycin 6. Underlying history of stroke 7. Underlying history of hypertension 8. Underlying history of hyperlipidemia 9. Generalized rash, during the last admission a 12 thought that it could be related to ampicillin, at that time ampicillin was discontinued and daptomycin was initiated, Will consult infectious disease for follow-up 10. Severe physical debility At this time patient is admitted to intensive care unit He was started on BiPAP he was given IV fluid boluses Continue with daptomycin, cefepime was added Patient also started on IV Solu-Medrol Condition is guarded and prognosis is poor due to advanced multiple medical problems Pulmonary critical care, nephrology, and infectious disease consultation are requested Will follow closely
[2020-09-15] MEDS ORDERED: FUROSEMIDE 10 MG/ML 10 ML VIAL IV STA (10:08)
--- NOTE | 2020-09-15 10:08 | P.PN ---
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 The patient was in the hospital back in July 2020 and at that time he was diagnosed having aortic valve endocarditis, initially placed on ampicillin and he developed a diffuse maculopapular rash ultimately the patient was switched to daptomycin and he was discharged to a [facility] facility for further recuperation. His recuperation process as well as extremely weak and poor and unsuccessful. The patient remained in bed all the time. Unable to ambulate. Unable to do any significant recovery. Noted the patient also has history of subacute ischemic infarct involving the left temporal area back in June 2020. He has chronic kidney disease, hypertension and hyperlipidemia and chronic degenerative disc disease and diffuse osteoarthritis. The patient Was sent over to the emergency department to [facility] in following that he was transferred to our facility for further care. He has been having diminished level of consciousness, hypotension and respiratory insufficiency. He was given Levaquin 500 mg through his PICC line prior to his transfer. In the emergency, the patient was placed on BiPAP due to his increased work of breathing. On his blood work, the patient was noted to have an acute on top of her chronic kidney disease and his creatinine is up to 4.76 and a BUN of 72. White cell count is 14 with a hemoglobin of 9.6 and a platelet count of 363. INR is 1.5 with a PT of 15.2 and a PTT of 37.9, serum bicarb was 28, troponin was less than 0.01, proBNP level was 5260, liver function tests are within normal limits. COVID 19 testing by PCR came back negative. The chest x-ray showed diffuse bilateral infiltrates and multifocal areas of consolidation more so on the left. There was some cardiomegaly. Diffuse osteopenia. A left-sided PICC line was noted. A left-sided pleural effusion cannot be completely excluded. I saw this patient emergency. Was ordered on the BiPAP at a pressure of 12/5 cm of water with an FiO2 of 50%.. He was quite restless. He was having a diffuse maculopapular rash involving the chest back found and lower extremities. The chronicity of this rash is not known. I was told that this rash improved and subsequently recurred. He was on norepinephrine infusion running at 0.04 mcg/kg per minute. Was not given any fluids. He was afebrile. Most recent BP is 96/47. Unable to communicate with the patient because of his speech deficits post CVA. The patient has his at the bedside. I discussed with her CODE STATUS and she did not want any CPR, defibrillation, or intubation. It labeled this patient is a DNR/DNI CODE STATUS On today's evaluation of 09/14/2020, the patient continues to have some expressive aphasia. Heart communicate with the patient. His much more awake and interactive. He follows simple commands. Actually he has done much better this yesterday. Overnight, the patient was given fluid boluses received a total of 2 L of IV fluid bolus and currently is running at the rate of 80 and irre gular 150 mL an hour. I kept him on daptomycin and I added IV cefepime for the possibility of a gram-negative pneumonia. Note that the patient has infective endocarditis and the patient came in with patchy bilateral pulmonary infiltrates more so on the left consistent with either aspiration or hospital-acquired pneumonia or seeding of his lungs from enterococcal infection. In any rate, he is done well. His rash has subsided. He is on IV Solu-Medrol. He is also having A mean cream applied to the entire body. He is on oxygen currently running at 5 L of oxygen by nasal cannula. His pulse ox is around 94%. Repeat chest x-ray is stable. His afebrile. Blood cultures have been sent. Results are still pending. His white cell count is down to 9.7. Hemoglobin is at 8.9. Norepinephrine infusion has been cut down to 0.03 units per kilogram per minute. Potassium is replaced. Creatinine is at 4.45 knowing that the patient has an acute on top of chronic kidney injury. The acute component probably is improving. He has been a Covid negative case. This morning of 09/15/2020, the patient is more confused and slightly more short of breath. I was contacted earlier because of worsening shortness of breath and increased induction requirements. A stat chest x-ray was done and the patient was found to have bilateral pulmonary infiltrates with relative sparing of the right lower lobe. There is worsening as elevation of the right upper lobe. At that point, I kept on IV fluids to KVO. I give the patient does of Lasix 40 mg IV push. Is producing adequate amount of urine output. He is breathing more comfortable and he has diuresed approximately 700 mL since then. He is still on IV cefepime. He was seen by infectious disease. He has a PICC line in the left upper extremity. He is DO NOT RESUSCITATE DO NOT INTUBATE CODE STATUS. Noted the patient was in intensive care unit earlier. He is currently on a telemetry unit. He is on no pressors for now. Objective - Vital Signs Vital signs: Vital Signs Temp 97.5 F L 09/15/20 08:03 Pulse 72 09/15/20 08:03 Resp 20 09/15/20 08:03 BP 149/76 09/15/20 08:03 Pulse Ox 92 L 09/15/20 08:03 Intake & Output 09/14/20 09/15/20 09/15/20 18:59 06:59 18:59 Intake Total 8758.151 1360 Output Total 430 575 Balance 1143.931 725 Weight 96 kg 106 kg Intake: IV 1570 1300 Cefepime 2 gm In Sodium 100 100 Chloride 0.9% 100 ml @ 25 mls/hr IVPB Q12HR [facility] Rx #:[id number] Lactated Ringers 1,000 ml 900 1200 @ 150 mls/hr IV .Q6H40M [facility] Rx#:[id number] Sodium Chloride 0.9% 1, 570 000 ml @ 150 mls/hr IV . Q6H40M [facility] Rx#:[id number] Intake, IV Titration 3.931 Amount Norepinephrine 32 mg In 3.931 Sodium Chloride 0.9% 218 ml @ 0.05 MCG/KG/MIN 2. 391 mls/hr IV .Q24H [facility] Rx#:[id number] Output: Urine 430 575 Other: Voiding Method Indwelling Catheter Indwelling Catheter Indwelling Catheter - Exam GENERAL EXAM: Alert, pleasant 74-year-old gentleman, on room air, confused, unable to communicate, He has expressive aphasia. Slightly restless in bed and the patient is currently on 12 L about 2 by nasal cannula, looks slightly more short of breath. HEAD: Normocephalic. EYES: Normal reaction of pupils, equal size. NOSE: Clear with pink turbinates. THROAT: No erythema or exudates. NECK: No masses, no JVD. CHEST: No chest wall deformity. LUNGS: Equal air entry with crackles in the posterior left base. CVS: S1 and S2 normal with no audible murmur, regular rhythm. ABDOMEN: No hepatosplenomegaly, normal bowel sounds, no guarding or rigidity. SPINE: No scoliosis or deformity SKIN: Diffuse maculopapular rash involving the chest, back, abdomen and extremities, likely ALLERGIC in nature CENTRAL NERVOUS SYSTEM: Expressive aphasia. Pupils are equal and reactive to light. Positive cough and a gag. Negative for Babinski. He was noted that the right side of the body slightly weaker in terms of movement and grasp patient in the right lower extremity. He continues to have expressive aphasia. Very hard to understand words that he says. EXTREMITIES: There is no peripheral edema. No clubbing, no cyanosis. Peripheral pulses are intact. The patient is a PICC line in left upper extremity - Labs CBC & Chem 7: 09/14/20 03:58 09/14/20 03:58 Labs: Abnormal Lab Results - Last 24 Hours (Table) 09/14/20 09/14/20 09/14/20 Range/Units 03:58 11:26 16:56 POC Glucose (mg/dL) 136 H 164 H (75-99) mg/dL Lactate Dehydrogenase 1113 H (313-618) U/L 09/14/20 09/15/20 09/15/20 Range/Units 19:52 00:14 05:50 POC Glucose (mg/dL) 152 H 160 H 144 H (75-99) mg/dL Lactate Dehydrogenase (313-618) U/L Microbiology - Last 24 Hours (Table) 09/13/20 14:41 Blood Culture - Preliminary Blood No Growth after 24 hours 09/13/20 14:30 Blood Culture - Preliminary Blood No Growth after 24 hours Assessment and Plan Plan: 1. Multifocal pneumonia with secondary hypoxic respiratory failure. Consider aspiration. Consider healthcare acquired pneumonia. Possibility of enterococcal pneumonia secondary to seeding of the lungs from previous bacteremia is also possible. Also, there is possibility of an underlying interstitial edema/pulmonary edema with IV fluids as the patient's respiratory status got worse and the patient is responding to diuretics for now. Currently on 12 L about 2 by nasal cannula with a pulse ox of 96%. He is slightly bronchospastic and wheezy. My understanding is that the patient was receiving daptomycin outpatient basis. Covid19 testing came back negative by PCR. She is currently on a combination of daptomycin and IV cefepime. 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 Initial severe was in October 2015 and the patient has some residual right-sided weakness. Subsequently the patient developed another stroke in June 2020 with expressive aphasia. 8 hypertension 9 hyperlipidemia 10 diffuse osteoarthritis 11 severe debility and marked improvement in the performance and functional status. The patient is nonambulatory, debilitated, bedridden. 12 diffuse maculopapular rash, likely ALLERGIC in nature, currently on IV Solu- Medrol and calamine cream. 13 stage II sacral decub ulceration Plan The IV fluids KVO Keep oxygen at high flow at 12 L and moved to a facemask if needed Given additional dose of Lasix 40 mg IV at no time Obtain sputum Gram stain and cultures Continue IV Solu-Medrol Medihoney is stage II sacral wound and [employer] Continue daptomycin and IV cefepime ID is on the case Waiting follow-up labs from today Chest x-ray was noted from today DNR/DNI CODE STATUS
[2020-09-15] MEDS: SODIUM BICARBONATE TAB 650 MG TAB PO SCH ×2 (10:15→16:35)
[2020-09-15] MEDS: ASPIRIN 81 MG PO SCH (10:15)
--- NOTE | 2020-09-15 10:42 | P.PN ---
Subjective Progress Note Date: 09/15/20 Principal diagnosis: This is 74-year-old male seen in consultation because of acute kidney injury secondary to pneumonia and sepsis, recent bacterial endocarditis and was on IV daptomycin in a senior care. Additionally he might have had an element of volume depletion secondary to decreased intake. This morning he is worse audible wheezing is on nonrebreather mask and is to And somewhat confused. He was given Lasix 40 mg initially and put out 500 mL of urine and then the 60 mg has been given about half an hour ago. He has not improved since the diuresis. Vital signs are stable in spite of this respiratory distress. Blood pressure 149/76 heart rate 72 and temperature 97.5 at about 8:00 2 half hours before my examination He is also known with chronic kidney disease stage III with a baseline creatinine of about 1.7 on the last few years secondary to nephrosclerosis. He was admitted with pneumonia bilateral, and had recently bacteremia endocarditis with Enterococcus faecalis with aortic valve endocarditis and was on IV daptomycin. Also past history of right CVA in the past with right leg weakness. He was in a senior care facility and was brought back to the hospital. Objective - Vital Signs Vital signs: Vital Signs Temp 97.5 F L 09/15/20 08:03 Pulse 72 09/15/20 08:03 Resp 20 09/15/20 08:03 BP 149/76 09/15/20 08:03 Pulse Ox 92 L 09/15/20 08:03 Intake & Output 09/14/20 09/15/20 09/15/20 18:59 06:59 18:59 Intake Total 2059.761 9336 Output Total 430 575 500 Balance 1143.931 725 -500 Weight 96 kg 106 kg Intake: IV 1570 1300 Cefepime 2 gm In Sodium 100 100 Chloride 0.9% 100 ml @ 25 mls/hr IVPB Q12HR [facility] Rx #:[id number] Lactated Ringers 1,000 ml 900 1200 @ 150 mls/hr IV .Q6H40M [facility] Rx#:[id number] Sodium Chloride 0.9% 1, 570 000 ml @ 150 mls/hr IV . Q6H40M [facility] Rx#:[id number] Intake, IV Titration 3.931 Amount Norepinephrine 32 mg In 3.931 Sodium Chloride 0.9% 218 ml @ 0.05 MCG/KG/MIN 2. 391 mls/hr IV .Q24H [facility] Rx#:[id number] Output: Urine 430 575 500 Other: Voiding Method Indwelling Catheter Indwelling Catheter Indwelling Catheter Somnolent but arousable confused very to Audible wheezing HEENT exam no JVP neck is supple no facial asymmetry Lungs are significant for severe wheezing fair air entry bilaterally Heart sounds are difficult to hear because of the knees. Abdomen soft nontender Extremity exam was minimal edema Neurologically arousable but confused - Labs CBC & Chem 7: 09/14/20 03:58 09/14/20 03:58 Labs: Abnormal Lab Results - Last 24 Hours (Table) 09/14/20 09/14/20 09/14/20 Range/Units 03:58 11:26 16:56 POC Glucose (mg/dL) 136 H 164 H (75-99) mg/dL Lactate Dehydrogenase 1113 H (313-618) U/L 09/14/20 09/15/20 09/15/20 Range/Units 19:52 00:14 05:50 POC Glucose (mg/dL) 152 H 160 H 144 H (75-99) mg/dL Lactate Dehydrogenase (313-618) U/L Microbiology - Last 24 Hours (Table) 09/13/20 14:41 Blood Culture - Preliminary Blood No Growth after 24 hours 09/13/20 14:30 Blood Culture - Preliminary Blood No Growth after 24 hours Assessment and Plan Assessment: Impression 1. Acute kidney injury secondary to pneumonia and sepsis, secondary to bacterial endocarditis. Nonoliguric, creatinine was 4.76 on admission and is down to 4.45 yesterday but no labs today. 2. Chronic kidney disease, stage III,. There is one creatinine off 1.2 recently likely from hydration but his real baseline is 1.7 over the last few years, etiology is secondary to nephrosclerosis with a baseline creatinine of 1.7. Workup during this admission shows urine protein to creatinine ratio of 1.3 g. Urinalysis is pending 3. Admitted with bilateral pneumonia. Significant worsening with almost complete white out of both lungs on x-ray this morning 4. Recent bacterial endocarditis with Enterococcus faecalis with aortic valve endocarditis on IV daptomycin. Repeat blood cultures so far negative, drawn 09/13/2020 5. History of right CVA in the past right leg weakness 6. Since last admission last admission June 2020 discharge July 2020 to senior care and doing poorly Recommendation 1. Agree with aggressive diuresis to see if we can improve his respiratory status. Looks like he will need to be intubated soon 2. Check urinalysis to ensure there is no glomerulonephritis associated with infection, or embolic phenomena. 3. Check LDH. 4. Obtain basic metabolic panel this morning, and a CBC
[2020-09-15] MEDS ORDERED: MORPHINE SULFATE 2 MG/ML SYRINGE IVP STA (11:35)
[2020-09-15 11:53] LABS: Anisocytosis Slight; Basophils % (A) 0 %; Eosinophils % (A) 0 %; HGB 8.7 gm/dL (13.0-17.5); Hypochromasia Slight; Lymphocytes # (A) 0.6 k/uL (1.0-4.8); Lymphocytes % (A) 5 %; MCH 26.8 pg (25.0-35.0); MCHC 32.3 g/dL (31.0-37.0); MCV 82.8 fL (80.0-100.0); Mean Platelet Volume 7.1; Monocytes # (A) 0.3 k/uL (0-1.0); Monocytes % (A) 2 %; Neutrophils # (A) 11.8 k/uL (1.3-7.7); Neutrophils % (A) 92 %; Platelet Count 322 k/uL (150-450); RBC 3.26 m/uL (4.30-5.90); RDW 18.1 % (11.5-15.5); WBC 12.8 k/uL (3.8-10.6)
[2020-09-15 11:56] LABS: Glucose,Whole Blood 145 mg/dL (75-99)
[2020-09-15 12:11] LABS: Potassium 3.8 mmol/L (3.5-5.1)
[2020-09-15] MEDS: NOREPINEPHRINE 32 MG in SODIUM CHLORIDE 0.9% 218 ML IV SCH (12:24)
[2020-09-15 14:56] VITALS: BP 127/79; RESP 25; TEMP 99.5
[2020-09-15 15:22] LABS: Appearance,Urine Clear (Clear); Bacteria,Urine Rare /hpf; Bilirubin,Urine Negative (Negative); Blood,Urine Trace (Negative); Color,Urine Light Yellow; Glucose,Urine (UA) Negative (Negative); Ketones,Urine Negative (Negative); Leukocyte Esterase,Urine Small (Negative); Mucus,Urine Rare /hpf; Nitrite,Urine Negative (Negative); PH, Urine 6.5 (5.0-8.0); Protein,Urine Negative (Negative); RBC,Urine 3 /hpf (0-5); Specific Gravity,Urine 1.008 (1.001-1.035); Urobilinogen,Urine <2.0 mg/dL (<2.0); WBC,Urine 6 /hpf (0-5)
[2020-09-15] MEDS: IPRATROPIUM-ALBUTEROL 3 ML NEB INHALATION SCH ×2 (15:30→19:29)
[2020-09-15 16:53] LABS: Glucose,Whole Blood 126 mg/dL (75-99)
[2020-09-15 19:44] VITALS: PULSE 94
--- NOTE | 2020-09-15 20:09 | PN ---
PROGRESS NOTE DATE OF SERVICE: 09/15/2020 REASON FOR FOLLOWUP: Pneumonia and aortic valve endocarditis. INTERVAL HISTORY: The patient are currently afebrile. The patient remains to be hypoxic requiring non- rebreather. The patient remains to be mumbling and unable to provide any history. at the bedside and provided most of the history. No vomiting or diarrhea has been reported. PHYSICAL EXAMINATION: Blood pressure 127/79, pulse of 83, temperature 98.5. He is 91% on non-rebreather. General description is an elderly male lying in bed in no distress. Respiratory system unlabored breathing. Some crackles bilaterally. Heart S1, S2. Regular rate and rhythm. Abdomen soft, no tenderness. LABS: Hemoglobin 8.1, white count 12.2, BUN of 66, creatinine 3.55. Blood culture has been negative. DIAGNOSTIC IMPRESSION AND PLAN: 1. Patient with Enterococcus faecalis, aortic wall endocarditis, adequately treated. He has received more than 6 weeks of antibiotic therapy and currently off daptomycin. 2. Patient admitted to the hospital with shortness of breath which is multifactorial, possible combination of fluid plus minus pneumonia, covered with cefepime with overall worsening prognosis. Hospice is being considered and should be appropriate for him. at the bedside. Questions answered. MMODL / IJN: [id number] /
--- NOTE | 2020-09-20 11:04 | P.DS ---
Providers Date of admission: 09/13/20 15:08 Expected date of discharge: 09/15/20 Attending physician: Amelia Borja Consults: 09/13/20 14:58 Consult Physician Routine Consulting Provider: Johny Sandoval Consult Reason/Comments: aortic valve endocarditis Do you want consulting provider notified?: Already Contacted Consult Physician Routine Consulting Provider: Aaron Emery Consult Reason/Comments: meka/ckd Do you want consulting provider notified?: Yes 09/13/20 14:59 Consult Physician Stat Consulting Provider: Felecia Thomason Consult Reason/Comments: NIVDRF Do you want consulting provider notified?: Already Contacted Primary care physician: Sylvain Lira [facility] Course: Discharge diagnosis Patient being admitted to hospice care Terminal diagnosis multifocal pneumonia with secondary hypoxic respiratory failure 1. Pneumonia, possibly related to aspiration 2. Acute hypoxic respiratory failure 3. Hypotension likely related to sepsis 4. Acute on chronic renal failure 5. Known history of infective endocarditis with enterococcus patient has a PICC line and is receiving daptomycin 6. Underlying history of stroke 7. Underlying history of hypertension 8. Underlying history of hyperlipidemia 9. Generalized rash, during the last admission a 12 thought that it could be related to ampicillin, at that time ampicillin was discontinued and daptomycin was initiated, Will consult infectious disease for follow-up 10. Severe physical debility Hospital course Ramin Green, is a 74-year-old male who presented to [facility] emergency room with a chief complaint of worsening shortness of breath, patient was evaluated in emergency room vital examination on presentation revealed a temperature of 97.7 pulse 74 respiration 20 blood pressure 119/66 O2 sat duration was 100% on BiPAP with FiO2 of 50% his white blood count was 14.0 hemoglobin 9.6 platelet count 363 INR 1.5 arterial blood gas revealed a pH of 7.43 PCO2 43 PO2 81 sodium 132 potassium 4.1 BUN 72 creatinine 4.76 coronavirus PCR was negative. Chest x-ray on presentation revealed bilateral diffuse infiltrates and pleural effusion correlate for pneumonia EKG revealed normal sinus rhythm with nonspecific ST and T wave abnormalities, patient was admitted to intensive care unit for further evaluation and treatment. 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 Patient was recently admitted to [facility] and was subsequently transferred to a assisted for IV antibiotic and rehabilitation patient condition worsened and he was transferred back to emergency room. On review of system patient was alert confused in no apparent distress planing of shortness of breath otherwise he denies any complaints there was no fever or chills no headache or dizziness no chest pain no nausea or vomiting no abdominal pain no diarrhea no blood in the stools no burning with urination no frequency or urgency and no hematuria. On 09/15/2020 patient was seen and examined on the telemetry floor he is alert slightly confused in no apparent distress he had some agitation last night and pulled out his PICC line is still has 2 peripheral lines working at this time. When asked patient denies any complaints there is no fever or chills no headache or dizziness no chest pain no shortness of breath no cough no nausea or vomiting no abdominal pain no diarrhea and no urinary symptoms Patient admitted to hospice care per family request Patient Condition at Discharge: Serious Plan - Discharge Summary New Discharge Prescriptions: No Action carvediloL [Coreg] 6.25 mg PO BID@0900,1700 Furosemide [Lasix] 40 mg PO DAILY@0900 Acetaminophen Tab [Tylenol] 650 mg PO Q4H PRN PRN Reason: Pain Magnesium Hydroxide [Milk of Magnesia] 2,400 mg PO Q12H PRN PRN Reason: Constipation Ipratropium-Albuterol Nebulize [Duoneb 0.5 mg-3 mg/3 ml Soln] 3 ml INHALATION RT-Q4H PRN PRN Reason: Shortness Of Breath Or Wheezing Cholecalciferol [Vitamin D3 (25 Mcg = 1000 Iu)] 25 mcg PO HS@2100 bisacodyL [Bisacodyl] 10 mg RECTAL DAILY PRN PRN Reason: Constipation Atorvastatin [Lipitor] 20 mg PO HS@2100 Gabapentin [Neurontin] 300 mg PO DAILY@0900 #3 cap Omeprazole 20 mg PO DAILY@0600 Sodium Bicarbonate Tab 650 mg PO BID@0900,1700 traMADol HCL 50 mg PO TID@0600,1300,2100 Apixaban [Eliquis] 5 mg PO BID@0900,1700 Aspirin EC [Ecotrin Low Dose] 81 mg PO DAILY@0900 Docusate [Colace] 100 mg PO DAILY@0900 Levocetirizine Dihydrochloride 5 mg PO DAILY PRN PRN Reason: rash/itching Darbepoetin Roderick [Aranesp] 25 mcg SQ TU@0900 Midodrine [ProAmatine] 10 mg PO AC-TID@ Ascorbic Acid [Vitamin C] 1,000 mg PO HS@2099 guaiFENesin 400 mg PO BID@0900,1700 Calamine/Zinc Oxide Lotion [Calamine Lotion] 1 applic TOPICAL BID PRN PRN Reason: Skin Irritation/Itching Discharge Medication List carvediloL [Coreg] 6.25 mg PO BID@0900,1700 04/28/19 [History] Furosemide [Lasix] 40 mg PO DAILY@0900 09/01/19 [History] Acetaminophen Tab [Tylenol] 650 mg PO Q4H PRN 07/19/20 [History] Atorvastatin [Lipitor] 20 mg PO HS@209907/19/20 [History] Cholecalciferol [Vitamin D3 (25 Mcg = 1000 Iu)] 25 mcg PO HS@209907/19/20 [History] Ipratropium-Albuterol Nebulize [Duoneb 0.5 mg-3 mg/3 ml Soln] 3 ml INHALATION RT-Q4H PRN 07/19/20 [History] Magnesium Hydroxide [Milk of Magnesia] 2,400 mg PO Q12H PRN 07/19/20 [History] bisacodyL [Bisacodyl] 10 mg RECTAL DAILY PRN 07/19/20 [History] Gabapentin [Neurontin] 300 mg PO DAILY@0900 #3 cap 07/29/20 [Rx] Omeprazole 20 mg PO DAILY@0600 08/13/20 [History] Sodium Bicarbonate Tab 650 mg PO BID@0900,1700 08/13/20 [History] traMADol HCL 50 mg PO TID@0600,1300,209908/13/20 [History] Apixaban [Eliquis] 5 mg PO BID@0900,1700 09/13/20 [History] Ascorbic Acid [Vitamin C] 1,000 mg PO HS@209909/13/20 [History] Aspirin EC [Ecotrin Low Dose] 81 mg PO DAILY@0900 09/13/20 [History] Calamine/Zinc Oxide Lotion [Calamine Lotion] 1 applic TOPICAL BID PRN 09/13/20 [History] Darbepoetin Roderick [Aranesp] 25 mcg SQ TU@0900 09/13/20 [History] Docusate [Colace] 100 mg PO DAILY@0900 09/13/20 [History] Levocetirizine Dihydrochloride 5 mg PO DAILY PRN 09/13/20 [History] Midodrine [ProAmatine] 10 mg PO AC-TID@07,11,16 09/13/20 [History] guaiFENesin 400 mg PO BID@0900,1700 09/13/20 [History] Follow up Appointment(s)/Referral(s): Sylvain Lira MD [Primary Care Provider] - 1-2 days Discharge Disposition: - Preliminary Cause of Preliminary Cause of : Acute on chronic respiratory failure secondary to multifocal pneumonia
== END 2020-09-15 19:50 | disposition hospice, inpatient (51) | DRG 871 ==
LOC: EC 11:28 → 2SICU 15:08 → 3SCARD 09-14 16:44
PROVIDERS: ADMIT Internal Medicine; ATTEND Internal Medicine
PROC: 3E043XZ Introduction of Vasopressor into Central Vein, Percutaneous Approach (ICD-10-PCS; principal; 2020-09-13)
PROC: 5A09457 Assistance with Respiratory Ventilation, 24-96 Consecutive Hours, Continuous Positive Airway Pressure (ICD-10-PCS; 2020-09-13)
PROC: 5A0935A Assistance with Respiratory Ventilation, Less than 24 Consecutive Hours, High Flow/Velocity Cannula (ICD-10-PCS; 2020-09-15)
DX: A41.81 Sepsis due to Enterococcus (principal); I33.0 Acute and subacute infective endocarditis; J96.21 Acute and chronic respiratory failure with hypoxia; J15.6 Pneumonia due to other Gram-negative bacteria; N17.9 Acute kidney failure, unspecified; I13.0 Hypertensive heart and chronic kidney disease with heart failure and stage 1 through stage 4 chronic kidney disease, or unspecified chronic kidney disease; L89.152 Pressure ulcer of sacral region, stage 2; E86.9 Volume depletion, unspecified; I48.0 Paroxysmal atrial fibrillation; N18.30 Chronic kidney disease, stage 3 unspecified; R65.20 Severe sepsis without septic shock; I69.341 Monoplegia of lower limb following cerebral infarction affecting right dominant side; F31.9 Bipolar disorder, unspecified; Z66 Do not resuscitate; Z20.822 Contact with and (suspected) exposure to COVID-19; I69.390 Apraxia following cerebral infarction; I69.320 Aphasia following cerebral infarction; E78.5 Hyperlipidemia, unspecified; I35.8 Other nonrheumatic aortic valve disorders; M13.0 Polyarthritis, unspecified; L27.1 Localized skin eruption due to drugs and medicaments taken internally; T36.0X5A Adverse effect of penicillins, initial encounter; K21.9 Gastro-esophageal reflux disease without esophagitis; R53.81 Other malaise; M85.80 Other specified disorders of bone density and structure, unspecified site; Z79.01 Long term (current) use of anticoagulants; Z87.891 Personal history of nicotine dependence; Z79.82 Long term (current) use of aspirin; Z79.899 Other long term (current) drug therapy; Z86.79 Personal history of other diseases of the circulatory system; Z90.49 Acquired absence of other specified parts of digestive tract; Z87.19 Personal history of other diseases of the digestive system; Z96.643 Presence of artificial hip joint, bilateral; Z98.42 Cataract extraction status, left eye; Z98.41 Cataract extraction status, right eye; Z98.890 Other specified postprocedural states; Z88.0 Allergy status to penicillin; Z88.5 Allergy status to narcotic agent; Z88.2 Allergy status to sulfonamides; Z88.8 Allergy status to other drugs, medicaments and biological substances; Z83.2 Family history of diseases of the blood and blood-forming organs and certain disorders involving the immune mechanism; Z82.49 Family history of ischemic heart disease and other diseases of the circulatory system
CPT/HCPCS: 36415; 36600; 71045; 76770; 80048; 80053; 81001; 82570; 82805; 83605; 83615; 83880; 84156; 84484; 85025; 85610; 85730; 87040; 87635; 93005; 94640; 94660; 99285

== ENCOUNTER 2020-09-15 19:57 | Inpatient (IN) | payer MEDICAID ==
[2020-09-15] MEDS ORDERED: ATROPINE OPHTH SOLN 1% 5ML BTL SUBLINGUAL PRN (20:05)
[2020-09-15] MEDS ORDERED: ACETAMINOPHEN SUPPOSITORY 650 MG SUPP RECTAL PRN (20:05)
[2020-09-15] MEDS ORDERED: MORPHINE SULFATE 2 MG/ML SYRINGE IVP ONE (20:05)
[2020-09-15] MEDS ORDERED: bisacodyL 10 MG SUPP RECTAL PRN (20:07)
[2020-09-15] MEDS ORDERED: ONDANSETRON 4 MG/2 ML VIAL IVP PRN (20:08)
[2020-09-15 20:11] VITALS: BP 155/80; TEMP 97.3
[2020-09-15] MEDS ORDERED: MORPHINE SULFATE (100 MG/2 ML) 100 MG in SODIUM CHLORIDE 0.9% 100 ML IV SCH (20:15)
[2020-09-15] MEDS: LORazepam 2 MG/ML INJ IV PRN ×2 (20:38→22:42)
[2020-09-15] MEDS: MORPHINE SULFATE 2 MG/ML SYRINGE IV PRN (23:55)
[2020-09-16] MEDS: LORazepam 2 MG/ML INJ IV PRN ×3 (00:54→04:45)
[2020-09-16] MEDS: MORPHINE SULFATE 2 MG/ML SYRINGE IV PRN ×3 (01:45→04:36)
[2020-09-16 04:50] VITALS: PULSE 88; RESP 19
== END 2020-09-16 09:53 | disposition expired | DRG 951 ==
LOC: 3SCARD 19:57
PROVIDERS: ADMIT Internal Medicine; ATTEND Internal Medicine
DX: Z51.5 Encounter for palliative care (principal); J18.9 Pneumonia, unspecified organism; I35.8 Other nonrheumatic aortic valve disorders; Z20.822 Contact with and (suspected) exposure to COVID-19; Z86.73 Personal history of transient ischemic attack (TIA), and cerebral infarction without residual deficits; K21.9 Gastro-esophageal reflux disease without esophagitis; E78.5 Hyperlipidemia, unspecified; M19.90 Unspecified osteoarthritis, unspecified site; N18.30 Chronic kidney disease, stage 3 unspecified; I12.9 Hypertensive chronic kidney disease with stage 1 through stage 4 chronic kidney disease, or unspecified chronic kidney disease; I48.0 Paroxysmal atrial fibrillation